=== PATIENT | female | born 1940 | race Caucasian/White ===

== ENCOUNTER 2017-06-23 10:18 | Inpatient (IN) | payer MEDICARE, BC ==
[2017-06-23] MEDS ORDERED: Acetaminophen TAB* 325 MG PO ONE (10:49)
[2017-06-23] MEDS ORDERED: NS 0.9% 1000 ML*IV.FLUID IV ONE (10:49)
[2017-06-23] MEDS ORDERED: Clindamycin 600 MG IVPREMIX(* 600 MG/50 ML SDV IV ONE (10:49)
[2017-06-23] MEDS ORDERED: Ondansetron INJ* 2 MG/ML VIAL IV ONE (10:49)
[2017-06-23] MEDS ORDERED: HYDROmorphone* 1 MG/ML 1 ML SYR IV SLOW PU ONE (10:51)
[2017-06-23 11:16] LABS: Albumin 3.7 g/dL (3.2-5.2); BUN/Creatinine Ratio 18.6 (8-20); C Reactive Protein 76.49 mg/L (< 5.00); Calcium 9.2 mg/dL (8.6-10.3); EGFR African American 82.3 (>60); Globulin 2.7 g/dL (2-4); Potassium 3.8 mmol/L (3.5-5.0); Total Bilirubin 1.8 mg/dL (0.2-1.0); Total Protein 6.4 g/dL (6.4-8.9)
[2017-06-23 11:22] LABS: Troponin I 0.07 ng/mL (<0.04)
[2017-06-23 11:24] LABS: Hematocrit 28 % (35-47); Hemoglobin 9.5 g/dl (12.0-16.0); Mean Corpuscular HGB Conc 34 g/dl (31-36); Mean Corpuscular Hemoglobin 33 pg (27-31); Mean Corpuscular Volume 99 fL (80-97); Mean Platelet Volume 8 um3 (7.4-10.4); Red Blood Count 2.84 10^6/ul (4.0-5.4); Red Cell Distribution Width 16 % (10.5-15); White Blood Count 7.9 10^3/ul (3.5-10.8)
[2017-06-23 11:26] LABS: Comments Flag Yes
[2017-06-23 11:27] LABS: Add Diff/Slide Review? Slide Review Added
--- NOTE | 2017-06-23 11:52 | RAD ---
INDICATION: Soft tissue swelling inferior occipital region and adjacent neck. Evaluate for abscess. COMPARISON: There are no prior studies available for comparison. TECHNIQUE: Multiple real-time images of the occipital region and posterior upper neck were obtained. FINDINGS: There is soft tissue swelling present in the inferior occipital region and adjacent posterior neck. There is a small hypoechoic irregular area although no discrete fluid collection or abscess is seen. IMPRESSION: SOFT TISSUE SWELLING, NO ABSCESS IS SEEN.
[2017-06-23] MEDS ORDERED: Acetaminophen TAB* 325 MG PO PRN (12:02)
[2017-06-23] MEDS ORDERED: Aspirin Low Dose CHEW TAB* 81 MG PO ONE (12:18)
[2017-06-23] MEDS ORDERED: cefTRIAXone(*) 1 GM ADVAN ONE (12:23)
[2017-06-23] MEDS ORDERED: Albuterol 2.5 MG/3 ML NEB.SOL* (0.083%) INH PRN (12:28)
[2017-06-23] MEDS ORDERED: Vancomycin per Pharmacy* NOTE FOLLOW UP PRN (12:29)
[2017-06-23 12:35] LABS: TSH (Thyroid Stimulating Horm) 2.36 mcIU/mL (0.34-5.60)
[2017-06-23] MEDS ORDERED: cefTRIAXone VIAL(*) 1,000 MG in NS 0.9% 50 ML* 50 ML IVPB SCH (13:00)
[2017-06-23] MEDS ORDERED: Vancomycin(*) 1,250 MG in NS 0.9% 250 ML* 250 ML IVPB ONE (13:00)
[2017-06-23 13:11] LABS: Urine Bilirubin Negative (Negative); Urine Glucose Negative (Negative); Urine Nitrite Negative (Negative)
[2017-06-23] MEDS ORDERED: Heparin VIAL(*) 5000 UNITS/ML VIAL (FIVE THOUSAND) SUBCUT SCH (14:00)
[2017-06-23] MEDS: NS 0.9% 1000 ML* 1,000 ML IV SCH (14:00)
[2017-06-23 14:13] LABS: Erythrocyte Sed Rate 35 mm/Hr (0-40)
--- NOTE | 2017-06-23 14:38 | HP ---
CC: Dr. Jesus * HISTORY AND PHYSICAL: DATE OF ADMISSION: 06/23/17 PRIMARY CARE PROVIDER: Dr. Jesus. ATTENDING PHYSICIAN WHILE IN THE HOSPITAL: Dr. Sowmya Caro * (report dictated by Je Frankel NP). CHIEF COMPLAINT: Redness, erythema to the back and neck. HISTORY OF PRESENTING ILLNESS: Ms. King is a 77-year-old female patient who on Sunday this week she felt something on the back of her neck. She was scratching at the back of the neck, it was itching, she dug something out, she did not know what it was, she is unsure if it was a tick or not. She had been outside but just in her garage, she was not in the alvarado or gardening. She states she typically hangs out in her garage with her family at times, and that is what she was doing. She states that throughout the week though, the redness and pain got worse and the back of her neck started feeling hot. She was feeling nauseated and having fevers. She was continuing to have pain in the back of her neck where the erythema and swelling was. She actually went to her primary once and was started on Bactrim , but despite this, she still continued to have fevers after being on the Bactrim for 2 days. She states the erythema had increased. The daughter had been putting triple antibiotic cream on the red swollen area, and despite this, it just was not getting any better, so they decided to come in to the hospital today to be evaluated. She states that she feels nauseated. She denies any abdominal pain. Denies having any chest pain. She states that she has been feeling just weak, tired and having chills. She was evaluated here, it was noted she had elevated troponin. Because of the appearance of the cellulitis, there was concern for possible abscess, and it was felt that she would probably require IV antibiotics, because she failed operation therapy and the hospitalist service was asked to evaluate for admission. PAST MEDICAL HISTORY: Significant for: 1. CML. 2. Hyperlipidemia. 3. Gout. 4. BRANDY. 5. COPD. 6. GERD. 7. Sarcoidosis. 8. Hypertension. 9. Afib. She was cardioverted on 06/05/17. 10. History of spinal stenosis and breast cancer. PAST SURGICAL HISTORY: 1. She has had a mastectomy 2. Cardioversion. 3. Appendectomy. 4. Hysterectomy. 5. ORIF of the right lower extremity. 6. Cataracts. 7. Tracheostomy. HOME MEDICATIONS: According to the list that was obtained from the pharmacy include: 1. Oxycodone 5 mg every 8 hours as needed. 2. Bactrim 1 tablet p.o. b.i.d. 3. Aldactone 25 mg daily. 4. Spironolactone/hydrochlorothiazide half tablet p.o. daily. 5. Ditropan 15 mg p.o. daily. 6. Gleevec 400 mg daily. 7. Celexa 10 mg daily. 8. Eliquis 5 mg p.o. b.i.d. 9. Allopurinol 300 mg daily. ALLERGIES TO MEDICATIONS: Include AMOXICILLIN, CEPHALEXIN, CIPRO, CLARITHROMYCIN, AUGMENTIN, DOXYCYCLINE, LEVAQUIN, PENICILLIN, PREDNISONE, ZOLOFT , IV CONTRAST and CEFPROZIL. FAMILY HISTORY: Mother had a history of breast cancer. Father had a history of CVA. SOCIAL HISTORY: She does not smoke, occasionally drinks alcohol. She is . Surrogate decision maker is her daughter. REVIEW OF SYSTEMS: There is a documented fever, she states she has had a fever as high as 103. She denies having any significant weight change. There was no double vision. There is no ear discharge. She denied having any rhinorrhea. There was no sore throat. No thyroid enlargement. Denies having any chest pain. There was no orthopnea. There was no nocturnal dyspnea. There was no abdominal pain. There was nausea. There was some vomiting. No dysuria, no frequency. There was no seizure. There was no loss of consciousness. No pruritus and no skin ulcerations. Review of 14 systems completed, all others negative. PHYSICAL EXAMINATION GENERAL: At this time, Ms. King is a 77-year-old female patient. She is sitting in the ER stretcher. She does not appear to be in any acute distress. VITAL SIGNS: Blood pressure 110/51, pulse 72, respirations 18,O2 sat 98%, temperature 100.4. HEENT: Head is atraumatic, normocephalic. Eyes: EOM's are intact. Sclerae anicteric, not pale. Throat: Oral mucosa appears to be most. No oropharyngeal erythema. NECK: Supple. LUNGS: Clear to auscultation. No wheezes, rales or rhonchi. HEART: Sounds S1, S2. Regular rate and rhythm. No murmurs, rubs or gallops. ABDOMEN: Soft, flat, nontender. Bowel sounds present. EXTREMITIES: Pulses were 2+ throughout. She is able to move all 4 extremities with 5/5 strength. NEUROLOGIC: The patient is awake. She is alert. She is oriented x3. The tongue is midline. 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 She had no gross focal deficits. SKIN: Intact with the exception she has an occipital area of her head that is swollen, erythematic, tender to palpation, there is induration. It does extend down to the right submandibular area coming from the back. There is some adenopathy on the right side and tenderness as well. LABORATORY DATA/DIAGNOSTIC STUDIES: Labs today reveal WBC 7.9, RBC 2.84, hemoglobin 9.5, hematocrit 28, platelet count 97,000. The INR was 1.74, PTT 34.6, sodium 125, potassium 3.8, chloride 95, bicarb 25, BUN 16, creatinine 0.86 , glucose 108, lactate 1.3, calcium 9.2, total bilirubin 1.8, AST 26, ALT 11, alk phos 55. Troponin was 0.07. Albumin was 3.7. She had a soft tissue ultrasound obtained today which showed soft tissue swelling, no abscesses seen. She did have an EKG obtained today, shows a normal sinus rhythm, rate of 72. No ST elevations or T- wave inversions were noted. It was reviewed with a previous EKG. Previous EKG, she did have a right bundle branch block and that was a prior EKG from 12/29/12, which again appeared to be similar to today's EKG. Old medical records reviewed. ASSESSMENT AND PLAN: Ms. King is a 77-year-old female patient coming into the ER today with complaints of erythema, redness, fevers and swelling on the back of her neck. The hospitalist service was asked to evaluate for admission. She will be admitted under inpatient status for: 1. Cellulitis. At this point, the other concern is that she may have had a tick, this could be Lyme. She does have several allergies, she states KEFLEX and the CEFPROZIL give her nausea, so I am going to go ahead and give her Rocephin. She does have a history of family members with MRSA, so I also felt that it was appropriate to give her vancomycin as she failed Bactrim, as this could be staph. We will send blood cultures. She has been hydrated here in the ED. We will continue with the IV antibiotics. Castillo cultures have been sent, we will wait for sensitivity. We will continue to follow her clinically. 2. Elevated troponin, etiology is unclear, could be demand ischemia from the fever and sepsis. At this point, we will trend these if they do continue to elevate, with cardiology input. I am also ordering an echo, I will place her on telemetry. I am going to give her an aspirin. 3. Chronic myelogenous leukemia. Continue the Gleevec. 4. Hyperlipidemia. Continue with current medical regimen. 5. Gout. Continue medicines as prescribed. 6. Obstructive sleep apnea. I ordered CPAP for her. 7. Chronic obstructive pulmonary disease. We will order p.r.n. albuterol for her. 8. Sarcoidosis. Again, at this point, does not appear to be active. She can follow with her primary for this. 9. History of breast cancer. She is on surveillance. Follow with her primary. 10. Gastroesophageal reflux disease. Continue meds as prescribed. 11. Hypertension. I am going to hold her diuretics in the setting of this infection. 12. Atrial fibrillation. She is in sinus rhythm. Continue Eliquis. 13. Spinal stenosis, p.r.n. pain medicine has been made available. 14. Hyponatremia. It is probably secondary to her spironolactone and hydrochlorothiazide. We have given her fluids. We will repeat the BMP later tonight. We will follow this closely and sent off urine studies and serum osmolality and urine osmolality. 15. DVT prophylaxis. She is on Eliquis. 16. Code Status: She wishes to be a DNR with trial intubation. 17. Fluids, electrolytes, nutrition. She had a clear liquid diet for now and will work to the goal of a regular diet. TIME SPENT: Time spent on the admission was 60 minutes; greater than half the time was spent [id number] with the patient, obtaining my history and physical , the other half time was spent going over the plan of care with the patient and implementing the plan of care. I did discuss the plan of care with my attending, Dr. Caro; she is in agreement. JE FRANKEL NP [id number]/[facility] [place] [id number] [facility] CENTERRaymundo
--- NOTE | 2017-06-23 15:13 | ED ---
Eva Mirza Edward, scribed for Lamine Roque MD on 06/23/17 at 1031 . Complex/Multi-Sys Presentation - HPI Summary HPI Summary: 77 y/o female presents to ED c/o febrile illness (high 103) lasting one week. The fever was alleviated with Tylenol. Pt also c/o red bump on the R side of her neck that has been there for one week. The bump has been getting bigger since it first appeared. Associated sx: constant HENDERSON starting after the bump appeared, rhinorrhea, nonproductive cough, nausea, decreased appetite and chills. PMHx leukemia, AFIB and arrythmia. Pt was at [place] a few days ago and given abx which has not alleviated sx. Pt also fell in her bathroom recently. - History Of Current Complaint Chief Complaint: EDGeneral Time Seen by Provider: 06/23/17 10:29 Hx Obtained From: Patient Onset/Duration: Lasting Weeks - 1, Still Present Timing: Constant Location: Pain At: - HENDERSON Associated Signs And Symptoms: Positive: Headache, Cough - Nonproductive, Nausea , Decreased Oral Intake, Fever - and chills, Other - Red bump on R side of neck , rhinorrhea - Allergies/Home Medications Allergies/Adverse Reactions: Allergies Allergy/AdvReac Type Severity Reaction Status Date / Time Amoxicillin Allergy Unknown Verified 06/23/17 10:36 Reaction Details Cefprozil Allergy Unknown Verified 06/23/17 10:36 Reaction Details Cephalexin Allergy Unknown Verified 06/23/17 10:36 Reaction Details Ciprofloxacin [From Cipro] Allergy Unknown Verified 06/23/17 10:36 Reaction Details Clarithromycin Allergy Unknown Verified 06/23/17 10:36 Reaction Details Clavulanic Acid Allergy Unknown Verified 06/23/17 10:36 Reaction Details Doxycycline Allergy Unknown Verified 06/23/17 10:36 Reaction Details Levofloxacin [From Levaquin] Allergy Unknown Verified 06/23/17 10:36 Reaction Details Penicillins [PCN] Allergy Unknown Verified 06/23/17 10:36 Reaction Details Prednisone Allergy Unknown Verified 06/23/17 10:36 Reaction Details Sertraline [From Zoloft] Allergy Unknown Verified 06/23/17 10:36 Reaction Details IV CONTRAST Allergy Unknown Uncoded 06/23/17 10:36 Reaction Details PMH/Surg Hx/FS Hx/Imm Hx Previously Healthy: No Cardiovascular History: Reports: Hx Atrial Fibrillation, Hx Hypertension, Hx Rheumatic Fever - X2 A CHILD AND TEEN, Other Cardiovascular Problems/ Disorders - Arrythmia Denies: Hx Pacemaker/ICD Respiratory History: Reports: Hx Chronic Obstructive Pulmonary Disease (COPD), Hx Sleep Apnea, Other Respiratory Problems/Disorders - trach, sarcoidosis GI History: Denies: Other GI Disorders History: Reports: Hx Kidney Stones - IN THE PAST, Other Problems/ Disorders - "leaky bladder" Musculoskeletal History: Reports: Hx Arthritis - BACK AND LEGS, Hx Gout Sensory History: Reports: Hx Cataracts - [place], Hx Contacts or Glasses - GLASSES Denies: Hx Hearing Aid Opthamlomology History: Reports: Hx Cataracts - [place], Hx Contacts or Glasses - GLASSES Neurological History: Denies: Other Neuro Impairments/Disorders Psychiatric History: Denies: Hx Panic Disorder - Cancer History Cancer Type, Location and Year: right breast. uterine Hx Chemotherapy: Yes - 2014, [place]EM[place] Hx Radiation Therapy: No - Surgical History Surgery Procedure, Year, and Place: hysterectomy Hx Anesthesia Reactions: No Infectious Disease History: Denies: Traveled Outside the [place] in Last 30 Days - Social History Alcohol Use: None Substance Use Type: Reports: None Smoking Status (MU): Never Smoked Tobacco Have You Smoked in the Last Year: No Review of Systems Positive: Fever, Chills, Other - decreased appetite Eyes: Negative Positive: Nasal Discharge - rhinorrhea Cardiovascular: Negative Positive: Cough - Nonproductive Positive: Nausea Genitourinary: Negative Musculoskeletal: Negative Positive: Rash - Red bump on neck Positive: Headache Psychological: Normal All Other Systems Reviewed And Are Negative: Yes Physical Exam - Summary Physical Exam Summary: The patient is well-nourished in no acute distress and in no acute pain. The patient is obese. The skin is warm and dry and skin color reflects adequate perfusion. HEENT: The head is normocephalic and atraumatic. The pupils are equal and reactive. The conjunctivae are clear and without drainage. Nares are patent and without drainage. Mouth reveals dry mucous membranes and the throat is without erythema and exudate. The external ears are intact. The ear canals are patent and without drainage. The tympanic membranes are intact. Neck is supple with full range of motion and non-tender. There are no carotid bruits. There is no neck vein distension. Respiratory: Chest is non-tender. Lungs are clear to auscultation and breath sounds are symmetrical and equal. Cardiovascular: Hear is regular rate and rhythm. There is no murmur or rub auscultated. There is no peripheral edema and pulses are symmetrical and equal. Abdomen: The abdomen is soft and non-tender. There are normal bowel sounds heard in all four quadrants and there is no organomegaly palpated. Musculoskeletal: There is no back pain noted. Extremities are non-tender with full range of motion. There is good capillary refill. There is no peripheral edema or calf tenderness elicited. Neurological: Patient is alert and oriented to person, place and time. The patient has symmetrical motor strength in all four extremities. Cranial nerves are grossly intact. Deep tendon reflexes are symmetrical and equal in all four extremities. Psychiatric: The patient has an appropriate affect and does not exhibit any anxiety or depression. Skin: There is a 7x4 cm fluctuant area at the R occipital area with extending erythema down into her neck by the R ear. There is decreased skin turgor. Triage Information Reviewed: Yes Vital Signs On Initial Exam: Initial Vitals Temp Pulse Resp BP Pulse Ox 98.4 F 81 20 128/54 99 06/23/17 10:21 06/23/17 10:21 06/23/17 10:21 06/23/17 10:21 06/23/17 10:21 Vital Signs Reviewed: Yes Diagnostics - Vital Signs Vital Signs Temp Pulse Resp BP Pulse Ox 06/23/17 10:21 98.4 F 81 20 128/54 99 - Laboratory Lab Results: Lab Results 06/23/17 06/23/17 06/23/17 Range/Units 10:45 10:45 10:45 WBC 7.9 (3.5-10.8) 10^3/ul RBC 2.84 L (4.0-5.4) 10^6/ul Hgb 9.5 L (12.0-16.0) g/dl Hct 28 L (35-47) % MCV 99 H (80-97) fL MCH 33 H (27-31) pg MCHC 34 (31-36) g/dl RDW 16 H (10.5-15) % Plt Count 97 L (150-450) 10^3/ul MPV 8 (7.4-10.4) um3 Neut % (Auto) 82.8 (38-83) % Lymph % (Auto) 9.7 L (25-47) % [place] % (Auto) 7.0 (1-9) % Eos % (Auto) 0.3 (0-6) % Baso % (Auto) 0.2 (0-2) % Absolute Neuts (auto) 6.6 (1.5-7.7) 10^3/ul Absolute Lymphs (auto) 0.8 L (1.0-4.8) 10^3/ul Absolute Monos (auto) 0.6 (0-0.8) 10^3/ul Absolute Eos (auto) 0 (0-0.6) 10^3/ul Absolute Basos (auto) 0 (0-0.2) 10^3/ul Absolute Nucleated RBC 0 10^3/ul Nucleated RBC % 0 ESR 35 (0-40) mm/Hr INR (Anticoag Therapy) 1.74 H (0.89-1.11) APTT 34.6 (26.0-36.3) seconds Sodium 125 L (133-145) mmol/L Potassium 3.8 (3.5-5.0) mmol/L Chloride 95 L (101-111) mmol/L Carbon Dioxide 25 (22-32) mmol/L Anion Gap 5 (2-11) mmol/L BUN 16 (6-24) mg/dL Creatinine 0.86 (0.51-0.95) mg/dL Est GFR ( Amer) 82.3 (>60) Est GFR (Non-Af Amer) 64.0 (>60) BUN/Creatinine Ratio 18.6 (8-20) Glucose 108 H (70-100) mg/dL Lactic Acid (0.5-2.0) mmol/L Calcium 9.2 (8.6-10.3) mg/dL Total Bilirubin 1.80 H (0.2-1.0) mg/dL AST 26 (13-39) U/L ALT 11 (7-52) U/L Alkaline Phosphatase 55 (34-104) U/L Troponin I 0.07 H* (<0.04) ng/mL C-Reactive Protein 76.49 H (< 5.00) mg/L Total Protein 6.4 (6.4-8.9) g/dL Albumin 3.7 (3.2-5.2) g/dL Globulin 2.7 (2-4) g/dL Albumin/Globulin Ratio 1.4 (1-3) TSH 2.36 (0.34-5.60) mcIU/mL Cortisol 18.96 mcg/dL 06/23/17 Range/Units 10:45 WBC (3.5-10.8) 10^3/ul RBC (4.0-5.4) 10^6/ul Hgb (12.0-16.0) g/dl Hct (35-47) % MCV (80-97) fL MCH (27-31) pg MCHC (31-36) g/dl RDW (10.5-15) % Plt Count (150-450) 10^3/ul MPV (7.4-10.4) um3 Neut % (Auto) (38-83) % Lymph % (Auto) (25-47) % [place] % (Auto) (1-9) % Eos % (Auto) (0-6) % Baso % (Auto) (0-2) % Absolute Neuts (auto) (1.5-7.7) 10^3/ul Absolute Lymphs (auto) (1.0-4.8) 10^3/ul Absolute Monos (auto) (0-0.8) 10^3/ul Absolute Eos (auto) (0-0.6) 10^3/ul Absolute Basos (auto) (0-0.2) 10^3/ul Absolute Nucleated RBC 10^3/ul Nucleated RBC % ESR (0-40) mm/Hr INR (Anticoag Therapy) (0.89-1.11) APTT (26.0-36.3) seconds Sodium (133-145) mmol/L Potassium (3.5-5.0) mmol/L Chloride (101-111) mmol/L Carbon Dioxide (22-32) mmol/L Anion Gap (2-11) mmol/L BUN (6-24) mg/dL Creatinine (0.51-0.95) mg/dL Est GFR ( Amer) (>60) Est GFR (Non-Af Amer) (>60) BUN/Creatinine Ratio (8-20) Glucose (70-100) mg/dL Lactic Acid 1.3 (0.5-2.0) mmol/L Calcium (8.6-10.3) mg/dL Total Bilirubin (0.2-1.0) mg/dL AST (13-39) U/L ALT (7-52) U/L Alkaline Phosphatase (34-104) U/L Troponin I (<0.04) ng/mL C-Reactive Protein (< 5.00) mg/L Total Protein (6.4-8.9) g/dL Albumin (3.2-5.2) g/dL Globulin (2-4) g/dL Albumin/Globulin Ratio (1-3) TSH (0.34-5.60) mcIU/mL Cortisol mcg/dL Result Diagrams: 06/23/17 10:45 06/23/17 10:45 Lab Statement: Any lab studies that have been ordered have been reviewed, and results considered in the medical decision making process. - Ultrasound No standard instances Ultrasound Interpretation: No Acute Changes - SOFT TISSUE SWELLING, NO SWELLING SEEN. ED PHYSICIAN AGREEABLE Ultrasound Interpretation Completed By: Radiologist - EKG 1 ST Segment: Normal - No STEMI EKG Interpretation: EKG 11:09 - Junctional rhythm @ 72. Poor R wave progression. Normal axis Complex Multi-Symp Course/Dx Assessment/Plan: 77 y/o female presents to ED c/o febrile illness (high 103) lasting one week. The fever was alleviated with Tylenol. Pt also c/o red bump on the R side of her neck that has been there for one week. The bump has been getting bigger since it first appeared. Associated sx: constant H[place] starting after the bump appeared, rhinorrhea, nonproductive cough, nausea, decreased appetite and chills. PMHx leukemia, AFIB and arrythmia. Pt was at [place] a few days ago and given abx which has not alleviated sx. Pt also fell in her bathroom recently. Troponin - 0.07. EKG 11:09 - Junctional rhythm @ 72. Poor R wave progression. Normal axis. No STEMI. SOFT TISSUE US SHOWS SOFT TISSUE SWELLING, NO SWELLING SEEN. ED PHYSICIAN AGREEABLE. Pt will be admitted to [facility] by Dr. Piña. - Diagnoses Differential Diagnoses/HQI/PQRI: Metabolic Abnormality, Urinary Tract Infection , Other - abscess, cellulitis Provider Diagnoses: Skin infection at the neck and head, Fever, Sepsis, Elevated troponin - Physician Notifications Discussed Care Of Patient With: Sowmya Piña Time Discussed With Above Provider: 11:25 Instructed by Provider To: Admit As Inpatient - Critical Care Time Critical Care Time: 30-74 min - 30 minutes Discharge - Discharge Plan Condition: Stable Disposition: ADMITTED TO [facility] documentation as recorded by the Eva aguirre Edward accurately reflects the service I personally performed and the decisions made by me, Lamine Roque MD.
[2017-06-23 19:17] LABS: BUN/Creatinine Ratio 17.2 (8-20); Calcium 8.4 mg/dL (8.6-10.3); EGFR African American 81.2 (>60); EGFR Non-African American 63.1 (>60); Potassium 3.4 mmol/L (3.5-5.0)
[2017-06-23 19:19] LABS: Troponin I 0.09 ng/mL (<0.04)
[2017-06-23] MEDS: Apixaban* 5 MG TAB PO SCH (21:01)
[2017-06-23] MEDS: HYDROcodone/ACETAMIN 5-325 MG* 1 TAB PO PRN (22:15)
[2017-06-24] MEDS: Vancomycin(*) 1,000 MG in NS 0.9% 250 ML* 250 ML IVPB SCH ×2 (01:13→14:21)
[2017-06-24] MEDS: NS 0.9% 1000 ML* 1,000 ML IV SCH (03:02)
[2017-06-24] MEDS: Morphine INJ* 2 MG/ML 1 ML SYRINGE IV PRN ×3 (03:48→16:35)
[2017-06-24] MEDS: Apixaban* 5 MG TAB PO SCH ×2 (08:14→21:30)
[2017-06-24] MEDS: HYDROcodone/ACETAMIN 5-325 MG* 1 TAB PO PRN ×3 (08:14→21:37)
[2017-06-24] MEDS: Citalopram TAB* 10 MG PO SCH (08:14)
[2017-06-24] MEDS: Allopurinol TAB* 100 MG PO SCH (08:14)
[2017-06-24] MEDS: Oxybutynin XL TAB* 5 MG PO SCH (08:14)
[2017-06-24] MEDS: IMATINIB 400 MG PO SCH (08:21)
[2017-06-24 08:30] LABS: Hematocrit 25 % (35-47); Hemoglobin 8.6 g/dl (12.0-16.0); Mean Corpuscular HGB Conc 34 g/dl (31-36); Mean Corpuscular Hemoglobin 34 pg (27-31); Mean Corpuscular Volume 100 fL (80-97); Mean Platelet Volume 8 um3 (7.4-10.4); Red Blood Count 2.54 10^6/ul (4.0-5.4); Red Cell Distribution Width 16 % (10.5-15); White Blood Count 6.6 10^3/ul (3.5-10.8)
[2017-06-24 08:31] LABS: Comments Flag Yes
[2017-06-24 08:42] LABS: BUN/Creatinine Ratio 15.9 (8-20); Calcium 8.5 mg/dL (8.6-10.3); EGFR African American 86.9 (>60); EGFR Non-African American 67.6 (>60); Potassium 3.9 mmol/L (3.5-5.0)
--- NOTE | 2017-06-24 12:30 | PN ---
Subjective Date of Service: 06/24/17 Interval History: Afebrile overnight, pain is improved. She slept poorly, but says the morphine relieved her pain. No diaphoresis, chills, nausea, vomiting, diarrhea. No other rashes, no headache. Her daughter is at bedside. Family History: Unchanged from Admission Social History: Unchanged from Admission Past Medical History: Unchanged from Admission Objective Active Medications: Acetaminophen (Tylenol Tab*) 650 mg PO Q4H PRN PRN Reason: FEVER/PAIN Last Admin: 06/23/17 14:25 Dose: 650 mg Hydrocodone Bitart/Acetaminophen ([place] 5-325 Tab*) 1 tab PO Q6H PRN PRN Reason: PAIN Last Admin: 06/24/17 08:14 Dose: 1 tab Albuterol (Ventolin 2.5 Mg/3 Ml Neb.Geno*) 2.5 mg INH Q2H PRN PRN Reason: SOB/WHEEZING Allopurinol (Zyloprim Tab*) 300 mg PO QAM REPLACED BY [facility] Last Admin: 06/24/17 08:14 Dose: 300 mg Apixaban (Eliquis*) 5 mg PO BID REPLACED BY [facility] Last Admin: 06/24/17 08:14 Dose: 5 mg Citalopram Hydrobromide (Celexa Tab*) 10 mg PO DAILY REPLACED BY [facility] Last Admin: 06/24/17 08:14 Dose: 10 mg Sodium Chloride (Ns 0.9% 1000 Ml*) 1,000 mls @ 100 mls/hr IV PER RATE REPLACED BY [facility] Last Admin: 06/24/17 03:02 Dose: 100 mls/hr Ceftriaxone Sodium 1,000 mg/ (Sodium Chloride) 50 mls @ 200 mls/hr IVPB Q24H REPLACED BY [facility] Last Admin: 06/23/17 14:16 Dose: 200 mls/hr Vancomycin HCl 1,000 mg/ (Sodium Chloride) 250 mls @ 166.667 mls/hr IVPB Q12H REPLACED BY [facility] Last Admin: 06/24/17 01:13 Dose: 166.667 mls/hr Imatinib Mesylate (Gleevec (Nf)) 400 mg PO DAILY REPLACED BY [facility] Last Admin: 06/24/17 08:21 Dose: Not Given Morphine Sulfate (Morphine Inj (Syringe)*) 2 mg IV Q2H PRN PRN Reason: PAIN Last Admin: 06/24/17 06:04 Dose: 2 mg Ondansetron HCl (Zofran Inj*) 4 mg IV Q6H PRN PRN Reason: NAUSEA Oxybutynin Chloride (Ditropan Xl Tab*) 15 mg PO DAILY [facility]EN[facility] Last Admin: 06/24/17 08:14 Dose: 15 mg Pharmacy Consult (Vancomycin Per Pharmacy*) 1 note FOLLOW UP . PRN PRN Reason: PER PROTOCOL Pharmacy Profile Note (Vancomycin Trough Check) 1 note FOLLOW UP 1330 ONE Stop: 06/25/17 13:31 Vital Signs 06/23/17 06/23/17 06/23/17 13:05 16:43 20:00 Temperature 98.1 F 98.1 F Pulse Rate 76 70 Respiratory 19 16 22 Rate Blood Pressure 117/49 106/50 (mmHg) O2 Sat by Pulse 96 95 Oximetry 06/23/17 06/23/17 06/23/17 20:51 21:55 22:15 Temperature 98.1 F Pulse Rate 74 Respiratory 16 22 Rate Blood Pressure 107/48 (mmHg) O2 Sat by Pulse 96 97 Oximetry 06/24/17 06/24/17 06/24/17 00:15 00:17 03:25 Temperature 98.7 F 98.2 F Pulse Rate 77 101 Respiratory 20 20 20 Rate Blood Pressure 105/49 108/45 (mmHg) O2 Sat by Pulse 100 98 Oximetry 06/24/17 06/24/17 06/24/17 03:48 04:48 06:04 Temperature Pulse Rate Respiratory 24 22 22 Rate Blood Pressure (mmHg) O2 Sat by Pulse Oximetry 06/24/17 06/24/17 06/24/17 08:00 08:03 08:14 Temperature 98.7 F Pulse Rate 78 Respiratory 20 18 20 Rate Blood Pressure 115/48 (mmHg) O2 Sat by Pulse 94 94 Oximetry 06/24/17 06/24/17 06/24/17 09:06 09:08 10:14 Temperature Pulse Rate 78 Respiratory 19 18 Rate Blood Pressure (mmHg) O2 Sat by Pulse 98 94 Oximetry Oxygen Devices in Use Now: None Appearance: alert, well-appearing, pale Eyes: No Scleral Icterus, PERRLA Ears/Nose/Mouth/Throat: NL Teeth, Lips, Gums, Clear Oropharnyx Neck: - - dark red blanching patch posterior neck at hair line, 4 inches wide by 2 inches tall. 1 inch area of fluctuance on the right edge. no induration. Respiratory: Symmetrical Chest Expansion and Respiratory Effort, Clear to Auscultation Cardiovascular: NL Sounds; No Murmurs; No JVD, RRR Abdominal: NL Sounds; No Tenderness; No Distention, No Hepatosplenomegaly Lymphatic: - - + right post cervical adenopathy Skin: - - cellulitis as described on neck; excoriations on left side of back, large dark ecchymosis on left buttock Neurological: Alert and Oriented x 3 Result Diagrams: 06/24/17 08:15 06/24/17 08:15 Additional Lab and Data: Lab Results 06/23/17 06/23/17 06/23/17 Range/Units 10:45 10:45 10:45 WBC 7.9 (3.5-10.8) 10^3/ul RBC 2.84 L (4.0-5.4) 10^6/ul Hgb 9.5 L (12.0-16.0) g/dl Hct 28 L (35-47) % MCV 99 H (80-97) fL MCH 33 H (27-31) pg MCHC 34 (31-36) g/dl RDW 16 H (10.5-15) % Plt Count 97 L (150-450) 10^3/ul MPV 8 (7.4-10.4) um3 Neut % (Auto) 82.8 (38-83) % Lymph % (Auto) 9.7 L (25-47) % [place] % (Auto) 7.0 (1-9) % Eos % (Auto) 0.3 (0-6) % Baso % (Auto) 0.2 (0-2) % Absolute Neuts (auto) 6.6 (1.5-7.7) 10^3/ul Absolute Lymphs (auto) 0.8 L (1.0-4.8) 10^3/ul Absolute Monos (auto) 0.6 (0-0.8) 10^3/ul Absolute Eos (auto) 0 (0-0.6) 10^3/ul Absolute Basos (auto) 0 (0-0.2) 10^3/ul Absolute Nucleated RBC 0 10^3/ul Nucleated RBC % 0 ESR 35 (0-40) mm/Hr INR (Anticoag Therapy) 1.74 H (0.89-1.11) APTT 34.6 (26.0-36.3) seconds Sodium 125 L (133-145) mmol/L Potassium 3.8 (3.5-5.0) mmol/L Chloride 95 L (101-111) mmol/L Carbon Dioxide 25 (22-32) mmol/L Anion Gap 5 (2-11) mmol/L BUN 16 (6-24) mg/dL Creatinine 0.86 (0.51-0.95) mg/dL Est GFR ( Amer) 82.3 (>60) Est GFR (Non-Af Amer) 64.0 (>60) BUN/Creatinine Ratio 18.6 (8-20) Glucose 108 H (70-100) mg/dL Lactic Acid (0.5-2.0) mmol/L Calcium 9.2 (8.6-10.3) mg/dL Total Bilirubin 1.80 H (0.2-1.0) mg/dL AST 26 (13-39) U/L ALT 11 (7-52) U/L Alkaline Phosphatase 55 (34-104) U/L Troponin I 0.07 H* (<0.04) ng/mL C-Reactive Protein 76.49 H (< 5.00) mg/L Total Protein 6.4 (6.4-8.9) g/dL Albumin 3.7 (3.2-5.2) g/dL Globulin 2.7 (2-4) g/dL Albumin/Globulin Ratio 1.4 (1-3) TSH 2.36 (0.34-5.60) mcIU/mL Cortisol 18.96 mcg/dL 06/23/17 Range/Units 10:45 WBC (3.5-10.8) 10^3/ul RBC (4.0-5.4) 10^6/ul Hgb (12.0-16.0) g/dl Hct (35-47) % MCV (80-97) fL MCH (27-31) pg MCHC (31-36) g/dl RDW (10.5-15) % Plt Count (150-450) 10^3/ul MPV (7.4-10.4) um3 Neut % (Auto) (38-83) % Lymph % (Auto) (25-47) % [place] % (Auto) (1-9) % Eos % (Auto) (0-6) % Baso % (Auto) (0-2) % Absolute Neuts (auto) (1.5-7.7) 10^3/ul Absolute Lymphs (auto) (1.0-4.8) 10^3/ul Absolute Monos (auto) (0-0.8) 10^3/ul Absolute Eos (auto) (0-0.6) 10^3/ul Absolute Basos (auto) (0-0.2) 10^3/ul Absolute Nucleated RBC 10^3/ul Nucleated RBC % ESR (0-40) mm/Hr INR (Anticoag Therapy) (0.89-1.11) APTT (26.0-36.3) seconds Sodium (133-145) mmol/L Potassium (3.5-5.0) mmol/L Chloride (101-111) mmol/L Carbon Dioxide (22-32) mmol/L Anion Gap (2-11) mmol/L BUN (6-24) mg/dL Creatinine (0.51-0.95) mg/dL Est GFR ( Amer) (>60) Est GFR (Non-Af Amer) (>60) BUN/Creatinine Ratio (8-20) Glucose (70-100) mg/dL Lactic Acid 1.3 (0.5-2.0) mmol/L Calcium (8.6-10.3) mg/dL Total Bilirubin (0.2-1.0) mg/dL AST (13-39) U/L ALT (7-52) U/L Alkaline Phosphatase (34-104) U/L Troponin I (<0.04) ng/mL C-Reactive Protein (< 5.00) mg/L Total Protein (6.4-8.9) g/dL Albumin (3.2-5.2) g/dL Globulin (2-4) g/dL Albumin/Globulin Ratio (1-3) TSH (0.34-5.60) mcIU/mL Cortisol mcg/dL Microbiology and Other Data: Microbiology 06/23/17 15:35 Nasal Screen MRSA (PCR)(MIK) - Final Nasal Mrsa Negative Assess/Plan/Problems-Billing Assessment: 1. Cellulitis, failed outpatient therapy. No sepsis; however she may not mount a usual inflammatory response on Gleevac. She does have bandemia on the differential. She should be considered somewhat immunocompromised being on gleevac and having CML, however she is not diabetic. Therefore I have low suspicion for gram negative cellulitis, so I will discontinue ceftriaxone and continue vancomycin only. PO antibiotic selection may be challenging given her drug allergies, but we may be able to use doxycycline. 2. CML/Immunocompromised status. Hgb and platelets are below baseline. This may be related to infection. Will continue to monitor. Continue Gleevac. 3. Elevated troponin. It is unclear to me why this was checked. Ms. King has had no chest pain, shortness of breath, palpitations, or other anginal equivalent in the past week. Her EKG had no ischemic changes. Likely demand in setting of infection. She has a stress test scheduled for 07/19; she should keep this appointment. 4. Afib s/p successful cardioversion 06/05 continue eliquis 5. Hyponatremia. she takes hctz at home, which is most likely the cause of her hyponatremia. She appears mildly hypovolemic on exam; continue NS.
[2017-06-24] MEDS: Ondansetron INJ* 2 MG/ML VIAL IV PRN (14:37)
[2017-06-25] MEDS: Morphine INJ* 2 MG/ML 1 ML SYRINGE IV PRN ×6 (00:12→22:00)
[2017-06-25] MEDS: Vancomycin(*) 1,000 MG in NS 0.9% 250 ML* 250 ML IVPB SCH ×2 (02:25→13:58)
[2017-06-25 04:48] LABS: EGFR African American 82.3 (>60)
[2017-06-25] MEDS: Citalopram TAB* 10 MG PO SCH (08:59)
[2017-06-25] MEDS: IMATINIB 400 MG PO SCH (08:59)
[2017-06-25] MEDS: Oxybutynin XL TAB* 5 MG PO SCH (08:59)
[2017-06-25] MEDS: Allopurinol TAB* 100 MG PO SCH (09:00)
[2017-06-25] MEDS: Apixaban* 5 MG TAB PO SCH ×2 (09:00→21:11)
--- NOTE | 2017-06-25 10:42 | ECHO ---
Patient: MARK FERRARA [facility] Rec#: [id number] : 1940 Date: 06/25/2017 Age: 77y Height: 152.4 cm / 60.0 in Weight: 73.94 kg / 163.0 lbs Sex: F BSA: 1.71 Room#: 431 Admit Date#: 06/23/2017 Type: Inpatient Referring: Je Frankel NP Reading: Constantino Duran MD English Division Chair: Ellyn Tompkins RDCS CC: Tadeo Jesus MD Transthoracic Echocardiogram Indication: HTN, elevated troponins. BP: 108/45 HR: 64 Rhythm: NSR Findings History: HLD, gout, BRANDY, COPD, Sarcoidosis, HTN, A-fib s/p cardioversion 06/05/17. Technical Comments: The study quality is fair. The study is technically limited due to patient body habitus. The study was technically limited due to the patient's inability to lay in the left lateral decubitus position. Patient was in a reclined chair during the study. Completed at 1000. Left Ventricle: The left ventricular chamber size is normal. Mild to moderate concentric left ventricular hypertrophy is observed. Global left ventricular wall motion and contractility are within normal limits. There is normal left ventricular systolic function. The estimated ejection fraction is 55-60%. There is septal flattening of the interventricular septum consistent with right ventricular volume or pressure overload. Abnormal left ventricular diastolic function is observed. Left Atrium: The left atrium is mildly dilated. Right Ventricle: The right ventricle is mild to moderately dilated. The right ventricular global systolic function is low normal. Right Atrium: The right atrium is moderately dilated. Aortic Valve: The aortic valve is trileaflet. Mild aortic leaflet calcification is visualized. Systolic excursion of the aortic valve cusps is reduced. There is moderate aortic regurgitation. There is borderline aortic stenosis present. Mitral Valve: There is mitral annular calcification. The mitral valve leaflets are moderately thickened. There is mild mitral regurgitation. There is no evidence of mitral stenosis. Tricuspid Valve: The tricuspid valve leaflets are normal. There is mild tricuspid regurgitation. The right ventricular systolic pressure is estimated at 36 mmHg. There is evidence of mild pulmonary hypertension. There is no tricuspid stenosis. Pulmonic Valve: The pulmonic valve appears normal. There is mild to moderate pulmonic regurgitation. There is no pulmonic stenosis. Pericardium: There is no significant pericardial effusion. A pericardial fat pad is visualized. Aorta: There is mild dilatation of the ascending aorta.3.7 cm There is no dilatation of the aortic arch. The aortic root is normal in size. Pulmonary Artery: The main pulmonary artery appears normal. Venous: The inferior vena cava is dilated. There is an approximate 50% respiratory change in the inferior vena cava dimension. Conclusions Mild to moderate concentric left ventricular hypertrophy is observed. Global left ventricular wall motion and contractility are within normal limits. The estimated ejection fraction is 55-60%. There is septal flattening of the interventricular septum consistent with right ventricular volume or pressure overload. The right ventricular global systolic function is low normal. There is moderate aortic regurgitation. There is mild mitral regurgitation. There is mild tricuspid regurgitation. The right ventricular systolic pressure is estimated at 36 mmHg. There is no significant pericardial effusion. Compared to study of 03/26/15, the LV function is the same. The aortic regurgitaiton is slightly worse Measurements Name Value Normal Range RVIDd (AP) 2D 4.4 cm (0.9 - 2.6) RVDdMajor (2D) 5.2 cm (2.2 - 4.4) RAd ISD 4CH 6 cm (3.4 - 4.9) RA (A4C)W 4.8 cm (2.9 - 4.6) IVSd (2D) 1.3 cm (0.6 - 1) LVPWd (2D) 1.2 cm (0.6 - 1) LVIDd (2D) 3.9 cm (3.6 - 5.4) LVIDs (2D) 2.3 cm - LV FS (2D) 39 % (25 - 45) Aortic Annulus 2.3 cm (1.4 - 2.6) Ao root diameter (2D) 3.5 cm (2.1 - 3.5) Ascending Ao 3.7 cm (2.1 - 3.4) Aortic arch 2.3 cm (1.8 - 3.4) LA dimension (AP) 2D 3.8 cm (2.3 - 3.8) LAd ISD 4CH 6.6 cm (2.9 - 5.3) LA ISD 4CH W 4.8 cm (2.5 - 4.5) Name Value Normal Range LA ESV SP 4CH (A/L) 82 ml - LA ESV SP 2CH (A/L) 75 ml - LA ESV BP (A/L) 81 ml - LA ESV BP (A/L) index 47.16 ml/m2 - LA ESV SP 4CH (MOD) 78 ml - LA ESV SP 2CH (MOD) 68 ml - Name Value Normal Range MV E-wave Vmax 1.54 m/sec - MV deceleration time 219.9 msec - MV A-wave Vmax 0.67 m/sec - MV E:A ratio 2.32 ratio - LV septal e' Vmax 0.07 m/sec - LV lateral e' Vmax 0.09 m/sec - LV E:e' septal ratio 22 ratio - LV E:e' lateral ratio 17.11 ratio - Name Value Normal Range AV Vmax 2.09 m/sec - AV VTI 35.7 cm - AV peak gradient 17.44 mmHg - AV mean gradient 7.8 mmHg - LVOT diameter 2 cm - LVOT Vmax 1.19 m/sec - LVOT VTI 22.2 cm - LVOT peak gradient 5.74 mmHg - LVOT mean gradient 3.19 mmHg - DOI (VTI) 0.62 ratio - PHILIP (continuity Vmax) 1.8 cm2 - PHILIP (continuity VTI) 1.95 cm2 - AR PHT 447 msec - AR peak gradient 54.37 mmHg - Name Value Normal Range MV Vmax 1.57 m/sec - MV VTI 47.54 cm - MV peak gradient 9.88 mmHg - MV mean gradient 3.2 mmHg - MV PHT 87.76 msec - MVA (PHT) 2.5 cm2 - Name Value Normal Range TR Vmax 2.3 m/sec - TR peak gradient 21 mmHg - RAP 15 mmHg - RVSP 36 mmHg - IVC diameter 2.5 cm - Name Value Normal Range PV Vmax 1.17 m/sec - PV peak gradient 5.51 mmHg - AK end-diastolic Vmax 1.36 m/sec -
[2017-06-25] MEDS: Docusate CAP* 100 MG PO PRN (12:48)
[2017-06-25] MEDS: HYDROcodone/ACETAMIN 5-325 MG* 1 TAB PO PRN (12:49)
--- NOTE | 2017-06-25 13:04 | PN ---
Subjective Date of Service: 06/25/17 Interval History: Ms. King still complains of pain in the neck over the cellulitis. No fevers or chills, no diaphoresis. She has been taking morphine as needed. No drainage from the site, no chest pain, shortness of breath, nausea, headache, blurry vision. Family History: Unchanged from Admission Social History: Unchanged from Admission Past Medical History: Unchanged from Admission Objective Active Medications: Acetaminophen (Tylenol Tab*) 650 mg PO Q4H PRN PRN Reason: FEVER/PAIN Last Admin: 06/23/17 14:25 Dose: 650 mg Hydrocodone Bitart/Acetaminophen ([place] 5-325 Tab*) 1 tab PO Q6H PRN PRN Reason: PAIN Last Admin: 06/25/17 12:49 Dose: 1 tab Albuterol (Ventolin 2.5 Mg/3 Ml Neb.Geno*) 2.5 mg INH Q2H PRN PRN Reason: SOB/WHEEZING Allopurinol (Zyloprim Tab*) 300 mg PO QAM [facility] Last Admin: 06/25/17 09:00 Dose: 300 mg Apixaban (Eliquis*) 5 mg PO BID [facility] Last Admin: 06/25/17 09:00 Dose: 5 mg Citalopram Hydrobromide (Celexa Tab*) 10 mg PO DAILY [facility] Last Admin: 06/25/17 08:59 Dose: 10 mg Docusate Sodium (Colace Cap*) 100 mg PO DAILY PRN PRN Reason: CONSTIPATION Last Admin: 06/25/17 12:48 Dose: 100 mg Sodium Chloride (Ns 0.9% 1000 Ml*) 1,000 mls @ 100 mls/hr IV PER RATE [facility] Last Admin: 06/24/17 03:02 Dose: 100 mls/hr Vancomycin HCl 1,000 mg/ (Sodium Chloride) 250 mls @ 166.667 mls/hr IVPB Q12H [facility] Last Admin: 06/25/17 02:25 Dose: 166.667 mls/hr Imatinib Mesylate (Gleevec (Nf)) 400 mg PO DAILY [facility] Last Admin: 06/25/17 08:59 Dose: 400 mg Morphine Sulfate (Morphine Inj (Syringe)*) 2 mg IV Q2H PRN PRN Reason: PAIN Last Admin: 06/25/17 06:21 Dose: 2 mg Ondansetron HCl (Zofran Inj*) 4 mg IV Q6H PRN PRN Reason: NAUSEA Last Admin: 06/24/17 14:37 Dose: 4 mg Oxybutynin Chloride (Ditropan Xl Tab*) 15 mg PO DAILY BRENDA Last Admin: 06/25/17 08:59 Dose: 15 mg Pharmacy Consult (Vancomycin Per Pharmacy*) 1 note FOLLOW UP . PRN PRN Reason: PER PROTOCOL Pharmacy Profile Note (Vancomycin Trough Check) 1 note FOLLOW UP 1330 ONE Stop: 06/25/17 13:31 Polyethylene Glycol/Electrolytes (Miralax*) 17 gm PO DAILY PRN PRN Reason: CONSTIPATION Vital Signs 06/24/17 06/24/17 06/24/17 14:28 15:17 16:28 Temperature 99.3 F Pulse Rate 80 Respiratory 20 20 20 Rate Blood Pressure 120/48 (mmHg) O2 Sat by Pulse 97 Oximetry 06/24/17 06/24/17 06/24/17 16:35 17:35 19:11 Temperature 99.9 F Pulse Rate 108 Respiratory 20 18 22 Rate Blood Pressure 106/34 (mmHg) O2 Sat by Pulse 92 Oximetry 06/24/17 06/24/17 06/24/17 19:33 19:35 19:37 Temperature Pulse Rate 76 77 92 Respiratory Rate Blood Pressure 106/49 112/45 111/52 (mmHg) O2 Sat by Pulse Oximetry 06/24/17 06/24/17 06/24/17 20:00 21:30 21:37 Temperature 99.1 F Pulse Rate Respiratory 22 22 Rate Blood Pressure (mmHg) O2 Sat by Pulse 92 Oximetry 06/24/17 06/24/17 06/25/17 23:37 23:51 00:12 Temperature 99.0 F Pulse Rate 88 Respiratory 22 16 20 Rate Blood Pressure 106/47 (mmHg) O2 Sat by Pulse 98 Oximetry 06/25/17 06/25/17 06/25/17 00:36 01:12 03:36 Temperature 98.7 F Pulse Rate 75 72 Respiratory 20 22 16 Rate Blood Pressure 122/55 (mmHg) O2 Sat by Pulse 95 99 Oximetry 06/25/17 06/25/17 06/25/17 03:54 04:54 06:21 Temperature Pulse Rate Respiratory 22 20 22 Rate Blood Pressure (mmHg) O2 Sat by Pulse Oximetry 09/02/0506/25/17 06/25/17 07:20 07:21 08:00 Temperature 100.3 F Pulse Rate 61 Respiratory 18 16 18 Rate Blood Pressure 101/45 (mmHg) O2 Sat by Pulse 92 92 Oximetry 06/25/17 12:49 Temperature Pulse Rate Respiratory 16 Rate Blood Pressure (mmHg) O2 Sat by Pulse Oximetry Oxygen Devices in Use Now: None Appearance: alert, sitting up in chair, pale Eyes: No Scleral Icterus, PERRLA Ears/Nose/Mouth/Throat: NL Teeth, Lips, Gums, Clear Oropharnyx Neck: NL Appearance and Movements; NL JVP, Trachea Midline Respiratory: Symmetrical Chest Expansion and Respiratory Effort, Clear to Auscultation Cardiovascular: NL Sounds; No Murmurs; No JVD, RRR Abdominal: NL Sounds; No Tenderness; No Distention, No Hepatosplenomegaly Lymphatic: - - + posterior cervical adenopathy Extremities: No Edema Skin: - - 4 inch wide erythema posterior neck at hairline, indurated, with a 1 inch area of fluctuance on the right side Neurological: Alert and Oriented x 3 Result Diagrams: 06/24/17 08:15 06/25/17 04:25 Additional Lab and Data: Lab Results 06/23/17 06/23/17 06/23/17 Range/Units 10:45 10:45 10:45 WBC 7.9 (3.5-10.8) 10^3/ul RBC 2.84 L (4.0-5.4) 10^6/ul Hgb 9.5 L (12.0-16.0) g/dl Hct 28 L (35-47) % MCV 99 H (80-97) fL MCH 33 H (27-31) pg MCHC 34 (31-36) g/dl RDW 16 H (10.5-15) % Plt Count 97 L (150-450) 10^3/ul MPV 8 (7.4-10.4) um3 Neut % (Auto) 82.8 (38-83) % Lymph % (Auto) 9.7 L (25-47) % [place] % (Auto) 7.0 (1-9) % Eos % (Auto) 0.3 (0-6) % Baso % (Auto) 0.2 (0-2) % Absolute Neuts (auto) 6.6 (1.5-7.7) 10^3/ul Absolute Lymphs (auto) 0.8 L (1.0-4.8) 10^3/ul Absolute Monos (auto) 0.6 (0-0.8) 10^3/ul Absolute Eos (auto) 0 (0-0.6) 10^3/ul Absolute Basos (auto) 0 (0-0.2) 10^3/ul Absolute Nucleated RBC 0 10^3/ul Nucleated RBC % 0 ESR 35 (0-40) mm/Hr INR (Anticoag Therapy) 1.74 H (0.89-1.11) APTT 34.6 (26.0-36.3) seconds Sodium 125 L (133-145) mmol/L Potassium 3.8 (3.5-5.0) mmol/L Chloride 95 L (101-111) mmol/L Carbon Dioxide 25 (22-32) mmol/L Anion Gap 5 (2-11) mmol/L BUN 16 (6-24) mg/dL Creatinine 0.86 (0.51-0.95) mg/dL Est GFR ( Amer) 82.3 (>60) Est GFR (Non-Af Amer) 64.0 (>60) BUN/Creatinine Ratio 18.6 (8-20) Glucose 108 H (70-100) mg/dL Lactic Acid (0.5-2.0) mmol/L Calcium 9.2 (8.6-10.3) mg/dL Total Bilirubin 1.80 H (0.2-1.0) mg/dL AST 26 (13-39) U/L ALT 11 (7-52) U/L Alkaline Phosphatase 55 (34-104) U/L Troponin I 0.07 H* (<0.04) ng/mL C-Reactive Protein 76.49 H (< 5.00) mg/L Total Protein 6.4 (6.4-8.9) g/dL Albumin 3.7 (3.2-5.2) g/dL Globulin 2.7 (2-4) g/dL Albumin/Globulin Ratio 1.4 (1-3) TSH 2.36 (0.34-5.60) mcIU/mL Cortisol 18.96 mcg/dL 06/23/17 Range/Units 10:45 WBC (3.5-10.8) 10^3/ul RBC (4.0-5.4) 10^6/ul Hgb (12.0-16.0) g/dl Hct (35-47) % MCV (80-97) fL MCH (27-31) pg MCHC (31-36) g/dl RDW (10.5-15) % Plt Count (150-450) 10^3/ul MPV (7.4-10.4) um3 Neut % (Auto) (38-83) % Lymph % (Auto) (25-47) % [place] % (Auto) (1-9) % Eos % (Auto) (0-6) % Baso % (Auto) (0-2) % Absolute Neuts (auto) (1.5-7.7) 10^3/ul Absolute Lymphs (auto) (1.0-4.8) 10^3/ul Absolute Monos (auto) (0-0.8) 10^3/ul Absolute Eos (auto) (0-0.6) 10^3/ul Absolute Basos (auto) (0-0.2) 10^3/ul Absolute Nucleated RBC 10^3/ul Nucleated RBC % ESR (0-40) mm/Hr INR (Anticoag Therapy) (0.89-1.11) APTT (26.0-36.3) seconds Sodium (133-145) mmol/L Potassium (3.5-5.0) mmol/L Chloride (101-111) mmol/L Carbon Dioxide (22-32) mmol/L Anion Gap (2-11) mmol/L BUN (6-24) mg/dL Creatinine (0.51-0.95) mg/dL Est GFR ( Amer) (>60) Est GFR (Non-Af Amer) (>60) BUN/Creatinine Ratio (8-20) Glucose (70-100) mg/dL Lactic Acid 1.3 (0.5-2.0) mmol/L Calcium (8.6-10.3) mg/dL Total Bilirubin (0.2-1.0) mg/dL AST (13-39) U/L ALT (7-52) U/L Alkaline Phosphatase (34-104) U/L Troponin I (<0.04) ng/mL C-Reactive Protein (< 5.00) mg/L Total Protein (6.4-8.9) g/dL Albumin (3.2-5.2) g/dL Globulin (2-4) g/dL Albumin/Globulin Ratio (1-3) TSH (0.34-5.60) mcIU/mL Cortisol mcg/dL Microbiology and Other Data: Microbiology 06/23/17 15:35 Nasal Screen MRSA (PCR)(MIK) - Final Nasal Mrsa Negative Assess/Plan/Problems-Billing Assessment: 1. Cellulitis, failed outpatient therapy. No sepsis; however she may not mount a usual inflammatory response on Gleevac. She does have bandemia on the differential. She should be considered somewhat immunocompromised being on gleevac and having CML, however she is not diabetic. Check vanc trough today to ensure we are at therapeutic levels; no improvement thus far. On intiail US there was no abscess to be drained, however there does appear to be a pocket of pus on my exam, so I am repeating an ultrasound to re-evaluate for a drainable collection. PO antibiotic selection may be challenging given her drug allergies, but we may be able to use doxycycline or clindamycin. 2. CML/Immunocompromised status. Hgb and platelets are below baseline. This may be related to infection. Will continue to monitor. Continue Gleevac. 3. Elevated troponin. It is unclear to me why this was checked. Ms. King has had no chest pain, shortness of breath, palpitations, or other anginal equivalent in the past week. Her EKG had no ischemic changes. Likely demand in setting of infection. She has a stress test scheduled for 07/19; she should keep this appointment. 4. Afib s/p successful cardioversion 06/05 continue eliquis 5. Hyponatremia. she takes hctz at home, which is most likely the cause of her hyponatremia. She appears mildly hypovolemic on exam; continue NS.
[2017-06-25] MEDS ORDERED: Vancomycin Trough Check NOTE FOLLOW UP ONE (13:30)
[2017-06-25] MEDS ORDERED: Calcium Carbonate CHEW TAB* 500 MG (TUMS) PO PRN (17:25)
--- NOTE | 2017-06-25 17:48 | RAD ---
Indication: Posterior neck abscess. Comparison: June 23, 2017 Technique: Ultrasound of the posterior neck/base of head. Report: Corresponding with the region of skin contour convexity there is a ill-defined small collection within the subcutaneous tissue plane with thickening of the overlying skin measuring up to 1.2 x 0.9 x 0.9 cm without significant interval change. Surrounding soft tissue edema without significant change. IMPRESSION: No significant change in 1.2 x 0.9 x 0.9 cm superficial soft tissue plane abscess collection.
[2017-06-26] MEDS: Morphine INJ* 2 MG/ML 1 ML SYRINGE IV PRN ×5 (00:06→19:47)
[2017-06-26] MEDS: Vancomycin(*) 1,000 MG in NS 0.9% 250 ML* 250 ML IVPB SCH ×2 (02:12→13:31)
[2017-06-26 06:51] LABS: Hematocrit 24 % (35-47); Mean Corpuscular HGB Conc 34 g/dl (31-36); Mean Corpuscular Hemoglobin 33 pg (27-31); Mean Corpuscular Volume 100 fL (80-97); Mean Platelet Volume 8 um3 (7.4-10.4); Red Blood Count 2.39 10^6/ul (4.0-5.4); Red Cell Distribution Width 16 % (10.5-15)
[2017-06-26 07:10] LABS: EGFR African American 90.8 (>60); EGFR Non-African American 70.6 (>60); Potassium 4.3 mmol/L (3.5-5.0)
[2017-06-26] MEDS: Allopurinol TAB* 100 MG PO SCH (07:55)
[2017-06-26] MEDS: Apixaban* 5 MG TAB PO SCH ×2 (07:55→19:48)
[2017-06-26] MEDS: Citalopram TAB* 10 MG PO SCH (07:55)
[2017-06-26] MEDS: IMATINIB 400 MG PO SCH (07:55)
[2017-06-26] MEDS: Oxybutynin XL TAB* 5 MG PO SCH (07:56)
--- NOTE | 2017-06-26 09:54 | PN ---
Subjective Date of Service: 06/26/17 Interval History: Ms. King noticed this morning that the abscess has begun to drain. She has been afebrile and pain is improving. No chills, diaphoresis, chest pain, or other rashes. Family History: Unchanged from Admission Social History: Unchanged from Admission Past Medical History: Unchanged from Admission Objective Active Medications: Acetaminophen (Tylenol Tab*) 650 mg PO Q4H PRN PRN Reason: FEVER/PAIN Last Admin: 06/23/17 14:25 Dose: 650 mg Hydrocodone Bitart/Acetaminophen ([place] 5-325 Tab*) 1 tab PO Q6H PRN PRN Reason: PAIN Last Admin: 06/25/17 12:49 Dose: 1 tab Albuterol (Ventolin 2.5 Mg/3 Ml Neb.Geno*) 2.5 mg INH Q2H PRN PRN Reason: SOB/WHEEZING Allopurinol (Zyloprim Tab*) 300 mg PO QAM [facility] Last Admin: 06/26/17 07:55 Dose: 300 mg Apixaban (Eliquis*) 5 mg PO BID [facility] Last Admin: 06/26/17 07:55 Dose: 5 mg Calcium Carbonate (Tums*) 500 mg PO Q4H PRN PRN Reason: INDIGESTION Last Admin: 06/25/17 17:33 Dose: 500 mg Citalopram Hydrobromide (Celexa Tab*) 10 mg PO DAILY [facility] Last Admin: 06/26/17 07:55 Dose: 10 mg Docusate Sodium (Colace Cap*) 100 mg PO DAILY PRN PRN Reason: CONSTIPATION Last Admin: 06/25/17 12:48 Dose: 100 mg Sodium Chloride (Ns 0.9% 1000 Ml*) 1,000 mls @ 100 mls/hr IV PER RATE [facility] Last Admin: 06/24/17 03:02 Dose: 100 mls/hr Vancomycin HCl 1,000 mg/ (Sodium Chloride) 250 mls @ 166.667 mls/hr IVPB Q12H [facility] Last Admin: 06/26/17 02:12 Dose: 166.667 mls/hr Imatinib Mesylate (Gleevec (Nf)) 400 mg PO DAILY [facility] Last Admin: 06/26/17 07:55 Dose: 400 mg Morphine Sulfate (Morphine Inj (Syringe)*) 2 mg IV Q2H PRN PRN Reason: PAIN Last Admin: 06/26/17 04:42 Dose: 2 mg Ondansetron HCl (Zofran Inj*) 4 mg IV Q6H PRN PRN Reason: NAUSEA Last Admin: 06/24/17 14:37 Dose: 4 mg Oxybutynin Chloride (Ditropan Xl Tab*) 15 mg PO DAILY [facility] Last Admin: 06/26/17 07:56 Dose: 15 mg Pharmacy Consult (Vancomycin Per Pharmacy*) 1 note FOLLOW UP . PRN PRN Reason: PER PROTOCOL Pharmacy Profile Note (Vancomycin Trough Check) 1 note FOLLOW UP ONCE ONE Stop: 06/27/17 14:01 Polyethylene Glycol/Electrolytes (Miralax*) 17 gm PO DAILY PRN PRN Reason: CONSTIPATION Vital Signs 06/25/17 06/25/17 06/25/17 12:49 14:49 15:20 Temperature 98.1 F Pulse Rate 75 Respiratory 16 16 16 Rate Blood Pressure 112/42 (mmHg) O2 Sat by Pulse 95 Oximetry 06/25/17 06/25/17 06/25/17 17:38 19:15 19:32 Temperature 99.2 F Pulse Rate 87 Respiratory 16 16 22 Rate Blood Pressure 107/48 (mmHg) O2 Sat by Pulse 94 Oximetry 06/25/17 06/25/17 06/25/17 20:00 20:32 22:00 Temperature Pulse Rate Respiratory 20 20 18 Rate Blood Pressure (mmHg) O2 Sat by Pulse 94 Oximetry 06/25/17 06/25/17 06/26/17 22:36 23:00 00:06 Temperature 98.3 F Pulse Rate 64 Respiratory 19 17 21 Rate Blood Pressure 111/40 (mmHg) O2 Sat by Pulse 94 Oximetry 06/26/17 06/26/17 06/26/17 01:06 01:28 02:11 Temperature Pulse Rate 64 Respiratory 19 20 17 Rate Blood Pressure (mmHg) O2 Sat by Pulse 94 Oximetry 06/26/17 06/26/17 06/26/17 03:11 03:50 04:42 Temperature 98.0 F Pulse Rate 80 Respiratory 18 16 17 Rate Blood Pressure 106/42 (mmHg) O2 Sat by Pulse 95 Oximetry 06/26/17 06/26/17 08:08 08:22 Temperature 98.0 F Pulse Rate 63 Respiratory 16 18 Rate Blood Pressure 111/46 (mmHg) O2 Sat by Pulse 99 Oximetry Oxygen Devices in Use Now: None Appearance: pale, tired, no distress Eyes: No Scleral Icterus, PERRLA Ears/Nose/Mouth/Throat: NL Teeth, Lips, Gums, Clear Oropharnyx Neck: NL Appearance and Movements; NL JVP Respiratory: Symmetrical Chest Expansion and Respiratory Effort, Clear to Auscultation Cardiovascular: NL Sounds; No Murmurs; No JVD, RRR Abdominal: NL Sounds; No Tenderness; No Distention, No Hepatosplenomegaly Extremities: No Edema, No Clubbing, Cyanosis Skin: No Rash or Ulcers Neurological: Alert and Oriented x 3, NL Sensation Result Diagrams: 06/26/17 06:22 06/26/17 06:16 Additional Lab and Data: Lab Results 06/23/17 06/23/17 06/23/17 Range/Units 10:45 10:45 10:45 WBC 7.9 (3.5-10.8) 10^3/ul RBC 2.84 L (4.0-5.4) 10^6/ul Hgb 9.5 L (12.0-16.0) g/dl Hct 28 L (35-47) % MCV 99 H (80-97) fL MCH 33 H (27-31) pg MCHC 34 (31-36) g/dl RDW 16 H (10.5-15) % Plt Count 97 L (150-450) 10^3/ul MPV 8 (7.4-10.4) um3 Neut % (Auto) 82.8 (38-83) % Lymph % (Auto) 9.7 L (25-47) % Zavala % (Auto) 7.0 (1-9) % Eos % (Auto) 0.3 (0-6) % Baso % (Auto) 0.2 (0-2) % Absolute Neuts (auto) 6.6 (1.5-7.7) 10^3/ul Absolute Lymphs (auto) 0.8 L (1.0-4.8) 10^3/ul Absolute Monos (auto) 0.6 (0-0.8) 10^3/ul Absolute Eos (auto) 0 (0-0.6) 10^3/ul Absolute Basos (auto) 0 (0-0.2) 10^3/ul Absolute Nucleated RBC 0 10^3/ul Nucleated RBC % 0 ESR 35 (0-40) mm/Hr INR (Anticoag Therapy) 1.74 H (0.89-1.11) APTT 34.6 (26.0-36.3) seconds Sodium 125 L (133-145) mmol/L Potassium 3.8 (3.5-5.0) mmol/L Chloride 95 L (101-111) mmol/L Carbon Dioxide 25 (22-32) mmol/L Anion Gap 5 (2-11) mmol/L BUN 16 (6-24) mg/dL Creatinine 0.86 (0.51-0.95) mg/dL Est GFR ( Amer) 82.3 (>60) Est GFR (Non-Af Amer) 64.0 (>60) BUN/Creatinine Ratio 18.6 (8-20) Glucose 108 H (70-100) mg/dL Lactic Acid (0.5-2.0) mmol/L Calcium 9.2 (8.6-10.3) mg/dL Total Bilirubin 1.80 H (0.2-1.0) mg/dL AST 26 (13-39) U/L ALT 11 (7-52) U/L Alkaline Phosphatase 55 (34-104) U/L Troponin I 0.07 H* (<0.04) ng/mL C-Reactive Protein 76.49 H (< 5.00) mg/L Total Protein 6.4 (6.4-8.9) g/dL Albumin 3.7 (3.2-5.2) g/dL Globulin 2.7 (2-4) g/dL Albumin/Globulin Ratio 1.4 (1-3) TSH 2.36 (0.34-5.60) mcIU/mL Cortisol 18.96 mcg/dL 06/23/17 Range/Units 10:45 WBC (3.5-10.8) 10^3/ul RBC (4.0-5.4) 10^6/ul Hgb (12.0-16.0) g/dl Hct (35-47) % MCV (80-97) fL MCH (27-31) pg MCHC (31-36) g/dl RDW (10.5-15) % Plt Count (150-450) 10^3/ul MPV (7.4-10.4) um3 Neut % (Auto) (38-83) % Lymph % (Auto) (25-47) % Zavala % (Auto) (1-9) % Eos % (Auto) (0-6) % Baso % (Auto) (0-2) % Absolute Neuts (auto) (1.5-7.7) 10^3/ul Absolute Lymphs (auto) (1.0-4.8) 10^3/ul Absolute Monos (auto) (0-0.8) 10^3/ul Absolute Eos (auto) (0-0.6) 10^3/ul Absolute Basos (auto) (0-0.2) 10^3/ul Absolute Nucleated RBC 10^3/ul Nucleated RBC % ESR (0-40) mm/Hr INR (Anticoag Therapy) (0.89-1.11) APTT (26.0-36.3) seconds Sodium (133-145) mmol/L Potassium (3.5-5.0) mmol/L Chloride (101-111) mmol/L Carbon Dioxide (22-32) mmol/L Anion Gap (2-11) mmol/L BUN (6-24) mg/dL Creatinine (0.51-0.95) mg/dL Est GFR ( Amer) (>60) Est GFR (Non-Af Amer) (>60) BUN/Creatinine Ratio (8-20) Glucose (70-100) mg/dL Lactic Acid 1.3 (0.5-2.0) mmol/L Calcium (8.6-10.3) mg/dL Total Bilirubin (0.2-1.0) mg/dL AST (13-39) U/L ALT (7-52) U/L Alkaline Phosphatase (34-104) U/L Troponin I (<0.04) ng/mL C-Reactive Protein (< 5.00) mg/L Total Protein (6.4-8.9) g/dL Albumin (3.2-5.2) g/dL Globulin (2-4) g/dL Albumin/Globulin Ratio (1-3) TSH (0.34-5.60) mcIU/mL Cortisol mcg/dL Microbiology and Other Data: Microbiology 06/23/17 15:35 Nasal Screen MRSA (PCR)(MIK) - Final Nasal Mrsa Negative Assess/Plan/Problems-Billing Assessment: 1. Cellulitis, failed outpatient therapy. No sepsis; however she may not mount a usual inflammatory response on Gleevac. She did have bandemia on the differential. 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 Ultrasound yesterday showed a small complex pocket of fluid. It is now draining, but given the complexity and sensitive location of the abscess, it may need to be further debrided. Discussed case with surgery. PO antibiotic selection may be challenging given her drug allergies, but we may be able to use doxycycline or clindamycin. 2. CML/Immunocompromised status. Hgb and platelets are below baseline. This may be related to infection. Will continue to monitor. Continue Gleevac. 3. Elevated troponin. It is unclear to me why this was checked. Ms. King has had no chest pain, shortness of breath, palpitations, or other anginal equivalent in the past week. Her EKG had no ischemic changes. Likely demand in setting of infection. She has a stress test scheduled for 07/19; she should keep this appointment. 4. Afib s/p successful cardioversion 06/05 She remains in NSR. Continue eliquis 5. Hyponatremia, resolved. Improved with normal saline.
[2017-06-26] MEDS ORDERED: Morphine INJ* 10 MG/ML 1 ML SYRINGE IV ONE (12:19)
--- NOTE | 2017-06-26 13:40 | PN ---
Progress Note - Progress Note Date of Service: 06/26/17 Note: Surgery Progress Brief Note: (full note dictated) After consent, time out, and infiltration of 1% plain lidocaine, I&D of posterior neck abscess was performed w/ add'l return of purulent material which was submitted for C&S. Wound was packed w/ /" iodoform. She tolerated the procedure well.
[2017-06-26] MEDS: Ondansetron INJ* 2 MG/ML VIAL IV PRN (14:59)
--- NOTE | 2017-06-26 15:12 | PRO ---
CC: Dr. Tadeo Jesus * DATE OF PROCEDURE: 06/26/2017. ATTENDING SURGEON: Dr. Barber Walker * (GERHARD Angeles dictating). HISTORY: The patient is a 77-year-old female on Gleevec for CML and Eliquis for chronic atrial fibrillation who is also receiving IV Vancomycin for infection of the posterior neck that began approximately one week ago. Ultrasound was done initially which showed no fluid collection. Repeat ultrasound yesterday did show a 1 cc area of ill defined collection. The wound began to spontaneously drain this morning. On exam, she was afebrile, though with a temperature of 100.3 yesterday morning. She is in mild distress with a complaint of nausea and states that the posterior neck "hurts like hell." The rest of her medical history was reviewed. On exam, there is mild erythema in the posterior neck just to the right of midline with a couple of pustules and a central area that is draining purulent material. It is exquisitely tender to touch with central fluctuance. PROCEDURE: After consent and time-out, the area was infiltrated with 1% plain Lidocaine. Incision and drainage was done in a cruciate manner with return of additional purulent material which was submitted for culture. After checking for loculations, the wound was irrigated with saline and then packed with quarter inch Iodoform gauze. The overall measurements of the surgical wound were approximately 2 x 1 cm with approximately 1.5 cm of depth. The patient tolerated the procedure well. Pressure dressing was placed which the nurses will monitor for oozing as she is on Eliquis. The patient tolerated the procedure well. GERHARD ANGELES [id number]/[facility] #: [id number] [facility] HOSPITALRaymundo
[2017-06-26] MEDS: Polyethylene Glycol 3350* 17 GM PACKET PO PRN (16:02)
[2017-06-26] MEDS: Docusate CAP* 100 MG PO PRN (16:02)
[2017-06-27] MEDS: Vancomycin(*) 1,000 MG in NS 0.9% 250 ML* 250 ML IVPB SCH ×2 (01:30→14:33)
[2017-06-27 06:18] LABS: Hematocrit 24 % (35-47); Hemoglobin 8.1 g/dl (12.0-16.0); Mean Corpuscular HGB Conc 34 g/dl (31-36); Mean Corpuscular Hemoglobin 34 pg (27-31); Mean Corpuscular Volume 100 fL (80-97); Mean Platelet Volume 8 um3 (7.4-10.4); Red Blood Count 2.41 10^6/ul (4.0-5.4); Red Cell Distribution Width 16 % (10.5-15); White Blood Count 3.6 10^3/ul (3.5-10.8)
[2017-06-27 06:36] LABS: BUN/Creatinine Ratio 17.7 (8-20); Calcium 8.8 mg/dL (8.6-10.3); EGFR African American 90.8 (>60); EGFR Non-African American 70.6 (>60); Potassium 4.2 mmol/L (3.5-5.0)
[2017-06-27] MEDS: IMATINIB 400 MG PO SCH (09:47)
[2017-06-27] MEDS: Polyethylene Glycol 3350* 17 GM PACKET PO PRN (09:49)
[2017-06-27] MEDS: Oxybutynin XL TAB* 5 MG PO SCH (09:50)
[2017-06-27] MEDS: Citalopram TAB* 10 MG PO SCH (09:51)
[2017-06-27] MEDS: Docusate CAP* 100 MG PO PRN (09:51)
[2017-06-27] MEDS: Apixaban* 5 MG TAB PO SCH (09:51)
[2017-06-27] MEDS: Allopurinol TAB* 100 MG PO SCH (09:51)
[2017-06-27] MEDS: HYDROcodone/ACETAMIN 5-325 MG* 1 TAB PO PRN (11:47)
[2017-06-27] MEDS ORDERED: Vancomycin Trough Check NOTE FOLLOW UP ONE (14:00)
[2017-06-27 15:56] VITALS: BP 106/42
--- NOTE | 2017-06-27 16:50 | PN ---
Progress Note - Progress Note Date of Service: 06/27/17 Note: Surgery Progress: (late entry; patient seen 06/27/17 ~ 1430) S: still c/o some pain at I&D site; pkg fell out earlier this a.m. O: afeb; VSS posterior neck I&D site: min erythema at rim of wound; small amt serous drainage on dsg; wound probed w/ sterile Q-tip; no add'l drainage; repacked w/ saline-moistened 10/25" plain pkg C&S: + MRSA A/P: s/p I&D posterior neck abscess, improving; slated for d/c today by hospitalist [facility] [place]; instructions reviewed w/ patient and daughter re: wound care; office f/u 06/29
--- NOTE | 2017-06-27 17:41 | DCNOTE ---
Admission Date: 06/23/17 Discharge Date: 06/27/17 Principal Diagnosis: Cellulitis, Abscess (MRSA) Secondary Diagnoses: CML Immunocompromised state BRANDY Afib Discharge Physical Exam: General: Alert, pale, no distress HEENT: Perrl, eomi, erythematous patch at base of occiput at hairline; I&D incision packed with serosanguinous drainage Neck: + right posterior cervical lymphadenopathy Chest: RRR, no murmurs, lungs clear b/l Abd: soft, nontender, nondistended Ext: no edema Skin: 5x5" echymosis on left buttock; healing scratches on back Hospital Course by Problem: 1. Cellulitis, Abscess on Occiput Likely from a scratch/scab/bug bite she picked open. She had failed outpatient TMP/SMX treatment. She was initiated on vancomycin, but the cellulitis involved into an area of fluctuance. An ultrasound showed a complex pocket of fluid. Surgery was consulted, who performed an I&D on 06/26. The culture grew MRSA. Blood cultures remained negative. She is discharged on 7 more days of doxycycline. 2. CML She was continued on gleevac throughout her hospitalization. Hgb and platelets were slightly below baseline without bleeding. She will follow up with Dr. Antoine next week. 3. Afib She was continued on eliquis She takes no rate controlling medications. 4. Disposition. She is discharged to home with her daughter with surgery follow up in 2 days for packing change.
[2017-06-27] MEDS ORDERED: Sulfamethox/Trimethoprim DS 800/160* TAB PO SCH (21:00)
== END 2017-06-27 17:00 | disposition home or self-care (01) | DRG 603 ==
LOC: ED 10:18 → MEDTELE 12:02 → MED 06-25 23:12
PROVIDERS: ADMIT Internal Medicine; ATTEND Internal Medicine
PROC: 0J953ZZ Drainage of Left Neck Subcutaneous Tissue and Fascia, Percutaneous Approach (ICD-10-PCS; principal; 2017-06-26)
DX: L02.11 Cutaneous abscess of neck (principal); C92.10 Chronic myeloid leukemia, BCR/ABL-positive, not having achieved remission; I48.2 Chronic atrial fibrillation; E87.1 Hypo-osmolality and hyponatremia; B95.62 Methicillin resistant Staphylococcus aureus infection as the cause of diseases classified elsewhere; L03.221 Cellulitis of neck; J44.9 Chronic obstructive pulmonary disease, unspecified; I10 Essential (primary) hypertension; D86.0 Sarcoidosis of lung; M10.9 Gout, unspecified; M13.0 Polyarthritis, unspecified; E78.5 Hyperlipidemia, unspecified; R74.8 Abnormal levels of other serum enzymes; G47.33 Obstructive sleep apnea (adult) (pediatric); K21.9 Gastro-esophageal reflux disease without esophagitis; M48.00 Spinal stenosis, site unspecified; Z90.11 Acquired absence of right breast and nipple; Z85.3 Personal history of malignant neoplasm of breast; Z85.42 Personal history of malignant neoplasm of other parts of uterus; Z98.42 Cataract extraction status, left eye; Z87.442 Personal history of urinary calculi; Z91.041 Radiographic dye allergy status; Z88.1 Allergy status to other antibiotic agents; Z88.8 Allergy status to other drugs, medicaments and biological substances; Z88.0 Allergy status to penicillin; Z90.710 Acquired absence of both cervix and uterus; Z98.41 Cataract extraction status, right eye; Z80.3 Family history of malignant neoplasm of breast; Z82.3 Family history of stroke
CPT/HCPCS: 36415; 76536; 80048; 80053; 80202; 81003; 82533; 82565; 83605; 83930; 83935; 84300; 84443; 84484; 84520; 85025; 85610; 85652; 85730; 86140; 86618; 87040; 87070; 87077; 87186; 87205; 87640; 87641; 87999; 93005; 93306; 94660; 94760; A9270-GY; J0696; J1170; J2270; J2405; J3370

== ENCOUNTER 2018-02-19 11:51 | Emergency (ER) | payer MEDICARE, BC ==
--- NOTE | 2018-02-19 12:55 | UC ---
Respiratory Complaint HPI - HPI Summary HPI Summary: 2 DAYS OF FATIGUE AND COUGH PRODUCTIVE OF BLOOD STREAKED SPUTUM. TODAY COUGHED UP A "GLOB" OF DARK RED BLOOD. HAS A H/O CML, BREAST AND UTERINE CANCER. SEES DR. HAIDER. HAS SWEATS AND LOW GRADE TEMP TMAX 100.9 AT NIGHT. - History of Current Complaint Chief Complaint: UCRespiratory Stated Complaint: SPITTING UP BLOOD Time Seen by Provider: 02/19/18 12:35 Hx Obtained From: Patient Onset/Duration: Gradual Onset, Lasting Days, Still Present Pain Intensity: 5 Pain Scale Used: 0-10 Numeric Character: Cough: Productive Aggravating Factors: Deep Breaths Alleviating Factors: Nothing Associated Signs And Symptoms: Positive: Dyspnea, Fever, URI - Allergies/Home Medications Allergies/Adverse Reactions: Allergies Allergy/AdvReac Type Severity Reaction Status Date / Time amoxicillin Allergy Unknown Verified 02/19/18 12:09 Reaction Details cefprozil Allergy Unknown Verified 02/19/18 12:09 Reaction Details cephalexin Allergy Unknown Verified 02/19/18 12:09 Reaction Details ciprofloxacin [From Cipro] Allergy Unknown Verified 02/19/18 12:09 Reaction Details clarithromycin Allergy Unknown Verified 02/19/18 12:09 Reaction Details clavulanic acid Allergy Unknown Verified 02/19/18 12:09 Reaction Details doxycycline Allergy Unknown Verified 02/19/18 12:09 Reaction Details Iodinated Contrast- Oral and Allergy Unknown Verified 02/19/18 12:09 IV Dye Reaction Details levofloxacin [From Levaquin] Allergy Unknown Verified 02/19/18 12:09 Reaction Details Penicillins Allergy Unknown Verified 02/19/18 12:09 Reaction Details prednisone Allergy Unknown Verified 02/19/18 12:09 Reaction Details sertraline [From Zoloft] Allergy Unknown Verified 02/19/18 12:09 Reaction Details IV CONTRAST Allergy Unknown Uncoded 02/19/18 12:09 Reaction Details Home Medications: Home Medications Albuterol 2.5MG/3ML (0.083%)* [Ventolin 2.5 MG/3 ML NEB.JAVIER*] 2.5 mg INH Q4H 11/08 [History Confirmed 02/19/18] PMH/Surg Hx/FS Hx/Imm Hx Cardiovascular History: Hypertension Respiratory History: COPD Cancer History: Breast Cancer Other Cancer History: UTERINE CANCER, LEUKEMIA - Surgical History Surgical History: Yes Surgery Procedure, Year, and Place: hysterectomy - Family History Known Family History: Negative: Hypertension - Social History Alcohol Use: None Substance Use Type: None Smoking Status (MU): Never Smoked Tobacco Have You Smoked in the Last Year: No - Immunization History Most Recent Influenza Vaccination: 2016 Most Recent Pneumonia Vaccination: "few tears ago" per Pt. Review of Systems Constitutional: Fever, Fatigue Respiratory: Shortness Of Breath, Cough, Other - HEMOPTYSIS Cardiovascular: Negative Gastrointestinal: Negative All Other Systems Reviewed And Are Negative: Yes Physical Exam Triage Information Reviewed: Yes Appearance: No Pain Distress, Well-Nourished, Ill-Appearing - MILD Vital Signs: Initial Vital Signs Temp 97.9 F 02/19/18 11:57 Pulse 75 02/19/18 11:57 Resp 18 02/19/18 11:57 BP 116/52 02/19/18 11:57 Pulse Ox 99 02/19/18 11:57 Eyes: Positive: Conjunctiva Clear ENT: Positive: Hearing grossly normal, Pharynx normal, TMs normal Neck: Positive: Supple, Nontender, No Lymphadenopathy Respiratory Exam: Normal Cardiovascular Exam: Normal Abdomen Description: Positive: Soft Musculoskeletal: Positive: No Edema Neurological: Positive: Alert Psychological: Positive: Age Appropriate Behavior Skin: Negative: rashes UC Diagnostic Evaluation - Laboratory O2 Sat by Pulse Oximetry: 99 - Radiology Xray Interpretation: Positive (See Comments) - 1. THERE IS A ROUND NODULAR DENSITY WHICH PROJECTS OVER THE RIGHT UPPER LOBE. COPD. CARDIOMEGALY, STABLE Radiology Interpretation Completed By: Radiologist Respiratory Course/Dx - Course Course Of Treatment: GERHARD WIGGINS AT DR. HAIDER'S OFFICE CAME OVER TO EVALUATE THE PT. GIVEN ABNORMAL CXR WILL COVER WITH ANTIBIOTICS, CHECK CBC, CMP AND FOLLOW-UP TOMORROW FOR CT SCAN WITH CONTRAST AND OFFICE APPT. - Differential Dx/Diagnosis Provider Diagnoses: RIGHT SIDED PNEUMONIA VS. MASS Discharge - Sign-Out/Discharge Documenting (check all that apply): Discharge/Admit/Transfer - Discharge Plan Condition: Stable Disposition: HOME Prescriptions: Doxycycline Monohydrate [Doxycycline Monohydrate] 1 cap PO BID #20 cap Patient Education Materials: Pneumonia (ED) Referrals: Tadeo Jesus MD [Primary Care Provider] - Additional Instructions: CHEST XRAY FINDINGS TODAY: 1. THERE IS A ROUND NODULAR DENSITY WHICH PROJECTS OVER THE RIGHT UPPER LOBE. 2. COPD. 3. MILD CARDIOMEGALY, UNCHANGED. WE WILL COVER YOU FOR PNEUMONIA WITH DOXYCYCLINE TWICE DAILY FOR 10 DAYS. YOU HAD THIS MEDICINE IN 06/2017. YOU NEED A CT CHEST TO FURTHER CHARACTERIZE THE LESION SEEN ON CHEST XRAY. YOU WILL HEAR FROM DR. HAIDER'S OFFICE ABOUT THIS APPT. CBC AND CMP DRAWN TODAY. - Billing Disposition and Condition Condition: STABLE Disposition: HOME
--- NOTE | 2018-02-19 13:39 | RAD ---
INDICATION: Cough and hemoptysis. COMPARISON: Comparison is made with a prior chest x-ray study from April 20, 2013. TECHNIQUE: Dual-energy PA and lateral views of the chest were obtained. FINDINGS: The heart is mildly enlarged and unchanged from the prior exam. There is mild prominence of the interstitial markings which are unchanged. There is a faint roughly round density which projects over the left upper lobe and superior portion of the left hilum measuring approximately 3.5 cm in size. The lungs are otherwise clear and hyperinflated. No pleural effusion is seen. The patient appears to be status post right axillar node dissection. The results of this exam were discussed with the referring clinician. IMPRESSION: 1. THERE IS A ROUND NODULAR DENSITY WHICH PROJECTS OVER THE RIGHT UPPER LOBE. RECOMMEND A CONTRAST-ENHANCED CT OF THE CHEST FOR FURTHER EVALUATION. 2. COPD. 3. MILD CARDIOMEGALY, UNCHANGED.
[2018-02-19 14:16] VITALS: BP 119/64
[2018-02-19 16:17] LABS: ABS Basophils 0 10^3/ul (0-0.2); ABS Eosinophils 0.2 10^3/ul (0-0.6); ABS Monocytes 0.3 10^3/ul (0-0.8); ABS Neutrophils 1.7 10^3/ul (1.5-7.7); ABS Nucleated RBC 0 10^3/ul; Eosinophil % 5.6 % (0-6); Hematocrit 25 % (35-47); Hemoglobin 8.2 g/dl (12.0-16.0); Lymphocyte % 31.5 % (25-47); Mean Corpuscular HGB Conc 33 g/dl (31-36); Mean Corpuscular Hemoglobin 33 pg (27-31); Mean Corpuscular Volume 101 fL (80-97); Mean Platelet Volume 8.5 um3 (7.4-10.4); Nucleated Red Blood Cells % 0.1; Platelet Count 117 10^3/ul (150-450); Red Blood Count 2.49 10^6/ul (4.0-5.4); Red Cell Distribution Width 17 % (10.5-15); White Blood Count 3.2 10^3/ul (3.5-10.8)
[2018-02-19 16:24] LABS: EGFR Non-African American 54.2 (>60)
== END 2018-02-19 14:12 | disposition home or self-care (01) ==
LOC: UCEAST 11:51
DX: R04.2 Hemoptysis (principal); R05 Cough; R53.83 Other fatigue; R06.00 Dyspnea, unspecified; R50.9 Fever, unspecified; R91.1 Solitary pulmonary nodule; I51.7 Cardiomegaly; I10 Essential (primary) hypertension; J44.9 Chronic obstructive pulmonary disease, unspecified; Z85.3 Personal history of malignant neoplasm of breast; Z85.42 Personal history of malignant neoplasm of other parts of uterus; Z85.6 Personal history of leukemia; Z88.0 Allergy status to penicillin; Z88.8 Allergy status to other drugs, medicaments and biological substances; Z88.1 Allergy status to other antibiotic agents; Z91.041 Radiographic dye allergy status
CPT/HCPCS: 36415; 71046; 80053; 85025; 99212; G0463

== ENCOUNTER 2018-03-19 15:33 | Inpatient (IN) | payer MEDICARE, BC ==
[2018-03-19] MEDS ORDERED: NS 0.9% 1000 ML* 1,000 ML IV ONE (16:42)
[2018-03-19] MEDS ORDERED: Pantoprazole IV* 40 MG IV ONE (16:42)
[2018-03-19 17:03] LABS: ABS Basophils 0 10^3/ul (0-0.2); ABS Eosinophils 0.2 10^3/ul (0-0.6); ABS Lymphocytes 1.3 10^3/ul (1.0-4.8); ABS Monocytes 0.4 10^3/ul (0-0.8); ABS Neutrophils 2.3 10^3/ul (1.5-7.7); ABS Nucleated RBC 0 10^3/ul; Eosinophil % 4.1 % (0-6); Hematocrit 25 % (35-47); Hemoglobin 8.1 g/dl (12.0-16.0); Lymphocyte % 30.1 % (25-47); Mean Corpuscular HGB Conc 33 g/dl (31-36); Mean Corpuscular Hemoglobin 33 pg (27-31); Mean Corpuscular Volume 99 fL (80-97); Mean Platelet Volume 7.9 um3 (7.4-10.4); Nucleated Red Blood Cells % 0; Platelet Count 129 10^3/ul (150-450); Red Cell Distribution Width 17 % (10.5-15); White Blood Count 4.2 10^3/ul (3.5-10.8)
[2018-03-19 17:21] LABS: EGFR Non-African American 61.3 (>60)
--- NOTE | 2018-03-19 17:51 | RAD ---
HISTORY: GI bleed COMPARISONS: February 19, 2018 VIEWS: 1: frontal portable view of the chest at 5:35 PM FINDINGS: LINES AND TUBES: None. CARDIOMEDIASTINAL SILHOUETTE: The cardiac silhouette is enlarged. The cardiomediastinal silhouette is otherwise normal for portable technique. PLEURA: The costophrenic angles are sharp. No pleural abnormalities are noted. LUNG PARENCHYMA: There is a mild diffuse reticular pattern with indistinct pulmonary vessels. ABDOMEN: The upper abdomen is clear. There is no subphrenic gas. BONES AND SOFT TISSUES: No bone or soft tissue abnormalities are noted. Surgical clips are noted in the right axilla. IMPRESSION: CARDIOMEGALY WITH MILD PULMONARY INTERSTITIAL EDEMA
[2018-03-19 18:24] LABS: INR 1.63 (0.77-1.02)
[2018-03-19] MEDS: Pantoprazole IV* 80 MG in NS 0.9% 250 ML* 250 ML IVPB SCH (19:06)
[2018-03-19 21:19] LABS: Hematocrit 22 % (35-47); Hemoglobin 7.5 g/dl (12.0-16.0)
[2018-03-19 21:55] LABS: Urine Appearance Clear; Urine Blood Negative (Negative); Urine Color Straw; Urine Ketones Negative (Negative); Urine Protein Negative (Negative); Urine Specific Gravity 1.005 (1.010-1.030); Urine Urobilinogen Negative (Negative)
[2018-03-19] MEDS ORDERED: Acetaminophen TAB* 325 MG PO PRN (22:05)
--- NOTE | 2018-03-20 03:10 | HP ---
CC: Dr. Jesus; Dr. Antoine * HISTORY AND PHYSICAL: DATE OF ADMISSION: 03/19/18 PRIMARY CARE PHYSICIAN: Tadeo Jesus MD PRIMARY ONCOLOGIST: Jose Antoine MD ATTENDING PHYSICIAN: Sara Contreras MD * (DICTATED BY CARLENE MARCIAL NP) CHIEF COMPLAINT: Dark stools, shortness of breath, and weakness. HISTORY OF PRESENT ILLNESS: This is a very pleasant 78-year-old female patient who has a history of CML and has been on chemotherapeutic agents for many years , now. Five years, she has been on Gleevec. Also, has a history of hypertension , gout, hyperlipidemia, obstructive sleep apnea, COPD, GERD, sarcoidosis, and atrial fibrillation. The patient was in her usual state of health and she states for the past 4 days, she began having dark stools and persistent fatigue and malaise. The patient went to her primary care physician today to be evaluated. He sent her to the emergency department for evaluation when they found her hemoglobin was a little lower than normal. Hemoglobin in the emergency department is 8.1. She has positive guaiac for stool. At that point , Dr. Arevalo was consulted from GI for GI bleeding and we were called to admit the patient. PAST MEDICAL HISTORY: As above. PAST SURGICAL HISTORY: Significant for mastectomy, cardioversion, appendectomy , hysterectomy, ORIF of the right lower extremity, cataracts, and tracheostomy at one point. HOME MEDICATIONS: Include: 1. Spironolactone 25 mg daily. 2. Oxybutynin 15 mg daily. 3. Celexa 10 mg daily. 4. Gleevec 400 mg daily. 5. Apixaban 5 mg 2 times a day. 6. Allopurinol 300 mg daily. ALLERGIES: Include allergies to AMOXICILLIN, CEFPROZIL, CEPHALEXIN, CIPROFLOXACIN, CLARITHROMYCIN, CLAVULANIC ACID, DOXYCYCLINE, ORAL and IV IODINE CONTRAST, LEVOFLOXACIN, PENICILLINS, PREDNISONE and SERTRALINE. FAMILY HISTORY: Mother with history of breast cancer. Father with history of CVA. SOCIAL HISTORY: The patient does not smoke. Drinks alcohol rarely. She is . Her surrogate decision maker is her daughter, Cathleen Mark, who is at the bedside. REVIEW OF SYSTEMS: A 10-point review of systems is negative except as noted in HPI. PHYSICAL EXAMINATION GENERAL: The patient is awake and alert, in no acute distress. VITAL SIGNS: Currently, blood pressure 144/59; heart rate 90; respiratory rate 16; oxygen saturation is 99%, temperature 98.0. HEENT: The patient is atraumatic, normocephalic. PERRLA with nonicteric sclerae. Sclerae are pale as is her skin tone. Oral mucosa is moist. NECK: Supple. No JVD noted. No carotid bruit auscultated. LUNGS: Clear bilaterally to auscultation with no wheezing, rhonchi, or rales. CARDIOVASCULAR: S1, S2 are present. Rate and rhythm are regular and she is not in atrial fibrillation. No murmurs, gallops, or rubs noted. ABDOMEN: Soft, diffusely tender primarily in the left upper quadrant. Does not appear to have any suprapubic tenderness. : Deferred. MUSCULOSKELETAL: There is no clubbing, no cyanosis, no edema. She has +2 distal pulses palpable. She has gross motor and sensation intact. SKIN: Intact, warm and dry. She is very pale, however. NEUROLOGIC: She is grossly intact with no focal deficits. PSYCHIATRIC: She is cooperative and appropriate. LABORATORY DATA: WBC is 4.2, RBC is 2.50, hemoglobin 8.1, hematocrit 25, MCV 99, MCH 33, MCHC 33, RDW 17, platelets 129. Sodium 137, potassium 4.3, chloride 105, CO2 26, BUN 12, creatinine 0.89. GFR is 61.3, glucose 95, calcium 8.9. Bilirubin 0.70, AST 20, ALT 13, alk phos 56. Troponins is 0.04, which is again at her baseline. Last 3 troponins throughout 2017 were 0.06, 0.09, and 0.06. Total protein 6.3, albumin 3.7, globulin 2.6, lipase is 22. INR is 1.63. APTT is 33.8. IMAGING: Chest x-ray dated today shows cardiomegaly with mild pulmonary interstitial edema. EKG today shows an accelerated junctional rhythm. No ectopy. No ST segment changes noted. IMPRESSION: This is a 78-year-old female patient with a complex history of cancer most notably being treated for chronic myeloid leukemia for the past 5 years, who presented from her primary care provider's office with a complaint of low hemoglobin. PLAN: The patient has been admitted to medical service. DIAGNOSES: 1. GI bleeding. Dr. Arevalo has already been consulted and will be seeing the patient. I have also reached out to Dr. Antoine being that the patient is on Gleevec, which can cause GI bleeding and perforation, we will hold it for now. As per Dr. Antoine, the patient has tolerated the Gleevec very well over the past 5 years. This may be the result of the Eliquis in combination with the Gleevec. At any case, we will hold the Gleevec and her Eliquis at this time pending further recommendations from GI. The patient has already received Protonix IV and will be started on the drip. She can have clear liquids and normal saline at maintenance. 2. Her elevated troponin, the patient had elevated troponins in the past. This is probably just demand from her bleeding and appears that the patient is not having chest pain or other symptoms. We will trend a second troponin, but again I think this is likely due to demand and not cardiac ischemia. 3. History of CML, holding the Gleevec and we have consulted Dr. Antoine. 4. Gout, continue allopurinol 5. BRANDY, we will put her on hospital CPAP. She does not have hers with her. 6. COPD, she is not in exacerbation. Her respiratory status will be monitored. 7. Sarcoidosis, the patient is not in an active state at this point. This is stable. 6. For her GERD, the patient is getting Protonix IV right now for her GI bleeding. This will continue to be monitored. 7. For hypertension, she is on Aldactone and her blood pressure is stable. This will be continued. 8. History of atrial fibrillation, we are holding the Eliquis secondary to bleeding. She is in junctional rhythm at this point; however, this, I think, should be monitored further and a repeat EKG done in the morning when her GI bleeding is under control. If her troponins continue to trend up and she has continued EKG changes, Cardiology may be an option; however, the patient's cardiac status is stable at this time. For DVT prophylaxis, we will hold the Eliquis and place her on SCDs. Code status, she is a full code in the computer; however, we had the discussion , the patient states that she does want compressions and she does wish to have intubation. However, she did mention that if it was futile that she would want to be extubated. The patient wishes to continue to discuss this with her daughter, the MOLST should be updated thereafter. The rest of the patient's course will be determined by further diagnostics, laboratories and any other input from other providers as warranted during this admission. TIME SPENT: I spent approximately 1 hour on this patient's admission, evaluating the chart, interviewing the patient and her family, and interfacing with the provider involved in her care. CARLENE MARCIAL, EVELYN [id number]/[facility] #: [id number] JENNA
[2018-03-20] MEDS: Pantoprazole IV* 80 MG in NS 0.9% 250 ML* 250 ML IVPB SCH ×2 (03:46→21:42)
--- NOTE | 2018-03-20 05:38 | CONS ---
GASTROENTEROLOGY CONSULTATION: DATE: 03/19/18 - ROOM #411 CONSULTING PHYSICIANS: Siva Van, ; Tadeo Jesus REASON FOR CONSULTATION: Dark stool, 4 days, in a woman on Eliquis for atrial fibrillation. HISTORY OF PRESENT ILLNESS: This 78-year-old woman on Eliquis since mid 2016 suddenly noticed her stools turning dark on 03/15/18. She felt a little weak, but really was not dizzy per se and had no presyncope. She had 3 or 4 slightly looser dark stools 4 days in a row and then finally told a friend who brought her to the emergency room on 03/19/18. In the week preceding the stool darkening, she denies any particular other illness and denies taking iron or Pepto-Bismol. She denies taking Advil or Aleve. Says she was counseled off them several years ago. She has been on Eliquis because of atrial fibrillation diagnosed a year ago. She had upper endoscopy on 01/07/07 at this hospital showing a little bit of prepyloric gastritis with a negative CLOtest. There was no bleeding then and she denies ever having gastrointestinal bleeding. PAST MEDICAL HISTORY: 1. Morbid obesity. 2. Chronic myelogenous leukemia - on Gleevec followed by Dr. Antoine. 3. Atrial fibrillation - onset 2016. 4. History of hip fracture, 2001, . 5. Status post right mastectomy for breast cancer in 1991. 6. Total abdominal hysterectomy, 1999. 7. Appendectomy, 1951. 8. History of tracheostomy for sleep apnea. MEDICATIONS: 1. Gleevec. 2. Eliquis. 3. Spironolactone and hydrochlorothiazide . 4. Allopurinol 100 mg. 5. Oxybutynin. 6. Oxycodone p.r.n. ALLERGIES: At least 8 listed. She feels an overdose of prednisone caused her legs to turn black and she still has pigmentation there. Exact nature of that is not at all clear. 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 Her daughter Cathleen Mark is her proxy. REVIEW OF SYSTEMS: She denies any history of blood clots, seizures, migraines, thyroid disease, hemoptysis, TB, DE, hepatitis, jaundice. She has had colonoscopies at other hospitals with no findings she can recall. PHYSICAL EXAM: She is a morbidly obese woman, slightly pale in no overt distress lying in the gurney. HEENT exam shows no icterus. She has no adenopathy. Her lungs are clear. Heart sounds are somewhat irregular at 90. Breast and pelvic exams are deferred. The abdomen is obese with normal bowel sounds.. Soft and without focal tenderness. Rectal per the emergency room physician was dark maroon. Extremities show no edema. Neurologic: Nonfocal. LABORATORY DATA: Hemoglobin 8.1. IMPRESSION: This 78-year-old woman with chronic myelogenous leukemia, on maintenance Gleevec and with atrial fibrillation, on Eliquis; now showing signs of gastrointestinal bleeding the first time ever. Her history is rather benign as regards to potential GI bleeding conditions. Her BUN is 12, exactly consistent with her prior values which are well documented with a dozen values since December 2016. It thus seems likely that the bleeding is coming from the distal small bowel or right colon. At this time, stopping Eliquis is indicated at least temporarily. Prepping for colonoscopy and colonoscopy is not likely to be accomplished without a fair amount of burden to her and of unclear benefit. Upper endoscopy will have a lower yield but give more reliable results and may be chosen while her course is followed. [id number]/[facility] #: [id number] [facility] CAMPUSRaymundo
[2018-03-20 06:26] LABS: ABS Basophils 0 10^3/ul (0-0.2); ABS Eosinophils 0.1 10^3/ul (0-0.6); ABS Lymphocytes 0.8 10^3/ul (1.0-4.8); ABS Monocytes 0.3 10^3/ul (0-0.8); ABS Neutrophils 1.6 10^3/ul (1.5-7.7); ABS Nucleated RBC 0 10^3/ul; Eosinophil % 4.3 % (0-6); Hematocrit 21 % (35-47); Hemoglobin 7.1 g/dl (12.0-16.0); Mean Corpuscular HGB Conc 34 g/dl (31-36); Mean Corpuscular Hemoglobin 34 pg (27-31); Mean Corpuscular Volume 99 fL (80-97); Mean Platelet Volume 7.9 um3 (7.4-10.4); Nucleated Red Blood Cells % 0; Platelet Count 112 10^3/ul (150-450); Red Blood Count 2.13 10^6/ul (4.0-5.4); Red Cell Distribution Width 16 % (10.5-15); White Blood Count 2.9 10^3/ul (3.5-10.8)
[2018-03-20 06:43] LABS: EGFR Non-African American 63.8 (>60)
[2018-03-20] MEDS: Citalopram TAB* 10 MG PO SCH (08:12)
[2018-03-20] MEDS: Allopurinol TAB* 300 MG PO SCH (08:12)
[2018-03-20] MEDS: Oxybutynin XL TAB* 5 MG PO SCH (08:13)
[2018-03-20] MEDS: Spironolactone TAB* 25 MG PO SCH (08:13)
[2018-03-20] MEDS ORDERED: fentaNYL* 50 MCG/ML 2 ML VIAL (100 MCG VIAL) ONE ×2 (13:49→16:58)
[2018-03-20] MEDS ORDERED: Midazolam* 1 MG/ML 10 ML VIAL (10 MG) ONE ×2 (13:49→16:59)
[2018-03-20] MEDS: NS 0.9% 1000 ML* 1,000 ML IV SCH (14:18)
--- NOTE | 2018-03-20 14:54 | PN ---
Subjective Date of Service: 03/20/18 Interval History: HOSPITALIST PROGRESS NOTE Patient seen and examined at bedside. Care reviewed and d/w Crystal Parada RN. She feels better today, but had another dark bowel movement this AM and became discouraged and concerned. Denies abdominal pain, but states her belly is "rumbling a lot". Family History: Unchanged from Admission Social History: Unchanged from Admission Past Medical History: Unchanged from Admission Objective Active Medications: Acetaminophen (Tylenol Tab*) 650 mg PO Q6H PRN PRN Reason: FEVER/PAIN Allopurinol (Zyloprim Tab*) 300 mg PO DAILY [facility] Last Admin: 03/20/18 08:12 Dose: 300 mg Citalopram Hydrobromide (Celexa Tab*) 10 mg PO DAILY [facility] Last Admin: 03/20/18 08:12 Dose: 10 mg Pantoprazole Sodium 80 mg/ (Sodium Chloride) 250 mls @ 25 mls/hr IVPB Q10H [facility] Last Admin: 03/20/18 03:46 Dose: 25 mls/hr Sodium Chloride (Ns 0.9% 1000 Ml*) 1,000 mls @ 75 mls/hr IV PER RATE [facility] Last Admin: 03/20/18 14:18 Dose: 75 mls/hr Oxybutynin Chloride (Ditropan Xl Tab*) 15 mg PO DAILY [facility] Last Admin: 03/20/18 08:13 Dose: 15 mg Spironolactone (Aldactone Tab*) 25 mg PO DAILY [facility] Last Admin: 03/20/18 08:13 Dose: 25 mg Vital Signs - 8 hr 03/20/18 03/20/18 03/20/18 07:26 08:00 11:26 Temperature 98.8 F 98.8 F Pulse Rate 78 78 Respiratory 16 18 16 Rate Blood Pressure 94/41 116/42 (mmHg) O2 Sat by Pulse 99 98 Oximetry Oxygen Devices in Use Now: None Appearance: Pleasant obese lady lying in bed in NAD. Eyes: No Scleral Icterus Ears/Nose/Mouth/Throat: Mucous Membranes Moist Neck: Trachea Midline Respiratory: Symmetrical Chest Expansion and Respiratory Effort, Clear to Auscultation Cardiovascular: RRR - Normal S1 and S2 Abdominal: - - Obese, soft, NT, ND, BS+ and increased Neurological: Alert and Oriented x 3 Result Diagrams: 03/20/18 05:43 03/20/18 05:43 Assess/Plan/Problems-Billing Assessment: Mrs King is a 78yo F with PMH of CML on Gleevec, HTN, gout, HLD, BRANDY, COPD, GERD, sarcoidosis, Afib on Eliquis, who presented to ED with dark stools and fatigue, found to have GI bleed. - Patient Problems (1) GI bleed Comment: - Gleevec and Eliquis increase her risk of bleeding. - Her dark stool suggests an upper source, but her BUN is normal, so suspect her source is probably in the small bowel. - GI input apreciated - plan for EGD later today. - Continue Protonix drip. (2) Acute blood loss anemia Comment: - Secondary to GI bleed. - Will transfuse 1 PRBC - goal Hb~8. (3) Elevated troponin Comment: - Likely demand in the setting of GI bleed. - Check echocardiogram. (4) Atrial fibrillation Comment: - [id number] is 4 predcting a stroke risk of 4.8%/year. - HAS-BLED score is 2 predicting a risk of 1.88 bleeds per 100 patient-years. - Eliquis on hold in the setting of GI bleed. (5) CML (chronic myeloid leukemia) Comment: - Gleevec on hold in the setting of GI bleed. (6) DVT prophylaxis Comment: - SCDs. (7) Full code status Status and Disposition: Inpatient.
[2018-03-21] MEDS: NS 0.9% 1000 ML* 1,000 ML IV SCH (06:59)
--- NOTE | 2018-03-21 08:11 | RAD ---
Indication: Left foot pain. 2 views of left foot demonstrates degenerative changes of the medial cuneiform first metatarsal joint. There is no fracture noted. No other bone or joint abnormality is noted. IMPRESSION: Degenerative changes of the medial cuneiform first metatarsal joint.
--- NOTE | 2018-03-21 08:13 | RAD ---
INDICATION: Left ankle pain COMPARISON: None TECHNIQUE: AP, lateral, and oblique views were obtained. FINDINGS: There is osteopenia. There is no acute fracture or dislocation. There is mild diffuse soft tissue swelling. There are vascular calcifications. IMPRESSION: NO ACUTE BONY FINDINGS.
[2018-03-21] MEDS: Pantoprazole IV* 80 MG in NS 0.9% 250 ML* 250 ML IVPB SCH ×2 (08:14→09:53)
--- NOTE | 2018-03-21 08:51 | ED ---
Mo Mirza Tiffany, scribed for Siva Van on 03/19/18 at 1643 . GI/ HPI - HPI Summary HPI Summary: 78 y/o F [facility] complains of GI bleed since four days ago. Symptoms aggravated and alleviated by nothing. Reports blood in stools, dark stools. Seen by PMD, who did blood work and hemocult. Hemocult Pos+ and her counts for blood work are low, so pt was referred to ED. - History of Current Complaint Chief Complaint: EDGIBleed Time Seen by Provider: 03/19/18 16:33 Stated Complaint: RECTAL BLEEDING Hx Obtained From: Patient Onset/Duration: Started Days Ago - 4, Still Present Associated Signs and Symptoms: Positive: Blood w/Stool, Other: - Dark stool - Additional Pertinent History Primary Care Physician: [id number] - Allergy/Home Medications Allergies/Adverse Reactions: Allergies Allergy/AdvReac Type Severity Reaction Status Date / Time amoxicillin Allergy Unknown Verified 03/19/18 15:38 Reaction Details cefprozil Allergy Unknown Verified 03/19/18 15:38 Reaction Details cephalexin Allergy Unknown Verified 03/19/18 15:38 Reaction Details ciprofloxacin [From Cipro] Allergy Unknown Verified 03/19/18 15:38 Reaction Details clarithromycin Allergy Unknown Verified 03/19/18 15:38 Reaction Details clavulanic acid Allergy Unknown Verified 03/19/18 15:38 Reaction Details doxycycline Allergy Unknown Verified 03/19/18 15:38 Reaction Details Iodinated Contrast- Oral and Allergy Rash Verified 03/19/18 15:38 IV Dye levofloxacin [From Levaquin] Allergy Unknown Verified 03/19/18 15:38 Reaction Details Penicillins Allergy Unknown Verified 03/19/18 15:38 Reaction Details prednisone Allergy Swelling Verified 03/19/18 15:38 sertraline [From Zoloft] Allergy Unknown Verified 03/19/18 15:38 Reaction Details Home Medications: Home Medications Allopurinol TAB* [Zyloprim 300 MG TAB*] 300 mg PO DAILY 03/19/18 [History Confirmed 03/19/18] Apixaban* [Eliquis*] 5 mg PO BID 03/19/18 [History Confirmed 03/19/18] Citalopram TAB* [CeleXA TAB*] 10 mg PO DAILY 03/19/18 [History Confirmed ] Imatinib (NF) [Gleevec (NF)] 400 mg PO DAILY 03/19/18 [History Confirmed ] Oxybutynin TAB* [Ditropan TAB*] 15 mg PO DAILY 03/19/18 [History Confirmed 03/19] Spironolactone TAB* [Aldactone TAB*] 25 mg PO DAILY 03/19/18 [History Confirmed 03/19/18] PMH/Surg Hx/FS Hx/Imm Hx Previously Healthy: No Endocrine/Hematology History: Denies: Hx Diabetes Cardiovascular History: Reports: Hx Atrial Fibrillation, Hx Hypertension - ON MEDS, Hx Rheumatic Fever - X2 A CHILD AND TEEN, Other Cardiovascular Problems /Disorders - Arrythmia Denies: Hx Pacemaker/ICD Respiratory History: Reports: Hx Chronic Obstructive Pulmonary Disease (COPD), Hx Sleep Apnea, Other Respiratory Problems/Disorders - trach, sarcoidosis GI History: Denies: Other GI Disorders History: Reports: Hx Kidney Stones - IN THE PAST, Other Problems/ Disorders - "leaky bladder" Denies: Hx Renal Disease Musculoskeletal History: Reports: Hx Arthritis - BACK AND LEGS, Hx Gout Sensory History: Reports: Hx Cataracts - [place], Hx Contacts or Glasses - GLASSES Denies: Hx Hearing Aid Opthamlomology History: Reports: Hx Cataracts - [place], Hx Contacts or Glasses - GLASSES Neurological History: Denies: Other Neuro Impairments/Disorders Psychiatric History: Reports: Hx Depression Denies: Hx Panic Disorder - Cancer History Cancer Type, Location and Year: LEUKEMIA, RIGHT MASTECTOMY FOR BREAST CA Hx Chemotherapy: Yes - 2014, [place]EM[place] Hx Radiation Therapy: No - Surgical History Surgery Procedure, Year, and Place: hysterectomy Hx Anesthesia Reactions: No Infectious Disease History: No Infectious Disease History: Denies: Traveled Outside the [place] in Last 30 Days - Family History Known Family History: Negative: Hypertension - Social History Alcohol Use: None Hx Substance Use: No Substance Use Type: Reports: None Hx Tobacco Use: Yes Smoking Status (MU): Former Smoker Have You Smoked in the Last Year: No Review of Systems Negative: Fever Positive: Other - GI bleed, blood in stools, dark stools All Other Systems Reviewed And Are Negative: Yes Physical Exam - Summary Physical Exam Summary: Appearance: Well appearing, no pain distress Skin: warm, dry, reflects adequate perfusion Head/face: normal Eyes: conjunctiva pale ENT: normal Neck: supple, non-tender Respiratory: CTA, breath sounds present Cardiovascular: RRR, pulses symmetrical Abdomen: non-tender, soft Bowel: present Musculoskeletal: normal, strength/ROM intact Neuro: normal, sensory motor intact, A&Ox3 Rectal exam: maroon-colored stool Triage Information Reviewed: Yes Vital Signs On Initial Exam: Initial Vitals Temp Pulse Resp BP Pulse Ox 98 F 90 16 144/59 99 03/19/18 15:35 03/19/18 15:35 03/19/18 15:35 03/19/18 15:35 03/19/18 15:35 Vital Signs Reviewed: Yes Diagnostics - Vital Signs Vital Signs Temp Pulse Resp BP Pulse Ox 03/19/18 15:35 98 F 90 16 144/59 99 - Laboratory Lab Results: Lab Results 03/19/18 03/19/18 03/19/18 Range/Units 16:51 16:51 16:53 WBC 4.2 (3.5-10.8) 10^3/ul RBC 2.50 L (4.0-5.4) 10^6/ul Hgb 8.1 L (12.0-16.0) g/dl Hct 25 L (35-47) % MCV 99 H (80-97) fL MCH 33 H (27-31) pg MCHC 33 (31-36) g/dl RDW 17 H (10.5-15) % Plt Count 129 L (150-450) 10^3/ul MPV 7.9 (7.4-10.4) um3 Neut % (Auto) 56.3 (38-83) % Lymph % (Auto) 30.1 (25-47) % Waller % (Auto) 9.1 H (0-7) % Eos % (Auto) 4.1 (0-6) % Baso % (Auto) 0.4 (0-2) % Absolute Neuts (auto) 2.3 (1.5-7.7) 10^3/ul Absolute Lymphs (auto) 1.3 (1.0-4.8) 10^3/ul Absolute Monos (auto) 0.4 (0-0.8) 10^3/ul Absolute Eos (auto) 0.2 (0-0.6) 10^3/ul Absolute Basos (auto) 0 (0-0.2) 10^3/ul Absolute Nucleated RBC 0 10^3/ul Nucleated RBC % 0 INR (Anticoag Therapy) 1.63 H (0.77-1.02) APTT 33.8 (26.0-36.3) seconds Sodium 137 L (139-145) mmol/L Potassium 4.3 (3.5-5.0) mmol/L Chloride 105 (101-111) mmol/L Carbon Dioxide 26 (22-32) mmol/L Anion Gap 6 (2-11) mmol/L BUN 12 (6-24) mg/dL Creatinine 0.89 (0.51-0.95) mg/dL Est GFR ( Amer) 78.9 (>60) Est GFR (Non-Af Amer) 61.3 (>60) BUN/Creatinine Ratio 13.5 (8-20) Glucose 95 (70-100) mg/dL Calcium 8.9 (8.6-10.3) mg/dL Total Bilirubin 0.70 (0.2-1.0) mg/dL AST 20 (13-39) U/L ALT 13 (7-52) U/L Alkaline Phosphatase 56 (34-104) U/L Troponin I 0.04 H* (<0.04) ng/mL Total Protein 6.3 L (6.4-8.9) g/dL Albumin 3.7 (3.2-5.2) g/dL Globulin 2.6 (2-4) g/dL Albumin/Globulin Ratio 1.4 (1-3) Lipase 22 (11.0-82.0) U/L Result Diagrams: 03/20/18 05:43 03/20/18 05:43 Lab Statement: Any lab studies that have been ordered have been reviewed, and results considered in the medical decision making process. - Radiology CXR Radiology Interpretation Completed By: Radiologist - CARDIOMEGALY WITH MILD PULMONARY INTERSTITIAL EDEMA. ED physician has reviewed this report. - EKG 17:01 Cardiac Rate: NL - 81 BPM EKG Rhythm: Atrial Fibrillation Re-Evaluation - Re-Evaluation First Eval Re-Evaluation Time: 17:20 Change: Unchanged Comment: Discussed admission plan, agreeable. GIGU Course/Dx - Course Course Of Treatment: 78 y/o F presents to [facility] complains of GI bleed since four days ago. Bloodwork and imaging obtained.Dr. Contreras, hospitalist, agrees to admit patient for further evaluation. Dr. Arevalo GI, also agrees to consult on pt care. - Diagnoses Differential Diagnoses - Female: Diverticulitis, Gastritis, Other - gi bleeding Provider Diagnoses: GI bleed, Anemia - Physician Notifications Discussed Care Of Patient With: Sara Contreras Time Discussed With Above Provider: 17:32 Instructed by Provider To: Other - Dr. Contreras, hospitalist, agrees to admit patient for further evaluation. HERMELINDO Daniels, also agrees to consult on pt care. Discharge - Sign-Out/Discharge Documenting (check all that apply): Discharge/Admit/Transfer - Discharge Plan Condition: Fair Disposition: ADMITTED TO [facility] - Billing Disposition and Condition Condition: FAIR Disposition: [facility] [place] The documentation as recorded by the Mo aguirre Tiffany accurately reflects the service I personally performed and the decisions made by , Siva Van.
[2018-03-21] MEDS: Allopurinol TAB* 300 MG PO SCH (09:04)
[2018-03-21] MEDS: Citalopram TAB* 10 MG PO SCH (09:04)
[2018-03-21] MEDS: Spironolactone TAB* 25 MG PO SCH (09:04)
[2018-03-21] MEDS: Oxybutynin XL TAB* 5 MG PO SCH (09:53)
[2018-03-21 10:21] LABS: ABS Basophils 0 10^3/ul (0-0.2); ABS Eosinophils 0.1 10^3/ul (0-0.6); ABS Lymphocytes 0.7 10^3/ul (1.0-4.8); ABS Monocytes 0.3 10^3/ul (0-0.8); ABS Neutrophils 1.9 10^3/ul (1.5-7.7); ABS Nucleated RBC 0 10^3/ul; Eosinophil % 3.3 % (0-6); Hematocrit 25 % (35-47); Hemoglobin 8.2 g/dl (12.0-16.0); Lymphocyte % 23.8 % (25-47); Mean Corpuscular HGB Conc 33 g/dl (31-36); Mean Corpuscular Hemoglobin 33 pg (27-31); Mean Corpuscular Volume 99 fL (80-97); Mean Platelet Volume 7.8 um3 (7.4-10.4); Nucleated Red Blood Cells % 0; Platelet Count 106 10^3/ul (150-450); Red Blood Count 2.52 10^6/ul (4.0-5.4); Red Cell Distribution Width 17 % (10.5-15); White Blood Count 3.1 10^3/ul (3.5-10.8)
[2018-03-21 10:49] LABS: EGFR Non-African American 54.9 (>60)
[2018-03-21] MEDS: IMATINIB 400 MG PO SCH (11:43)
[2018-03-21] MEDS: Omeprazole CAP* 20 MG PO SCH ×2 (11:53→17:21)
--- NOTE | 2018-03-21 13:02 | PRO ---
DATE: 03/20/18 - ROOM #415 REFERRING PHYSICIANS: Tadeo Jesus; Jose Antoine* PROCEDURE: Upper gastrointestinal endoscopy through the distal duodenum. INDICATION: This 78-year-old woman with a history of CML on Gleevec and also a right upper lobe 5-cm mass (on CT scan 1 month ago), came in with maroon stool. Her BUN was normal. She has been on Eliquis for atrial fibrillation. Informed consent was obtained from the patient. She has a history of substantial obesity and sleep apnea with a prior tracheostomy for management of the apnea which the patient discontinued herself. Today, she had one stool in the morning, but none in the last 8 to 9 hours. Her hemoglobin fell to 7.1 and she was transfused 1 unit. She has been on a Protonix drip. ENDOSCOPIST: Dr. Arevalo MEDICATIONS: Midazolam 5, fentanyl 50. FINDINGS: She is a morbidly obese, older woman, in no overt distress. MRSA precautions were followed. Her abdomen is soft and nontender. Rectal showed black stool, was greasy, and grossly positive. ESOPHAGOGASTRODUODENOSCOPY: Larynx - symmetric, limited views obtained. Esophagus - easily entered, and the mucosa is normal in the upper mid and lower esophagus with the question of a slightly dilated vein for about 4 to 5 cm in the distal esophagus. It was just a single structure. Stomach - generally normal mucosa and contours with normal rugal folds. No blood was seen. There was no ulcer. Duodenum - The pylorus was normal and the bulb, distal portion, had somewhat prominent, slightly erythematous folds consistent with Mau's gland effect. No ulcer was seen. Several passes were done. There were no abnormalities in the second, third, or fourth portion of the duodenum. Coming back, there were no additional findings. IMPRESSION: 1. Mau's gland hypertrophy. 2. Otherwise normal EGD. 3. Gastrointestinal bleeding - at this time no clinical signs of ongoing activity and one option is to continue to hold her Eliquis and observe. Restore iron as needed and monitor Hemoccults. Consideration of colonoscopy will be discussed with Dr Antoine who clearly will be planning further workup for her right upper lobe mass. [id number]/[facility] #: [id number] [facility]
--- NOTE | 2018-03-21 13:38 | RAD ---
INDICATION: LEFT lower extremity swelling. COMPARISON: November 20, 2014 RIGHT lower extremity venous ultrasound. TECHNIQUE: Godfrey scale, color Doppler, and spectral analysis of the deep veins of the LEFT lower extremity. Vessel compression, phasicity, and augmentation assessed. REPORT: The LEFT common femoral, great saphenous, profunda femoral, femoral, popliteal, peroneal, and posterior tibial veins are patent. Patency of the RIGHT common femoral vein documented. IMPRESSION: No evidence for LEFT lower extremity deep venous thrombosis.
--- NOTE | 2018-03-21 13:56 | RAD ---
HISTORY: Hemoptysis, previous CT with right upper lobe opacity, history of leukemia and breast cancer COMPARISONS: February 20, 2018 TECHNIQUE: Multiple contiguous axial CT scans of the chest were obtained without intravenous contrast. Coronal and sagittal multiplanar reformations are also submitted for review. FINDINGS: The study is limited by the lack of intravenous contrast. This limits evaluation of the solid organs and vasculature. NECK AND THYROID: The thyroid gland is diffusely heterogeneous and enlarged with extension into the anterior mediastinum. CHEST WALL: There is no lower cervical, axillary, or supraclavicular lymphadenopathy by size criteria. Surgical clips are noted in the right axilla. HEART AND PERICARDIUM: The heart is unremarkable. AORTA AND PULMONARY VASCULATURE: The pulmonary is enlarged compared to the aorta. MEDIASTINUM: There is no mediastinal lymphadenopathy by size criteria. GANESH: Evaluation of the ganesh is limited by the lack of intravenous contrast. There is no obvious hilar lymphadenopathy by size criteria. AIRWAY AND ESOPHAGUS: The airway is unremarkable, without endobronchial filling defect. The esophagus is grossly normal. LUNG PARENCHYMA: Again noted is a geographic area of ground less opacification of the right upper lobe. This has developed from the previous examination, with a more central solid component measuring up to 0.8 cm. This region measures up to 4.4 cm in maximum dimension. PLEURA: There are small bilateral pleural effusions. UPPER ABDOMEN: There is a cirrhotic appearance to the liver. There is a small amount of ascites. BONES AND SOFT TISSUES: There is diffuse osteopenia. Degenerative changes are noted. OTHER: None. IMPRESSION: 1. THERE IS BEEN PROGRESSION OF AN AREA OF GROUNDGLASS OPACIFICATION OF THE RIGHT UPPER LOBE WHICH IS NOW PART SOLID WITH A CENTRAL NODULAR COMPONENT MEASURING UP TO 0.8 CM. RECOMMEND CONSIDERATION OF FURTHER EVALUATION WITH PET/CT, TISSUE SAMPLING, AND/OR CLOSE INTERVAL FOLLOW-UP 2. SMALL BILATERAL PLEURAL EFFUSIONS. 3. CIRRHOTIC LIVER WITH A SMALL AMOUNT OF ASCITES. 4. ENLARGED THYROID. 5. THE PULMONARY ARTERY IS ENLARGED COMPARED TO THE AORTA SUGGESTIVE OF PULMONARY ARTERIAL HYPERTENSION..
--- NOTE | 2018-03-21 15:27 | ECHO ---
Patient: MARK FERRARA [facility] Rec#: [id number] : 1940 Date: 03/21/2018 Age: 78y Height: 152.4 cm / 60.0 in Weight: 77.1 kg / 169.9 lbs Sex: F BSA: 1.7 Room#: [facility] Admit Date#: 03/19/2018 Type: Inpatient Referring: Sowmya Hale MD Reading: Edmund Stanley MD Rectangular Tank Cooper: Richa Norwood RN RDCS CC: Tadeo Jesus MD Transthoracic Echocardiogram Indication: SOB, elevated troponin BP: 108/39 HR: 79 Rhythm: NSR Findings History: HTN, HLD, A. fib, COPD, BRANDY, CLL, chemotherapy, sarcoidosis, mastectomy, gout, GERD, morbid obesity Technical Comments: The study quality is fair. The study is technically limited due to patient body habitus. The study is technically limited due to the patient's history of COPD. Left Ventricle: The left ventricular chamber size is normal. Moderate concentric left ventricular hypertrophy is observed. Global left ventricular wall motion and contractility are within normal limits. There is normal left ventricular systolic function. The estimated ejection fraction is greater than 65%. Abnormal left ventricular diastolic filling is observed, consistent with impaired relaxation. Left Atrium: The left atrium is moderately dilated. Right Ventricle: The right ventricle is mildly dilated. The right ventricular global systolic function is normal. Right Atrium: The right atrium is moderately dilated. Aortic Valve: The aortic valve is trileaflet. The aortic valve leaflets are mildly thickened. Systolic excursion of the aortic valve cusps is reduced. There is aortic annular calcification. There is moderate aortic regurgitation. There is mild aortic stenosis. The mean gradient of the aortic valve is 9 mmHg. The peak instantaneous gradient of the aortic valve is 16 mmHg. The aortic valve area, by peak velocities, is calculated at 1.5 cm2. The aortic valve area, by VTI's, is calculated at 1.5 cm2. Mitral Valve: There is posterior mitral annular calcification. The mitral valve leaflets are mildly thickened. Mitral valve leaflet mobility is mildly restricted.especially posteriorly. Mild subvalvular thickening of the mitral valve is visualized. There is mild to moderate mitral regurgitation. The mitral regurgitant jet is posteriorly directed. The mitral regurgitant jet is laterally directed. There is borderline mitral stenosis. Tricuspid Valve: The tricuspid valve leaflets are normal. There is moderate tricuspid regurgitation. There is evidence of mild pulmonary hypertension. Pulmonic Valve: The pulmonic valve appears normal. There is mild to moderate pulmonic regurgitation. There is no pulmonic stenosis. Pericardium: There is no significant pericardial effusion. A pericardial fat pad is visualized. Aorta: There is no dilatation of the ascending aorta. There is no dilatation of the aortic arch. There is no dilation of the aortic root. Pulmonary Artery: The main pulmonary artery appears normal. Venous: The inferior vena cava appears normal in size. There is a greater than 50% respiratory change in the inferior vena cava dimension. Conclusions Moderate concentric left ventricular hypertrophy is observed. Abnormal left ventricular diastolic filling is observed, consistent with impaired relaxation. The estimated ejection fraction is greater than 65%. The left atrium is moderately dilated. The right ventricle is mildly dilated. The right atrium is moderately dilated. Systolic excursion of the aortic valve cusps is reduced. There is mild aortic stenosis; low gradient aortic stenosis. There is moderate aortic regurgitation. Mitral valve leaflet mobility is mildly restricted.especially posteriorly. There is mild to moderate mitral regurgitation. There is borderline mitral stenosis. There is moderate tricuspid regurgitation. There is mild to moderate pulmonic regurgitation. Similar to 06/2017. Measurements Name Value Normal Range RVDdMajor (2D) 4.3 cm (2.2 - 4.4) RAd ISD 4CH 5.7 cm (3.4 - 4.9) RA (A4C)W 4.5 cm (2.9 - 4.6) IVSd (2D) 1.6 cm (0.6 - 1) LVPWd (2D) 1.6 cm (0.6 - 1) LVIDd (2D) 4.4 cm (3.6 - 5.4) LVIDs (2D) 3 cm - LV FS (2D) 32 % (25 - 45) Aortic Annulus 2.1 cm (1.4 - 2.6) Ao root diameter (2D) 3.2 cm (2.1 - 3.5) Ascending Ao 3.2 cm (2.1 - 3.4) Aortic arch 2.9 cm (1.8 - 3.4) LA dimension (AP) 2D 4.5 cm (2.3 - 3.8) LAd ISD 4CH 5.6 cm (2.9 - 5.3) LA ISD 4CH W 4.4 cm (2.5 - 4.5) Name Value Normal Range LA ESV SP 4CH (A/L) 66 ml - LA ESV SP 2CH (A/L) 78 ml - LA ESV BP (A/L) 73 ml - LA ESV BP (A/L) index 42 ml/m2 - LA ESV SP 4CH (MOD) 63 ml - LA ESV SP 2CH (MOD) 74 ml - Name Value Normal Range MV E-wave Vmax 1.4 m/sec - MV deceleration time 168 msec - MV A-wave Vmax 0.65 m/sec - MV E:A ratio 2.1 ratio - LV septal e' Vmax 0.08 m/sec - LV lateral e' Vmax 0.11 m/sec - LV E:e' septal ratio 17.5 ratio - LV E:e' lateral ratio 12.7 ratio - Name Value Normal Range AV Vmax 2 m/sec - AV VTI 44.9 cm - AV peak gradient 16 mmHg - AV mean gradient 9 mmHg - LVOT diameter 2 cm - LVOT Vmax 0.98 m/sec - LVOT VTI 22.1 cm - LVOT peak gradient 3.8 mmHg - LVOT mean gradient 2 mmHg - DOI (VTI) 0.49 ratio - DOI (Vmax) 0.49 ratio - PHILIP (continuity Vmax) 1.5 cm2 - PHILIP (continuity VTI) 1.5 cm2 - AR PHT 368 msec - LUIS Vmax 0.71 m/sec - Name Value Normal Range MV Vmax 1.6 m/sec - MV VTI 42.5 cm - MV peak gradient 10.6 mmHg - MV mean gradient 3.2 mmHg - MV PHT 96 msec - MVA (PHT) 2.3 cm2 - MVA (continuity VTI) 1.6 cm2 - Name Value Normal Range TR Vmax 3.2 m/sec - TR peak gradient 41 mmHg - RAP 3 mmHg - RVSP 44 mmHg - IVC diameter 2.1 cm - Name Value Normal Range PV Vmax 0.95 m/sec -
--- NOTE | 2018-03-21 15:57 | PN ---
Subjective Date of Service: 03/21/18 Interval History: HOSPITALIST PROGRESS NOTE Patient seen and examined at bedside. Care reviewed and d/w Crystal Parada RN. She feels better today. Denies abdominal pain, N/V. Had a dark BM today, but less "candido". Also c/o cough with hemoptysis. Family History: Unchanged from Admission Social History: Unchanged from Admission Past Medical History: Unchanged from Admission Objective Active Medications: Acetaminophen (Tylenol Tab*) 650 mg PO Q6H PRN PRN Reason: FEVER/PAIN Allopurinol (Zyloprim Tab*) 300 mg PO DAILY [facility] Last Admin: 03/21/18 09:04 Dose: 300 mg Citalopram Hydrobromide (Celexa Tab*) 10 mg PO DAILY [facility] Last Admin: 03/21/18 09:04 Dose: 10 mg Imatinib Mesylate (Gleevec (Nf)) 400 mg PO DAILY [facility] Last Admin: 03/21/18 11:43 Dose: Not Given Omeprazole (Prilosec Cap*) 20 mg PO BID [facility] Last Admin: 03/21/18 11:53 Dose: 20 mg Oxybutynin Chloride (Ditropan Xl Tab*) 15 mg PO DAILY [facility] Last Admin: 03/21/18 09:53 Dose: 15 mg Spironolactone (Aldactone Tab*) 25 mg PO DAILY [facility] Last Admin: 03/21/18 09:04 Dose: 25 mg Vital Signs - 8 hr 03/21/18 03/21/18 08:00 09:02 Temperature 98.9 F Pulse Rate 87 Respiratory 18 16 Rate Blood Pressure 110/35 (mmHg) O2 Sat by Pulse 98 Oximetry Oxygen Devices in Use Now: None Appearance: Pleasant elderly lady lying in bed in NAD. Eyes: No Scleral Icterus Ears/Nose/Mouth/Throat: Mucous Membranes Moist - and pale Neck: Trachea Midline Respiratory: Symmetrical Chest Expansion and Respiratory Effort, Clear to Auscultation Cardiovascular: RRR - Normal S1 and S2 Neurological: Alert and Oriented x 3, NL Muscle Strength and Tone Result Diagrams: 03/21/18 10:05 03/21/18 10:05 Assess/Plan/Problems-Billing Assessment: Mrs King is a 78yo F with PMH of CML on Gleevec, HTN, gout, HLD, BRANDY, COPD, GERD, sarcoidosis, Afib on Eliquis, breast CA, who presented to ED with dark stools and fatigue, found to have GI bleed. - Patient Problems (1) GI bleed Comment: - Gleevec and Eliquis increase her risk of bleeding. - Her dark stool suggests an upper source, but her BUN is normal, so suspect her source is probably in the small bowel. - GI input apreciated - EGD was negative for a source of bleeding. - D/c Protonix drip and start oral PPI. - Heme/Onc consultation appreciated (Handwritten note by Dr. Antoine) - agrees with holding Eliquis, but recommends continuation of Gleevec as long as platelet count remains adequate, so will resume it. (2) Acute blood loss anemia Comment: - Secondary to GI bleed. - Hb 8.2 after 1 PRBC - no signs of active bleeding at this time. (3) Elevated troponin Comment: - Likely demand ischemia in the setting of GI bleed. - Echocardiogram showed EF>65% with no wall motion abnormalities. (4) Hemoptysis Comment: - Patient had cough and hemoptysis [address] chest at that time showed 5cm ground glass appearing mass in RUL - infectious vs malignancy. - Repeat CT shows progression of ground glass opacification now with central nodular component - Pulm consultation requested. - Check CT abd/pelvis for possible mets. (5) Atrial fibrillation Comment: - [id number] is 4 predcting a stroke risk of 4.8%/year. - HAS-BLED score is 2 predicting a risk of 1.88 bleeds per 100 patient-years. - Eliquis on hold in the setting of GI bleed. (6) CML (chronic myeloid leukemia) Comment: - Will resume Gleevec. (7) DVT prophylaxis Comment: - SCDs. (8) Full code status Status and Disposition: Inpatient.
--- NOTE | 2018-03-21 19:51 | RAD ---
CLINICAL HISTORY: Lung mass, GI bleed, rule out tumor COMPARISON: June 28, 2006 TECHNIQUE: Multiple contiguous axial CT scans were obtained of the abdomen and pelvis, without intravenous contrast enhancement. Coronal and sagittal multiplanar reformations are submitted for review. Oral contrast was not administered. FINDINGS: The study is limited by the lack of intravenous contrast. This limits evaluation of the solid organs and vasculature. LUNG BASES: There are small bilateral pleural effusions. There is a small pericardial effusion. LIVER: There is a micronodular contour to the liver. There is perihepatic ascites. BILE DUCTS: There is no intrahepatic or extrahepatic biliary dilatation. GALLBLADDER: Multiple gallstones are noted. There is no pericholecystic inflammatory change. PANCREAS: There is calcification of the pancreatic head. SPLEEN: Normal in size and appearance. UPPER GI TRACT: Evaluation of the gastrointestinal tract is limited by incomplete gastric distention. The upper GI tract is unremarkable. SMALL BOWEL AND MESENTERY: The small bowel is normal in contour, course, and caliber. There is no obstruction or dilatation. COLON: There are multiple diverticula of the sigmoid colon. There is no pericolonic inflammatory change. ADRENALS: Normal bilaterally. KIDNEYS: The kidneys are normal in shape, size, contour, and axis. There is no hydronephrosis or nephrolithiasis. BLADDER: The bladder is incompletely distended but is grossly normal. PELVIC ORGANS: The pelvic organs are not visualized. There is small amount of pelvic ascites. AORTA: There is calcific atherosclerotic disease of the abdominal aorta and its branches, without aneurysmal dilatation IVC: Unremarkable LYMPH NODES: There is no lymphadenopathy by size criteria. ABDOMINAL WALL: There is no evidence for abdominal wall hernia. BONES AND SOFT TISSUES: There is diffuse osteopenia. Degenerative changes are noted of the spine. The patient is status post internal fixation of the right femur. OTHER: As noted above, there is a small amount of ascites. IMPRESSION: 1. MICRONODULAR CONTOUR TO THE LIVER SUGGESTIVE OF CIRRHOSIS. 2. ASCITES. 3. SMALL BILATERAL PLEURAL EFFUSIONS. 4. SMALL PERICARDIAL EFFUSION. 5. CHOLELITHIASIS. 6. ATHEROSCLEROSIS. 7. THERE IS CALCIFICATION OF THE PANCREATIC HEAD SUGGESTIVE OF THE SEQUELA OF CHRONIC PANCREATITIS. 8. DIVERTICULOSIS.
[2018-03-21] MEDS: Nystatin TOP POWDER* 15 GM BTL TOPICAL SCH (20:03)
--- NOTE | 2018-03-22 02:32 | CONS ---
PULMONARY CONSULTATION REPORT: DATE OF CONSULT: 03/21/18 CONSULTATION REQUESTED BY: Sowmya Caro MD REASON FOR CONSULT: Evaluation of abnormal CT chest. HISTORY OF PRESENT ILLNESS: The patient is a pleasant, obese, 78-year-old female with history of CML; breast cancer, status post mastectomy, on chemotherapy for many years, has been on Gleevec for 5 years with improved control of CML. The patient also with history of COPD; GERD; sarcoidosis; atrial fibrillation, on anticoagulation. The patient was treated with antibiotics recently for pneumonia. CT scan of chest at that time showed evidence of patchy airspace opacity in the right upper lobe. The patient presented to the emergency room for evaluation of bleeding per rectum for the past 4 days prior to admission. The patient has been noticing blood in stool and also dark stool. Hemoccult was positive and was sent into emergency room for further evaluation. The patient also noted to have positive troponins, which is likely from the stress related ischemia. Further evaluation included repeat CT scan of the chest. I have personally reviewed CT scan of the chest in comparison with prior CT from 02/20/18. The patient with evidence of airspace opacity in the right upper lobe in subpleural location with ground- glass area and also nodular component. The patient also with evidence of mosaic pattern in the ground-glass area. The patient also with small bilateral effusions. There has been slight interval progression of the opacity. The patient also noted to have cirrhotic liver with small amounts of ascites, enlarged thyroid and evidence of pulmonary hypertension. No significant mediastinal or hilar adenopathy was noted. Lower extremity Dopplers were negative for DVT. The patient was evaluated by GI, underwent upper endoscopy, no active source of bleeding was noted. The patient received 1 unit of PRBC, hemoglobin has been stable. The patient denies any further episodes of hemoptysis or dark stools since yesterday. The patient denies significant cough or sputum production. The patient was diagnosed with CML in 2014 after bone marrow biopsy. She has been on Gleevec with stable cell count. Her white count is currently at 3.1. Her platelet count is low at 106; however, is stable. Pulmonary consultation was requested given CT chest abnormality. PAST MEDICAL HISTORY: 1. CML, on Gleevec. 2. Right-sided breast cancer, status post mastectomy. 3. Hypertension. 4. Gout. 5. Hyperlipidemia. 6. Obstructive sleep apnea. 7. COPD. 8. GERD. 9. Sarcoidosis. 10. Atrial fibrillation, on anticoagulation. PAST SURGICAL HISTORY: Mastectomy, cardioversion, appendectomy, hysterectomy, ORIF, cataract, tracheostomy in the past. MEDICATIONS AT HOME: 1. Spironolactone. 2. Oxybutynin. 3. Celexa. 4. Gleevec. 5. Apixaban. 6. Allopurinol. ALLERGIES: AMOXICILLIN, CEFPROZIL, CEPHALEXIN, CIPROFLOXACIN, CLARITHROMYCIN, CLAVULANIC ACID, DOXYCYCLINE, IV CONTRAST, LEVOFLOXACIN, PENICILLIN, PREDNISONE , and SERTRALINE. FAMILY HISTORY: Mother with breast cancer, father with CVA. SOCIAL HISTORY: The patient does not smoke, drinks alcohol occasionally. Lives at home with daughter. REVIEW OF SYSTEMS: All 14 systems reviewed and as per HPI. PHYSICAL EXAM: The patient in obese, pleasant female, in bed, in no apparent distress. Vital Signs: Temperature 98.3, pulse 74 beats per minute, respiratory rate 22 per minute, O2 sat 97% on 3 L, blood pressure 111/44. HEENT : Pupils equal, reactive to light. Mucous membranes moist. Neck: Supple. No JVD. Lungs: Clear to auscultation bilaterally. Cardiovascular: S1, S2 present. Regular. Abdomen: Obese. Bowel sounds present. Mild tenderness in the left upper quadrant. Musculoskeletal: Normal range of motion. Skin: No rash or bruise. Neurologic: No focal deficits. DIAGNOSTIC STUDIES/LAB DATA: WBC count 3.1, hemoglobin 8.2, hematocrit 25, platelet count 106. INR 1.63. Sodium 138, potassium 4.1, chloride 111, bicarb 23, BUN 15, creatinine 0.98. Troponin is 0.04, has been stable. Total protein slightly decreased at 5.1. CT chest as described above in HPI. IMPRESSION AND RECOMMENDATIONS: 78-year-old female with history of chronic myelogenous leukemia; breast cancer, status post mastectomy, recently being evaluated for -hemoptysis, was found to have right upper lobe ground-glass opacity with central nodular opacification, treated for pneumonia recently, admitted with gastrointestinal bleed, negative upper endoscopy. No further episodes of bleeding. Anticoagulation being held given gastrointestinal bleed. Blood loss anemia secondary to acute gastrointestinal bleed. Etiology of gastrointestinal bleed unclear at this time. -Ground-glass, mosaic pattern and nodular opacity in right upper lobe - differentials include lymphangitic spread, lymphoma involvement, medication side effect secondary to Gleevec, aspiration of blood into the lungs, recurrence of breast cancer/ primary lung adenocarcinoma versus BOOP or BOTTOMING ROOM INSPECTOR. The patient was treated for pneumonia recently with no improvement in symptoms or CT chest findings. Unclear if this is side effect of Gleevec. Given persistence and possible progression of the opacity, she will benefit from CT- guided biopsy. Will discuss with Interventional Radiology tomorrow regarding the biopsy. Might benefit from low dose Lasix given bilateral effusions in the setting of PRBC and IV fluids. CT chest images were personally reviewed and were reviewed in detail with the patient today. Discussed with Dr. Caro. Thank you for allowing me to participate in the care of your patient. [id number]/[facility] #: [id number] JENNA
[2018-03-22] MEDS ORDERED: Furosemide IV* 10 MG/ML 2 ML VIAL (20 MG) IV SLOW PU ONE (07:20)
[2018-03-22] MEDS: Oxybutynin XL TAB* 5 MG PO SCH (08:22)
[2018-03-22] MEDS: Citalopram TAB* 10 MG PO SCH (08:23)
[2018-03-22] MEDS: Omeprazole CAP* 20 MG PO SCH ×2 (08:23→17:38)
[2018-03-22] MEDS: Allopurinol TAB* 300 MG PO SCH (08:23)
[2018-03-22] MEDS: Spironolactone TAB* 25 MG PO SCH (08:23)
[2018-03-22] MEDS: IMATINIB 400 MG PO SCH (08:56)
[2018-03-22] MEDS: Nystatin TOP POWDER* 15 GM BTL TOPICAL SCH ×2 (09:23→22:16)
--- NOTE | 2018-03-22 14:53 | PN ---
Subjective Date of Service: 03/22/18 Interval History: HOSPITALIST PROGRESS NOTE Patient seen and examined at bedside. Care reviewed and d/w Delilah Sexton RN. She feels better today. Tolerating diet, denies abdominal pain. Had a light brown BM today. Still has cough, but no further episodes of hemoptysis. Family History: Unchanged from Admission Social History: Unchanged from Admission Past Medical History: Unchanged from Admission Objective Active Medications: Acetaminophen (Tylenol Tab*) 650 mg PO Q6H PRN PRN Reason: FEVER/PAIN Allopurinol (Zyloprim Tab*) 300 mg PO DAILY [facility] Last Admin: 03/22/18 08:23 Dose: 300 mg Citalopram Hydrobromide (Celexa Tab*) 10 mg PO DAILY [facility] Last Admin: 03/22/18 08:23 Dose: 10 mg Imatinib Mesylate (Gleevec (Nf)) 400 mg PO DAILY [facility] Last Admin: 03/22/18 08:56 Dose: Not Given Nystatin (Nystatin Top Powder*) 1 applic TOPICAL BID [facility] Last Admin: 03/22/18 09:23 Dose: 1 applic Omeprazole (Prilosec Cap*) 20 mg PO BID AC [facility] Last Admin: 03/22/18 08:23 Dose: 20 mg Oxybutynin Chloride (Ditropan Xl Tab*) 15 mg PO DAILY [facility] Last Admin: 03/22/18 08:22 Dose: 15 mg Spironolactone (Aldactone Tab*) 25 mg PO DAILY [facility] Last Admin: 03/22/18 08:23 Dose: 25 mg Vital Signs - 8 hr 03/22/18 03/22/18 08:16 12:05 Temperature 98.8 F 98.7 F Pulse Rate 83 83 Respiratory 17 19 Rate Blood Pressure 95/69 103/24 (mmHg) O2 Sat by Pulse 96 98 Oximetry Oxygen Devices in Use Now: None Appearance: Pleasant elderly lady lying in bed in NAD. Eyes: No Scleral Icterus Ears/Nose/Mouth/Throat: Mucous Membranes Moist Neck: Trachea Midline Respiratory: Symmetrical Chest Expansion and Respiratory Effort, Clear to Auscultation Cardiovascular: RRR - Normal S1 and S2 Abdominal: NL Sounds; No Tenderness; No Distention Neurological: Alert and Oriented x 3, NL Muscle Strength and Tone Result Diagrams: 03/21/18 10:05 03/21/18 10:05 Assess/Plan/Problems-Billing Assessment: Mrs King is a 78yo F with PMH of CML on Gleevec, HTN, gout, HLD, BRANDY, COPD, GERD, sarcoidosis, Afib on Eliquis, breast CA, who presented to ED with dark stools and fatigue, found to have GI bleed. - Patient Problems (1) GI bleed Comment: - Gleevec and Eliquis increase her risk of bleeding. - GI input apreciated - EGD was negative for a source of bleeding. - Continue oral PPI. - Heme/Onc consultation appreciated (Handwritten note by Dr. Antoine) - agrees with holding Eliquis, but recommends continuation of Gleevec as long as platelet count remains adequate, so will resume it. (2) Acute blood loss anemia Comment: - Secondary to GI bleed. - Hb 8.2 after 1 PRBC - no signs of active bleeding at this time. - Monitor H/H. (3) Elevated troponin Comment: - Likely demand ischemia in the setting of GI bleed. - Echocardiogram showed EF>65% with no wall motion abnormalities. (4) Hemoptysis Comment: - Patient had cough and hemoptysis [address] chest at that time showed 5cm ground glass appearing mass in RUL - infectious vs malignancy. - Repeat CT shows progression of ground glass opacification now with central nodular component - Pulm consultation appreciated - recommended CT guided biopsy. (5) Atrial fibrillation Comment: - DPULU2Ctok is 4 predcting a stroke risk of 4.8%/year. - HAS-BLED score is 2 predicting a risk of 1.88 bleeds per 100 patient-years. - Eliquis on hold in the setting of GI bleed. (6) CML (chronic myeloid leukemia) Comment: - Will resume Gleevec. (7) DVT prophylaxis Comment: - SCDs. (8) Full code status Status and Disposition: Inpatient. Anticipate d/c in AM if H/H remains stable.
[2018-03-22 15:54] LABS: ABS Basophils 0 10^3/ul (0-0.2); ABS Eosinophils 0.1 10^3/ul (0-0.6); ABS Lymphocytes 0.9 10^3/ul (1.0-4.8); ABS Monocytes 0.4 10^3/ul (0-0.8); ABS Nucleated RBC 0 10^3/ul; Eosinophil % 3.9 % (0-6); Hematocrit 25 % (35-47); Hemoglobin 8.4 g/dl (12.0-16.0); Lymphocyte % 26.3 % (25-47); Mean Corpuscular HGB Conc 33 g/dl (31-36); Mean Corpuscular Hemoglobin 32 pg (27-31); Mean Corpuscular Volume 98 fL (80-97); Mean Platelet Volume 7.4 um3 (7.4-10.4); Nucleated Red Blood Cells % 0; Platelet Count 109 10^3/ul (150-450); Red Blood Count 2.59 10^6/ul (4.0-5.4); Red Cell Distribution Width 17 % (10.5-15); White Blood Count 3.5 10^3/ul (3.5-10.8)
[2018-03-23] MEDS: Oxybutynin XL TAB* 5 MG PO SCH (07:18)
[2018-03-23] MEDS: Omeprazole CAP* 20 MG PO SCH (07:18)
[2018-03-23] MEDS: IMATINIB 400 MG PO SCH (07:18)
[2018-03-23] MEDS: Citalopram TAB* 10 MG PO SCH (07:18)
[2018-03-23] MEDS: Spironolactone TAB* 25 MG PO SCH (07:18)
[2018-03-23] MEDS: Allopurinol TAB* 300 MG PO SCH (07:18)
[2018-03-23] MEDS: Nystatin TOP POWDER* 15 GM BTL TOPICAL SCH (07:20)
[2018-03-23 08:23] VITALS: BP 115/48
--- NOTE | 2018-03-24 23:19 | DS ---
CC: Dr. Jesus; Dr. Antoine; Dr. Dove DISCHARGE SUMMARY: DATE OF ADMISSION: 03/19/18 DATE OF DISCHARGE: 03/23/18 PRIMARY CARE PROVIDER: Dr. Jesus. ONCOLOGIST: Dr. Antoine. MACHINE OPERATOR FARMWORKER: Dr. Dove. DISCHARGE DIAGNOSES: 1. Upper gastrointestinal bleed of unclear source. 2. Acute blood loss anemia. 3. Elevated troponin, likely secondary to demand ischemia. 4. Right upper lobe tumor with hemoptysis. SECONDARY DIAGNOSES: 1. Chronic myelogenous leukemia, on Gleevec. 2. Hypertension. 3. Gout. 4. Hyperlipidemia. 5. Obstructive sleep apnea. 6. Chronic obstructive pulmonary disease. 7. Gastroesophageal reflux disease. 8. Sarcoidosis. 9. Atrial fibrillation. 10. Breast carcinoma, status post right mastectomy. 11. Liver cirrhosis. MEDICATION LIST: 1. Spironolactone 25 mg p.o. daily. 2. Oxybutynin 15 mg p.o. daily. 3. Citalopram 10 mg p.o. daily. 4. Gleevec 400 mg p.o. daily. 5. Allopurinol 300 mg p.o. daily. New medications: 1. Omeprazole 20 mg p.o. b.i.d. 2. Nystatin powder to rash areas b.i.d. HOSPITAL COURSE: Ms. King is a 78-year-old lady with a past medical history as stated above that presented to the emergency room with complaints of dark stools, shortness of breath, and weakness. T he patient was found to be anemic with a hemoglobin of 7.5. The impression was the patient had an up per GI bleed, but her BUN was normal suggesting the source was not her stomach. The patient was admitted for further evaluation. She was seen in consultation by Gastroenterology (Raymundo Arevalo) and he felt that her bleeding was coming from the distal small bowel or right colon. The recommendation was to stop Eliquis at least temporarily and an upper endoscopy was indicated, but pr epping for a colonoscopy was not likely to be accomplished without a fair amount of burden to her and would be of unclear benefit. The patient received 1 PRBC and her H and H remained stable after that. An upper endoscopy was performed on 03/20/18 and it showed Mau's gland hypertrophy, but otherwise normal EGD. He felt that from a gastrointestinal bleeding point of view, at that time there was no clinical sign of ongoing activity and one option would be to continue to hold her Eliquis and observe . 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 She had no further evidence of a GI bleed. Of note is the fact that the last month the patient developed hemoptysis and had a CT of the chest wi thout contrast done on 02/20/18 that showed a 5-cm ground-glass opacity in the right upper lobe that could be related to infectious etiology, but neoplasia to include bronchioloalveolar carcinoma was in the differential. The patient was treated as outpatient and the plan was to have a followup CAT sca n next week but as the patient had hemoptysis while in the hospital, we repeated the CAT scan now and it showed progression of the area of ground-glass opacification of the right upper lobe, now with a part solid central nodular component measuring 0.8 cm. She was seen in consultation by Pulmonology (Raymundo Dove) and her recommendation was for CT-guided biopsy and this will be arranged as outpatient by Dr. Dove and Dr. Antoine. From a GI bleed point of view, the patient is medically stable for discharge and her Eliquis should b e held at least until her lung biopsy is performed, but if it is resumed, she will need to be monitor ed closely for recurrence of her GI bleed. She is medically stable for discharge today. PHYSICAL EXAMINATION: Vital Signs: Temperature 98.0, heart rate is 76, respiratory rate is 18, oxyg en saturation 97% on room air, blood pressure is 115/48. General: The patient is a pleasant elderly lady, lying in bed, in no acute distress. CVS: Normal S1, S2. Regular rate and rhythm. Chest: B reath sounds present bilaterally with no added sounds. Abdomen: Obese, soft, bowel sounds present. Extremities: There is trace edema to the left lower extremity. Neuro: She is alert and oriented x3 . Able to move all 4 extremities. DIET: Heart healthy diet. ACTIVITIES: As tolerated. DISPOSITION: To home. STATUS WHILE IN THE HOSPITAL: Inpatient. Please keep in mind, this is a summarized version of this patient's hospital stay. If you need more i nformation, please feel free to call me at [phone] or please obtain the full medical records. TIME SPENT: Approximately 45 minutes were spent to complete this discharge. [id number]/CPS #: [id number]
== END 2018-03-23 10:15 | disposition home or self-care (01) | DRG 378 ==
LOC: ED 15:33 → MED 17:52
PROVIDERS: ADMIT Internal Medicine; ATTEND Internal Medicine
PROC: 30233N1 Transfusion of Nonautologous Red Blood Cells into Peripheral Vein, Percutaneous Approach (ICD-10-PCS; principal; 2018-03-20)
PROC: 0DJ08ZZ Inspection of Upper Intestinal Tract, Via Natural or Artificial Opening Endoscopic (ICD-10-PCS; 2018-03-20)
DX: K92.2 Gastrointestinal hemorrhage, unspecified (principal); D62 Acute posthemorrhagic anemia; I24.8 Other forms of acute ischemic heart disease; R04.2 Hemoptysis; C92.10 Chronic myeloid leukemia, BCR/ABL-positive, not having achieved remission; R18.8 Other ascites; R74.8 Abnormal levels of other serum enzymes; D49.1 Neoplasm of unspecified behavior of respiratory system; I10 Essential (primary) hypertension; M10.9 Gout, unspecified; E78.5 Hyperlipidemia, unspecified; G47.33 Obstructive sleep apnea (adult) (pediatric); J44.9 Chronic obstructive pulmonary disease, unspecified; K21.9 Gastro-esophageal reflux disease without esophagitis; E66.01 Morbid (severe) obesity due to excess calories; I27.20 Pulmonary hypertension, unspecified; D86.9 Sarcoidosis, unspecified; I48.91 Unspecified atrial fibrillation; K74.60 Unspecified cirrhosis of liver; R59.9 Enlarged lymph nodes, unspecified; Z85.3 Personal history of malignant neoplasm of breast; Z79.01 Long term (current) use of anticoagulants; Z79.899 Other long term (current) drug therapy; Z88.0 Allergy status to penicillin; Z88.8 Allergy status to other drugs, medicaments and biological substances; Z88.1 Allergy status to other antibiotic agents; Z91.041 Radiographic dye allergy status; Z80.3 Family history of malignant neoplasm of breast; Z82.3 Family history of stroke; Z68.33 Body mass index [BMI] 33.0-33.9, adult
CPT/HCPCS: 36415; 71045; 71250; 74176; 80048; 80053; 81003; 82270; 83690; 84484; 85014; 85018; 85025; 85610; 85730; 86850; 86900; 86901; 86922; 87641; 93005; 93306; 94660; 99156; 99157; 99233; 99283; A9270-GY; J1940; J2250; J3010; P9040

== ENCOUNTER 2018-07-13 10:22 | Inpatient (IN) | payer MEDICARE, BC ==
--- NOTE | 2018-07-13 10:46 | ED ---
HPI Chest Pain - HPI Summary HPI Summary: 78 year old F presenting to [facility] with her sister complains of right-sided chest pain since three days ago, worse since this morning. The patient rates the pain 6/10 in severity. Symptoms aggravated by nothing. Symptoms alleviated by nothing. Patient reports shortness of breath and cough. She additionally reports bilateral lower extremity edema. Patient denies fever and chills. She has hx COPD and gout. Patient is on C-pap. - History of Current Complaint Chief Complaint: EDChestPainROMI Time Seen by Provider: 07/13/18 10:33 Hx Obtained From: Patient Onset/Duration: Started Days Ago - 3, Still Present, Worse Since - this morning Current Severity: Moderate Pain Intensity: 6 Pain Scale Used: 0-10 Numeric Aggravating Factor(s): Nothing Alleviating Factor(s): Nothing Associated Signs and Symptoms: Positive: Negative - fever, chills, Shortness of Breath, Cough, Edema - BLE - Additional Pertinent History Primary Care Physician: LUCY - Allergy/Home Medications Allergies/Adverse Reactions: Allergies Allergy/AdvReac Type Severity Reaction Status Date / Time amoxicillin Allergy Unknown Verified 07/13/18 10:28 Reaction Details cefprozil Allergy Unknown Verified 07/13/18 10:28 Reaction Details cephalexin Allergy Unknown Verified 07/13/18 10:28 Reaction Details ciprofloxacin [From Cipro] Allergy Unknown Verified 07/13/18 10:28 Reaction Details clarithromycin Allergy Unknown Verified 07/13/18 10:28 Reaction Details clavulanic acid Allergy Unknown Verified 07/13/18 10:28 Reaction Details doxycycline Allergy Unknown Verified 07/13/18 10:28 Reaction Details Iodinated Contrast- Oral and Allergy Rash Verified 07/13/18 10:28 IV Dye levofloxacin [From Levaquin] Allergy Unknown Verified 07/13/18 10:28 Reaction Details Penicillins Allergy Unknown Verified 07/13/18 10:28 Reaction Details prednisone Allergy Swelling Verified 07/13/18 10:28 sertraline [From Zoloft] Allergy Unknown Verified 07/13/18 10:28 Reaction Details Home Medications: Home Medications Cyclobenzaprine TAB* [Flexeril 10 MG TAB*] 10 mg PO DAILY PRN 07/13/18 [History Confirmed 07/13/18] oxyCODONE/Acetamin 5/325 MG* 5 mg PO DAILY PRN 07/13/18 [History Confirmed 07/13] PMH/Surg Hx/FS Hx/Imm Hx Previously Healthy: No Endocrine/Hematology History: Denies: Hx Diabetes Cardiovascular History: Reports: Hx Atrial Fibrillation, Hx Hypertension - ON MEDS, Hx Rheumatic Fever - X2 A CHILD AND TEEN, Other Cardiovascular Problems /Disorders - Arrythmia Denies: Hx Pacemaker/ICD Respiratory History: Reports: Hx Chronic Obstructive Pulmonary Disease (COPD), Hx Sleep Apnea, Other Respiratory Problems/Disorders - trach, sarcoidosis GI History: Denies: Other GI Disorders History: Reports: Hx Kidney Stones - IN THE PAST, Other Problems/ Disorders - "leaky bladder" Denies: Hx Renal Disease Musculoskeletal History: Reports: Hx Arthritis - BACK AND LEGS, Hx Gout Sensory History: Reports: Hx Cataracts - [place], Hx Contacts or Glasses - GLASSES Denies: Hx Hearing Aid Opthamlomology History: Reports: Hx Cataracts - [place], Hx Contacts or Glasses - GLASSES Neurological History: Denies: Other Neuro Impairments/Disorders Psychiatric History: Reports: Hx Depression Denies: Hx Panic Disorder - Cancer History Cancer Type, Location and Year: CML,breast cancer right. denies current treatments Hx Chemotherapy: Yes - 2015, [place] Hx Radiation Therapy: No - Surgical History Surgery Procedure, Year, and Place: hysterectomy, right mastectomy Hx Anesthesia Reactions: No Infectious Disease History: No Infectious Disease History: Reports: Hx of Known/Suspected MRSA Denies: Traveled Outside the [place] in Last 30 Days - Family History Known Family History: Negative: Hypertension - Social History Alcohol Use: None Hx Substance Use: No Substance Use Type: Reports: None Hx Tobacco Use: Yes Smoking Status (MU): Former Smoker Have You Smoked in the Last Year: No Review of Systems Negative: Fever, Chills Positive: Chest Pain Positive: Shortness Of Breath, Cough Positive: Edema - BLE All Other Systems Reviewed And Are Negative: Yes Physical Exam - Summary Physical Exam Summary: VITAL SIGNS: Reviewed. GENERAL: Patient is a well-developed and nourished female who is lying comfortable in the stretcher. Patient is not in any acute respiratory distress. HEAD AND FACE: No signs of trauma. No ecchymosis, hematomas or skull depressions. No sinus tenderness. EYES: PERRLA, EOMI x 2, No injected conjunctiva, no nystagmus. EARS: Hearing grossly intact. Ear canals and tympanic membranes are within normal limits. MOUTH: Oropharynx within normal limits. NECK: Supple, trachea is midline, no adenopathy, no JVD, no carotid bruit, no c- spine tenderness, neck with full ROM. CHEST: reproducible chest pain in right side of chest LUNGS: crackles in right lung, decreased breath sounds CVS: Regular rate and rhythm, S1 and S2 present, no murmurs or gallops appreciated. ABDOMEN: Soft, non-tender. No signs of distention. No rebound no guarding, and no masses palpated. Bowel sounds are normal. EXTREMITIES: 2+ BLE edema NEURO: Alert and oriented x 3. No acute neurological deficits. Speech is normal and follows commands. SKIN: Dry and warm Triage Information Reviewed: Yes Vital Signs On Initial Exam: Initial Vitals Temp Pulse Resp BP Pulse Ox 98.1 F 63 16 125/55 97 07/13/18 10:25 07/13/18 10:25 07/13/18 10:25 07/13/18 10:25 07/13/18 10:25 Vital Signs Reviewed: Yes Diagnostics - Vital Signs Vital Signs Temp Pulse Resp BP Pulse Ox 07/13/18 10:25 98.1 F 63 16 125/55 97 - Laboratory Result Diagrams: 07/14/18 05:24 07/14/18 05:24 Lab Statement: Any lab studies that have been ordered have been reviewed, and results considered in the medical decision making process. - Radiology CXR Radiology Interpretation Completed By: Radiologist - 1. Left costophrenic angle blunting could be due to small pleural effusion, new since the previous chest x- ray. 2. Stable chronic findings include a mild degree of cardiomegaly as well as surgical clips overlying the right axilla and superior lateral right hemithorax. ED physician has reviewed this report. - EKG 1106 Cardiac Rate: NL - 68 BPM EKG Rhythm: Sinus Rhythm EKG Interpretation: No ST elevations Chest Pain Course/Dx - Course Assessment/Plan: In the emergency room course the patient was given a DuoNeb, Solu-Medrol for the COPD exacerbation. Patient was given magnesium for the hypomagnesemia. At this point I discussed my physical exam, findings and test results with Dr. Barker from the hospitalist services who accepted the patient for admission. He did not require any antibiotics at this time since he thinks is more COPD exacerbation. However he requested to do a CTA to rule out PE. He accepted the patient admission and he will follow up with a CTA. The patient is hemodynamically stable alert oriented 3. - Diagnoses Provider Diagnoses: COPD (chronic obstructive pulmonary disease), Chest pain, Dyspnea - Provider Notifications Discussed Care Of Patient With: Lebron Timmons Time Discussed With Above Provider: 12:24 Instructed by Provider To: Other - Dr. Timmons, hospitalist, agrees to admit patient. Discharge - Sign-Out/Discharge Documenting (check all that apply): Patient Departure - Admit - Discharge Plan Condition: Fair Disposition: ADMITTED TO [facility] - Billing Disposition and Condition Condition: FAIR Disposition: Admitted to [facility] - Attestation Statements Document Initiated by Ikeibe: Yes Documenting Scribe: Ingris Hassan Provider For Whom Jason is Documenting (Include Credential): Pool Lou MD Scribe Attestation: Ingris Mirza, scribed for Pool Lou MD on 07/14/18 at 1035. Scribe Documentation Reviewed: Yes Provider Attestation: The documentation as recorded by the scribeIngris accurately reflects the service I personally performed and the decisions made by me, Pool Lou MD
[2018-07-13] MEDS ORDERED: Vancomycin(*) 1,000 MG in NS 0.9% 250 ML* 250 ML IVPB ONE (11:13)
[2018-07-13 11:15] LABS: ABS Basophils 0 10^3/ul (0-0.2); ABS Eosinophils 0.2 10^3/ul (0-0.6); ABS Lymphocytes 0.8 10^3/ul (1.0-4.8); ABS Monocytes 0.4 10^3/ul (0-0.8); ABS Neutrophils 2.1 10^3/ul (1.5-7.7); ABS Nucleated RBC 0 10^3/ul; Eosinophil % 5.8 % (0-6); Hematocrit 28 % (35-47); Hemoglobin 9.2 g/dl (12.0-16.0); Lymphocyte % 22.6 % (25-47); Mean Corpuscular HGB Conc 33 g/dl (31-36); Mean Corpuscular Hemoglobin 32 pg (27-31); Mean Corpuscular Volume 97 fL (80-97); Mean Platelet Volume 7.8 um3 (7.4-10.4); Nucleated Red Blood Cells % 0; Platelet Count 115 10^3/ul (150-450); Red Blood Count 2.87 10^6/ul (4.00-5.40); Red Cell Distribution Width 18 % (10.5-15); White Blood Count 3.5 10^3/ul (3.5-10.8)
[2018-07-13] MEDS ORDERED: Albuterol/Ipratropium NEB.SOL* Albuterol 2.5 MG/Ipratropium 0.5 MG 3 ML ONE (11:23)
--- NOTE | 2018-07-13 11:26 | RAD ---
INDICATION: Chest pain and shortness of breath COMPARISON: Chest x-ray dated May 01, 2018 TECHNIQUE: Single AP portable view of the chest was obtained. FINDINGS: Image quality is compromised due to the relative inferiority of a portable chest x-ray. Stable postsurgical changes include surgical clips overlying the right upper lateral chest wall and axilla. There is a mild degree of cardiomegaly unchanged since the prior chest x-ray. The lungs are grossly clear. There is blunting of the left costophrenic angle that was not seen on the previous chest x-ray. Visualized bones are normal for the patient's age. IMPRESSION: 1. Left costophrenic angle blunting could be due to small pleural effusion, new since the previous chest x-ray. 2. Stable chronic findings include a mild degree of cardiomegaly as well as surgical clips overlying the right axilla and superior lateral right hemithorax.
[2018-07-13] MEDS: Albuterol/Ipratropium NEB.SOL* Albuterol 2.5 MG/Ipratropium 0.5 MG 3 ML INH SCH ×10 (11:27→16:31)
[2018-07-13 11:31] LABS: EGFR Non-African American 66.5 (>60)
[2018-07-13] MEDS ORDERED: Magnesium Oxide TAB* 400 MG PO ONE (11:55)
[2018-07-13] MEDS ORDERED: methylPREDNISolone 125 MG* 2 ML VIAL IV ONE (12:25)
[2018-07-13] MEDS ORDERED: Al Hydrox/Mg Hydrox/Simet LIQ* 30 ML UDC PO PRN (13:32)
[2018-07-13] MEDS ORDERED: Ondansetron INJ* 2 MG/ML VIAL IV PRN (13:32)
[2018-07-13] MEDS ORDERED: Albuterol/Ipratropium NEB.SOL* Albuterol 2.5 MG/Ipratropium 0.5 MG 3 ML INH PRN (13:32)
[2018-07-13] MEDS ORDERED: Magnesium Hydroxide LIQ* 30 ML UDC PO PRN (13:32)
[2018-07-13] MEDS ORDERED: Heparin VIAL(*) 5000 UNITS/ML VIAL (FIVE THOUSAND) SUBCUT SCH (14:00)
[2018-07-13] MEDS: Omeprazole CAP* 20 MG PO SCH (15:25)
[2018-07-13] MEDS: Citalopram TAB* 10 MG PO SCH (15:25)
[2018-07-13] MEDS: Allopurinol TAB* 300 MG PO SCH (15:25)
[2018-07-13] MEDS: Spironolactone TAB* 25 MG PO SCH (15:26)
[2018-07-13] MEDS: Cyclobenzaprine TAB* 10 MG PO PRN ×2 (15:26→21:29)
[2018-07-13] MEDS: IMATINIB 400 MG PO SCH (15:45)
[2018-07-13] MEDS: cefTRIAXone(*) 1 GM in NS 0.9% 50 ML* 50 ML IVPB SCH (16:55)
--- NOTE | 2018-07-13 18:04 | RAD ---
INDICATION: Chest pain and shortness of breath. Relevant surgical history includes a right mastectomy. COMPARISON: Similar CT of the chest dated May 01, 2018 TECHNIQUE: Axial source images of the chest were acquired without intravenous contrast from just above the lung apices to the base of the diaphragm. Coronal and sagittal reconstructed images were acquired. FINDINGS: Unless otherwise specified comparisons below reference the May 01, 2018 CT of the chest. There are small bibasilar pleural effusions, slightly larger than the previous CT examination. There are diffuse mild groundglass opacifications. There are pleural-based linear densities at bilateral lung bases as well as compressive atelectasis adjacent to the effusions. The heart is mildly enlarged measuring just more than half the diameter of the thorax. There is coarse calcification at the aortic ring and arch of the aorta. There is no readily apparent mediastinal, hilar, or axillary lymphadenopathy. The thyroid is enlarged and heterogeneous in appearance. In the left lobe there is a 1 cm hypoattenuating focus with a small focus of calcium in the periphery. In the right lobe of the thyroid there is a 1.1 cm hypoattenuating focus also with coarse calcification. There are surgical clips in the right axilla. Degenerative changes of the thoracic spine includes loss of intervertebral disc height and anterior marginal osteophyte formation. The service of the liver is nodular in appearance. There is a small amount of perihepatic and perisplenic fluid. IMPRESSION: 1. CT findings are consistent with cardiogenic pulmonary edema including mild cardiomegaly, small bibasilar pleural effusions and groundglass opacification of the lungs. 2. The thyroid is enlarged and heterogeneous in attenuation with at least 2 1 cm nodules in each lobe. The appearance is similar to the prior CT of the chest. If clinically warranted superior characterization of the thyroid can be made with ultrasound. 3. The nodular surface of the liver is an appearance consistent with cirrhosis.
[2018-07-13 19:36] LABS: Urine Appearance Clear; Urine Blood 1+ (Negative); Urine Color Straw; Urine Ketones Negative (Negative); Urine Protein Negative (Negative); Urine Red Blood Cell Trace(0-2/hpf) (Absent); Urine Specific Gravity 1.002 (1.010-1.030); Urine Urobilinogen Negative (Negative); Urine White Blood Cell Absent (Absent)
[2018-07-13] MEDS: Enoxaparin(*) 100 MG/ML SYR SUBCUT SCH (21:29)
[2018-07-13] MEDS: oxyCODONE/Acetamin 5/325 MG* TAB PO PRN (21:30)
--- NOTE | 2018-07-13 21:56 | HP ---
AMENDED REPORT NOW INCLUDES COSIGNER DESIGNATION - ESIGNED BEFORE ADJUSTMENT ADMISSION HISTORY AND PHYSICAL: DATE OF ADMISSION: 07/13/18 PATIENT OF ADMITTING HOSPITALIST: Lebron Timmons MD * (DICTATED BY GERHARD LEIVA) PRIMARY CARE PHYSICIAN: Tadeo Jesus MD PRIMARY ONCOLOGIST: Dr. Jose Antoine. ATTENDING PHYSICIAN WHILE THE PATIENT IN THE HOSPITAL: Dr. Lebron Timmons. CHIEF COMPLAINT: Shortness of breath and chest pain. HISTORY OF PRESENT ILLNESS: Mrs. King is a 78-year-old female with multiple medical problems including history of CML, which has been in remission, with last chemotherapeutic agents about 6 years ago and has been on Gleevec since then, who also has history of hypertension, hyperlipidemia, obstructive sleep apnea, COPD, GERD and atrial fibrillation, who presented to the emergency room earlier this morning with complaints of 3 to 4 days history of worsening shortness of breath, chest tightness. She notes that her shortness of breath has gotten worse with associated weakness, lack of stamina at home, productive cough with sputum production that appears to be clear in color. She has history of pneumonia that was hospitalized for in the past, but denies any upper respiratory issues or congestion. She has not had her flu shot yet this year. She denies any fever, nausea, vomiting, dizziness, or palpitation. The patient was evaluated in the emergency room and noted to have normal white count on her CBC and her hemoglobin and hematocrit were 9.2 and 28 respectively , which appears to be at her baseline for the past few months. Her chemistry panel showed elevated BNP at 465, which appears to be slightly higher than her last value of 178. Her troponin was noted to be mildly elevated at 0.04, which again appears to be at her baseline since February of this year. She had a chest x- ray that questioned possibility of left lower lobe pneumonia with possible small pleural effusion. She was also scheduled for a V/Q scan to rule out any possibility of PE given her elevated D-dimer for over 1000; however, there was no evidence of any DVT or PE on clinical exam and she appears to have good sats at 96% on room air and she had no tachycardia as well, for which the exam will be postponed until Sunday. The patient reports feeling slightly better after oxygen and nebulizer treatment in the emergency room. She wishes to go home, however given her ongoing symptoms we would like to keep her in the hospital for observation overnight to trend troponin and rule out any possibility of PE. She has history of pneumonia and I suspected this is the reason she is having her shortness of breath, for which she received a dose of antibiotic in the ED today. Given her ongoing symptoms, we were asked to see the patient for further evaluation and admission for possible pneumonia. PAST MEDICAL HISTORY: Significant for: 1. History of CML, for which she was on chemotherapy and now in remission, taking Gleevec on a daily basis. 2. Hypertension. 3. Gout. 4. Hyperlipidemia. 5. Obstructive sleep apnea. She uses CPAP at home. 6. COPD with frequent exacerbation. 7. GERD. 8. Sarcoidosis. 9. Atrial fibrillation. PAST SURGICAL HISTORY: Significant for mastectomy, cardioversion, appendectomy , hysterectomy, ORIF of the right lower extremity, cataract extraction, and tracheostomy at one point. MEDICATIONS: Home medications include: 1. Allopurinol 300 mg p.o. daily. 2. Celexa 10 mg p.o. daily. 3. Flexeril 10 mg p.o. daily. 4. Gleevec 400 mg p.o. daily. 5. Ditropan 15 mg p.o. daily. 6. Percocet 5/325 one tablet q.4 hours as needed for pain. 7. Spironolactone 25 mg p.o. daily. 8. Omeprazole 20 mg p.o. b.i.d. ALLERGIES: Multiple, include AMOXICILLIN, CEPHALEXIN, CIPROFLOXACIN, CLARITHROMYCIN, and CEFPROZIL. Upon questioning the patient about all these allergies, it is listed as side effects including rash and/or diarrhea. FAMILY HISTORY: She has mother with history of breast cancer and her father with history of CVA. SOCIAL HISTORY: The patient is a nonsmoker, who drinks alcohol rarely. She is a . Surrogate decision maker is her daughter, Cathleen, and she wishes to be a full code. REVIEW OF SYSTEMS: See HPI, otherwise 12-point review of systems were examined and they were essentially negative. PHYSICAL EXAMINATION GENERAL: She is a pleasant, obese, older female, in no acute distress or discomfort at the time of admission. VITAL SIGNS: Revealed temperature of 98.3, pulse of 84, respirations of 18 with O2 sat of 96% on room air, and her blood pressure was 134/55. HEENT: Head is normocephalic, atraumatic. Sclerae anicteric. PERRLA. EOMs intact. Oropharynx is pink and moist. NECK: Supple. Trachea midline. No cervical adenopathy or thyromegaly. LUNGS: Clear to auscultation bilaterally. There are minimal rales noted at the left base. HEART: Regular rate and rhythm. Normal S1 and S2 without rubs, murmurs, or gallops. ABDOMEN: Round, soft, nontender, and nondistended. BREASTS: Exam deferred at this time. BACK: With normal curvature and no CVA tenderness. EXTREMITIES: Without cyanosis, clubbing, or edema. NEUROLOGIC: She is awake, alert, and oriented. Handgrip is equal bilaterally and sensation is intact throughout. RECTAL: Exam deferred at this time. LABORATORY WORKUP: CBC with white count of 3500, hemoglobin 9.2, hematocrit 28 , and platelets of 115. Chemistry panel with sodium of 138, potassium 4, chloride 109, CO2 of 24, BUN of 10, and creatinine of 0.8. Glucose is 106. LFTs within normal limits. Lactic acid 1.5. Troponin is 0.04, which has been at baseline since earlier this year. BNP slightly elevated at 465. D-dimer was elevated greater than 1050. ACCESSORY DIAGNOSTIC DATA: Chest x-ray as mentioned above significant for left lower lobe blunting, possible pneumonia versus small pleural effusion. CT scan without contrast for the chest is pending at this time. IMPRESSION: A 78-year-old female with multiple medical problems who presented to the emergency room with 3 to 4 days history of progressive shortness of breath with associated cough, who will be admitted under hospitalist service for the following. ASSESSMENT AND PLAN: 1. Possible pneumonia versus pulmonary embolism and the patient will be admitted to telemetry unit for close observation. I had discussion with my attending, Dr. Timmons, who recommended postponing her V/Q scan until Sunday since Nuclear Medicine will not be available over the weekend, however with her elevated D-dimer we will obtain a CT scan without contrast to the chest, which if proven to be pneumonia, we will resume her antibiotics and await V/Q scan on Sunday, however if there was no evidence of community-acquired pneumonia then the patient will be on heparin drip for presumed pulmonary embolism. Again, she has no tachycardia or tachypnea and she is maintaining good oxygen saturation on room air at this point. I have started her on Rocephin and we will add vancomycin and azithromycin given her history of leukemia and possible immune system compromised. I asked the patient about her true allergies to antibiotics and it appears to be only side effects ranging from rash to diarrhea. There was no history of anaphylactic shocks using any of these above- mentioned antibiotics listed as allergies. 2. Elevated troponin. Appears to be baseline for the patient; however, we will trend it, repeat EKG in the morning, and closely observe her until on telemetry unit. 3. History of GI bleed. At this point, the patient had an upper GI done back in February of this year that showed no evidence of bleeding ulcers. She has chronic anemia, which appears to be hemodynamically stable since earlier this spring. I will hold off again to any plans for heparin drip until we get her chest CT done today. 4. History of chronic myeloid leukemia. She will continue her Gleevec for the time being. 5. Gout. We will continue her allopurinol. 6. Obstructive sleep apnea. The patient will continue her CPAP at night. 7. Chronic obstructive pulmonary disease without exacerbation. We will keep her on all her nebulizers and add DuoNeb as needed for wheezing or shortness of breath. 8. History of sarcoidosis. It is not an active issue at this point. 9. Gastroesophageal reflux disease. We will keep her on PPI coverage. 10. History of atrial fibrillation. The patient was on Eliquis at some point of time until this year. She appears to be rate controlled at this time. 11. DVT prophylaxis. Subcu heparin given her high risk. 12. Code status. She wishes to be a full code. TIME SPENT: Approximately 1 hour spent admitting this patient, for which greater than 50% of the time on taking history and performing physical exam. I went on and discussed the case with my attending and his recommendations were dictated and orders were put in and will follow her up accordingly. GERHARD LEIVA [id number]/[facility] #: [id number] JENNA
[2018-07-14 05:50] LABS: ABS Basophils 0 10^3/ul (0-0.2); ABS Eosinophils 0.2 10^3/ul (0-0.6); ABS Lymphocytes 0.9 10^3/ul (1.0-4.8); ABS Monocytes 0.4 10^3/ul (0-0.8); ABS Neutrophils 1.6 10^3/ul (1.5-7.7); ABS Nucleated RBC 0 10^3/ul; Eosinophil % 5.7 % (0-6); Hematocrit 25 % (35-47); Hemoglobin 8.5 g/dl (12.0-16.0); Lymphocyte % 28.2 % (25-47); Mean Corpuscular HGB Conc 34 g/dl (31-36); Mean Corpuscular Hemoglobin 33 pg (27-31); Mean Corpuscular Volume 98 fL (80-97); Mean Platelet Volume 7.6 um3 (7.4-10.4); Nucleated Red Blood Cells % 0.3; Platelet Count 103 10^3/ul (150-450); Red Blood Count 2.58 10^6/ul (4.00-5.40); Red Cell Distribution Width 18 % (10.5-15)
[2018-07-14 06:13] LABS: EGFR Non-African American 65.6 (>60)
[2018-07-14] MEDS: Acetaminophen TAB* 325 MG PO PRN ×2 (08:40→21:48)
[2018-07-14] MEDS: Omeprazole CAP* 20 MG PO SCH ×2 (08:40→16:17)
[2018-07-14] MEDS: Citalopram TAB* 10 MG PO SCH (08:43)
[2018-07-14] MEDS: Spironolactone TAB* 25 MG PO SCH (08:43)
[2018-07-14] MEDS: Oxybutynin XL TAB* 5 MG PO SCH (08:44)
[2018-07-14] MEDS: Allopurinol TAB* 300 MG PO SCH (08:44)
[2018-07-14] MEDS: IMATINIB 400 MG PO SCH (09:27)
[2018-07-14] MEDS: Enoxaparin(*) 100 MG/ML SYR SUBCUT SCH ×2 (09:40→21:45)
[2018-07-14] MEDS ORDERED: Furosemide IV* 10 MG/ML 2 ML VIAL (20 MG) IV ONE (11:56)
--- NOTE | 2018-07-14 14:33 | PN ---
Subjective Date of Service: 07/14/18 Interval History: Pt gained 15 lbs in 1 week. c/o SOB and coughing up yellow sputum Objective Active Medications: Acetaminophen (Tylenol Tab*) 650 mg PO Q4H PRN PRN Reason: FEVER/PAIN Last Admin: 07/14/18 08:40 Dose: 650 mg Al Hydrox/Mg Hydrox/Simethicone (Maalox Plus*) 30 ml PO Q6H PRN PRN Reason: INDIGESTION Albuterol/Ipratropium (Duoneb (Albuterol 2.5 Mg/Ipratropium 0.5 Mg)) 1 neb INH [id number] AWAKE PRN PRN Reason: sob/wheexing Last Admin: 07/13/18 20:22 Dose: 1 neb Allopurinol (Zyloprim Tab*) 300 mg PO DAILY [facility] Last Admin: 07/14/18 08:44 Dose: 300 mg Citalopram Hydrobromide (Celexa Tab*) 10 mg PO DAILY [facility] Last Admin: 07/14/18 08:43 Dose: 10 mg Cyclobenzaprine HCl (Flexeril Tab*) 10 mg PO DAILY PRN PRN Reason: SPASMS Last Admin: 07/13/18 21:29 Dose: 10 mg Enoxaparin Sodium (Lovenox(*)) 85 mg SUBCUT Q12H [facility] Last Admin: 07/14/18 09:40 Dose: 85 mg Ceftriaxone Sodium 1 gm/ (Sodium Chloride) 50 mls @ 200 mls/hr IVPB Q24H [facility] Last Admin: 07/13/18 16:55 Dose: 200 mls/hr Imatinib Mesylate (Gleevec (Nf)) 400 mg PO DAILY [facility] Last Admin: 07/14/18 09:27 Dose: Not Given Magnesium Hydroxide (Milk Of Magnesia Liq*) 30 ml PO Q4H PRN PRN Reason: CONSTIPATION Omeprazole (Prilosec Cap*) 20 mg PO BID [facility] Last Admin: 07/14/18 08:40 Dose: 20 mg Ondansetron HCl (Zofran Inj*) 4 mg IV Q4H PRN PRN Reason: NAUSEA/VOMITING Oxybutynin Chloride (Ditropan Xl Tab*) 15 mg PO DAILY [facility] Last Admin: 07/14/18 08:44 Dose: 15 mg Oxycodone/Acetaminophen (Percocet 5/325 Tab*) 1 tab PO Q4H PRN PRN Reason: PAIN Last Admin: 07/13/18 21:30 Dose: 1 tab Spironolactone (Aldactone Tab*) 25 mg PO DAILY [facility] Last Admin: 07/14/18 08:43 Dose: 25 mg Vital Signs - 8 hr 07/14/18 07/14/18 07/14/18 07:46 08:00 12:20 Temperature 98.8 F 98.8 F Pulse Rate 85 69 Respiratory 18 18 18 Rate Blood Pressure 106/40 109/38 (mmHg) O2 Sat by Pulse 100 100 Oximetry Oxygen Devices in Use Now: Nasal Cannula Appearance: 78 yo F in nAD, aAOx3 Eyes: No Scleral Icterus, PERRLA Ears/Nose/Mouth/Throat: NL Teeth, Lips, Gums, Mucous Membranes Moist Neck: NL Appearance and Movements; NL JVP, Trachea Midline Respiratory: Symmetrical Chest Expansion and Respiratory Effort, - - wheezes b/ l lower and mid lungs Cardiovascular: RRR, - - 2/6 STELLA Abdominal: NL Sounds; No Tenderness; No Distention, No Hepatosplenomegaly Lymphatic: No Cervical Adenopathy Extremities: No Clubbing, Cyanosis, - - +1 pitting pedal edema Skin: No Nodules or Sclerosis Neurological: Alert and Oriented x 3, NL Muscle Strength and Tone Result Diagrams: 07/14/18 05:24 07/14/18 05:24 Microbiology and Other Data: Microbiology 07/14/18 10:45 Gram Stain - Final Sputum 07/13/18 11:59 Aerobic Blood Culture - Preliminary Blood Venous No Growth Day 1 Anaerobic Blood Culture - Preliminary No Growth Day 1 07/13/18 10:57 Aerobic Blood Culture - Preliminary Blood Venous No Growth Day 1 Anaerobic Blood Culture - Preliminary No Growth Day 1 07/13/18 19:00 Legionella Urinary Antigen - Final Urine Negative Legionella Antigen 07/13/18 19:00 Streptococcus pneumoniae Ag Screen - Final Urine Negative S. pneumo Antigen 07/13/18 17:30 Nasal Screen MRSA (PCR) - Final Nasal Mrsa Detected Assess/Plan/Problems-Billing Assessment: Mrs King is a 78yo F with PMH of CML on Gleevec, HTN, gout, HLD, BRANDY (on CPAP and 02 at night), COPD, GERD, sarcoidosis, Afib (Eliquis stopped in February 2018 due to GI bleed), breast CA, who presented to ED with SOB and 15 lbs wt gain in one week - Patient Problems (1) Acute diastolic CHF (congestive heart failure) Comment: low SBP allows for limited use of diuretic. cont Aldactone. Tx with Lasix IV 20 mg x1 today (2) Atrial fibrillation Comment: - [id number] is 4 predcting a stroke risk of 4.8%/year. - HAS-BLED score is 2 predicting a risk of 1.88 bleeds per 100 patient-years. - Eliquis on hold in the setting of GI bleed in 03/08 (3) CML (chronic myeloid leukemia) Comment: cont Gleevec. Anemai and thrombocytopenia with levels at baseline (4) Bronchospasm Comment: pt is still wheezing, but not a candidate for steroid tx due ro recent GI bleed. will cont duonebs cont Ceftriaxone/Azithro for likley bronchitis. Sputum cx pending (5) Elevated troponin Comment: - Likely demand ischemia in the setting of hypoxemia - Echocardiogram pending (6) Acute respiratory failure with hypoxemia Comment: due to a combination of CHF and bronchospasm, but PE is also possible D dimer>1000 Cont empiric Lovenox anticoagulation. VQ scan in aM (7) DVT prophylaxis Comment: lovenox Status and Disposition: inpatient
[2018-07-14] MEDS: cefTRIAXone(*) 1 GM in NS 0.9% 50 ML* 50 ML IVPB SCH (16:18)
[2018-07-15] MEDS: Acetaminophen TAB* 325 MG PO PRN (06:12)
[2018-07-15 06:54] LABS: Hematocrit 26 % (35-47); Hemoglobin 8.8 g/dl (12.0-16.0); Mean Corpuscular HGB Conc 34 g/dl (31-36); Mean Corpuscular Hemoglobin 33 pg (27-31); Mean Corpuscular Volume 98 fL (80-97); Mean Platelet Volume 7.4 um3 (7.4-10.4); Platelet Count 95 10^3/ul (150-450); Red Blood Count 2.65 10^6/ul (4.00-5.40); Red Cell Distribution Width 18 % (10.5-15)
[2018-07-15 07:07] LABS: EGFR Non-African American 61.3 (>60)
[2018-07-15] MEDS ORDERED: Perflutren Lipid Microsphere* 3 ML VIAL ONE (08:40)
[2018-07-15] MEDS ORDERED: Furosemide IV* 10 MG/ML 2 ML VIAL (20 MG) IV ONE ×2 (09:00→17:00)
[2018-07-15] MEDS ORDERED: Furosemide IV* 10 MG/ML VIAL (40 MG) IV ONE (09:00)
[2018-07-15] MEDS: oxyCODONE/Acetamin 5/325 MG* TAB PO PRN (09:08)
[2018-07-15] MEDS: Oxybutynin XL TAB* 5 MG PO SCH (09:12)
[2018-07-15] MEDS: Citalopram TAB* 10 MG PO SCH (09:13)
[2018-07-15] MEDS: Omeprazole CAP* 20 MG PO SCH ×2 (09:13→16:30)
[2018-07-15] MEDS: Allopurinol TAB* 300 MG PO SCH (09:13)
[2018-07-15] MEDS: Enoxaparin(*) 100 MG/ML SYR SUBCUT SCH (09:15)
[2018-07-15] MEDS: IMATINIB 400 MG PO SCH (09:57)
--- NOTE | 2018-07-15 10:44 | ECHO ---
Patient: MARK FERRARA [facility] Rec#: [id number] : 1940 Date: 07/15/2018 Age: 78y Height: 154.9 cm / 61.0 in Weight: 84.4 kg / 186.0 lbs Sex: F BSA: 1.83 Room#: 439 Admit Date#: 07/14/2018 Type: Inpatient Referring: Sara Contreras MD Reading: Constantino Duran MD Accounts Clerk: Richa Norwood RN RDCS CC: Tadeo Jesus MD Transthoracic Echocardiogram Indication: CHF BP: 114/47 HR: 72 Rhythm: NSR Findings History: HTN, HLD, A. fib, COPD, BRANDY, chronic leukemia, chemotherapy, sarcoidosis, mastectomy, gout, GERD, morbid obesity. Technical Comments: The study is technically limited due to patient body habitus. The study is technically limited due to the patient's history of COPD. Left Ventricle: The left ventricular chamber size is normal. Moderate concentric left ventricular hypertrophy is observed. Global left ventricular wall motion and contractility are within normal limits. There is normal left ventricular systolic function. The estimated ejection fraction is 60-65%. Abnormal left ventricular diastolic filling is observed, consistent with impaired relaxation. Left Atrium: The left atrium is moderately dilated. Right Ventricle: The right ventricular cavity size is normal. The right ventricular global systolic function is normal. Right Atrium: The right atrium is moderately dilated. Aortic Valve: The aortic valve is trileaflet. The aortic valve leaflets are mildly thickened. Systolic excursion of the aortic valve cusps is reduced. There is aortic annular calcification. There is moderate aortic regurgitation. There is mild aortic stenosis. The mean gradient of the aortic valve is 12.5 mmHg. The peak instantaneous gradient of the aortic valve is 24 mmHg. The aortic valve area, by peak velocities, is calculated at 1.5 cm2. The aortic valve area, by VTI's, is calculated at 1.7 cm2. Mitral Valve: There is mitral annular calcification. The mitral valve leaflets are mildly thickened. Mitral valve leaflet mobility is mildly restricted. There is moderate mitral regurgitation. Tricuspid Valve: The tricuspid valve leaflets are normal. There is moderate tricuspid regurgitation. There is evidence of moderate pulmonary hypertension. There is no tricuspid stenosis. Pulmonic Valve: The pulmonic valve appears normal. There is moderate pulmonic regurgitation. There is no pulmonic stenosis. Pericardium: There is no significant pericardial effusion. A pericardial fat pad is visualized. Aorta: There is no dilatation of the ascending aorta. There is no dilatation of the aortic arch. There is no dilation of the aortic root. Pulmonary Artery: The main pulmonary artery is not well visualized. Venous: The inferior vena cava is dilated. There is an approximate 50% respiratory change in the inferior vena cava dimension. Contrast: Definity was used to optimize study. A total of 2 ml of diluted Definity was given IV. Summary: There are no significant changes when compared to the previous study done on 03/21/18 Conclusions Moderate concentric left ventricular hypertrophy is observed. Global left ventricular wall motion and contractility are within normal limits. The estimated ejection fraction is 60-65%. Systolic excursion of the aortic valve cusps is reduced. There is moderate aortic regurgitation. There is mild aortic stenosis. The mean gradient of the aortic valve is 12.5 mmHg. There is moderate mitral regurgitation. There is moderate tricuspid regurgitation. There is evidence of moderate pulmonary hypertension. There is no significant pericardial effusion. Measurements Name Value Normal Range RVDdMajor (2D) 3.7 cm (2.2 - 4.4) RAd ISD 4CH 5.7 cm (3.4 - 4.9) RA (A4C)W 3.7 cm (2.9 - 4.6) IVSd (2D) 1.6 cm (0.6 - 1) LVPWd (2D) 1.6 cm (0.6 - 1) LVIDd (2D) 5 cm (3.6 - 5.4) LVIDs (2D) 3.4 cm - LV FS (2D) 31 % (25 - 45) Aortic Annulus 2.1 cm (1.4 - 2.6) Ao root diameter (2D) 3.3 cm (2.1 - 3.5) Ascending Ao 3.2 cm (2.1 - 3.4) Aortic arch 3.1 cm (1.8 - 3.4) LA dimension (AP) 2D 3.9 cm (2.3 - 3.8) LAd ISD 4CH 5.8 cm (2.9 - 5.3) LA ISD 4CH W 4.3 cm (2.5 - 4.5) Name Value Normal Range LA ESV SP 4CH (A/L) 92 ml - LA ESV SP 2CH (A/L) 82 ml - LA ESV BP (A/L) 88 ml - LA ESV BP (A/L) index 48 ml/m2 - LA ESV SP 4CH (MOD) 89 ml - LA ESV SP 2CH (MOD) 78 ml - Name Value Normal Range MV E-wave Vmax 1.7 m/sec - MV deceleration time 137.5 msec - MV A-wave Vmax 0.67 m/sec - MV E:A ratio 2.5 ratio - LV septal e' Vmax 0.08 m/sec - LV lateral e' Vmax 0.14 m/sec - LV E:e' septal ratio 21.3 ratio - LV E:e' lateral ratio 12.1 ratio - Name Value Normal Range AV Vmax 2.5 m/sec - AV VTI 52.1 cm - AV peak gradient 24 mmHg - AV mean gradient 12.5 mmHg - LVOT diameter 2 cm - LVOT Vmax 1.2 m/sec - LVOT VTI 28.6 cm - LVOT peak gradient 6 mmHg - LVOT mean gradient 3.5 mmHg - DOI (VTI) 0.55 ratio - DOI (Vmax) 0.48 ratio - PHILIP (continuity Vmax) 1.5 cm2 - PHILIP (continuity VTI) 1.7 cm2 - AR PHT 461 msec - LUIS Vmax 0.97 m/sec - Name Value Normal Range MV Vmax 1.9 m/sec - MV VTI 41.7 cm - MV peak gradient 14.4 mmHg - MV mean gradient 4.6 mmHg - MV PHT 76 msec - MR Vmax 4.5 m/sec - MR VTI 147.3 cm - MR volume (PISA) 46 ml - MR flow (PISA) 140.7 ml/sec - MR ERO 0.31 cm2 - MR PISA radius 0.8 cm - MR alias Vmax 35 cm/sec - MVA (PHT) 2.9 cm2 - MVA (continuity VTI) 2.2 cm2 - Name Value Normal Range TR Vmax 2.8 m/sec - TR peak gradient 31 mmHg - RAP 15 mmHg - RVSP 46 mmHg - IVC diameter 2.6 cm - Name Value Normal Range PV Vmax 1.1 m/sec -
--- NOTE | 2018-07-15 10:58 | RAD ---
Indication: Shortness of breath and chest pain. Evidence for cardiogenic pulmonary edema on July 13, 2018 CT. Comparison: July 13, 2018 CT. Technique: Following administration of 10.780 mCi xenon-133 by inhalation anterior and posterior ventilation images were obtained. Following the administration of 6.100 mCi of Tc-99m macroaggregated albumin, perfusion images were obtained in multiple projections. Report: The ventilation pattern is uniform with no evidence of air trapping. Negative for segmental or subsegmental perfusion defects. IMPRESSION: #. No scintigraphic evidence for pulmonary embolism.
--- NOTE | 2018-07-15 13:05 | RAD ---
INDICATION: Shortness of breath. COMPARISON: Comparison is made with a prior study from July 13, 2018. TECHNIQUE: AP and lateral views of the chest were obtained. FINDINGS: The heart appears mildly enlarged and unchanged. The lungs are hyperinflated. There is mild prominence of the interstitial markings. There are small bilateral pleural effusions. Multiple surgical clips are noted in the right axillary region. IMPRESSION: FINDINGS SUGGESTIVE OF MILD CONGESTIVE HEART FAILURE.
--- NOTE | 2018-07-15 14:26 | PN ---
Subjective Date of Service: 07/15/18 Interval History: Pt still feels SOB. Legs less swollen Objective Active Medications: Acetaminophen (Tylenol Tab*) 650 mg PO Q4H PRN PRN Reason: FEVER/PAIN Last Admin: 07/15/18 06:12 Dose: 650 mg Al Hydrox/Mg Hydrox/Simethicone (Maalox Plus*) 30 ml PO Q6H PRN PRN Reason: INDIGESTION Albuterol/Ipratropium (Duoneb (Albuterol 2.5 Mg/Ipratropium 0.5 Mg)) 1 neb INH [id number] AWAKE PRN PRN Reason: sob/wheexing Last Admin: 07/13/18 20:22 Dose: 1 neb Allopurinol (Zyloprim Tab*) 300 mg PO DAILY [facility] Last Admin: 07/15/18 09:13 Dose: 300 mg Citalopram Hydrobromide (Celexa Tab*) 10 mg PO DAILY [facility] Last Admin: 07/15/18 09:13 Dose: 10 mg Cyclobenzaprine HCl (Flexeril Tab*) 10 mg PO DAILY PRN PRN Reason: SPASMS Last Admin: 07/13/18 21:29 Dose: 10 mg Enoxaparin Sodium (Lovenox(*)) 85 mg SUBCUT Q12H [facility] Last Admin: 07/15/18 09:15 Dose: 85 mg Ceftriaxone Sodium 1 gm/ (Sodium Chloride) 50 mls @ 200 mls/hr IVPB Q24H [facility] Last Admin: 07/14/18 16:18 Dose: 200 mls/hr Imatinib Mesylate (Gleevec (Nf)) 400 mg PO DAILY [facility] Last Admin: 07/15/18 09:57 Dose: 400 mg Magnesium Hydroxide (Milk Of Magnesia Liq*) 30 ml PO Q4H PRN PRN Reason: CONSTIPATION Omeprazole (Prilosec Cap*) 20 mg PO BID AC [facility] Last Admin: 07/15/18 09:13 Dose: 20 mg Ondansetron HCl (Zofran Inj*) 4 mg IV Q4H PRN PRN Reason: NAUSEA/VOMITING Oxybutynin Chloride (Ditropan Xl Tab*) 15 mg PO DAILY [facility] Last Admin: 07/15/18 09:12 Dose: 15 mg Oxycodone/Acetaminophen (Percocet 5/325 Tab*) 1 tab PO Q4H PRN PRN Reason: PAIN Last Admin: 07/15/18 09:08 Dose: 1 tab Vital Signs - 8 hr 07/15/18 07/15/18 07/15/18 08:00 08:37 09:08 Temperature 98.4 F Pulse Rate 80 Respiratory 18 18 20 Rate Blood Pressure 128/50 (mmHg) O2 Sat by Pulse 100 Oximetry 07/15/18 07/15/18 11:42 12:10 Temperature Pulse Rate 58 Respiratory 16 18 Rate Blood Pressure 101/34 (mmHg) O2 Sat by Pulse 100 Oximetry Oxygen Devices in Use Now: None Appearance: 78 yo F in nAD, aAOx3 Eyes: No Scleral Icterus, PERRLA Ears/Nose/Mouth/Throat: NL Teeth, Lips, Gums, Mucous Membranes Moist Neck: NL Appearance and Movements; NL JVP, Trachea Midline Respiratory: Symmetrical Chest Expansion and Respiratory Effort, - - crackles at b/l bases, wheezes b/l mid lungs Cardiovascular: RRR, - - 2/6 STELLA Abdominal: NL Sounds; No Tenderness; No Distention, No Hepatosplenomegaly Lymphatic: No Cervical Adenopathy Extremities: No Clubbing, Cyanosis, - - +1 pitting pedal edema b/l Skin: No Rash or Ulcers, No Nodules or Sclerosis Neurological: Alert and Oriented x 3, NL Muscle Strength and Tone Result Diagrams: 07/15/18 06:45 07/15/18 06:45 Microbiology and Other Data: Microbiology 07/14/18 10:45 Gram Stain - Final Sputum 07/13/18 11:59 Aerobic Blood Culture - Preliminary Blood Venous No Growth Day 1 Anaerobic Blood Culture - Preliminary No Growth Day 1 07/13/18 10:57 Aerobic Blood Culture - Preliminary Blood Venous No Growth Day 1 Anaerobic Blood Culture - Preliminary No Growth Day 1 07/13/18 19:00 Legionella Urinary Antigen - Final Urine Negative Legionella Antigen 07/13/18 19:00 Streptococcus pneumoniae Ag Screen - Final Urine Negative S. pneumo Antigen 07/13/18 17:30 Nasal Screen MRSA (PCR) - Final Nasal Mrsa Detected Assess/Plan/Problems-Billing Assessment: Mrs King is a 78yo F with PMH of CML on Gleevec, HTN, gout, HLD, BRANDY (on CPAP and 02 at night), COPD, GERD, sarcoidosis, Afib (Eliquis stopped in February 2018 due to GI bleed), breast CA, who presented to ED with SOB and 15 lbs wt gain in one week - Patient Problems (1) Acute diastolic CHF (congestive heart failure) Comment: low SBP allows for limited use of diuretic. cont Aldactone. Tx with Lasix IV 20 mg x1 today in PM in addition to 40 mg this aM if BP allows Echo shows EF 65%, mod. AR, MR TR, mod pulm HTN (2) Atrial fibrillation Comment: - [id number] is 4 predcting a stroke risk of 4.8%/year. - HAS-BLED score is 2 predicting a risk of 1.88 bleeds per 100 patient-years. - Eliquis had been on hold in the setting of GI bleed since 03/08 (3) CML (chronic myeloid leukemia) Comment: cont Gleevec. Anemia and thrombocytopenia with levels at baseline (4) Bronchospasm Comment: pt is still wheezing, but not a candidate for steroid tx due ro recent GI bleed. will cont duonebs cont Ceftriaxone/Azithro for likley bronchitis. Sputum cx pending (5) Elevated troponin Comment: - Likely demand ischemia in the setting of hypoxemia Echo shows no significant change since 03/08 (6) Acute respiratory failure with hypoxemia Comment: due to a combination of CHF and bronchospasm PE r/o with neg V/Q on 07/15/18 (7) DVT prophylaxis Comment: lovenox Status and Disposition: inpatient
[2018-07-15] MEDS: cefTRIAXone(*) 1 GM in NS 0.9% 50 ML* 50 ML IVPB SCH (15:17)
[2018-07-16 06:14] LABS: EGFR Non-African American 56.9 (>60)
--- NOTE | 2018-07-16 06:43 | PN ---
Progress Note - Progress Note Date of Service: 07/16/18 Note: Nursing review of telemetry concerning for brief episodes of 3rd degree HB. Strips reviewed and I concur, appears to develop brief 3rd degree HB w/ junctional escapes. Will transfer to ICU, place pacer pads w/ Zoll at the ready. Will need cardiology consult this AM.
[2018-07-16] MEDS: Oxybutynin XL TAB* 5 MG PO SCH (10:03)
[2018-07-16] MEDS: Omeprazole CAP* 20 MG PO SCH ×2 (10:03→16:57)
[2018-07-16] MEDS: Citalopram TAB* 10 MG PO SCH (10:04)
[2018-07-16] MEDS: IMATINIB 400 MG PO SCH (10:04)
[2018-07-16] MEDS: Allopurinol TAB* 300 MG PO SCH (11:21)
--- NOTE | 2018-07-16 13:50 | PN ---
Subjective Date of Service: 07/16/18 Interval History: HOSPITALIST PROGRESS NOTE Patient seen and examined at bedside. Care reviewed and d/w Joan Jones RN. She offers no new complaints today. Transferred to ICU due to possible 3rd degree HB; she was c/o dizziness even before that. No chest pain or palpitations. Family History: Unchanged from Admission Social History: Unchanged from Admission Past Medical History: Unchanged from Admission Objective Active Medications: Acetaminophen (Tylenol Tab*) 650 mg PO Q4H PRN PRN Reason: FEVER/PAIN Last Admin: 07/15/18 06:12 Dose: 650 mg Al Hydrox/Mg Hydrox/Simethicone (Maalox Plus*) 30 ml PO Q6H PRN PRN Reason: INDIGESTION Albuterol/Ipratropium (Duoneb (Albuterol 2.5 Mg/Ipratropium 0.5 Mg)) 1 neb INH [id number] AWAKE PRN PRN Reason: sob/wheexing Last Admin: 07/13/18 20:22 Dose: 1 neb Allopurinol (Zyloprim Tab*) 300 mg PO DAILY [facility] Last Admin: 07/16/18 11:21 Dose: 300 mg Citalopram Hydrobromide (Celexa Tab*) 10 mg PO DAILY [facility] Last Admin: 07/16/18 10:04 Dose: 10 mg Cyclobenzaprine HCl (Flexeril Tab*) 10 mg PO DAILY PRN PRN Reason: SPASMS Last Admin: 07/13/18 21:29 Dose: 10 mg Enoxaparin Sodium (Lovenox(*)) 40 mg SUBCUT Q24H [facility] Ceftriaxone Sodium 1 gm/ (Sodium Chloride) 50 mls @ 200 mls/hr IVPB Q24H [facility] Last Admin: 07/15/18 15:17 Dose: 200 mls/hr Imatinib Mesylate (Gleevec (Nf)) 400 mg PO DAILY [facility] Last Admin: 07/16/18 10:04 Dose: 400 mg Magnesium Hydroxide (Milk Of Magnesia Liq*) 30 ml PO Q4H PRN PRN Reason: CONSTIPATION Omeprazole (Prilosec Cap*) 20 mg PO BID [facility] Last Admin: 07/16/18 10:03 Dose: 20 mg Ondansetron HCl (Zofran Inj*) 4 mg IV Q4H PRN PRN Reason: NAUSEA/VOMITING Oxybutynin Chloride (Ditropan Xl Tab*) 15 mg PO DAILY [facility] Last Admin: 07/16/18 10:03 Dose: 15 mg Oxycodone/Acetaminophen (Percocet 5/325 Tab*) 1 tab PO Q4H PRN PRN Reason: PAIN Last Admin: 07/15/18 09:08 Dose: 1 tab Vital Signs - 8 hr 07/16/18 07/16/18 07/16/18 07:20 07:34 08:00 Temperature 99.4 F Pulse Rate 83 87 74 Respiratory 19 14 16 Rate Blood Pressure 123/56 123/56 119/57 (mmHg) O2 Sat by Pulse 97 98 99 Oximetry 07/16/18 07/16/18 07/16/18 08:30 09:00 10:00 Temperature Pulse Rate 75 70 86 Respiratory 19 13 17 Rate Blood Pressure 108/46 119/50 (mmHg) O2 Sat by Pulse 99 98 99 Oximetry 07/16/18 07/16/18 07/16/18 10:01 10:30 11:00 Temperature Pulse Rate 86 69 71 Respiratory 18 22 25 Rate Blood Pressure 111/59 109/53 119/47 (mmHg) O2 Sat by Pulse 99 98 97 Oximetry 07/16/18 07/16/18 07/16/18 12:00 12:15 12:56 Temperature 98.1 F Pulse Rate 72 70 Respiratory 19 22 20 Rate Blood Pressure 113/49 117/47 (mmHg) O2 Sat by Pulse 92 94 Oximetry Oxygen Devices in Use Now: None Appearance: Pleasant elderly lady sitting up in bed in [facility]. Eyes: No Scleral Icterus Ears/Nose/Mouth/Throat: Mucous Membranes Moist Neck: Trachea Midline Respiratory: Symmetrical Chest Expansion and Respiratory Effort, - - BS+ bilaterally with bibasilar crackles Cardiovascular: RRR - Normal S1 and S2, +SM Abdominal: NL Sounds; No Tenderness; No Distention Extremities: - - Bilateral LE edema Neurological: Alert and Oriented x 3, NL Muscle Strength and Tone Result Diagrams: 07/15/18 06:45 07/16/18 05:34 Assess/Plan/Problems-Billing Assessment: Mrs King is a 78yo F with PMH of CML on Gleevec, HTN, gout, HLD, BRANDY (on CPAP and O2 at night), COPD, GERD, sarcoidosis, Afib (Eliquis stopped in February 2018 due to GI bleed), breast CA, who presented to ED with SOB and 15 lbs weight gain. - Patient Problems (1) Third degree AV block Comment: - Unclear to me if her rhythm was trully 3rd degree HB - will await Cardiology evaluation. (2) Acute diastolic CHF (congestive heart failure) Comment: - Low SBP limits diuretic use. - Furosemide 20mg IV x 1 and monitor. - Continue Aldactone. - Echo shows EF 65%, moderate AR, MR TR, moderate pulm HTN. (3) Atrial fibrillation Comment: - In junctional rhythm now. - [id number] is 4 predicting a stroke risk of 4.8%/year. - HAS-BLED score is 2 predicting a risk of 1.88 bleeds per 100 patient-years. - Eliquis had been on hold since 03/08 in the setting of GI bleed. (4) Thyroid nodule Comment: - TSH 2.2. - Will need thyroid US as outpatient. (5) CML (chronic myeloid leukemia) Comment: - Continue Gleevec. - Three lines with levels at baseline. (6) Bronchospasm Comment: - Wheezing has improved - continue Duonebs, Ceftriaxone for likley bronchitis. (7) Elevated troponin Comment: - Likely demand ischemia in the setting of hypoxemia. - Echo shows no significant change since 03/08. (8) DVT prophylaxis Comment: - Lovenox. (9) Full code status Status and Disposition: inpatient
[2018-07-16] MEDS ORDERED: Furosemide IV* 10 MG/ML 2 ML VIAL (20 MG) IV SLOW PU ONE (14:03)
[2018-07-16] MEDS: Enoxaparin(*) 40 MG/0.4 ML SYR SUBCUT SCH (14:56)
[2018-07-16] MEDS: cefTRIAXone(*) 1 GM in NS 0.9% 50 ML* 50 ML IVPB SCH (15:06)
[2018-07-16] MEDS: oxyCODONE/Acetamin 5/325 MG* TAB PO PRN (19:12)
--- NOTE | 2018-07-16 21:11 | CONS ---
CC: Dr. Jesus; Dr. Jag Naidu, Cardiology, [facility] * CARDIOLOGY CONSULTATION: DATE OF CONSULT: 07/16/18 INDICATION FOR CONSULT: Bradycardia. HISTORY OF PRESENT ILLNESS: The patient is a 78-year-old female with a history of COPD, gastroesophageal reflux disease, paroxysmal atrial fibrillation, who came to the emergency room because of shortness of breath and coughing. She also had some mild chest tightness. On evaluation in the emergency room, it was found that she likely had left lower lobe pneumonia. A CTA of the chest was negative for DVT or PE. The patient was admitted to the hospital for treatment of her pneumonia. Overnight, the patient had bradycardia down to 30 beats per minute. At one point, the nurse labeled it as third-degree heart block. The patient was transferred to the intensive care unit for evaluation. In speaking with the patient, I cannot elicit any specific cardiac symptoms. She denies any episodes of lightheadedness, dizziness, or syncope. She denies any palpitations. The patient does have some degree of shortness of breath and orthopnea associated with her COPD and pneumonia. PAST MEDICAL HISTORY: Significant for CML that is currently in remission and she is taking Gleevec on a daily basis, hypertension, gout, hyperlipidemia, sleep apnea, gastroesophageal reflux disease, paroxysmal atrial fibrillation. The patient has had a cardioversion in the past. PAST SURGICAL HISTORY: Mastectomy, appendectomy, hysterectomy, ORIF of the right lower extremity. OUTPATIENT MEDICATIONS: 1. Allopurinol 300 mg a day. 2. Celexa mg a day. 3. Flexeril 10 mg a day. 4. Gleevec 400 mg a day. 5. Ditropan 15 mg a day. 6. Spironolactone 25 mg a day. 7. Omeprazole 20 mg a day. ALLERGIES: She is intolerant of amoxicillin, cephalexin, clarithromycin. FAMILY HISTORY: Not obtained. SOCIAL HISTORY: The patient lives alone. Her daughters are involved in her care. She denies any tobacco or alcohol use. She does not get any regular exercise. REVIEW OF SYSTEMS: Positive for cough. Positive for fevers. Negative for palpitations. Negative for lightheadedness or dizziness. Negative for changes in bowel or bladder habit. Other 12-point review is unremarkable. PHYSICAL EXAM: Height is 5 feet 1 inch, weight is 183 pounds, heart rate is 66 , blood pressure 109/53, respiratory rate is 17, oxygen saturation 99% on 2 L, temperature 99.4. Sclerae anicteric. Oropharynx is pink without erythema. Carotids are 2+ without bruits. JVD is normal. Thyroid is normal. Cardiac Exam: S1, S2 with a 1/6 systolic ejection murmur. No diastolic murmur. PMI is normal. Lungs are clear to auscultation. There is no dullness to percussion. There are some mild rhonchi. Abdomen is soft, nontender, nondistended with normoactive bowel sounds. Extremities show minimal edema. She has 2+ pulses throughout. The patient is awake, alert, and oriented. She moves all 4 extremities equally. DIAGNOSTIC STUDIES/LAB DATA: An echocardiogram yesterday demonstrated normal LV size and systolic function, mild aortic stenosis, moderate mitral regurgitation and moderate tricuspid regurgitation. White count 3.0, hemoglobin 8.8, hematocrit 26, platelet count 95. Chemistries within normal limits. BUN 16, creatinine 0.95. Troponins are minimally elevated at 0.05. C-reactive protein is negative at 3. IMPRESSION AND PLAN: The patient is a 78-year-old female, who was admitted to the hospital with pneumonia. She ruled out for pulmonary embolism. She is on appropriate medications. The patient was transferred to the intensive care unit because of irregular rhythm thought secondary to third-degree heart block. In reviewing the rhythm strips, there was evidence of wandering atrial pacemaker with variable AV conduction. I see no evidence of third-degree heart block. In speaking with the patient, I cannot elicit any symptoms associated with any bradycardia. For now, my recommendation is to stay on her current medications, continue her treatment for pneumonia. The patient will follow up with Dr. Naidu. In regards to her atrial fibrillation, at this point, I do not think any additional cardiac medications are necessary. [id number]/[facility] #: [id number] [facility]
[2018-07-17 06:37] LABS: EGFR Non-African American 56.9 (>60)
[2018-07-17] MEDS: Omeprazole CAP* 20 MG PO SCH ×2 (07:17→16:26)
[2018-07-17] MEDS: Allopurinol TAB* 300 MG PO SCH (08:05)
[2018-07-17] MEDS: oxyCODONE/Acetamin 5/325 MG* TAB PO PRN (08:05)
[2018-07-17] MEDS: Citalopram TAB* 10 MG PO SCH (08:05)
[2018-07-17] MEDS: IMATINIB 400 MG PO SCH (08:07)
[2018-07-17] MEDS: Oxybutynin XL TAB* 5 MG PO SCH (09:36)
[2018-07-17] MEDS ORDERED: Magnesium Sulfate IV* 3 GM in NS 0.9% 100 ML* 100 ML IVPB ONE (11:26)
[2018-07-17] MEDS ORDERED: Furosemide IV* 10 MG/ML 2 ML VIAL (20 MG) IV SLOW PU ONE (11:27)
--- NOTE | 2018-07-17 14:46 | PN ---
Subjective Date of Service: 07/17/18 Interval History: HOSPITALIST PROGRESS NOTE Patient seen and examined at bedside. Care reviewed and d/w Faraz Rizzo RN. She feels a little better today. Wants to go home to be with her dog. Still a little short of breath, but improved. Family History: Unchanged from Admission Social History: Unchanged from Admission Past Medical History: Unchanged from Admission Objective Active Medications: Acetaminophen (Tylenol Tab*) 650 mg PO Q4H PRN PRN Reason: FEVER/PAIN Last Admin: 07/15/18 06:12 Dose: 650 mg Al Hydrox/Mg Hydrox/Simethicone (Maalox Plus*) 30 ml PO Q6H PRN PRN Reason: INDIGESTION Albuterol/Ipratropium (Duoneb (Albuterol 2.5 Mg/Ipratropium 0.5 Mg)) 1 neb INH [id number] AWAKE PRN PRN Reason: sob/wheexing Last Admin: 07/13/18 20:22 Dose: 1 neb Allopurinol (Zyloprim Tab*) 300 mg PO DAILY [facility] Last Admin: 07/17/18 08:05 Dose: 300 mg Citalopram Hydrobromide (Celexa Tab*) 10 mg PO DAILY [facility] Last Admin: 07/17/18 08:05 Dose: 10 mg Cyclobenzaprine HCl (Flexeril Tab*) 10 mg PO DAILY PRN PRN Reason: SPASMS Last Admin: 07/13/18 21:29 Dose: 10 mg Enoxaparin Sodium (Lovenox(*)) 40 mg SUBCUT Q24H [facility] Last Admin: 07/16/18 14:56 Dose: 40 mg Ceftriaxone Sodium 1 gm/ (Sodium Chloride) 50 mls @ 200 mls/hr IVPB Q24H [facility] Last Admin: 07/16/18 15:06 Dose: 200 mls/hr Imatinib Mesylate (Gleevec (Nf)) 400 mg PO DAILY [facility] Last Admin: 07/17/18 08:07 Dose: 400 mg Magnesium Hydroxide (Milk Of Magnesia Liq*) 30 ml PO Q4H PRN PRN Reason: CONSTIPATION Omeprazole (Prilosec Cap*) 20 mg PO BID [facility] Last Admin: 07/17/18 07:17 Dose: 20 mg Ondansetron HCl (Zofran Inj*) 4 mg IV Q4H PRN PRN Reason: NAUSEA/VOMITING Oxybutynin Chloride (Ditropan Xl Tab*) 15 mg PO DAILY [facility] Last Admin: 07/17/18 09:36 Dose: 15 mg Oxycodone/Acetaminophen (Percocet 5/325 Tab*) 1 tab PO Q4H PRN PRN Reason: PAIN Last Admin: 07/17/18 08:05 Dose: 1 tab Vital Signs - 8 hr 07/17/18 07/17/18 07/17/18 07:51 08:00 08:05 Temperature 98.7 F Pulse Rate 74 Respiratory 20 18 16 Rate Blood Pressure 102/41 (mmHg) O2 Sat by Pulse 96 Oximetry 07/17/18 07/17/18 09:41 11:54 Temperature 98.9 F Pulse Rate 71 Respiratory 16 18 Rate Blood Pressure 126/46 (mmHg) O2 Sat by Pulse 100 Oximetry Oxygen Devices in Use Now: Nasal Cannula Appearance: Elderly lady lying in bed in NAD Eyes: No Scleral Icterus Ears/Nose/Mouth/Throat: Mucous Membranes Moist Neck: Trachea Midline Respiratory: Symmetrical Chest Expansion and Respiratory Effort, - - BS+ bilaterally with bibasilar crackles Cardiovascular: RRR - Normal S1 and S2 Extremities: - - Bilateral LE pitting edema Neurological: Alert and Oriented x 3, NL Muscle Strength and Tone Result Diagrams: 07/15/18 06:45 07/17/18 05:52 Assess/Plan/Problems-Billing Assessment: Mrs King is a 78yo F with PMH of CML on Gleevec, HTN, gout, HLD, BRANDY (on CPAP and O2 at night), COPD, GERD, sarcoidosis, Afib (Eliquis stopped in February 2018 due to GI bleed), breast CA, who presented to ED with SOB and 15 lbs weight gain. - Patient Problems (1) Acute respiratory failure with hypoxemia Comment: - due to a combination of CHF and bronchitis - PE r/o with neg V/Q on 07/15/18 - Check O2 needs. (2) Acute diastolic CHF (congestive heart failure) Comment: - Low SBP limits diuretic use. - Furosemide 20mg IV again today - weight down to 182lbs. - Continue Aldactone. - Echo shows EF 65%, moderate AR, MR TR, moderate pulm HTN. - Cardiology input appreciated - rhythm was NOT 3rd degree AVB. (3) Atrial fibrillation Comment: - Rate is controlled. - [id number] is 4 predicting a stroke risk of 4.8%/year. - HAS-BLED score is 2 predicting a risk of 1.88 bleeds per 100 patient-years. - Eliquis had been on hold since 03/08 in the setting of GI bleed. (4) Thyroid nodule Comment: - TSH 2.2. - Will need thyroid US as outpatient. (5) CML (chronic myeloid leukemia) Comment: - Continue Gleevec. - Three lines with levels at baseline. (6) Bronchospasm Comment: - Wheezing has improved - continue Duonebs, Ceftriaxone for likely bronchitis. (7) Elevated troponin Comment: - Likely demand ischemia in the setting of hypoxemia. - Echo shows no significant change since 03/08. (8) DVT prophylaxis Comment: - Lovenox. (9) Full code status Status and Disposition: inpatient
[2018-07-17] MEDS: cefTRIAXone(*) 1 GM in NS 0.9% 50 ML* 50 ML IVPB SCH (15:11)
[2018-07-17] MEDS: Enoxaparin(*) 40 MG/0.4 ML SYR SUBCUT SCH (15:11)
[2018-07-18 06:40] LABS: EGFR Non-African American 56.2 (>60)
[2018-07-18] MEDS: Allopurinol TAB* 300 MG PO SCH (08:19)
[2018-07-18] MEDS: IMATINIB 400 MG PO SCH (08:19)
[2018-07-18] MEDS: Omeprazole CAP* 20 MG PO SCH ×2 (08:19→16:57)
[2018-07-18] MEDS: Citalopram TAB* 10 MG PO SCH (08:19)
[2018-07-18] MEDS: Oxybutynin XL TAB* 5 MG PO SCH (08:19)
[2018-07-18] MEDS: oxyCODONE/Acetamin 5/325 MG* TAB PO PRN (15:00)
[2018-07-18] MEDS: Enoxaparin(*) 40 MG/0.4 ML SYR SUBCUT SCH (15:00)
[2018-07-18] MEDS: cefTRIAXone(*) 1 GM in NS 0.9% 50 ML* 50 ML IVPB SCH (15:31)
--- NOTE | 2018-07-18 16:23 | PN ---
Subjective Date of Service: 07/18/18 Interval History: HOSPITALIST PROGRESS NOTE Patient seen and examined at bedside. She feels a little better today. Had dyspnea with ambulation, but recovered quickly and does not require supplemental O2. Family History: Unchanged from Admission Social History: Unchanged from Admission Past Medical History: Unchanged from Admission Objective Active Medications: Acetaminophen (Tylenol Tab*) 650 mg PO Q4H PRN PRN Reason: FEVER/PAIN Last Admin: 07/15/18 06:12 Dose: 650 mg Al Hydrox/Mg Hydrox/Simethicone (Maalox Plus*) 30 ml PO Q6H PRN PRN Reason: INDIGESTION Albuterol/Ipratropium (Duoneb (Albuterol 2.5 Mg/Ipratropium 0.5 Mg)) 1 neb INH [id number] AWAKE PRN PRN Reason: sob/wheexing Last Admin: 07/13/18 20:22 Dose: 1 neb Allopurinol (Zyloprim Tab*) 300 mg PO DAILY [facility] Last Admin: 07/18/18 08:19 Dose: 300 mg Citalopram Hydrobromide (Celexa Tab*) 10 mg PO DAILY [facility] Last Admin: 07/18/18 08:19 Dose: 10 mg Cyclobenzaprine HCl (Flexeril Tab*) 10 mg PO DAILY PRN PRN Reason: SPASMS Last Admin: 07/13/18 21:29 Dose: 10 mg Enoxaparin Sodium (Lovenox(*)) 40 mg SUBCUT Q24H [facility] Last Admin: 07/18/18 15:00 Dose: 40 mg Ceftriaxone Sodium 1 gm/ (Sodium Chloride) 50 mls @ 200 mls/hr IVPB Q24H [facility] Last Admin: 07/18/18 15:31 Dose: 200 mls/hr Imatinib Mesylate (Gleevec (Nf)) 400 mg PO DAILY [facility] Last Admin: 07/18/18 08:19 Dose: 400 mg Magnesium Hydroxide (Milk Of Magnesia Liq*) 30 ml PO Q4H PRN PRN Reason: CONSTIPATION Omeprazole (Prilosec Cap*) 20 mg PO BID AC [facility] Last Admin: 07/18/18 08:19 Dose: 20 mg Ondansetron HCl (Zofran Inj*) 4 mg IV Q4H PRN PRN Reason: NAUSEA/VOMITING Oxybutynin Chloride (Ditropan Xl Tab*) 15 mg PO DAILY [facility] Last Admin: 07/18/18 08:19 Dose: 15 mg Oxycodone/Acetaminophen (Percocet 5/325 Tab*) 1 tab PO Q4H PRN PRN Reason: PAIN Last Admin: 07/18/18 15:00 Dose: 1 tab Vital Signs - 8 hr 07/18/18 07/18/18 07/18/18 08:28 11:45 15:00 Temperature 98.3 F 98.3 F Pulse Rate 61 68 Respiratory 16 18 16 Rate Blood Pressure 134/42 111/43 (mmHg) O2 Sat by Pulse 99 95 Oximetry 07/18/18 15:45 Temperature 98.6 F Pulse Rate 80 Respiratory 18 Rate Blood Pressure 118/38 (mmHg) O2 Sat by Pulse 96 Oximetry Oxygen Devices in Use Now: None Appearance: Pleasant elderly lady lying in bed in NAD. Eyes: No Scleral Icterus Ears/Nose/Mouth/Throat: Mucous Membranes Moist Neck: Trachea Midline Respiratory: Symmetrical Chest Expansion and Respiratory Effort, - - BS+ bilaterally with bibasilar crackles Cardiovascular: RRR - Normal S1 and S2 Abdominal: NL Sounds; No Tenderness; No Distention Neurological: Alert and Oriented x 3, NL Muscle Strength and Tone Result Diagrams: 07/15/18 06:45 07/18/18 05:50 Assess/Plan/Problems-Billing Assessment: Mrs King is a 78yo F with PMH of CML on Gleevec, HTN, gout, HLD, BRANDY (on CPAP and O2 at night), COPD, GERD, sarcoidosis, Afib (Eliquis stopped in February 2018 due to GI bleed), breast CA, who presented to ED with SOB and 15 lbs weight gain. - Patient Problems (1) Acute respiratory failure with hypoxemia Comment: - due to a combination of CHF and bronchitis - PE r/o with neg V/Q on 07/15/18 - Does not require supplemental O2 anymore. (2) Acute diastolic CHF (congestive heart failure) Comment: - Low SBP limits diuretic use but responding well to Furosemide 20mg - weight down to 178lbs. - Continue Aldactone. - Echo shows EF 65%, moderate AR, MR TR, moderate pulm HTN. - Cardiology input appreciated - rhythm was NOT 3rd degree AVB. (3) Atrial fibrillation Comment: - Rate is controlled. - [id number] is 4 predicting a stroke risk of 4.8%/year. - HAS-BLED score is 2 predicting a risk of 1.88 bleeds per 100 patient-years. - Eliquis had been on hold since 03/08 in the setting of GI bleed. (4) Thyroid nodule Comment: - TSH 2.2. - Will need thyroid US as outpatient. (5) CML (chronic myeloid leukemia) Comment: - Continue Gleevec. - Three lines with levels at baseline. (6) Bronchospasm Comment: - Wheezing has improved - continue Duonebs, Ceftriaxone for likely bronchitis. (7) Elevated troponin Comment: - Likely demand ischemia in the setting of hypoxemia. - Echo shows no significant change since 03/08. (8) DVT prophylaxis Comment: - Lovenox. (9) Full code status Status and Disposition: inpatient. Anticipate d/c in AM.
[2018-07-18] MEDS ORDERED: Furosemide IV* 10 MG/ML 2 ML VIAL (20 MG) IV ONE (16:26)
[2018-07-19 07:58] VITALS: BP 108/43
[2018-07-19] MEDS: Omeprazole CAP* 20 MG PO SCH (08:27)
[2018-07-19] MEDS: Oxybutynin XL TAB* 5 MG PO SCH (08:27)
[2018-07-19] MEDS: oxyCODONE/Acetamin 5/325 MG* TAB PO PRN (08:27)
[2018-07-19] MEDS: Allopurinol TAB* 300 MG PO SCH (08:27)
[2018-07-19] MEDS: Citalopram TAB* 10 MG PO SCH (08:27)
[2018-07-19] MEDS: IMATINIB 400 MG PO SCH (08:28)
--- NOTE | 2018-07-20 04:27 | DS ---
CC: Dr. Jesus; Dr. Naidu. DISCHARGE SUMMARY: DATE OF ADMISSION: 07/13/18 DATE OF DISCHARGE: 07/19/18 PRIMARY CARE PROVIDER: Dr. Jesus. CASH APPLICATION CLERK: Dr. Naidu. DISCHARGE DIAGNOSES: 1. Acute hypoxemic respiratory failure. 2. Acute diastolic congestive heart failure exacerbation. 3. Bronchitis. 4. Atrial fibrillation. 5. Incidental finding of a thyroid nodule. 6. Mild troponin elevation, likely secondary to demand ischemia. SECONDARY DIAGNOSES: 1. Chronic myeloid leukemia, on Gleevec. 2. Hypertension. 3. Gout. 4. Hyperlipidemia. 5. Obstructive sleep apnea, not compliant with CPAP. 6. Chronic obstructive pulmonary disease. 7. Gastroesophageal reflux disease. 8. Sarcoidosis. MEDICATIONS: 1. Cyclobenzaprine 10 mg p.o. daily p.r.n. for muscle spasm. 2. Oxycodone/acetaminophen 5/325 mg 1 tablet p.o. daily p.r.n. pain. 3. Spironolactone 25 mg p.o. daily. 4. Oxybutynin 15 mg p.o. daily. 5. Gleevec 400 mg p.o. daily. 6. Citalopram 10 mg p.o. daily. 7. Allopurinol 300 mg p.o. daily. 8. Omeprazole 20 mg p.o. b.i.d. 9. Tylenol 650 mg p.o. q. 4 hours p.r.n. pain or fever. New medications: Furosemide 10 mg p.o. daily p.r.n. for weight gain greater than 2 pounds. HOSPITAL COURSE: Mrs. King is a 78-year-old lady with a past medical history as stated above that presents to the emergency room with complaints of chest tightness and shortness of breath. Of note is the fact the patient is not compliant with a low salt diet. The patient's daughter states that hilaria e adds salt to her food and eats a lot of canned foods. For more details about her presentation, I r efer you to her history and physical. In the emergency room, she had a chest x-ray that showed left costophrenic angle blunting due to smal l pleural effusion. CT of the chest showed pulmonary edema with small bibasilar pleural effusions an d ground glass opacification. There was incidental finding of thyroid enlargement, heterogenous with at least two 1 cm nodules in each lobe. Superior characterization could be made with ultrasound as outpatient. The surface of the liver is nodular suggestive of cirrhosis. V/Q scan showed no evidence for coronary embolism. The patient was admitted to telemetry floor and she responded well to diuresis. Her weight on admissi on was 186 and on discharge 178 pounds with improvement of her oxygen saturation and she no longer re quires supplemental oxygen. Of note is the fact that the patient had 1 episode of change in telemetry that was concerning for a t hird degree heart block. She was transferred to the intensive care unit and seen in consultation by Cardiology (Dr. Duran). He revealed the rhythm strips on EKG and he saw evidence of wandering atrial pacemaker with variable AV conduction and no evidence of third degree heart block. His recommendati on was for outpatient followup with Dr. Naidu. On 07/19/18, the patient was feeling well, anxiou s for discharge. Did not require supplemental oxygen and she was felt to be stable for discharge. S he received extensive education about CHF and heart healthy diet. She was referred to visiting nurse services to help her with the telemonitoring program. While in the hospital, the patient remained in rate control atrial fibrillation and of note, she is o ff anticoagulation since her episode of GI bleed in February this year. PHYSICAL EXAMINATION: Vital Signs: Temperature 98.7, heart rate 76, respiratory rate 16, oxygen sat uration 100% on room air, blood pressure is 108/43. General: The patient is a pleasant elderly lady, sitting up in bed, in no acute distress. CVS: Normal S1, S2. Regular rate and rhythm. Chest: Farideh ath sound bilaterally, decreased in bases, but no added sounds. Abdomen is soft, obese. Extremities : There is trace to mild bilateral lower extremity edema. Neuro: She is alert, oriented x3. She is able to move all 4 extremities. DIET: Heart healthy diet. ACTIVITY: As tolerated. DISPOSITION: To home. STATUS WHILE IN THE HOSPITAL: Inpatient. Please keep in mind this is a summarized version of this patient's hospital stay. If you need more in formation, please feel free to call me at [phone] or please obtain full medical records. TIME SPENT: Approximately 45 minutes were spent to complete this discharge. [id number]/CPS #: [id number]
== END 2018-07-19 10:55 | disposition home health service (06) | DRG 291 ==
LOC: ED 10:22 → MEDTELE 14:26 → OBSVTOIN 07-14 10:45 → ICU 07-16 07:38 → MEDTELE 07-16 14:23
PROVIDERS: ADMIT Student in an Organized Health Care Education/Training Program; ATTEND Internal Medicine
DX: I11.0 Hypertensive heart disease with heart failure (principal); J96.21 Acute and chronic respiratory failure with hypoxia; I24.8 Other forms of acute ischemic heart disease; C92.10 Chronic myeloid leukemia, BCR/ABL-positive, not having achieved remission; I44.2 Atrioventricular block, complete; J40 Bronchitis, not specified as acute or chronic; E04.1 Nontoxic single thyroid nodule; M10.9 Gout, unspecified; E78.5 Hyperlipidemia, unspecified; G47.33 Obstructive sleep apnea (adult) (pediatric); J44.9 Chronic obstructive pulmonary disease, unspecified; K21.9 Gastro-esophageal reflux disease without esophagitis; D86.9 Sarcoidosis, unspecified; I50.33 Acute on chronic diastolic (congestive) heart failure; F41.9 Anxiety disorder, unspecified; M47.9 Spondylosis, unspecified; F32.9 Major depressive disorder, single episode, unspecified; I08.3 Combined rheumatic disorders of mitral, aortic and tricuspid valves; J98.01 Acute bronchospasm; E83.42 Hypomagnesemia; I27.20 Pulmonary hypertension, unspecified; I48.0 Paroxysmal atrial fibrillation; Z91.19 Patient's noncompliance with other medical treatment and regimen; Z91.11 Patient's noncompliance with dietary regimen; Z90.710 Acquired absence of both cervix and uterus; Z98.49 Cataract extraction status, unspecified eye; Z88.1 Allergy status to other antibiotic agents; Z88.0 Allergy status to penicillin; Z80.3 Family history of malignant neoplasm of breast; Z82.3 Family history of stroke; Z87.442 Personal history of urinary calculi; Z85.3 Personal history of malignant neoplasm of breast; Z90.11 Acquired absence of right breast and nipple; Z87.891 Personal history of nicotine dependence; Z23 Encounter for immunization; Z86.14 Personal history of Methicillin resistant Staphylococcus aureus infection
CPT/HCPCS: 36415; 71045; 71046; 71250; 78582; 80048; 80053; 81003; 81015; 82550; 82553; 83605; 83735; 83880; 84145; 84443; 84484; 85025; 85027; 85379; 85730; 86140; 87040; 87070; 87077; 87086; 87184; 87186; 87205; 87641; 87899; 90686; 93005; 93306; 94640; 94660; 99283; A9270-GY; A9540; A9558; C8929; G0378; G8978-GP-CI; G8979-GP-CI; G8980-GP-CI; J0696; J1644; J1650; J1940; J3475

== ENCOUNTER 2019-01-22 12:35 | Emergency (ER) | payer MEDICARE, BC ==
[2019-01-22] MEDS ORDERED: Morphine 4 MG/ML VIAL (1 ml) 4 MG/ML VIAL IV ONE (14:20)
[2019-01-22 14:32] LABS: INR 4.91 (0.77-1.02)
[2019-01-22 14:39] LABS: Albumin 3.5 g/dL (3.2-5.2); Albumin/Globulin Ratio 1.2 (1-3); BUN/Creatinine Ratio 11.8 (8-20); C Reactive Protein 7.97 mg/L (<8.01); Calcium 9.1 mg/dL (8.6-10.3); EGFR African American 70.4 (>60); EGFR Non-African American 58.2 (>60); Globulin 2.9 g/dL (2-4); Potassium 2.9 mmol/L (3.5-5.0); Total Bilirubin 0.8 mg/dL (0.2-1.0); Total Protein 6.4 g/dL (6.4-8.9)
[2019-01-22] MEDS ORDERED: Ondansetron INJ* 2 MG/ML VIAL IV ONE (14:41)
[2019-01-22] MEDS ORDERED: Ondansetron INJ* 2 MG/ML VIAL ONE (14:41)
[2019-01-22 16:07] LABS: ABS Basophils 0 10^3/ul (0-0.2); ABS Eosinophils 0.1 10^3/ul (0-0.6); ABS Lymphocytes 1.3 10^3/ul (1.0-4.8); ABS Monocytes 0.4 10^3/ul (0-0.8); ABS Neutrophils 3.1 10^3/ul (1.5-7.7); ABS Nucleated RBC 0 10^3/ul; Eosinophil % 1.7 %; Hematocrit 28 % (33-41); Hemoglobin 9.4 g/dL (12.0-16.0); Lymphocyte % 26.4 %; Mean Corpuscular HGB Conc 34 g/dL (31-36); Mean Corpuscular Hemoglobin 32 pg (27-31); Mean Corpuscular Volume 94 fL (80-97); Mean Platelet Volume 8.1 fL (7.4-10.4); Nucleated Red Blood Cells % 0; Platelet Count 180 10^3/uL (150-450); Red Blood Count 2.94 10^6 /uL (3.70-4.87); Red Cell Distribution Width 16 % (10.5-15); White Blood Count 4.8 10^3/uL (3.5-10.8)
[2019-01-22 16:08] VITALS: BP 126/48
--- NOTE | 2019-01-23 06:48 | ED ---
Adult Trauma - HPI Summary HPI Summary: Patient is a 79-year-old female presenting to the ED after a fall. She states she was going into a store when she tripped onto the carpet, falling onto her left side. She is unsure if she hit her head. Denies any LOC. She denies any pain to her head or neck at this time. Denies any back pain. She does have bilateral hip pain, worse to the right side. She is also endorsing pain to the left forearm. She is status post hip replacement to the right side. She is also being treated by Dr. Antoine for CML. She denies any recent illness or weakness. She ambulates well with a walker and lives with her son at home. Denies any CP, SOB, abdominal pain, headache. Denies any numbness or tingling. Patient is on anticoagulants. - History of Current Complaint Chief Complaint: EDFall Stated Complaint: FALL , HAND AND KNEE AND BACK PAIN Time Seen by Provider: 01/22/19 13:24 Hx Obtained From: Patient, Family/Elder Counselor ?: No Mechanism of Injury: Blunt Trauma Loss of Consciousness: no loss of consciousness Force: Medium Restraints: None Onset/Duration: Started Minutes Ago Onset of Pain: Minutes Onset Severity: Mild Current Severity: Mild Pain Intensity: 5 Pain Scale Used: 0-10 Numeric Location: Back, Abdomen/Pelvis Character: Aching Alleviating Factor(s): Nothing Associated Signs & Symptoms: Positive: Negative Related History: Anticoagulants - Additional Pertinent History Primary Care Physician: [id number] - Allergy/Home Medications Allergies/Adverse Reactions: Allergies Allergy/AdvReac Type Severity Reaction Status Date / Time amoxicillin Allergy Unknown Verified 07/13/18 10:28 Reaction Details cefprozil Allergy Unknown Verified 07/13/18 10:28 Reaction Details cephalexin Allergy Unknown Verified 07/13/18 10:28 Reaction Details ciprofloxacin [From Cipro] Allergy Unknown Verified 07/13/18 10:28 Reaction Details clarithromycin Allergy Unknown Verified 07/13/18 10:28 Reaction Details clavulanic acid Allergy Unknown Verified 07/13/18 10:28 Reaction Details doxycycline Allergy Unknown Verified 07/13/18 10:28 Reaction Details Iodinated Contrast- Oral and Allergy Rash Verified 07/13/18 10:28 IV Dye levofloxacin [From Levaquin] Allergy Unknown Verified 07/13/18 10:28 Reaction Details Penicillins Allergy Unknown Verified 07/13/18 10:28 Reaction Details prednisone Allergy Swelling Verified 07/13/18 10:28 sertraline [From Zoloft] Allergy Unknown Verified 07/13/18 10:28 Reaction Details PMH/Surg Hx/FS Hx/Imm Hx Previously Healthy: Yes Endocrine/Hematology History: Denies: Hx Diabetes Cardiovascular History: Reports: Hx Atrial Fibrillation, Hx Hypertension, Hx Rheumatic Fever - X2 A CHILD AND TEEN, Other Cardiovascular Problems/ Disorders - Arrythmia Denies: Hx Congestive Heart Failure, Hx Pacemaker/ICD Respiratory History: Reports: Hx Chronic Obstructive Pulmonary Disease (COPD), Hx Sleep Apnea, Other Respiratory Problems/Disorders - trach, sarcoidosis GI History: Denies: Other GI Disorders History: Reports: Hx Kidney Stones - IN THE PAST, Other Problems/ Disorders - "leaky bladder" Denies: Hx Renal Disease Musculoskeletal History: Reports: Hx Arthritis - BACK AND LEGS, Hx Gout Sensory History: Reports: Hx Cataracts - [place], Hx Contacts or Glasses - GLASSES Denies: Hx Hearing Aid Opthamlomology History: Reports: Hx Cataracts - [place], Hx Contacts or Glasses - GLASSES Neurological History: Denies: Other Neuro Impairments/Disorders Psychiatric History: Reports: Hx Depression Denies: Hx Panic Disorder - Cancer History Cancer Type, Location and Year: CML,breast cancer right. Hx Chemotherapy: Yes - 2014, [place] Hx Radiation Therapy: No - Surgical History Surgery Procedure, Year, and Place: hysterectomy, right mastectomy Hx Anesthesia Reactions: No - Immunization History Hx Pertussis Vaccination: No Immunizations Up to Date: Yes Infectious Disease History: No Infectious Disease History: Reports: Hx of Known/Suspected MRSA Denies: Traveled Outside the [place] in Last 30 Days - Family History Known Family History: Negative: Hypertension - Social History Occupation: Unemployed Lives: With Family Alcohol Use: None Hx Substance Use: No Substance Use Type: Reports: None Hx Tobacco Use: Yes Smoking Status (MU): Former Smoker Have You Smoked in the Last Year: No Review of Systems Negative: Fever, Chills, Fatigue, Skin Diaphoresis Negative: Epistaxis, Dental Pain Negative: Palpitations, Chest Pain Genitourinary: Negative Positive: no symptoms reported, see HPI Positive: Arthralgia - right hip Skin: Negative Positive: Other - abrasions to the L hand and L knee Negative: Headache, Weakness, Paresthesia, Numbness All Other Systems Reviewed And Are Negative: Yes Physical Exam Triage Information Reviewed: Yes Vital Signs On Initial Exam: Initial Vitals Temp Pulse Resp BP Pulse Ox 98.7 F 78 20 108/49 98 01/22/19 12:54 01/22/19 12:54 01/22/19 12:54 01/22/19 12:54 01/22/19 12:54 Vital Signs Reviewed: Yes Appearance: Positive: Well-Appearing Skin: Positive: Skin Color Reflects Adequate Perfusion, Other - 2 abrasions - 1 to the L knee and to the L hand Head/Face: Positive: Normal Head/Face Inspection Eyes: Positive: EOMI, Other: - right conjunctival hemorrhage - patient states this was prior to fall Neck: Positive: Supple, No Lymphadenopathy Respiratory/Lung Sounds: Positive: Clear to Auscultation, Breath Sounds Present Cardiovascular: Positive: RRR, Pulses are Symmetrical in both Upper and Lower Extremities Abdomen Description: Positive: Soft Bowel Sounds: Positive: Present Musculoskeletal: Positive: Strength/ROM Intact - right hip Neurological: Positive: Alert, Oriented to Person Place, Time, Speech Normal Psychiatric: Positive: Normal, Affect/Mood Appropriate Diagnostics - Vital Signs Vital Signs Temp Pulse Resp BP Pulse Ox 01/22/19 16:07 98.8 F 72 22 126/48 100 01/22/19 15:34 75 126/48 100 01/22/19 15:25 72 114/49 100 01/22/19 15:00 70 100 01/22/19 14:35 73 20 127/57 98 01/22/19 13:55 75 123/61 100 01/22/19 12:54 98.7 F 78 20 108/49 98 - Laboratory Lab Results: Lab Results 01/22/19 01/22/19 01/22/19 Range/Units 13:53 14:00 14:00 WBC 4.8 (3.5-10.8) 10^3/uL RBC 2.94 L (3.70-4.87) 10^6 /uL Hgb 9.4 L (12.0-16.0) g/dL Hct 28 L (33-41) % MCV 94 (80-97) fL MCH 32 H (27-31) pg MCHC 34 (31-36) g/dL RDW 16 H (10.5-15) % Plt Count 180 (150-450) 10^3/uL MPV 8.1 (7.4-10.4) fL Neut % (Auto) 63.8 % Lymph % (Auto) 26.4 % [place] % (Auto) 7.7 % Eos % (Auto) 1.7 % Baso % (Auto) 0.4 % Absolute Neuts (auto) 3.1 (1.5-7.7) 10^3/ul Absolute Lymphs (auto) 1.3 (1.0-4.8) 10^3/ul Absolute Monos (auto) 0.4 (0-0.8) 10^3/ul Absolute Eos (auto) 0.1 (0-0.6) 10^3/ul Absolute Basos (auto) 0 (0-0.2) 10^3/ul Absolute Nucleated RBC 0 10^3/ul Nucleated RBC % 0 INR (Anticoag Therapy) 4.91 H (0.77-1.02) Sodium 133 L (135-145) mmol/L Potassium 2.9 L (3.5-5.0) mmol/L Chloride 97 L (101-111) mmol/L Carbon Dioxide 27 (22-32) mmol/L Anion Gap 9 (2-11) mmol/L BUN 11 (6-24) mg/dL Creatinine 0.93 (0.51-0.95) mg/dL Est GFR ( Amer) 70.4 (>60) Est GFR (Non-Af Amer) 58.2 (>60) BUN/Creatinine Ratio 11.8 (8-20) Glucose 115 H (70-100) mg/dL Calcium 9.1 (8.6-10.3) mg/dL Total Bilirubin 0.80 (0.2-1.0) mg/dL AST 20 (13-39) U/L ALT 11 (7-52) U/L Alkaline Phosphatase 83 (34-104) U/L C-Reactive Protein 7.97 (<8.01) mg/L Total Protein 6.4 (6.4-8.9) g/dL Albumin 3.5 (3.2-5.2) g/dL Globulin 2.9 (2-4) g/dL Albumin/Globulin Ratio 1.2 (1-3) Result Diagrams: 01/22/19 13:53 01/22/19 14:00 Lab Statement: Any lab studies that have been ordered have been reviewed, and results considered in the medical decision making process. - Radiology Forearm Radiology Interpretation Completed By: Radiologist - IMPRESSION: NO EVIDENCE FOR FRACTURE. IF THE PATIENT'S SYMPTOMS PERSIST RECOMMEND FOLLOW-UP IMAGING. - CT CT brain CT Interpretation Completed By: Radiologist - IMPRESSION: There appears to be chronic left-sided subdural hematoma noted. No midline shift is noted. Findings discussed with Dr. Penn at approximately [address] Interpretation Completed By: Radiologist - IMPRESSION: Degenerative disc disease at C5-C6 and C6-C7 without fracture. Ct Lumbar CT Interpretation Completed By: Radiologist - IMPRESSION: Degenerative disc disease at C5-C6 and C6-C7 without fracture. CT lumbar CT Interpretation Completed By: Radiologist - IMPRESSION: #. Mild osteoporotic compression fracture at the superior endplate of L5 involving the anterior and middle column with trabecular impaction is new compared with the March 21, 2018 exam and may be acute. Negative for significant retropulsion of the middle column. Adult Trauma Course/Dx - Course Course Of Treatment: During the course of treatment, the patient's evaluated for fall. She is endorsing pain to the left forearm and right hip. Denies any pain to the legs otherwise. Denies any pain to the back or neck. Denies any headache. On physical examination, there is a small skin tear to the left knee and left wrist.. Physical examination with flexion and extension of all extremities reveal a right hip discomfort upon flexion. Is no internal or external rotation of the leg noted. No shortening of the leg noted. She is status post right arthroplasty of the hip. Also endorsing pain over the left wrist with flexion and extension, however this is mild. She denies any other discomfort. Labs obtained which show hypokalemia, this is new from her last visit. CT brain, cervical, thoracic, lumbar and pelvis is obtained. Acute compression fracture at L5 endplate. Also chronic subdural hematoma noted and called in by radiology. Discussed all findings with the patient and offered admission. To this, she declines. I believe she will be safe at home as she has her son to assist. Discussed all findings with patient and she voices understanding. She will f/u with PCP in 2-3 days regarding her compression fx, subdural hematoma and to reassess for her hypokalemia. Patient is able to ambulate with assistance. Walker at home. - Diagnoses Differential Diagnosis/HQI/PQRI: Positive: Contusion(s), Sprain, Strain Provider Diagnoses: Fall Discharge - Sign-Out/Discharge Documenting (check all that apply): Patient Departure Patient Received Moderate/Deep Sedation with Procedure: No - Discharge Plan Condition: Stable Disposition: HOME Prescriptions: oxyCODONE TAB* [Roxycodone TAB 5 mg*] 5 mg PO Q4H PRN #24 tab MDD 6 PRN Reason: Pain Potassium Chlor TAB* [Klor Con ER TAB*] 20 meq PO BID #10 tab.er Patient Education Materials: Vertebral Compression Fracture (ED) Referrals: Aditya Ochoa MD [Medical Doctor] - Tadeo Jesus MD [Primary Care Provider] - Additional Instructions: Oxycodone up to every 4 hours as needed for pain control As discussed, walk very slowly and use her walker at all times Please have extra help in the home right now as you'll be sore for a while Please follow-up with your PCP in 3-5 days for a recheck If you develop any worsening symptoms, return to the ED Please follow up with neurology anything - Billing Disposition and Condition Condition: STABLE Disposition: Home
== END 2019-01-22 16:07 | disposition home or self-care (01) ==
LOC: ED 12:35
DX: M25.552 Pain in left hip (principal); M25.551 Pain in right hip; S32.050A Wedge compression fracture of fifth lumbar vertebra, initial encounter for closed fracture; M50.322 Other cervical disc degeneration at C5-C6 level; M81.0 Age-related osteoporosis without current pathological fracture; M48.56XA Collapsed vertebra, not elsewhere classified, lumbar region, initial encounter for fracture; M48.36 Traumatic spondylopathy, lumbar region; M48.061 Spinal stenosis, lumbar region without neurogenic claudication; I62.03 Nontraumatic chronic subdural hemorrhage; W01.0XXA Fall on same level from slipping, tripping and stumbling without subsequent striking against object, initial encounter; Y93.01 Activity, walking, marching and hiking; Y92.89 Other specified places as the place of occurrence of the external cause; I10 Essential (primary) hypertension; I48.91 Unspecified atrial fibrillation; J44.9 Chronic obstructive pulmonary disease, unspecified; D86.9 Sarcoidosis, unspecified; M10.9 Gout, unspecified; M46.90 Unspecified inflammatory spondylopathy, site unspecified; M13.88 Other specified arthritis, other site; Z88.3 Allergy status to other anti-infective agents; Z91.041 Radiographic dye allergy status; Z88.0 Allergy status to penicillin; Z88.8 Allergy status to other drugs, medicaments and biological substances; Z85.3 Personal history of malignant neoplasm of breast; Z85.6 Personal history of leukemia; Z87.891 Personal history of nicotine dependence
CPT/HCPCS: 36415; 70450; 72125; 72131; 72192; 80053; 85025; 85610; 86140; 96374; 96375; 99283; J2270; J2405

== ENCOUNTER 2019-05-08 09:08 | Inpatient (IN) | payer MEDICARE, BC ==
[2019-05-08] MEDS ORDERED: NS 0.9% 1000 ML** 1,000 ML IV ONE (09:15)
--- NOTE | 2019-05-08 09:29 | ED ---
GI/ HPI - HPI Summary HPI Summary: This pt is a 79 y/o female presenting to [facility] referred by Dr. Jesus c/o bloody stools since 4-5 days ago. Pt reports she saw Dr. Jesus 2 days ago on for blood in her stools where she had blood work and gave a stool sample. She notes today Dr. Jesus called her to come to the ED after receiving blood work results. Pt describes blood in her stools as black. Associated symptoms of lower abd pain which she describes as sharp and lightheadedness noting her "balance is off." Denies nausea or vomiting. Pt has hx of COPD but states she has been feeling more SOB than normal recently. She also reports right sided chest pain. Pt states she is still having bloody stools. Pt was in the ED for the same complaint about 1 year ago. PMHx includes COPD, sleep apnea, afib, breast CA, CML. Pt sees Dr. Antoine, oncologist, and takes Gleevec [address] Jesus discontinued her Warfarin (which she takes for afib) 2 days ago. - History of Current Complaint Chief Complaint: EDGIBleed Stated Complaint: SENT BY DR JESUS/ BLOODY STOOLS PER PT Hx Obtained From: Patient Onset/Duration: Started Days Ago, Still Present Timing: Lasting Days Severity: Moderate Pain Intensity: 0 Location of Pain: Other - lower Pain Characteristics: Sharp Associated Signs and Symptoms: Positive: Blood w/Stool, Lightheadedness, Abdominal Pain, Chest Pain, Other: - POSITIVE: SOB. Negative: Nausea, Vomiting , Fever, Chills Aggravating Factor(s): Nothing Alleviating Factor(s): Nothing - Additional Pertinent History Primary Care Physician: [id number] - Allergy/Home Medications Allergies/Adverse Reactions: Allergies Allergy/AdvReac Type Severity Reaction Status Date / Time amoxicillin Allergy Unknown Verified 07/13/18 10:28 Reaction Details cefprozil Allergy Unknown Verified 07/13/18 10:28 Reaction Details cephalexin Allergy Unknown Verified 07/13/18 10:28 Reaction Details ciprofloxacin [From Cipro] Allergy Unknown Verified 07/13/18 10:28 Reaction Details clarithromycin Allergy Unknown Verified 07/13/18 10:28 Reaction Details clavulanic acid Allergy Unknown Verified 07/13/18 10:28 Reaction Details doxycycline Allergy Unknown Verified 07/13/18 10:28 Reaction Details Iodinated Contrast- Oral and Allergy Rash Verified 07/13/18 10:28 IV Dye levofloxacin [From Levaquin] Allergy Unknown Verified 07/13/18 10:28 Reaction Details Penicillins Allergy Unknown Verified 07/13/18 10:28 Reaction Details prednisone Allergy Swelling Verified 07/13/18 10:28 sertraline [From Zoloft] Allergy Unknown Verified 07/13/18 10:28 Reaction Details PMH/Surg Hx/FS Hx/Imm Hx Endocrine/Hematology History: Denies: Hx Diabetes Cardiovascular History: Reports: Hx Atrial Fibrillation, Hx Hypertension, Hx Rheumatic Fever - X2 A CHILD AND TEEN, Other Cardiovascular Problems/ Disorders - Arrythmia Denies: Hx Congestive Heart Failure, Hx Pacemaker/ICD Respiratory History: Reports: Hx Chronic Obstructive Pulmonary Disease (COPD), Hx Sleep Apnea, Other Respiratory Problems/Disorders - trach, sarcoidosis GI History: Denies: Other GI Disorders History: Reports: Hx Kidney Stones - IN THE PAST, Other Problems/ Disorders - "leaky bladder" Denies: Hx Renal Disease Musculoskeletal History: Reports: Hx Arthritis - BACK AND LEGS, Hx Gout Sensory History: Reports: Hx Cataracts - [place], Hx Contacts or Glasses - GLASSES Denies: Hx Hearing Aid Opthamlomology History: Reports: Hx Cataracts - [place], Hx Contacts or Glasses - GLASSES Neurological History: Denies: Other Neuro Impairments/Disorders Psychiatric History: Reports: Hx Depression Denies: Hx Panic Disorder - Cancer History Cancer Type, 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 Hx Chemotherapy: Yes - 2015, [place] Hx Radiation Therapy: No - Surgical History Surgery Procedure, Year, and Place: hysterectomy, right mastectomy Hx Anesthesia Reactions: No Infectious Disease History: No Infectious Disease History: Reports: Hx of Known/Suspected MRSA Denies: Traveled Outside the [place] in Last 30 Days - Family History Known Family History: Negative: Hypertension - Social History Alcohol Use: None Hx Substance Use: No Substance Use Type: Reports: None Hx Tobacco Use: Yes Smoking Status (MU): Former Smoker Have You Smoked in the Last Year: No Review of Systems Negative: Fever, Chills Positive: Chest Pain Positive: Shortness Of Breath Gastrointestinal: Other - POSITIVE: bloody stools Positive: Abdominal Pain. Negative: Vomiting, Nausea Neurological: Other - POSITIVE: lightheadedness All Other Systems Reviewed And Are Negative: Yes Physical Exam - Summary Physical Exam Summary: Appearance: Pale elderly woman lying in the stretcher in no acute distress, Well -nourished Skin: Warm, dry, no obvious rash, pale Eyes: sclera anicteric, conjunctiva a little pale ENT: mucous membranes moist, pharynx appears normal Neck: Supple, nontender Respiratory: Clear to auscultation, no signs of respiratory distress Cardiovascular: Normal S1, S2. No murmurs. Normal distal pulses in tibial and radial bilaterally. Abdomen: Soft, upper abdominal tenderness without peritoneal signs, normal active bowel sounds present Musculoskeletal: Normal, Strength/ROM Intact Neurological: A&Ox3, awake and alert, mentation is normal, speech is fluent and appropriate Psychiatric: affect is normal, does not appear anxious or depressed Triage Information Reviewed: Yes Vital Signs On Initial Exam: Initial Vitals Temp Pulse Resp BP Pulse Ox 97.9 F 73 16 117/43 98 05/08/19 09:17 05/08/19 09:17 05/08/19 09:17 05/08/19 09:17 05/08/19 09:17 Vital Signs Reviewed: Yes Diagnostics - Vital Signs Vital Signs Temp Pulse Resp BP Pulse Ox 05/08/19 09:17 97.9 F 73 16 117/43 98 - Laboratory Result Diagrams: 05/08/19 09:28 05/08/19 09:28 Lab Statement: Any lab studies that have been ordered have been reviewed, and results considered in the medical decision making process. Re-Evaluation - Re-Evaluation First Eval Re-Evaluation Time: 11:12 Comment: Reviewed results and Dr. Jesus's recommendations with pt and daughter. Plan is for admission. GIGU Course/Dx - Course Assessment/Plan: Pt is a 79 y/o female presenting to [facility] referred by Dr. Jesus c/o bloody stools since 4-5 days ago. Pt had blood work and gave a stool sample 2 days ago and was called today for abnormal results. Pt describes blood in her stools as black. Associated symptoms of lower abd pain which she describes as sharp and lightheadedness noting her "balance is off.". Lab results remarkable for WBC of 2.8, hemoglobin of 8.2, hematocrit of 25, platelet count of 133, INR is 157. Discussed the case with pt's PCP, Dr. Jesus. I discussed pt care with Dr. Contreras, hospitalist, who accepted the pt for admission. - Diagnoses Provider Diagnoses: Upper GI bleeding - Physician Notifications Discussed Care Of Patient With: Tadeo Jesus Time Discussed With Above Provider: 11:09 Instructed by Provider To: Other - Discussed with Dr. Jesus, pt's PCP. [11:14] Discussed pt care with Dr. Contreras, hospitalist, who accepted pt for admission. Discharge - Sign-Out/Discharge Documenting (check all that apply): Patient Departure - Admit to [facility] Patient Received Moderate/Deep Sedation with Procedure: No - Discharge Plan Condition: Stable Disposition: ADMITTED TO [facility] Referrals: Tadeo Jesus MD [Primary Care Provider] - - Attestation Statements Document Initiated by Scribe: Yes Documenting Scribe: Nydia Giraldo Provider For Whom Scribe is Documenting (Include Credential): Oscar Ramos MD Scribe Attestation: Nydia Mirza, scribed for Oscar Ramos MD on 05/08/19 at 1125. Status of Scribe Document: Ready
[2019-05-08 09:35] LABS: ABS Eosinophils 0.2 10^3/ul (0-0.6); ABS Lymphocytes 0.8 10^3/ul (1.0-4.8); ABS Monocytes 0.3 10^3/ul (0-0.8); ABS Neutrophils 1.5 10^3/ul (1.5-7.7); Eosinophil % 6.9 %; Hematocrit 25 % (35-47); Hemoglobin 8.2 g/dL (12.0-16.0); Lymphocyte % 27.1 %; Mean Corpuscular HGB Conc 33 g/dL (31-36); Mean Corpuscular Hemoglobin 32 pg (27-31); Mean Corpuscular Volume 98 fL (80-97); Mean Platelet Volume 7.5 fL (7.4-10.4); Nucleated Red Blood Cells % 0.1; Platelet Count 133 10^3/uL (150-450); Red Blood Count 2.53 10^6 /uL (3.70-4.87); Red Cell Distribution Width 18 % (10-15); White Blood Count 2.8 10^3/uL (3.5-10.8)
[2019-05-08 09:54] LABS: Albumin 3.5 g/dL (3.2-5.2); Albumin/Globulin Ratio 1.5 (1-3); BUN/Creatinine Ratio 12.8 (8-20); Calcium 8.7 mg/dL (8.6-10.3); EGFR Non-African American 63.7 (>60); Globulin 2.4 g/dL (2-4); Potassium 3.8 mmol/L (3.5-5.0); Total Bilirubin 0.8 mg/dL (0.2-1.0); Total Protein 5.9 g/dL (6.4-8.9)
[2019-05-08 10:07] LABS: Activated Partial Thrombo Time 34.9 seconds (26.0-38.0); INR 1.57 (0.82-1.09)
[2019-05-08] MEDS ORDERED: Acetaminophen TAB* 325 MG PO PRN (11:26)
[2019-05-08] MEDS ORDERED: Pantoprazole IV* 40 MG IV ONE (11:28)
[2019-05-08] MEDS ORDERED: NS 0.9% 1000 ML** 1,000 ML IV SCH (11:30)
[2019-05-08] MEDS ORDERED: Pantoprazole* 80 mg IN NS 80 MG/250 ML BAG IV ONE (12:00)
[2019-05-08] MEDS ORDERED: Nystatin CREAM* 15 GM TUBE TOPICAL PRN (12:01)
--- NOTE | 2019-05-08 15:44 | HP ---
CC: Dr. Jesus; Dr. Naidu; Dr. Arevalo; Dr. Victoria; Dr. Antoine * HISTORY AND PHYSICAL: DATE OF ADMISSION: 05/08/19 PRIMARY CARE PROVIDER: Dr. Jesus. CHIEF COMPLAINT: Melena. HISTORY OF PRESENT ILLNESS: Charlene King is a 79-year-old female with a history of chronic atrial fibrillation, for which she is on Coumadin, had an episode of GI bleed in the mid of 2018 when she was on Eliquis, as well as CLL with chronic anemia and thrombocytopenia under the care of Dr. Antoine, who stated that she had developed melanotic stools approximately 4 days ago. She went to see her primary care provider yesterday who stopped her Coumadin. Her blood work today showed hemoglobin of 8.2 and the patient's basic hemoglobin is in the low 9 range. The patient presented to the ED after her primary care provider recommended for evaluation. She has had episodes of dizziness when changing position. She is going to be placed on overnight observation with a diagnosis of melena. PAST MEDICAL HISTORY: 1. History of CML, status post chemotherapy, now taking Gleevec. 2. History of hypertension. 3. Gout. 4. Hyperlipidemia. 5. Obstructive sleep apnea, on CPAP. 6. COPD, not on oxygen. 7. Gastroesophageal reflux disease. 8. Sarcoidosis. 9. History of chronic atrial fibrillation, on Coumadin, stopped yesterday 05/07. 10. History of mastectomy. 11. Appendectomy. 12. History of hysterectomy. 13. History of ORIF of the right lower extremity. 14. Cataract surgery bilaterally. 15. History of tracheostomy in the past. MEDICATIONS AT HOME: Include: 1. Coumadin, last dose was 05/07/19. 2. Percocet 5/325 mg 1 tablet at bedtime p.r.n. 3. Aldactone 25 mg daily. 4. Oxybutynin 15 mg daily. 5. Zofran on a p.r.n. basis. 6. Omeprazole 20 mg b.i.d. 7. Nystatin cream topically 3 times a day p.r.n. 8. Gleevec 400 mg daily. 9. Lasix 60 mg daily. The patient was instructed to take 40 mg daily and an additional half tablet to a total of 60 mg daily for weight above 150 pounds. She stated that she had been over 150 pounds in the past month that she has been on 60 mg daily. 10. Prozac 40 mg daily. 11. Flexeril 10 mg b.i.d. p.r.n. 12. Allopurinol 300 mg daily. ALLERGIES: Multiple and include AMOXICILLIN, CEFPROZIL, CEPHALEXIN, CIPROFLOXACIN, CLARITHROMYCIN, AUGMENTIN, DOXYCYCLINE, IODINATED CONTRAST, LEVAQUIN, PREDNISONE, ZOLOFT. FAMILY HISTORY: Mother with a history of breast cancer. Father with a history of CVA. SOCIAL HISTORY: The patient lives with her daughter Cathleen who is her surrogate. She wishes to be a full code. She denies any tobacco, alcohol, or drug use. She is a . REVIEW OF SYSTEMS: Please see history of present illness. In addition to the above mentioned, the patient stated that she has been having leg edema for the past month and a half. She had been taking increased dose of Lasix at 60 mg daily for the past month. Her daughter stated that the patient has problems with compliance with low-salt diet. The patient has dyspnea on exertion at baseline, which is chronic. Denies any chest pain. She admits to a bout of lower quadrant abdominal pain. She has had no bowel movements today, but for the past 3 days it was black and slightly loose on a daily basis up to 05/07/19, which was the last bowel movement she had. She has had no problems with appetite. Her weight has been increasing, but she believes this is due to fluid weight. Other remaining 12 systems were reviewed with the patient and were otherwise negative. PHYSICAL EXAMINATION GENERAL: The patient is a pleasant 79-year-old female who is not in acute distress. Alert, awake, oriented x3. VITAL SIGNS: Blood pressure of 138/47, heart rate of 72 and regular, respiratory rate 14, oxygen saturation 93% on room air, temperature of 97.9. HEENT: Head atraumatic, normocephalic. Eyes: Pupils equal and reactive to light and accommodation. Oropharynx is clear. Mucosa moist. NECK: Supple. No JVD. No bruit bilaterally. RESPIRATORY: Clear to auscultation bilaterally. CARDIOVASCULAR: Irregularly irregular rhythm with diastolic murmur on auscultation of the right upper sternal border. ABDOMEN: Soft, tender minimally at bilateral lower quadrants with no rebound, no guarding. Bowel sounds are present in all 4 quadrants. EXTREMITIES: There is trace bilateral pedal edema, +2 bilaterally. There is no clubbing or cyanosis. NEUROLOGIC: On neuro evaluation, speech is clear. Cranial nerves II through XII grossly intact. Motor strength is 5/5 bilaterally. DIAGNOSTIC STUDIES/LAB DATA: White blood cell count 2.8, hemoglobin of 8.2, hematocrit of 35, MCV of 98, and platelets of 133. Sodium 134, potassium 3.8, chloride 104, carbon dioxide 25, BUN 8, creatinine 0.86. Liver function tests were unremarkable, mild elevation of alkaline phosphatase of 116. The patient's EKG showed rate controlled atrial fibrillation with a heart rate of 71 beats per minute, right bundle-branch block present. ASSESSMENT AND PLAN: 1. In regards to the patient's gastrointestinal bleed, the patient's melena could be due to upper gastrointestinal bleed. The patient is going to be placed on Protonix drip. Her Coumadin was already stopped yesterday and her INR today is 1.58. At this point, I do not believe that reversing further is necessary. The patient does not appear to have an acute ongoing bleed at this point and last bowel movement was yesterday. I will continue checking the patient's H and H today and later on tomorrow morning once. I will ask Dr. Victoria to see the patient for gastroenterology evaluation. Of note, the patient's last EGD was performed by Dr. Arevalo on 03/20/18 when the patient had a gastrointestinal bleed on Eliquis and did not show any source of bleeding. The patient has not had a colonoscopy yet to follow up on that. The patient is going to be placed on clear liquid diet at this point. The patient' s baseline hemoglobin prior to the onset of this bleed was 9.3. 2. The patient has a history of chronic obstructive pulmonary disease and not on oxygen, recurring dyspnea on exertion, not an exacerbation at this point. 3. The patient has a history of chronic diastolic congestive heart failure with ejection fraction noted to be 60% to 65% in June of 2018. At that point, her echo also showed moderate aortic regurgitation, moderate mitral regurgitation and mild aortic stenosis. The patient also had moderate pulmonary hypertension at that point. Due to being on very limited diet, the patient's Aldactone is going to be held. I will continue the patient's p.o. Lasix at 40 mg daily. Daily weights are going to be continued as well as intake and output summaries. 4. Obstructive sleep apnea. The patient is going to be continued on CPAP during the hospital stay. 5. For DVT prophylaxis, the patient is going to be placed on sequential compression devices and anticoagulation was contraindicated due to the gastrointestinal bleed. 6. The patient's atrial fibrillation is rate controlled. Her Coumadin is going to be held as an outpatient. 7. The patient's code status is full. Her surrogate decision maker is her daughter. TIME SPENT: Approximately 65 minutes was spent on the admission of this patient. More than half the time was spent [id number] with the patient during the interview and physical exam. Please also note that I will get a CT of the abdomen and pelvis without contrast to evaluate the patient's abdominal tenderness. [id number]/[facility] #: [id number] MTDD
[2019-05-08] MEDS ORDERED: Midazolam* 1 MG/ML 10 ML VIAL (10 MG) ONE ×2 (15:45→15:53)
[2019-05-08] MEDS ORDERED: fentaNYL* 50 MCG/ML 2 ML VIAL (100 MCG VIAL) ONE ×2 (15:45→15:53)
[2019-05-08 16:20] LABS: Hematocrit 24 % (35-47); Hemoglobin 8.1 g/dL (12.0-16.0)
[2019-05-08] MEDS ORDERED: PEG 3000 GI LAVAGE* 1 GALLON PO ONE (17:42)
--- NOTE | 2019-05-08 18:06 | CONS ---
CONSULTATION REPORT: DATE OF CONSULT: 05/08/19 REQUESTING PHYSICIAN: Dr. Sara Contreras. REASON FOR CONSULT: Melena. HISTORY OF PRESENT ILLNESS: This is a 79-year-old female with a history of chronic AF, on Coumadin; CML, on Gleevec therapy; chronic pancytopenia, who states that she started to notice some blood in her stool about 4 days ago that was black and tarry in color. She admits to some diffuse abdominal pain, aching in nature, 4/10, nothing seems to make it better or worse. She discussed with her primary care physician as an outpatient and they stopped her Coumadin 2 days ago. She has continued to have black stool. She denies any lightheadedness or dizziness except when going from a seated to a standing position, she does feel slightly lightheaded. No dysphagia or odynophagia. No nausea or emesis. No hematemesis. She admits to a subjective weight loss of about 15 to 20 pounds over the last 6 months. Denies any diarrhea. Admits to some chronic constipation when she is on opioids for which she takes a stool softener. The remainder of the 14-point review of systems is grossly negative. She had an endoscopy with Dr. Aleksandar Arevalo in February of 2018 without etiology of chronic anemia. PAST MEDICAL HISTORY: CML, on Gleevec therapy; hypertension; gout; hyperlipidemia; obstructive sleep apnea; COPD; GERD; sarcoidosis; history of chronic AF. PAST SURGICAL HISTORY: History of mastectomy, appendectomy, hysterectomy, history of cataract surgery, and history of tracheostomy in the past. HOME MEDICATIONS: Include: 1. Percocet. 2. Aldactone. 3. Oxybutynin. 4. Zofran. 5. Omeprazole. 6. Nystatin. 7. Gleevec. 8. Lasix. 9. Prozac. 10. Flexeril. 11. Allopurinol. ALLERGIES: Include AMOXICILLIN, CEFPROZIL, CEPHALEXIN, CIPROFLOXACIN, CLARITHROMYCIN, AUGMENTIN, DOXYCYCLINE, IODINE CONTRAST, LEVAQUIN, PREDNISONE, and ZOLOFT. FAMILY HISTORY: Denies any family history of GI cancer or IBD. SOCIAL HISTORY: Lives with daughterCathleen. Denies any tobacco, alcohol use. REVIEW OF SYSTEMS: Remainder of the 14-point review of systems is grossly negative except for as described in the HPI. PHYSICAL EXAM: Vital Signs: Blood pressure 133/53, pulse is 76, respiratory rate 16, T-max 97.9, 97% on room air. In general, alert and oriented x3, in no acute distress. HEENT: Atraumatic, normocephalic. Pupils equal, round, reactive to light. Extraocular movements are intact. Conjunctivae are slightly pale. Sclerae are anicteric. Cardiovascular: Irregular rate and rhythm. S1, S2. Respiratory: Slight trace rales bilateral bases, fair effort. Abdomen: Obese, soft, nontender, nondistended. Bowel sounds positive. Extremities: A few scattered ecchymoses. Psych: Appropriate mood and affect. DIAGNOSTIC STUDIES/LAB DATA: Hemoglobin 8.2, WBC count 2.8, platelet count is 133. INR 1.57. Sodium 134. Total bilirubin 0.8, AST 21, ALT 11, alkaline phosphatase 116. Albumin 3.5. She had a CT of the abdomen and pelvis on 05/08/19. This revealed a nodular liver surface contour, but no focal lesions. Splenomegaly, scant ascites, cholelithiasis, and diverticulosis. ASSESSMENT AND PLAN: This is a 79-year-old female with history of chronic myeloid leukemia, on Gleevec therapy, who presented with 4 days of melena. 1. Acute blood loss anemia, melena. Recommend monitoring H and H every 6 hours. Keep 2 units of PRBCs on hold at all times. Agree with IV PPI drip. We will plan for upper endoscopy today to evaluate for potential upper gastrointestinal source. If no source identified, we will consider prepping for colonoscopy on 05/09/19. Last dose of warfarin was 2 days ago. If ongoing evidence of blood loss, consider FFP for INR reversal. 2. Possible cirrhosis. Needs outpatient evaluation. 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 We will evaluate for varices today. 3. Chronic atrial fibrillation. Recent anticoagulation, per primary team. 4. History of chronic myeloid leukemia, on Gleevec therapy. Per primary team. [id number]/[facility] #: [id number] [facility]
--- NOTE | 2019-05-08 20:46 | PRO ---
CC: Dr. Tadeo Jesus * EGD REPORT: DATE OF PROCEDURE: 05/08/19 - ROOM #406 PRIMARY CARE PHYSICIAN: Dr. Tadeo Jesus. INDICATION FOR PROCEDURE: Melena, acute blood loss anemia, cirrhosis. PROCEDURE PERFORMED: Complete esophagogastroduodenoscopy. MEDICATIONS GIVEN: Include 7 mg IV midazolam, 25 mcg IV fentanyl. DESCRIPTION OF PROCEDURE: After the EGD procedure including the risks, benefits , and alternatives with the risks not limited to perforation, surgery, missed lesions and/or were explained to the patient, written informed consent was obtained, IV medication was given and a bite block was placed between the teeth. The adult Olympus gastroscope was then inserted into the patient's oropharynx into the tubular esophagus. In the tubular esophagus, there were grade 1 esophageal varices that flatten with insufflation. No high risk stigmata were visualized. The scope was advanced through the lower esophageal sphincter into the stomach. Stomach was atrophic in appearance. On retroflexion, no gastric varices were seen. There was no fresh or old blood throughout the entire stomach. The scope was then advanced through a widely patent pylorus into the duodenal bulb, C loop, distal duodenum. These were normal in appearance. There was no evidence of fresh or old blood. The scope was then removed from the patient. She tolerated the procedure well. She was returned to the recovery room in stable condition. IMPRESSION: 1. Complete esophagogastroduodenoscopy. 2. Grade 1 esophageal varices, nonbleeding, no high risk stigmata. 3. No source of blood loss identified. 4. Atrophic gastritis. RECOMMENDATIONS: Colonoscopy on 05/09/19. [id number]/[facility] #: [id number] [facility]ENTERRaymundo
[2019-05-08] MEDS: Pantoprazole* 80 mg IN NS 80 MG/250 ML BAG IV SCH (23:13)
[2019-05-09] MEDS ORDERED: PEG 3000 GI LAVAGE* 1 GALLON PO ONE (06:00)
[2019-05-09 06:27] LABS: ABS Eosinophils 0.1 10^3/ul (0-0.6); ABS Lymphocytes 0.7 10^3/ul (1.0-4.8); ABS Monocytes 0.3 10^3/ul (0-0.8); ABS Neutrophils 2.4 10^3/ul (1.5-7.7); Eosinophil % 4.1 %; Hematocrit 22 % (35-47); Hemoglobin 7.5 g/dL (12.0-16.0); Lymphocyte % 19.5 %; Mean Corpuscular HGB Conc 33 g/dL (31-36); Mean Corpuscular Hemoglobin 33 pg (27-31); Mean Corpuscular Volume 98 fL (80-97); Mean Platelet Volume 7.8 fL (7.4-10.4); Platelet Count 122 10^3/uL (150-450); Red Blood Count 2.29 10^6 /uL (3.70-4.87); Red Cell Distribution Width 18 % (10-15); White Blood Count 3.5 10^3/uL (3.5-10.8)
[2019-05-09 06:29] LABS: INR 1.51 (0.82-1.09)
[2019-05-09 06:42] LABS: BUN/Creatinine Ratio 12.3 (8-20); Calcium 8.2 mg/dL (8.6-10.3); EGFR African American 93.1 (>60); EGFR Non-African American 76.9 (>60); Potassium 3.3 mmol/L (3.5-5.0)
[2019-05-09] MEDS ORDERED: Phytonadione IV (Adult)* 10 MG/ML 1 ML AMP IV ONE (07:36)
[2019-05-09] MEDS ORDERED: Phytonadione IV (Adult)* 2.5 MG in NS 0.9% 50 ML* 50 ML IV ONE (08:00)
[2019-05-09] MEDS: FLUoxetine CAP* 20 MG PO SCH (08:43)
[2019-05-09] MEDS: Oxybutynin TAB* 5 MG PO SCH (08:43)
[2019-05-09] MEDS: Furosemide TAB* 20 MG PO SCH (08:43)
[2019-05-09] MEDS: KCL 20 MEQ/100 ML IVPREMIX* 20 MEQ/100 ML BAG IV SCH ×2 (09:32→11:53)
[2019-05-09 12:27] LABS: Hematocrit 23 % (35-47); Hemoglobin 7.8 g/dL (12.0-16.0)
--- NOTE | 2019-05-09 13:45 | PN ---
Subjective Date of Service: 05/09/19 Interval History: Pt c/o lower abd cramping. Had drunk approx 80% of a gallon of GoLytely and her BM is now liquid and clear. Denies BRBPR Objective Active Medications: Acetaminophen (Tylenol Tab*) 650 mg PO Q4H PRN PRN Reason: FEVER/PAIN Last Admin: 05/09/19 11:57 Dose: 650 mg Cyclobenzaprine HCl (Flexeril Tab*) 10 mg PO BID PRN PRN Reason: PAIN Fluoxetine HCl (Prozac Cap*) 40 mg PO DAILY [facility] Last Admin: 05/09/19 08:43 Dose: 40 mg Furosemide (Lasix Tab*) 40 mg PO DAILY [facility] Last Admin: 05/09/19 08:43 Dose: 40 mg Pantoprazole Sodium (Protonix Iv Bag*) 80 mg in 250 mls @ 25 mls/hr IV Q10H [facility] Last Admin: 05/08/19 23:13 Dose: 25 mls/hr Imatinib Mesylate (Gleevec (Nf)) 400 mg PO DAILY [facility] Nystatin (Nystatin Cream*) 1 applic TOPICAL TID PRN PRN Reason: RASH Oxybutynin Chloride (Ditropan Tab*) 15 mg PO DAILY [facility] Last Admin: 05/09/19 08:43 Dose: 15 mg Oxycodone/Acetaminophen (Percocet 5/325 Tab*) 1 tab PO BEDTIME PRN PRN Reason: PAIN Vital Signs - 8 hr 05/09/19 05/09/19 07:15 08:00 Temperature 98.0 F Pulse Rate 72 Respiratory 18 18 Rate Blood Pressure 117/47 (mmHg) O2 Sat by Pulse 98 Oximetry Oxygen Devices in Use Now: Nasal Cannula Appearance: 79 yo F in nD, aAOx3 Eyes: No Scleral Icterus, PERRLA Ears/Nose/Mouth/Throat: NL Teeth, Lips, Gums Neck: NL Appearance and Movements; NL JVP, Trachea Midline Respiratory: Symmetrical Chest Expansion and Respiratory Effort, Clear to Auscultation Cardiovascular: - - irregular Abdominal: NL Sounds; No Tenderness; No Distention, No Hepatosplenomegaly Lymphatic: No Cervical Adenopathy Extremities: - - trace pedal edema b/l Skin: No Nodules or Sclerosis, - - small open bisters x2 on upper abdomen-? trauma related due to tape or EKG leads Neurological: Alert and Oriented x 3, NL Muscle Strength and Tone Result Diagrams: 05/09/19 12:19 05/09/19 05:44 Microbiology and Other Data: Microbiology 05/08/19 17:40 Nasal Screen MRSA (PCR) - Final Nasal Mrsa Detected Assess/Plan/Problems-Billing Assessment: 79 yo F with PMH of CML on Gleevec, HTN, gout, HLD, BRANDY (on CPAP and O2 at night), COPD, GERD, sarcoidosis, Afib (Eliquis stopped in February 2018 due to GI bleed, then started on Cpumadin), breast CA, who presented to ED with melena - Patient Problems (1) GI bleed Comment: - GI input apreciated - EGD was negative for a source of bleeding. - Continue PPI gtt. - c-scope today -bleeding appears to have stopped (2) Acute blood loss anemia Comment: - Secondary to GI bleed. - Hb 7.8 today - Monitor H/H. (3) Atrial fibrillation Comment: - Rate is controlled. -Coumadin on hold due to GI bleed (4) CML (chronic myeloid leukemia) Comment: - Gleevec held when NPO for procedures, pt has h/o chronic anemia with Hb 9 at baseline. (5) Chronic diastolic (congestive) heart failure Comment: at home on Lasix 60 mg and Aldactone 25 Goal wt 150 lbs cont Lasix PO when able to take PO , holding Aldactone, cont daily weights. with Protonix gtt pt receives 50 ml/hr volume. will hold off further IVF due to CHF hx (6) DVT prophylaxis Comment: anticoagulation is contraindicated due to GI bleed SCD's.
[2019-05-09] MEDS ORDERED: Midazolam* 1 MG/ML 10 ML VIAL (10 MG) ONE (15:14)
[2019-05-09] MEDS ORDERED: fentaNYL* 50 MCG/ML 2 ML VIAL (100 MCG VIAL) ONE ×2 (15:14→15:15)
[2019-05-09] MEDS: oxyCODONE/Acetamin 5/325 MG* TAB PO PRN (18:15)
[2019-05-09] MEDS: IMATINIB 400 MG PO SCH (18:15)
[2019-05-09] MEDS: Pantoprazole* 80 mg IN NS 80 MG/250 ML BAG IV SCH (19:26)
[2019-05-09 20:59] LABS: Hematocrit 21 % (35-47); Hemoglobin 7.1 g/dL (12.0-16.0)
--- NOTE | 2019-05-09 22:21 | PRO ---
DATE OF PROCEDURE: 05/09/19 - ROOM #406 PROCEDURE: Left flex-sig. PRIMARY INPATIENT PROVIDER: Sara Contreras M.D. INDICATION: The patient was admitted with melena and anemia. On Coumadin for atrial fibrillation. EGD was negative for source of bleeding. Colonoscopy scheduled. The patient has had clear stools with the laxative. No ongoing melena. Blood counts are stable. 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 MEDICATIONS GIVEN: Midazolam 6 mg IV, Fentanyl 75 mcg IV. DESCRIPTION OF PROCEDURE: Full disclosure of risks was reviewed with the patient as detailed on the consent form. The patient was placed in the left lateral decubitus position and monitored with continuous pulse oximetry, capnography, interval blood pressure monitoring, and direct observation. After anorectal examination was performed, the adult colonoscope was inserted into the rectum and advanced slowly to the level of the sigmoid. Unfortunately, the patient had significant diverticular disease as well as possible pelvic adhesions. It was very difficult to advance the scope forward through the sigmoid colon. The adult colonoscope was withdrawn and the pediatric colonoscope was inserted. The scope was only able to reach the mid sigmoid colon. Careful inspection was made as the colonoscope was withdrawn. Retroflexion was performed in the rectum. Findings and interventions are described below. Quality of the prep in the visualized area of the colon was good. FINDINGS: Anorectal exam was notable for small external hemorrhoids and anal skin tags. The scope was inserted into the rectum and slowly advanced forward. The procedure was difficult as above necessitating change from adult to pediatric colonoscope. Even with the pediatric colonoscope and abdominal pressure, the colonoscope was only able to advance to the mid sigmoid. There was significant diverticulosis with the stiffness to the colon. Possible pelvic adhesions from a history of hysterectomy also contributed to difficulty. Decision was made not to attempt to advance the scope further due to significant resistance. Scope was attempted to advance forward. There was significant diverticulosis in the sigmoid as previously mentioned. There were internal hemorrhoids. The scope was withdrawn from the patient. The patient tolerated the procedure well, and was recovered in the GI recovery area. IMPRESSION: 1. Flexible sigmoidoscopy to mid sigmoid. Colonoscope unable to advance further due to anatomically challenging colon. 2. Anuvaenp-[id number] sigmoid diverticulosis. 3. Internal hemorrhoids. FOLLOWUP: 1. Continue to monitor CBC. 2. Can advance diet, as bleeding appears to have resolved. 3. Would likely plan for outpatient capsule endoscopy in the next 1 to 2 weeks. 4. Given the absence of bleeding source, it is difficult to determine the patient's likelihood of re-bleeding with anticoagulation. If it is felt to be reasonable from a cardiac standpoint, then anticoagulation could be held while capsule study is pursued to evaluate for source of bleeding. Thank you very much for this referral. [id number]/[facility] #: [id number] JENNA
[2019-05-09] MEDS: Pantoprazole TAB * 40 MG TAB PO SCH (23:01)
[2019-05-10 04:00] LABS: ABS Eosinophils 0.2 10^3/ul (0-0.6); ABS Lymphocytes 0.8 10^3/ul (1.0-4.8); ABS Monocytes 0.4 10^3/ul (0-0.8); ABS Neutrophils 1.8 10^3/ul (1.5-7.7); Eosinophil % 5.1 %; Hematocrit 22 % (35-47); Hemoglobin 7.4 g/dL (12.0-16.0); Mean Corpuscular HGB Conc 33 g/dL (31-36); Mean Corpuscular Hemoglobin 33 pg (27-31); Mean Corpuscular Volume 98 fL (80-97); Mean Platelet Volume 7.6 fL (7.4-10.4); Platelet Count 116 10^3/uL (150-450); Red Blood Count 2.28 10^6 /uL (3.70-4.87); Red Cell Distribution Width 18 % (10-15); White Blood Count 3.2 10^3/uL (3.5-10.8)
[2019-05-10 04:24] LABS: BUN/Creatinine Ratio 11.1 (8-20); Calcium 8.9 mg/dL (8.6-10.3); EGFR African American 73.1 (>60); EGFR Non-African American 60.4 (>60); Potassium 3.5 mmol/L (3.5-5.0)
[2019-05-10] MEDS: Cyclobenzaprine TAB* 10 MG PO PRN ×2 (05:49→20:25)
[2019-05-10] MEDS: IMATINIB 400 MG PO SCH (08:50)
[2019-05-10] MEDS: Furosemide TAB* 20 MG PO SCH (08:51)
[2019-05-10] MEDS: Oxybutynin TAB* 5 MG PO SCH (08:51)
[2019-05-10] MEDS: FLUoxetine CAP* 20 MG PO SCH (08:51)
[2019-05-10] MEDS: Pantoprazole TAB * 40 MG TAB PO SCH ×2 (08:52→19:57)
[2019-05-10 13:17] LABS: Hematocrit 24 % (35-47); Hemoglobin 7.9 g/dL (12.0-16.0)
--- NOTE | 2019-05-10 16:56 | PN ---
Subjective Date of Service: 05/10/19 Interval History: Denies any complaints Objective Active Medications: Acetaminophen (Tylenol Tab*) 650 mg PO Q4H PRN PRN Reason: FEVER/PAIN Last Admin: 05/09/19 11:57 Dose: 650 mg Cyclobenzaprine HCl (Flexeril Tab*) 10 mg PO BID PRN PRN Reason: PAIN Last Admin: 05/10/19 05:49 Dose: 10 mg Fluoxetine HCl (Prozac Cap*) 40 mg PO DAILY [facility] Last Admin: 05/10/19 08:51 Dose: 40 mg Furosemide (Lasix Tab*) 40 mg PO DAILY [facility] Last Admin: 05/10/19 08:51 Dose: 40 mg Imatinib Mesylate (Gleevec (Nf)) 400 mg PO DAILY [facility] Last Admin: 05/10/19 08:50 Dose: 400 mg Nystatin (Nystatin Cream*) 1 applic TOPICAL TID PRN PRN Reason: RASH Oxybutynin Chloride (Ditropan Tab*) 15 mg PO DAILY [facility] Last Admin: 05/10/19 08:51 Dose: 15 mg Oxycodone/Acetaminophen (Percocet 5/325 Tab*) 1 tab PO BEDTIME PRN PRN Reason: PAIN Last Admin: 05/09/19 18:15 Dose: 1 tab Pantoprazole Sodium (Protonix Tab*) 40 mg PO BID [facility] Last Admin: 05/10/19 08:52 Dose: 40 mg Vital Signs - 8 hr 05/10/19 05/10/19 09:35 11:15 Temperature 98.7 F Pulse Rate 68 Respiratory 18 18 Rate Blood Pressure 116/43 (mmHg) O2 Sat by Pulse 100 Oximetry Oxygen Devices in Use Now: Nasal Cannula Eyes: No Scleral Icterus Ears/Nose/Mouth/Throat: NL Teeth, Lips, Gums Neck: NL Appearance and Movements; NL JVP Respiratory: Symmetrical Chest Expansion and Respiratory Effort Cardiovascular: NL Sounds; No Murmurs; No JVD, RRR Abdominal: - - Distended,no rebound no guarding Extremities: No Edema Result Diagrams: 05/10/19 12:48 05/10/19 03:34 Microbiology and Other Data: Microbiology 05/08/19 17:40 Nasal Screen MRSA (PCR) - Final Nasal Mrsa Detected Assess/Plan/Problems-Billing Assessment: 79 yo F with PMH of CML on Gleevec, HTN, gout, HLD, BRANDY (on CPAP and O2 at night), COPD, GERD, sarcoidosis, Afib (Eliquis stopped in February 2018 due to GI bleed, then started on Cpumadin), breast CA, who presented to ED with melena - Patient Problems (1) Acute blood loss anemia Current Visit: No Status: Acute Code(s): D62 - ACUTE POSTHEMORRHAGIC ANEMIA SNOMED Code(s): 565126403 Comment: - Secondary to GI bleed. - Hb stable - Monitor H/H. (2) Atrial fibrillation Current Visit: No Status: Acute Code(s): I48.91 - UNSPECIFIED ATRIAL FIBRILLATION SNOMED Code(s): 28800430 Comment: - Rate is controlled. -Coumadin on hold due to GI bleed (3) CML (chronic myeloid leukemia) Current Visit: No Status: Acute Code(s): C92.10 - CHRONIC MYELOID LEUK, BCR/ ABL-POSITIVE, NOT ACHIEVE REMIS SNOMED Code(s): 76303948 Comment: - Gleevec held when NPO for procedures, pt has h/o chronic anemia with Hb 9 at baseline. (4) GI bleed Current Visit: No Status: Acute Code(s): K92.2 - GASTROINTESTINAL HEMORRHAGE , UNSPECIFIED SNOMED Code(s): 00230893 Comment: - GI input apreciated - EGD was negative for a source of bleeding. - Will switch to ppi bid - c-scope technically challenging -bleeding appears to have stopped - may need capsule endoscopy in 1-2 weeks after discharge -anticoagulation on hold
[2019-05-10] MEDS: oxyCODONE/Acetamin 5/325 MG* TAB PO PRN (20:25)
[2019-05-11 06:49] LABS: ABS Eosinophils 0.2 10^3/ul (0-0.6); ABS Lymphocytes 0.9 10^3/ul (1.0-4.8); ABS Monocytes 0.3 10^3/ul (0-0.8); ABS Neutrophils 1.4 10^3/ul (1.5-7.7); Eosinophil % 6.9 %; Hematocrit 24 % (35-47); Hemoglobin 8.1 g/dL (12.0-16.0); Lymphocyte % 31.7 %; Mean Corpuscular HGB Conc 34 g/dL (31-36); Mean Corpuscular Hemoglobin 33 pg (27-31); Mean Corpuscular Volume 98 fL (80-97); Mean Platelet Volume 7.3 fL (7.4-10.4); Nucleated Red Blood Cells % 0.1; Platelet Count 112 10^3/uL (150-450); Red Blood Count 2.45 10^6 /uL (3.70-4.87); Red Cell Distribution Width 17 % (10-15); White Blood Count 2.7 10^3/uL (3.5-10.8)
[2019-05-11 06:50] LABS: INR 1.21 (0.82-1.09)
[2019-05-11 06:57] LABS: BUN/Creatinine Ratio 13.8 (8-20); Calcium 8.5 mg/dL (8.6-10.3); EGFR African American 83.7 (>60); EGFR Non-African American 69.2 (>60); Potassium 3.4 mmol/L (3.5-5.0)
[2019-05-11] MEDS: Furosemide TAB* 20 MG PO SCH (09:40)
[2019-05-11] MEDS: FLUoxetine CAP* 20 MG PO SCH (09:41)
[2019-05-11] MEDS: Pantoprazole TAB * 40 MG TAB PO SCH ×2 (09:42→20:12)
[2019-05-11] MEDS: Oxybutynin TAB* 5 MG PO SCH (09:42)
[2019-05-11] MEDS: IMATINIB 400 MG PO SCH (09:42)
[2019-05-11] MEDS ORDERED: Potassium Chlor TAB* 20 MEQ TAB.ER PO ONE (15:55)
--- NOTE | 2019-05-11 16:01 | PN ---
Subjective Date of Service: 05/11/19 Interval History: Denies any complaints.Reports feeling well Objective Active Medications: Acetaminophen (Tylenol Tab*) 650 mg PO Q4H PRN PRN Reason: FEVER/PAIN Last Admin: 05/09/19 11:57 Dose: 650 mg Cyclobenzaprine HCl (Flexeril Tab*) 10 mg PO BID PRN PRN Reason: PAIN Last Admin: 05/10/19 20:25 Dose: 10 mg Fluoxetine HCl (Prozac Cap*) 40 mg PO DAILY [facility] Last Admin: 05/11/19 09:41 Dose: 40 mg Furosemide (Lasix Tab*) 40 mg PO DAILY [facility] Last Admin: 05/11/19 09:40 Dose: 40 mg Imatinib Mesylate (Gleevec (Nf)) 400 mg PO DAILY [facility] Last Admin: 05/11/19 09:42 Dose: 400 mg Nystatin (Nystatin Cream*) 1 applic TOPICAL TID PRN PRN Reason: RASH Oxybutynin Chloride (Ditropan Tab*) 15 mg PO DAILY [facility] Last Admin: 05/11/19 09:42 Dose: 15 mg Oxycodone/Acetaminophen (Percocet 5/325 Tab*) 1 tab PO BEDTIME PRN PRN Reason: PAIN Last Admin: 05/10/19 20:25 Dose: 1 tab Pantoprazole Sodium (Protonix Tab*) 40 mg PO BID [facility] Last Admin: 05/11/19 09:42 Dose: 40 mg Potassium Chloride (Klor Con Er Tab*) 20 meq PO ONCE ONE Stop: 05/11/19 15:56 Vital Signs - 8 hr 05/11/19 05/11/19 08:00 11:22 Temperature 98.0 F Pulse Rate 74 Respiratory 18 20 Rate Blood Pressure 109/30 (mmHg) O2 Sat by Pulse 94 Oximetry Oxygen Devices in Use Now: None Eyes: No Scleral Icterus Ears/Nose/Mouth/Throat: NL Teeth, Lips, Gums, Clear Oropharnyx Neck: NL Appearance and Movements; NL JVP Respiratory: Symmetrical Chest Expansion and Respiratory Effort Cardiovascular: NL Sounds; No Murmurs; No JVD Abdominal: NL Sounds; No Tenderness; No Distention Extremities: No Edema Skin: No Rash or Ulcers Neurological: Alert and Oriented x 3 Result Diagrams: 05/11/19 06:29 05/11/19 06:29 Microbiology and Other Data: Microbiology 05/08/19 17:40 Nasal Screen MRSA (PCR) - Final Nasal Mrsa Detected Assess/Plan/Problems-Billing Assessment: 79 yo F with PMH of CML on Gleevec, HTN, gout, HLD, BRANDY (on CPAP and O2 at night), COPD, GERD, sarcoidosis, Afib (Eliquis stopped in February 2018 due to GI bleed, then started on Cpumadin), breast CA, who presented to ED with melena - Patient Problems (1) GI bleed Current Visit: No Status: Acute Code(s): K92.2 - GASTROINTESTINAL HEMORRHAGE , UNSPECIFIED SNOMED Code(s): 31164128 Comment: - GI input apreciated - EGD was negative for a source of bleeding. - On ppi bid - c-scope technically challenging -bleeding appears to have stopped - may need capsule endoscopy in 1-2 weeks after discharge -anticoagulation on hold (2) Acute blood loss anemia Current Visit: No Status: Acute Code(s): D62 - ACUTE POSTHEMORRHAGIC ANEMIA SNOMED Code(s): 741408193 Comment: - Secondary to GI bleed. - Hb stable - Monitor H/H. (3) Atrial fibrillation Current Visit: No Status: Acute Code(s): I48.91 - UNSPECIFIED ATRIAL FIBRILLATION SNOMED Code(s): 02064184 Comment: - Rate is controlled. -Coumadin on hold due to GI bleed -Her forest engineer is in [place]. Will need to tb to ensure they are ok holding coumadin for 1-2 weeks in the setting of GI bleed if GI still wants a capsule study.Pl see Dr Montiel's note (4) CML (chronic myeloid leukemia) Current Visit: No Status: Acute Code(s): C92.10 - CHRONIC MYELOID LEUK, BCR/ ABL-POSITIVE, NOT ACHIEVE REMIS SNOMED Code(s): 19583950 Comment: -On Gleevac Status and Disposition: PT/Ot Discharge planning Anticipated d/c in 1-2 days based on pt eval
[2019-05-11] MEDS: Cyclobenzaprine TAB* 10 MG PO PRN (20:12)
[2019-05-11] MEDS: oxyCODONE/Acetamin 5/325 MG* TAB PO PRN (20:13)
[2019-05-12] MEDS: Furosemide TAB* 20 MG PO SCH (08:43)
[2019-05-12] MEDS: Pantoprazole TAB * 40 MG TAB PO SCH (08:43)
[2019-05-12] MEDS: FLUoxetine CAP* 20 MG PO SCH (08:44)
[2019-05-12] MEDS: Oxybutynin TAB* 5 MG PO SCH (08:44)
[2019-05-12] MEDS: IMATINIB 400 MG PO SCH (08:44)
[2019-05-12 09:11] LABS: ABS Eosinophils 0.2 10^3/ul (0-0.6); ABS Lymphocytes 0.9 10^3/ul (1.0-4.8); ABS Monocytes 0.4 10^3/ul (0-0.8); Eosinophil % 6.5 %; Hematocrit 25 % (35-47); Hemoglobin 8.2 g/dL (12.0-16.0); Lymphocyte % 24.7 %; Mean Corpuscular HGB Conc 33 g/dL (31-36); Mean Corpuscular Hemoglobin 33 pg (27-31); Mean Corpuscular Volume 99 fL (80-97); Mean Platelet Volume 8.1 fL (7.4-10.4); Platelet Count 116 10^3/uL (150-450); Red Blood Count 2.52 10^6 /uL (3.70-4.87); Red Cell Distribution Width 18 % (10-15); White Blood Count 3.5 10^3/uL (3.5-10.8)
[2019-05-12 09:26] LABS: BUN/Creatinine Ratio 16.3 (8-20); Calcium 8.7 mg/dL (8.6-10.3); EGFR Non-African American 63.7 (>60); Potassium 4.2 mmol/L (3.5-5.0)
[2019-05-12 11:32] VITALS: BP 100/35
--- NOTE | 2019-05-13 12:01 | DS ---
CC: Dr. Tadeo Jesus; Dr. Naidu; Dr. Victoria. DISCHARGE SUMMARY: DATE OF ADMISSION: 05/08/19 DATE OF DISCHARGE: 05/12/19 PRIMARY DIAGNOSIS: Gastrointestinal bleeding, suspect small-bowel source. SECONDARY DIAGNOSES: 1. 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 2. Hypertension. 3. Gout. 4. Hyperlipidemia. 5. Sleep apnea on CPAP. 6. Chronic obstructive pulmonary disease. 7. Gastroesophageal reflux disease. 8. Sarcoidosis. 9. Chronic atrial fibrillation. 10. Hepatic steatosis probable nonalcoholic steatohepatitis. 11. Cholelithiasis. MEDICATIONS ON DISCHARGE: 1. Allopurinol 300 mg p.o. daily. 2. Cyclobenzaprine 10 mg p.o. b.i.d. p.r.n. 3. Fluoxetine 40 mg p.o. daily. 4. Furosemide 40 mg p.o. q.a.m. 5. Gleevec 400 mg p.o. daily. 6. Nystatin cream topically as needed. 7. Omeprazole 20 mg p.o. b.i.d. 8. Ondansetron 4 mg p.o. q.4 hours p.r.n. nausea. 9. Oxybutynin 15 mg p.o. daily. 10. Oxycodone/acetaminophen 5/325 mg 1 tablet p.o. q.h.s. moderate to severe pain. 11. Spironolactone 12.5 mg p.o. q.a.m. 12. Acetaminophen 650 mg p.o. q.4 hours p.r.n. for mild pain. HOSPITAL COURSE: This is a 79-year-old woman on warfarin for chronic atrial fibrillation presented t o the emergency department with 4 days of melanotic stools. This had been noticed at her primary care office and she had stopped her Coumadin one day prior to admission. 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 Her hemoglobin fell to 7.1 on the day after admission. She did not require any blood transf usions and her discharge hemoglobin was 8.2. The patient had a gastroenterology consult with Dr. Soren mendoza on 05/08/19. At that point, she was on intravenous Protonix drip. The patient had an endoscopy on 05/08/19 which showed grade 1 esophageal varices and atrophic gastritis. The patient had an atte mpted colonoscopy on 05/09/19 which ended up only being a sigmoidoscopy due to difficult anatomy. No findings to explain her GI bleeding. During the hospital course, the patient had a CAT scan on 04/21 06/09 which showed cirrhosis and gallstones. The patient's melena clinically ceased and her hemoglobin level had improved. Given her age and comor bidities, it was decided that she is stable for discharge and she could follow up with Gastroenterolo gy for capsule endoscopy if necessary, if the bleeding continued. At this time, we are recommending to stay off warfarin for at least 2 weeks and may be indefinitely depending on findings with gastroen terology. She may have an AVM in her small bowel that bleeds excessively with warfarin. DISPOSITION: To home. CONDITION: Stable. DIET: Low salt. ACTIVITY: As tolerated. STATUS: Inpatient. FOLLOWUP: With Dr. Jesus, primary care, within one week, Dr. Cervantes, gastroenterology office, in 2 weeks. Thank you very much. I spent greater than 35 minutes in discharge of the patient, seeing and examini ng the patient as well as completing necessary discharge paperwork. [id number]/[facility] #: [id number]
== END 2019-05-12 14:50 | disposition home or self-care (01) | DRG 378 ==
LOC: ED 09:08 → MED 11:26 → OBSVTOIN 05-09 07:36
PROVIDERS: ADMIT Internal Medicine; ATTEND Internal Medicine
PROC: 0DJ08ZZ Inspection of Upper Intestinal Tract, Via Natural or Artificial Opening Endoscopic (ICD-10-PCS; 2019-05-08)
PROC: 0DJD8ZZ Inspection of Lower Intestinal Tract, Via Natural or Artificial Opening Endoscopic (ICD-10-PCS; principal; 2019-05-09)
DX: K92.1 Melena (principal); C92.10 Chronic myeloid leukemia, BCR/ABL-positive, not having achieved remission; I50.32 Chronic diastolic (congestive) heart failure; D62 Acute posthemorrhagic anemia; D61.818 Other pancytopenia; I11.0 Hypertensive heart disease with heart failure; I48.2 Chronic atrial fibrillation; J44.9 Chronic obstructive pulmonary disease, unspecified; I27.20 Pulmonary hypertension, unspecified; K76.0 Fatty (change of) liver, not elsewhere classified; D63.0 Anemia in neoplastic disease; I45.10 Unspecified right bundle-branch block; M10.9 Gout, unspecified; E78.5 Hyperlipidemia, unspecified; K21.9 Gastro-esophageal reflux disease without esophagitis; G47.33 Obstructive sleep apnea (adult) (pediatric); D86.9 Sarcoidosis, unspecified; K57.30 Diverticulosis of large intestine without perforation or abscess without bleeding; K64.8 Other hemorrhoids; K66.0 Peritoneal adhesions (postprocedural) (postinfection); I08.0 Rheumatic disorders of both mitral and aortic valves; I85.00 Esophageal varices without bleeding; K29.40 Chronic atrophic gastritis without bleeding; Z79.01 Long term (current) use of anticoagulants; Z79.899 Other long term (current) drug therapy; Z88.8 Allergy status to other drugs, medicaments and biological substances; Z88.1 Allergy status to other antibiotic agents; Z91.041 Radiographic dye allergy status; Z82.3 Family history of stroke; Z80.3 Family history of malignant neoplasm of breast
CPT/HCPCS: 31629; 36415; 74176; 80048; 80053; 82272; 85014; 85018; 85025; 85610; 85730; 86850; 86900; 86901; 87641; 93005; 94660; 99156; 99157; 99284; A9270-GY; G0378; G8978-GP-CI; G8979-GP-CI; G8980-GP-CI; J2250; J3010; J3430; J3480

== ENCOUNTER 2019-07-02 18:59 | Inpatient (IN) | payer MEDICARE, BC ==
--- OUTSIDE RECORDS SUMMARY | 2019-07-02 19:05 | XMS REPORT | Summary of Care ---
:1940 Author Organization [facility] Address [address] [facility] [place] [address] Care Team Providers Name Role Phone Tadeo Jesus MD Primary Care Provider Ellie Dove MD Unavailable Breana Brandt RN Unavailable Reason for Referral Refer to Department Only (Routine) Status Reason Specialty Diagnoses / Referred By Referred To Procedures Contact Contact Pending Review OPHTHALMOLOGY Diagnoses Blurred vision, bilateral Tadeo Jesus MD [facility] [place] [address] Scheduling Instructions Diabetes mellitus eye exam Reason for Visit Reason Comments Transitional Care Management Patient was discharged from [facility] on 06/12/2019 for fall and fractured ribs. 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 Imatinib Mesylate Take 1 Tab 30 Tab 5 09/06/2016 Active (GLEEVEC) 400 MG by mouth Oral Tab DAILY. nystatin Under 90 g 1 07/26/2018 Active (MYCOSTATIN) 724709 breasts UNIT/GM Apply three times externally daily for CreamIndications: seven days. Intertrigo Incontinence Supply 1 Each by 180 Each 3 12/06/2018 Active Disposable (PROCARE Does not ADULT BRIEFS LARGE) apply route Does not apply Misc SIX TIMES DAILY. Oxybutynin Chloride TAKE ONE 90 Tab 5 02/03/2019 Active 15 MG Oral TABLET SR TABLET BY 24 HR MOUTH EVERY DAY nystatin APPLY UNDER 30 g 1 02/14/2019 Active (MYCOSTATIN) 196364 BREASTS UNIT/GM Apply THREE TIMES externally Cream A DAY FOR 7 DAYS OXYcodone-acetaminop Take 1 Tab 30 Tab 0 02/21/2019 Active hen by mouth (OXYCODONE-ACETAMINO EVERY PHEN DISCHARGE) BEDTIME 5-325 MG Oral Tab NEEDED (pain). Max Daily Amount: 1 Tab. allopurinol Take 1 Tab 30 Tab 6 06/02/2019 Active (ZYLOPRIM) 300 MG by mouth Oral Tab DAILY. spironolactone Take 0.5 45 Tab 3 06/02/2019 Active (ALDACTONE) 25 MG Tabs by Oral TabIndications: mouth DAILY. Essential hypertension Fluoxetine HCl 40 MG Take 1 Cap 30 Cap 5 06/20/2019 Active Oral Cap by mouth DAILY. Omeprazole delayed Take 20 mg 60 Cap 4 06/20/2019 Active rel cap 20 MG Oral by mouth CAPSULE DELAYED TWICE DAILY. RELEASE furosemide (LASIX) Take 1 Tab 30 Tab 1 06/20/2019 Active 20 MG Oral Tab by mouth 0 DAILY. cyclobenzaprine Take 1 Tab 60 Tab 3 01/02/2019 Discontinued (FLEXERIL) 10 MG by mouth TWO 9 (Provider Oral TabIndications: TIMES DAILY Discontinued) Strain of neck NEEDED muscle, initial (neck muscle encounter pain). Fluoxetine HCl 40 MG Take 1 Cap 30 Cap 5 06/02/2019 Discontinued Oral Cap by mouth 9 (Error) DAILY. Omeprazole delayed Take 20 mg 60 Cap 4 06/02/2019 Discontinued rel cap 20 MG Oral by mouth 9 (Dose CAPSULE DELAYED DAILY. Adjustment) RELEASE furosemide (LASIX) Take 1 Tab 90 Tab 3 06/02/2019 Discontinued 40 MG Oral by mouth 9 (Dose TabIndications: DAILY. Adjustment) Acute diastolic heart failure (HCC) furosemide (LASIX) Take 0.5 90 Tab 3 06/20/2019 Discontinued 40 MG Oral Tab Tabs by 9 (Provider mouth DAILY. Discontinued) documented as of this encounter (statuses as of 06/20/2019) Active Problems Problem Noted Date History of GI bleed 05/06/2019 Overview: [facility] admission esophago-gastroduodenoscopy and colonoscopy negative 2017 Subdural hematoma, chronic 02/12/2019 Compression fracture of L5 lumbar vertebra, closed, initial encounter 2018 Chronic diastolic heart failure 12/06/2018 Severe episode of recurrent major depressive disorder, without psychotic 08/21 features Immunosuppressed status 04/08/2018 Atrial fibrillation, persistent 12/25/2016 CML (chronic myelocytic leukemia) 07/30/2015 Overview: Diagnosis Nov 2014 Dr nAtoine [place] [facility] Sarcoidosis of lung 07/30/2015 Overview: Prednisone prescription in the past Dr Clements pulmonary [facility] [place], operated by [facility] Malignant neoplasm of right female breast 07/30/2015 Overview: Stage II 2004 S/p right [facility] Chronic idiopathic gout of foot 07/30/2015 Urge urinary incontinence 07/30/2015 Chronic pain syndrome 07/30/2015 Essential hypertension 07/30/2015 Neuropathy due to chemotherapeutic drug 07/30/2015 Obstructive sleep apnea 09/13/2010 Overview: Continuous positive airway pressure H/O: hysterectomy 09/13/2010 Femur fracture, right 09/13/2010 Overview: S/p ORIF Dr Mariscal [facility] 2002 documented as of this encounter (statuses as of 06/20/2019) Resolved Problems Problem Noted Date Resolved Date Hip pain, acute, right 03/12/2019 05/23/2019 Acute hypoxemic respiratory failure 12/25/2018 05/23/2019 Major depressive disorder, recurrent episode, moderate 04/08/2018 08/21/2018 Nasal polyposis 07/30/2015 05/06/2019 Overview: S/p sinus surgery Neuropathy 07/30/2015 07/30/2015 Murmur 09/13/2010 10/07/2015 documented as of this encounter (statuses as of 06/20/2019) Immunizations Name Administration Dates Next Due Influenza (IM) Preservative Free 07/02/2017 Influenza Vaccine High Dose 06/22/2018, 07/31/2016, 07/30/2015 PNEUMOCOCCAL POLYSACCHARIDE VACCINE 08/17/2005 Pneumococcal Conjugate(13 Valent) 05/16/2017 TD Vaccine 08/13/2006 ZOSTER (ZOSTAVAX) VACCINE 12/07/2008 documented as of this encounter Social History Tobacco Use Types Packs/Day Years Used Date Former Smoker Smokeless Tobacco: Never Used Alcohol Use Drinks/Week oz/Week Comments No 0 Standard drinks or equivalent 0.0 Sex Assigned at Date Recorded Not on file Job Start Date Occupation Industry Not on file Not on file Not on file Travel History Travel Start Travel End No recent travel history available. documented as of this encounter Last Filed Vital Signs Vital Sign Reading Time Taken Comments Blood Pressure 110/60 06/20/2019 2:07 PM EDT Pulse 82 06/20/2019 2:07 PM EDT Temperature - - Respiratory Rate - - Oxygen Saturation 99% 06/20/2019 2:07 PM EDT Inhaled Oxygen Concentration - - Weight 73 kg (161 lb) 06/20/2019 2:07 PM EDT Height - - Body Mass Index 30.42 05/23/2019 10:59 AM EDT documented in this encounter Patient Instructions Patient InstructionsTadeo Jesus MD - 06/20/2019 2:00 PM EDTStop cyclobenzaprine Use fluoxitene 40 mg once daily Wean off oxycodone 5 mg immediate release Pain medication Wean off oxycodone SR long acting pain medication over next few weeks lidoderm once daily Physical therapy for leg strength Eye MD referral for blurred vision Nausea medication zofran as needed documented in this encounter Progress Notes Tadeo Jesus MD - 06/20/2019 2:00 PM EDT TCM Statement. Review of the hospitalization: I am seeing for transition of care following hospitalization. The date of discharge was: 06/12/19 The discharge diagnosis was S/p fall with multiple rib fracture chronic gastro- intestinal bleed anemia cml . She continues to have right sided rib and chest pain She is weaning off oxycodone immediate release And sr pills with use of tylenol as needed during the day and lidoderm patch Her daughter asks about other medications and can some of her pills be reduced She was sent home on higher dose fluoxitene 60 mg She still uses cyclobenzaprine at bedtime She has bilateral Blurred vision and that caused the fall at night in her house She has not seen eye MD recently I reviewed the discharge summary, discharge instructions, and pertinent additional documentation obtained during hospitalization. I reconciled the medications. I also reviewed the Transition of Care documentation done by staff. Patient Active Problem List Diagnosis Obstructive sleep apnea H/O: hysterectomy Femur fracture, right (HCC) CML (chronic myelocytic leukemia) (HCC) Sarcoidosis of lung (HCC) Malignant neoplasm of right female breast (HCC) Chronic idiopathic gout of foot Urge urinary incontinence Chronic pain syndrome Essential hypertension Neuropathy due to chemotherapeutic drug (HCC) Atrial fibrillation, persistent (HCC) Immunosuppressed status (HCC) Severe episode of recurrent major depressive disorder, without psychotic features (HCC) Chronic diastolic heart failure (HCC) Subdural hematoma, chronic (HCC) Compression fracture of L5 lumbar vertebra, closed, initial encounter ( HCC) History of GI bleed Outpatient Medications Marked as Taking for the 06/20/19 encounter (Office Visit ) with Tadeo Jesus MD Medication Sig Dispense Refill Fluoxetine HCl 40 MG Oral Cap Take 1 Cap by mouth DAILY. 30 Cap 5 furosemide (LASIX) 20 MG Oral Tab Take 1 Tab by mouth DAILY. 30 Tab 1 Omeprazole delayed rel cap 20 MG Oral CAPSULE DELAYED RELEASE Take 20 mg by mouth TWICE DAILY. 60 Cap 4 ROS no focal neuro symptoms no cardiovascular symptoms Exam BP 110/60 Pulse 82 Wt 161 lb (73 kg) SpO2 99% BMI 30.42 kg/m2 Patient is alert and oriented times three. Wheelchair bound ICD-9-CM ICD-10-CM 1. History of fall within past 90 days V15.88 Z91.81 2. Closed fracture of multiple ribs of right side with routine healing, subsequent encounter wean off oxycodones use lidoderm patch and tylenol as needed V54.19 S22.41XD 3. History of GI bleed gastro-intestinal work up pending with ana enteroscopy [facility] pending V12.79 Z87.19 4. Essential hypertension 401.9 I10 5. Anemia due to blood loss, chronic 280.0 D50.0 6. CML (chronic myelocytic leukemia) ([facility]) follow up Dr Antoine 205.10 C92.10 7. 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 Blurred vision, bilateral eye MD referral 368.8 H53.8 REFER TO OPHTHALMOLOGY The tests that were not available at the time of discharge were reviewed. Additional tests which are not yet available include: None Coordination of care. - Additional testing related to hospitilization was requested today: yes See orders. I confirmed the patient's understanding of the diagnosis and plan of care. Specific education that was provided today: Patient Instructions Stop cyclobenzaprine Use fluoxitene 40 mg once daily Wean off oxycodone 5 mg immediate release Pain medication Wean off oxycodone SR long acting pain medication over next few weeks lidoderm once daily Physical therapy for leg strength Eye MD referral for blurred vision Nausea medication zofran as needed The current and discharge medications were reconciled by me, today The source document was hospital discharge summary documented in this encounter Plan of Treatment Date Type Specialty Care Team Description 10/29/2019 Orders Only Cardiology 11/03/2019 Office Visit Cardiology Jag Naidu MD [address] [place] [address] [phone] Name Type Priority Associated Diagnoses Order Schedule REFER TO OPHTHALMOLOGY Referral Routine Blurred vision, Ordered: 06/20/2019 bilateral Health Maintenance Due Date Last Done Comments OSTEOPOROSIS SCREENING 01/09/2005 ZOSTER IMMUNIZATION SERIES 02/01/2009 12/07/2008 (2 of 3) MEDICARE ANNUAL WELLNESS 05/16/2018 05/16/2017, 10/07/2015, VISIT 10/07/2015 INFLUENZA VACCINE (#1) 2019 06/22/2018, 07/02/2017, 07/31/2016, Additional history exists DEPRESSION SCREENING 08/21/2019 08/21/2018, 08/21/2018 FALL RISK ASSESSMENT 08/21/2019 08/21/2018, 08/21/2018 PNEUMOCOCCAL 65+YRS Completed 05/16/2017, 08/17/2005 HPV IMMUNIZATION SERIES Aged Out No longer eligible based on patient's age to complete this topic MENINGOCOCCAL VACCINE IMM Aged Out No longer eligible based on patient's age to complete this topic documented as of this encounter Goals Goal Patient Goal Associated Recent Patient-Stated? Author Type Problems Progress Blood Pressure Blood Pressure 110/60 No Kerry, < 150/90 (06/20/2019 MD Gage 2:07 PM EDT) Note: This is an individualized treatment (blood pressure) goal for Charlene Crawley Fernando: Displayed above (on the left) is your goal for blood pressure control. Your most recent blood pressure is also shown above, on the right. You should try to achieve blood pressures that are lower than your goal listed above (on the left). Weight increase vs. 18 mo CHF 8 (06/20/2019 2:07 PM EDT) Tadeo Maldonado MD min (lbs) < 5 Note: This is an individualized treatment (congestive heart failure, CHF) goal for Charlene A Fernando: Displayed above (on the right) is how many pounds you are in excess of your lowest weight over the past 18 months. Note that lower numbers are better. Excessive weight gain often indicates fluid reten tion and worsening heart failure. You should contact your doctor immediately if the above number is too high (above your goal, the number on the left). Depression screen (PHQ-9) Depression 19 (08/21/2018 8:49 AM No Gage Payne MD total score < 5 EDT) Note: This is an individualized treatment (depression) goal for Charlene Crawley Fernando: Displayed above is your goal for a depression screening (PHQ-9) score that would indicate good control of your depression. Weight loss vs. 18 mo Lifestyle 18 (06/20/2019 2:07 PM EDT) Gage Staley MD max (lbs) >= 10 Note: This is an individualized lifestyle goal for Charlene Denisa Fernando: Your body mass index (BMI) is more than 30. You should lose weight. A reasonable starting goal is to lose 10 pounds. Displayed above is how many pounds you have lost thus far towards your 10 pound weight loss goal. Keep a regular sleep schedule Lifestyle Gage Staley MD Note: This is an individualized lifestyle goal for Charlene King: Please maintain a regular sleep schedule. This may help with some symptoms of depression. Consume a go-fcmgj-xrha diet Lifestyle Tadeo Maldonado MD Note: This is an individualized lifestyle goal for Charlene Crawley Fernando: Please do not add additional salt to your food. Additional salt may lead to fluid retention and worsen your congestive heart failure. Take all prescribed medications as directed Self-management Gage Staley MD Note: This is an individualized self-management goal for Charlene Crawley Fernando: Please take all prescribed medications as directed. 1. Do not skip doses. If you cannot afford your medications, talk with your doctor. 2. Use a pill reminder system such as a pill box if needed. Your pharmacist can help you with this. 3. Contact your Pharmacy 5 days before your medication runs out. If you cannot take your medications for any reasons, talk with your doctor. 4. Please bring all of your medication bottles and inhalers (or a list of all your medications/inhalers) with you to every visit. Potential barriers to meeting all of your care plan goals will continue to be addressed on an ongoing basis. Check your weight daily Self-management Tadeo Maldonado MD Note: This is an individualized self-management goal for Charlene Crawley Fernando: Please check your weight daily. Refer to the accompanying CHF treatment goal and call your doctor immediately for further instructions on how to respond to unexpected weight gain. 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
[2019-07-02] MEDS ORDERED: Morphine 4 MG/ML VIAL (1 ml) 4 MG/ML VIAL IV ONE ×2 (19:27→21:55)
--- NOTE | 2019-07-02 19:30 | ED ---
Complex/Multi-Sys Presentation - HPI Summary HPI Summary: This patient is a 79 year old F presenting to [facility] accompanied by her daughter with a chief complaint of flank and back pain since earlier today. She was discharged from [facility] recently. Pt states she felt sick this morning. She complains of dry heave coughing and says she almost vomited. Pt says she felt something snap while she was coughing. Pt has leukemia. The patient rates the pain 10/10 in severity. Symptoms aggravated by palpation. Symptoms alleviated by nothing. Patient reports swollen right arm. Medications reviewed. Allergies noted. - History Of Current Complaint Chief Complaint: EDChestWallPain Time Seen by Provider: 07/02/19 19:19 Hx Obtained From: Patient, Family/Day Spa Manager - daughter Onset/Duration: Sudden Onset, Lasting Hours - since earlier today, Still Present Timing: Constant, Hours - since earlier today Severity Currently: Severe Aggravating Factor(s): palpation Alleviating Factor(s): nothing Associated Signs And Symptoms: Positive: Cough, Back Pain, Other - positive - flank pain, swollen right arm - Allergies/Home Medications Allergies/Adverse Reactions: Allergies Allergy/AdvReac Type Severity Reaction Status Date / Time amoxicillin Allergy Unknown Verified 07/02/19 19:03 Reaction Details cefprozil Allergy Unknown Verified 07/02/19 19:03 Reaction Details cephalexin Allergy Unknown Verified 07/02/19 19:03 Reaction Details ciprofloxacin [From Cipro] Allergy Unknown Verified 07/02/19 19:03 Reaction Details clarithromycin Allergy Unknown Verified 07/02/19 19:03 Reaction Details clavulanic acid Allergy Unknown Verified 07/02/19 19:03 Reaction Details doxycycline Allergy Unknown Verified 07/02/19 19:03 Reaction Details Iodinated Contrast Media Allergy Rash Verified 07/02/19 19:03 [Iodinated Contrast- Oral and IV Dye] levofloxacin [From Levaquin] Allergy Unknown Verified 07/02/19 19:03 Reaction Details Penicillins Allergy Unknown Verified 07/02/19 19:03 Reaction Details prednisone Allergy Swelling Verified 07/02/19 19:03 sertraline [From Zoloft] Allergy Unknown Verified 07/02/19 19:03 Reaction Details Home Medications: Home Medications Acetaminophen TAB* [Tylenol TAB*] 975 mg PO TID PRN 07/02/19 [History Confirmed 07/02/19] Docusate CAP* [Colace Cap*] 100 mg PO BID PRN 07/02/19 [History Confirmed ] PMH/Surg Hx/FS Hx/Imm Hx Previously Healthy: No Endocrine/Hematology History: Denies: Hx Diabetes Cardiovascular History: Reports: Hx Atrial Fibrillation, Hx Hypertension, Hx Rheumatic Fever - X2 A CHILD AND TEEN, Other Cardiovascular Problems/ Disorders - Arrythmia Denies: Hx Congestive Heart Failure, Hx Pacemaker/ICD Respiratory History: Reports: Hx Chronic Obstructive Pulmonary Disease (COPD), Hx Sleep Apnea, Other Respiratory Problems/Disorders - trach, sarcoidosis GI History: Denies: Other GI Disorders History: Reports: Hx Kidney Stones - IN THE PAST, Other Problems/ Disorders - "leaky bladder" Denies: Hx Renal Disease Musculoskeletal History: Reports: Hx Arthritis - BACK AND LEGS, Hx Gout Sensory History: Reports: Hx Cataracts - [place], Hx Contacts or Glasses - GLASSES Denies: Hx Hearing Aid Opthamlomology History: Reports: Hx Cataracts - [place], Hx Contacts or Glasses - GLASSES Neurological History: Denies: Other Neuro Impairments/Disorders Psychiatric History: Reports: Hx Depression Denies: Hx Panic Disorder - Cancer History Cancer Type, 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 MRSA Denies: Traveled Outside the [place] in Last 30 Days - Family History Known Family History: Negative: Hypertension - Social History Alcohol Use: None Hx Substance Use: No Substance Use Type: Reports: None Hx Tobacco Use: Yes Smoking Status (MU): Former Smoker Have You Smoked in the Last Year: No Review of Systems Positive: Cough Gastrointestinal: Other - positive - flank pain Musculoskeletal: Other - positive - back pain Positive: Edema - swollen right arm All Other Systems Reviewed And Are Negative: Yes Physical Exam - Summary Physical Exam Summary: Constitutional: Well-developed, Well-nourished, Alert. Mild distress. Skin: Warm, Dry. Yellowing of face. HENT: Normocephalic; Atraumatic Eyes: Conjunctiva normal Neck: Musculoskeletal ROM normal neck. (-) JVD, (-) Stridor, (-) Tracheal deviation Cardio: Rhythm regular, rate normal, Heart sounds normal; Intact distal pulses; The pedal pulses are 2+ and symmetric. Radial pulses are 2+ and symmetric. (-) Murmur Pulmonary/Chest wall: Bilateral breath sounds. Right chest wall tenderness. Effort normal. (-) Respiratory distress, (-) Wheezes, (-) Rales Abd: Soft, (-) tenderness, (-) Distension, (-) Guarding, (-) Rebound Musculoskeletal: (-) Edema. Ecchymosis on her back to her right shoulder and right chest wall Lymph: (-) Cervical adenopathy Neuro: Alert, Oriented x3 Psych: Mood and affect Normal Triage Information Reviewed: Yes Vital Signs On Initial Exam: Initial Vitals Temp Pulse Resp BP Pulse Ox 98.3 F 87 16 121/57 97 07/02/19 19:00 07/02/19 19:00 07/02/19 19:00 07/02/19 19:00 07/02/19 19:00 Vital Signs Reviewed: Yes Procedures - Ultrasound US IV Ultrasound: normal - 2 attempts on the left arm. Blood was sent from one of them but the line blew US Ultrasound: normal - 18 gauge in left EJ vein Diagnostics - Vital Signs Vital Signs Temp Pulse Resp BP Pulse Ox 07/02/19 19:00 98.3 F 87 16 121/57 97 - Laboratory Result Diagrams: 07/03/19 03:40 07/03/19 03:40 Lab Statement: Any lab studies that have been ordered have been reviewed, and results considered in the medical decision making process. - Radiology CXR Radiology Interpretation Completed By: ED Physician Summary of Radiographic Findings: Impression: multiple rib fractures with pulmonary edema. unsure if changed from x-ray in May - EKG 1950 Cardiac Rate: NL - 87 BPM EKG Rhythm: Atrial Fibrillation Summary of EKG Findings: 87 BPM, a-fib, no STEMI Complex Multi-Symp Course/Dx Course Of Treatment: Patient is here with right-sided chest pain after coughing. Patient felt a pop in her chest wall was concerned about injury to her knee fractured ribs. Patient does have right-sided chest wall tenderness with ecchymosis around her back that appear to be old in nature. Patient had a chest x-ray performed which showed no pneumothorax. Patient had blood performed showed hemoglobin of 4.5. Patient was given 2 units of blood after IV access was obtained in her left EJ. Patient was hypokalemic as well and was given IV potassium. Patient had a CT scan which showed no acute injury or change in her pleural effusion. Was admitted to medicine for further workup and management. Patient is likely suffering a GI bleed as she is being worked up further as an outpatient. - Diagnoses Provider Diagnoses: Chest pain, Anemia, Leukemia - Critical Care Time Critical Care Time: 30-74 min Discharge ED - Sign-Out/Discharge Documenting (check all that apply): Sign-Out Patient Signing out patient TO: Tiffanie Vizcarra - This pt will be signed out from Dr. Villarreal to Dr. Vizcarra at 2200 shift change. Patient Received Moderate/Deep Sedation with Procedure: No - Discharge Plan - Attestation Statements Document Initiated by Jason: Yes Documenting Scribe: Santino Howell Provider For Whom Jason is Documenting (Include Credential): Dr. Philip Villarreal MD Scribe Attestation: Santino Mirza scribed for Dr. Philip Villarreal MD on 07/03/19 at 1024. Scribe Documentation Reviewed: Yes Provider Attestation: The documentation as recorded by the Santino aguirre accurately reflects the service I personally performed and the decisions made by me, Dr. Philip Villarreal MD Status of Scribe Document: Viewed
[2019-07-02] MEDS ORDERED: Morphine 4 MG/ML VIAL (1 ml) 4 MG/ML VIAL IM ONE ×2 (20:15→21:56)
[2019-07-02 20:32] LABS: Hematocrit 14 % (35-47); Hemoglobin 4.9 g/dL (12.0-16.0); Mean Corpuscular HGB Conc 34 g/dL (31-36); Mean Corpuscular Hemoglobin 33 pg (27-31); Mean Corpuscular Volume 96 fL (80-97); Mean Platelet Volume 9.6 fL (7.4-10.4); Platelet Count 193 10^3/uL (150-450); Red Blood Count 1.49 10^6 /uL (3.70-4.87); Red Cell Distribution Width 19 % (10-15); White Blood Count 5.4 10^3/uL (3.5-10.8)
[2019-07-02 20:33] LABS: ABS Monocytes 0.6 10^3/ul (0-0.8); ABS Neutrophils 3.7 10^3/ul (1.5-7.7); ABS Nucleated RBC 0.2 10^3/ul; Eosinophil % 0.1 %; Lymphocyte % 18.9 %; Nucleated Red Blood Cells % 3.2
[2019-07-02 20:38] LABS: INR 1.14 (0.82-1.09)
[2019-07-02 20:40] LABS: ALT 11 U/L (7-52); Albumin 3.1 g/dL (3.2-5.2); Albumin/Globulin Ratio 1.6 (1-3); Alkaline Phosphatase 95 U/L (34-104); Blood Urea Nitrogen 15 mg/dL (6-24); CO2 Carbon Dioxide 18 mmol/L (22-32); Calcium 8.2 mg/dL (8.6-10.3); Chloride 96 mmol/L (101-111); EGFR African American 59.9 (>60); EGFR Non-African American 49.5 (>60); Glucose 129 mg/dL (70-100); Sodium 129 mmol/L (135-145); Total Protein 5.1 g/dL (6.4-8.9)
[2019-07-02 20:44] LABS: Anion Gap 15 mmol/L (2-11); Troponin I 0.07 ng/mL (<0.04)
[2019-07-02 21:27] LABS: Potassium Redraw 2.9 mmol/L (3.5-5.0)
[2019-07-02] MEDS ORDERED: KCL 20 MEQ/100 ML IVPREMIX* 20 MEQ/100 ML BAG IV ONE (21:37)
[2019-07-02] MEDS ORDERED: Magnesium Hydroxide LIQ* 30 ML UDC PO PRN (23:08)
[2019-07-02] MEDS ORDERED: Potassium Chlor TAB* 20 MEQ TAB.ER PO ONE (23:08)
[2019-07-02] MEDS ORDERED: Senna TAB 8.6 mg* TAB PO PRN (23:15)
[2019-07-02] MEDS: Ondansetron TAB* 4 MG PO PRN (23:23)
[2019-07-02 23:37] LABS: Magnesium 1.4 mg/dL (1.9-2.7)
[2019-07-03] MEDS ORDERED: Magnesium Sulfate 2 GM IV* 2 GM/50 ML BAG IVPB ONE (01:02)
[2019-07-03] MEDS: Morphine 10 MG/ML VIAL (1 ml) IV PRN ×5 (01:41→17:25)
--- NOTE | 2019-07-03 02:03 | ED ---
Progress - Progress Note Progress Note: Patient is a sign out upon shift change at 0700 on 07/02/[address]arreal to Dr. Viczarra pending CT scan. CT scan reveals, per radiologist, IMPRESSION: 1. Right lateral posterior chest wall contusion and hematomas likely posttraumatic. No associated acute rib fractures. 2. Increasing right and stable left pleural effusions and associated lung volume loss. 3. Bilateral thyroid lobe nodules. Followup with thyroid ultrasound recommended per ACR guidelines. 4. Findings which in the proper clinical setting can be seen in pulmonary hypertension. ED Physician has reviewed this report. Course/Dx - Provider Notifications Discussed Care Of Patient With: Nydia Mejia - Hospitalist - Attestation Statements Document Initiated by Jason: Yes
[2019-07-03] MEDS: Acetaminophen TAB* 325 MG PO PRN (03:52)
[2019-07-03 04:05] LABS: Hematocrit 18 % (35-47); Hemoglobin 6.4 g/dL (12.0-16.0); Mean Corpuscular HGB Conc 35 g/dL (31-36); Mean Corpuscular Hemoglobin 32 pg (27-31); Mean Corpuscular Volume 90 fL (80-97); Mean Platelet Volume 8.2 fL (7.4-10.4); Platelet Count 121 10^3/uL (150-450); Red Blood Count 2.02 10^6 /uL (3.70-4.87); Red Cell Distribution Width 17 % (10-15); White Blood Count 6.2 10^3/uL (3.5-10.8)
--- NOTE | 2019-07-03 04:07 | HP ---
HISTORY AND PHYSICAL: DATE OF ADMISSION: 07/02/19 PRIMARY CARE PHYSICIAN: Dr. Jesus. ONCOLOGIST: Dr. Antoine. HEALTHCARE PROXY: Cathleen, her daughter. CODE STATUS: Full code, although the patient states she may become a DNR again and prefers to continue to think about this. CHIEF COMPLAINT: Progressive right-sided rib pain. HISTORY OF PRESENT ILLNESS: Ms. King is a 79-year-old woman with CML, GI bleed of unknown etiology; hypertension; gout; NAFLD; AFib, not on anticoagulation; BRANDY; COPD and GERD who is presenting with severe rib pain over the last 3 to 4 days. The patient was recently admitted from 06/03/19 to after a fall with multiple rib fractures on the right side, notably ribs #5, 7, and 8 and possibly the 9th. During that admission, she experienced problems with pain control and constipation as well as an elevated troponin. Her hemoglobin at that time was stable, although she did have 1 episode of possible coffee-ground emesis and she is pending an outpatient capsule endoscopy. As the patient was not having hemoglobin decrease during the hospitalization, the plan was to continue PPI and plan an outpatient capsule. Near day of discharge , the patient's hemoglobin was 8.3. In the previous 23 days since the patient has been home, she reports her pain was becoming progressively better controlled and eventually she no longer experienced rib pain; however, she reports frequent episodes of dry heaving a few days ago without associated vomiting. After 1 particular dry heaving episode, the patient felt a crack over her right rib and that is when her pain recurred and was rated as severe. She has not subsequently been in respiratory distress, although she does report baseline shortness of breath associated with her anemia. She denies currently feeling nauseated or vomiting. She denies abdominal pain or constipation. She reports her stools are usually semiformed and brown and have not changed color recently. She denies fever. She reports frequently feeling cold, but denies palpitations or chest pain. She denies recent lightheadedness or head strike or hemoptysis. In the emergency room, given recent rib fractures and anemia, the patient was ordered for a chest CT, which was not concerning for a hemothorax. Hematoma and healing fractures were noted on the posterior right 4th through 8th ribs without acute fractures. The patient has increasing right and stable left pleural effusions. The patient was in significant amount of pain and was given a total of 8 mg of IV morphine. Given her severe anemia, she was ordered for 2 units of packed red blood cells and has to be admitted to the hospital for anemia requiring transfusion and pain requiring IV pain medications. PAST MEDICAL HISTORY: 1. CML, on Gleevec, followed by Dr. Antoine. 2. Chronic GI bleed of unknown etiology. Endoscopy 2 months ago demonstrated very small varices only, unable to find colonoscopy report, but per daughter, scope could not be advanced throughout entire colon given the patient's anatomy possibly from history of abdominal surgeries. The patient has pending outpatient capsule endoscopy. 3. Hypertension. 4. Gout. 5. NAFLD. 6. AFib, no longer on anticoagulation given GI bleeding. 7. GERD. 8. Obstructive sleep apnea. HOME MEDICATIONS: 1. Imatinib/Gleevec 400 mg daily. 2. Furosemide 40 mg daily. 3. Spironolactone 12.5 mg daily. 4. Fluoxetine 60 mg daily. 5. Omeprazole 20 mg twice a day. 6. Ondansetron 4 mg every 4 hours as needed for nausea. 7. Allopurinol 300 mg daily. 8. Oxybutynin 15 mg daily. 9. Nystatin cream 1 application topically 3 times a day as needed. 10. Senna p.r.n. constipation. 11. MiraLAX p.r.n. constipation. 12. Lidocaine patch 5% transdermally daily. 13. Tylenol 975 up to 3 times a day as needed for pain. ALLERGIES: Extensive allergy list noted in the chart. SOCIAL HISTORY: The patient lives at home with her children, Cathleen and Hitesh. Cathleen is her healthcare proxy. 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 She is a lifelong nonsmoker and nondrinker and never used recreational drugs. FAMILY HISTORY: The patient's father passed from stroke. Mother had breast cancer. REVIEW OF SYSTEMS: Complete 10-point review of systems was performed and pertinent positives and negatives are listed in this HPI. PHYSICAL EXAMINATION GENERAL: In general, she is an anxious appearing woman, but nontoxic, alert and interactive, answers questions appropriately. VITAL SIGNS: Afebrile, heart rate 80s, blood pressure 148/49, respiratory rate 18, oxygen saturation 100% on 2 L. HEENT: Conjunctivae pale. OP clear. Moist mucous membranes. NECK: No JVD. LUNGS: Clear anteriorly. Chest wall with diffuse right-sided ecchymosis and slight induration, tender to touch over right lateral chest wall. Bilateral chest expansion symmetric. HEART: Regular rate and rhythm. No murmurs, gallops, or rubs. ABDOMEN: Soft, nontender, nondistended. EXTREMITIES: Warm and well perfused with 1+ edema half way up shins. NEURO: A and O x3. No focal neuro deficits. SKIN: Notable for significant pallor. DIAGNOSTIC STUDIES/LAB DATA: Hemoglobin 4.9 decreased from 8.3 at the end of May with MCV 96. INR 1.4. Sodium low, which is near the patient's baseline with potassium 2.9, chloride 96, carbon dioxide 18. Creatinine 1.07, slightly increased from baseline. LFTs unremarkable. Troponin elevated to 0.07, which is consistent with the patient's troponins last admission. CT scan with right lateral posterior chest wall contusion and hematoma is likely posttraumatic, no associated acute rib fractures, increasing right and stable left pleural effusions and associated lung volume loss, bilateral thyroid lobe nodules, followup with thyroid ultrasound recommended per ACR guidelines. ASSESSMENT AND PLAN: Ms. King is a 79-year-old woman with CML, on Gleevec; chronic gastrointestinal bleed of unknown etiology pending capsule; AFib, not anticoagulation; hypertension and obstructive sleep apnea who is presenting after recent hospitalization for rib fracture with retractable pain for recurrence of rib pain after hearing a loud crack during an episode of dry heaving a few days ago. She was found with severe anemia requiring blood transfusion without overt signs of internal or external bleeding. 1. Severe anemia. Possible bleeding source is from rib an into subcutaneous space, given new and significant ecchymosis noted over significant portion of patient's torso. No clear GIB symptoms at this time. No evidence for hemolysis. Could be side effect of Gleevec, but unlikely given how long patient has been on this medication. Continue to monitor hemoglobins every 6 hours and transfusion until she is above 7. 2. Rib pain. During last admission, the patient required significant attention to her pain control and Dr. Aburto had been consulted. She is currently reporting good response to morphine IV given in the emergency room. We will continue the patient on Tylenol for mild pain and morphine 6 mg IV every 4 hours as needed for moderate to severe. We will initiate the patient on bowel regimen while on opioids. Continue the patient's home lidocaine patch. 3. Gastrointestinal bleeding. The patient is not reporting coffee-ground emesis or bloody or black and tarry stools. During last admission, GI was consulted and recommended to follow up outpatient if no active signs of bleed in hospitalization. If the patient is still without signs of active bleed, we will not consult overnight; however, given her requirement for blood transfusion , we will plan to consult GI in the morning. Continue home PPI. 4. Troponin elevation. This is likely in the setting of demand given severe pain with tachycardia and severely low hemoglobin. She is denying chest pain and her EKG is not concerning for ischemic changes. She does seem to have a troponin typically in this range. We will trend until it decreases and continue to monitor for pain; stat EKG if chest pain occurs. 5. Chronic myelogenous leukemia. Continue home Gleevec. Consider Oncology consult in the morning. 6. Hypertension. Given the patient's significant blood loss, we will hold home furosemide and spironolactone. She also had low magnesium and severely low potassium on presentation, so we will replete the electrolytes and monitor BMP. The patient does also appear to have significant edema. This was possible that these medications were not just for hypertension. An echo last year showed EF of 60% to 65%, but likely impaired diastolic filling. We will continue to monitor BP and initiate antihypertensives as able. 7. Gout. Continue allopurinol 300 mg daily. 8. Atrial fibrillation. The patient is not on anticoagulation in the setting of GI bleed. She was not previously on rate control agents and she is noted to be in normal sinus rhythm. 9. Depression. Continue fluoxetine 60 mg daily. 10. Overactive bladder. Continue home oxybutynin 15 mg daily. 11. DVT prophylaxis: The patient is high risk, but we will only use SCDs in the setting of known bleed. 12. Code status: The patient is currently full code, but she wants to reconsider this as she has been DNR/DNI in the past, which is shown in the [facility] from a few years ago. We should continue to readdress this throughout admission. TIME SPENT: Approximately 60 minutes was spent on admission of this patient, more than half of which was spent at bedside for interview and exam. [id number]/CPS #: [id number] JENNA
[2019-07-03 04:17] LABS: Anion Gap 6 mmol/L (2-11); BUN/Creatinine Ratio 15.7 (8-20); Blood Urea Nitrogen 16 mg/dL (6-24); CO2 Carbon Dioxide 24 mmol/L (22-32); Calcium 7.5 mg/dL (8.6-10.3); Chloride 99 mmol/L (101-111); EGFR African American 63.3 (>60); EGFR Non-African American 52.3 (>60); Glucose 123 mg/dL (70-100); Potassium 3.5 mmol/L (3.5-5.0); Sodium 129 mmol/L (135-145)
[2019-07-03] MEDS ORDERED: Potassium Chlor TAB* 20 MEQ TAB.ER PO ONE (04:28)
[2019-07-03 05:00] LABS: Magnesium 1.9 mg/dL (1.9-2.7)
[2019-07-03] MEDS: FLUoxetine CAP* 20 MG PO SCH (08:11)
[2019-07-03] MEDS: Pantoprazole TAB * 40 MG TAB PO SCH ×2 (08:11→22:58)
[2019-07-03] MEDS: Lidocaine PATCH 5%* 1 PATCH TRANSDERM SCH (08:11)
[2019-07-03] MEDS: Oxybutynin XL TAB* 5 MG PO SCH (08:12)
[2019-07-03] MEDS: Allopurinol TAB* 300 MG PO SCH (08:12)
[2019-07-03 08:20] LABS: % Iron Saturation 44 % (15-55); Iron 110 ug/dL (50-212); Total Iron Binding Capacity 251 mcg/dL (250-450); Transferrin 179 mg/dL (203-362)
[2019-07-03] MEDS ORDERED: IMATINIB 400 MG PO SCH (08:30)
--- NOTE | 2019-07-03 10:06 | PN ---
Subjective Date of Service: 07/03/19 Interval History: patient seen, awake, alert. complaining of pain, right side. ecchymosis. tolerated 2 units of pRBC's. Hct up to 18 from 14. no fever. saturations 98% on room air. no active bleed. Past Medical History: Unchanged from Admission Objective Active Medications: Acetaminophen (Tylenol Tab*) 975 mg PO Q8H PRN PRN Reason: PAIN - MILD Last Admin: 07/03/19 03:52 Dose: 975 mg Allopurinol (Zyloprim Tab*) 300 mg PO DAILY [facility] Last Admin: 07/03/19 08:12 Dose: 300 mg Fluoxetine HCl (Prozac Cap*) 60 mg PO DAILY [facility] Last Admin: 07/03/19 08:11 Dose: 60 mg Lidocaine (Lidoderm 5% Patch*) 1 patch TRANSDERM DAILY [facility] Last Admin: 07/03/19 08:11 Dose: 1 patch Magnesium Hydroxide (Milk Of Magnesia Liq*) 30 ml PO Q4H PRN PRN Reason: CONSTIPATION Morphine Sulfate (Morphine 10 Mg/Ml Vial (1 Ml)) 6 mg IV Q4H PRN PRN Reason: Pain - Moderate to Severe Last Admin: 07/03/19 06:20 Dose: 6 mg Ondansetron HCl (Zofran Tab*) 4 mg PO Q4HR PRN PRN Reason: NAUSEA Last Admin: 07/02/19 23:23 Dose: 4 mg Oxybutynin Chloride (Ditropan Xl Tab*) 15 mg PO DAILY [facility] Last Admin: 07/03/19 08:12 Dose: 15 mg Pantoprazole Sodium (Protonix Tab*) 40 mg PO BID [facility] Last Admin: 07/03/19 08:11 Dose: 40 mg Pharmacy Profile Note (Lidocaine Patch Remove*) 1 note PATCH OFF 2100 [facility] Senna (Senokot 8.6 Mg Tab*) 1 tab PO BEDTIME PRN PRN Reason: CONSTIPATION Vital Signs - 8 hr 07/03/19 07/03/19 07/03/19 02:15 02:30 02:41 Temperature Pulse Rate 86 81 84 Respiratory 19 16 18 Rate Blood Pressure 137/43 131/46 129/33 (mmHg) O2 Sat by Pulse 100 99 98 Oximetry 07/03/19 07/03/19 07/03/19 02:45 03:00 03:01 Temperature Pulse Rate 78 79 90 Respiratory 13 23 10 Rate Blood Pressure 127/42 122/35 (mmHg) O2 Sat by Pulse 99 99 99 Oximetry 07/03/19 07/03/19 07/03/19 03:48 04:00 04:01 Temperature 99.3 F Pulse Rate 82 78 Respiratory 17 20 Rate Blood Pressure 139/35 (mmHg) O2 Sat by Pulse 100 100 Oximetry 07/03/19 07/03/19 07/03/19 05:00 06:00 06:20 Temperature Pulse Rate 83 84 Respiratory 20 23 18 Rate Blood Pressure 133/54 133/61 (mmHg) O2 Sat by Pulse 99 99 Oximetry 07/03/19 07/03/19 07/03/19 06:23 06:25 07:00 Temperature Pulse Rate 81 83 81 Respiratory 22 25 19 Rate Blood Pressure 105/45 102/42 124/46 (mmHg) O2 Sat by Pulse 100 100 99 Oximetry 07/03/19 07/03/19 07/03/19 07:59 08:00 09:00 Temperature 98.7 F Pulse Rate 88 90 Respiratory 23 16 Rate Blood Pressure 118/35 94/45 (mmHg) O2 Sat by Pulse 98 98 Oximetry Oxygen Devices in Use Now: None, Nasal Cannula Appearance: awake, alert no distress, pales. anicteric sclrea Eyes: No Scleral Icterus Ears/Nose/Mouth/Throat: Clear Oropharnyx, Mucous Membranes Moist Neck: NL Appearance and Movements; NL JVP, Trachea Midline Respiratory: - - diminished breath sound at bases worse on the right side Cardiovascular: NL Sounds; No Murmurs; No JVD, - - + 1 edema Abdominal: NL Sounds; No Tenderness; No Distention, - - no abdominal tenderness. no abdominal stigmata of rectus sheet hematoma Extremities: - - + 1 edmea Skin: - - large right upper, mid hematoma extend to right low back just below her CVA angle. firm, tender and ecchymotic Neurological: Alert and Oriented x 3 Result Diagrams: 07/03/19 03:40 07/03/19 03:40 Assess/Plan/Problems-Billing Assessment: 79 y/o female admitted for right side rib, upper and mid back pain associated with bruising with history of traumatic fall ~ 3 weeks ago found to have profound anemia with Hgb of 4.9 and Hct of 14 and upper and mid back hematoma, - Patient Problems (1) Acute blood loss anemia Current Visit: No Status: Acute Code(s): D62 - ACUTE POSTHEMORRHAGIC ANEMIA SNOMED Code(s): 325296971 Comment: - Secondary to hematoma bleed. no active or sign of GI bleed. - Monitor H/H. s/p 2 units pRBC and to get her 3 units today - Keep her GI prophylactic (2) Hematoma of muscle Current Visit: Yes Status: Acute Code(s): T14.8XXA - OTHER INJURY OF UNSPECIFIED BODY REGION, INITIAL ENCOUNTER SNOMED Code(s): 591074772 Comment: - She does have significant hematoma in her trapezius and latissimus dorsi clinically and on CT but done without contrast. - I agree with supportive treatment with transfusion. - Repeat CBC post transfusion (she is to get 3 units today) recheck CBC and rest of her labs at 2 pm - No sign of skin necrosis. No need for surgical interventions at this time. - Apply Icepack as tolerate to her hemtoma area - Pain control with morphine for moderate to severe pain (3) CML (chronic myeloid leukemia) Current Visit: No Status: Acute Code(s): C92.10 - CHRONIC MYELOID LEUK, BCR/ ABL-POSITIVE, NOT ACHIEVE REMIS SNOMED Code(s): 50926983 Comment: - On Gleevec follow with hem/onc - WBC and Plt normal value. Will d/c Gleevec now with the acute setting - She did have drop in her platelet but I PRESUME it is due to consumption given her bleed - Monitor closely. No anticoagulatioin of course in this acute setting of bleed and hematoma (4) Elevated troponin Current Visit: No Status: Acute Code(s): R74.8 - ABNORMAL LEVELS OF OTHER SERUM ENZYMES SNOMED Code(s): 467633060 Comment: - Chronically elevated at baseline but today it has reached the highest at 0.10 - It can be due to demand mediated given her anemia - Will continue with transfusion and follow up troponin until it peaks - She denies any active chest pain, and her EKG on admission Afib rate controlled with RBBB no changes when compared to 06/03/2019 (5) Hypertension Current Visit: Yes Status: Acute Code(s): I10 - ESSENTIAL (PRIMARY) HYPERTENSION SNOMED Code(s): 74704941 Comment: - BP soft now due to anemia - Will keep aldactone on hold but will resume lasix due to her transfusion and pleural effusion (6) Atrial fibrillation Current Visit: No Status: Acute Code(s): I48.91 - UNSPECIFIED ATRIAL FIBRILLATION SNOMED Code(s): 61934733 Comment: - Rate is controlled. - Anticoagulation on hold due history of RADHA bleed in the past and now of course due to her acute hematoma bleed (7) Chronic diastolic (congestive) heart failure Current Visit: No Status: Acute Code(s): I50.32 - CHRONIC DIASTOLIC ( CONGESTIVE) HEART FAILURE SNOMED Code(s): 025093063 Comment: - Stable. However, she is at risk of develloping acute exacerbations in the setting of trauma, transfusion and pleural effusion - I will resuem Furosemide 20 mg IV now and resume po in am. (8) Depression Current Visit: No Status: Acute Code(s): F32.9 - MAJOR DEPRESSIVE DISORDER, SINGLE EPISODE, UNSPECIFIED SNOMED Code(s): 58546885 Comment: - Contiue her Prozac 60 mg (9) Ribs, multiple fractures Current Visit: No Status: Acute Code(s): S22.49XA - MULTIPLE FRACTURES OF RIBS, UNSP SIDE, INIT FOR CLOS FX SNOMED Code(s): 7411852 Comment: - hx of Fractured 5th, 7th, 8th, and 9th right ribs. - Incentive spirometry and PT as tolerated. (10) Pleural effusion Current Visit: Yes Status: Acute Code(s): J90 - PLEURAL EFFUSION, NOT ELSEWHERE CLASSIFIED SNOMED Code(s): 44596719 Comment: - moderate on the right side - Will resume lasix, incentive spirometer - will reassess if patient will benefit from thoracocentesis, not at this time sat 98% on room air - will monitor for fever and pneumoanie stigamta (11) DVT prophylaxis Current Visit: No Status: Acute Code(s): TAO3334 - SNOMED Code(s): 690581649 Comment: - Anticoagulation is contraindicated due to hx of GI bleed and her acute anemia - SCDs.
[2019-07-03] MEDS ORDERED: Furosemide IV* 10 MG/ML 2 ML VIAL (20 MG) IV ONE (11:00)
[2019-07-03 15:21] LABS: Hematocrit 18 % (35-47); Hemoglobin 6.4 g/dL (12.0-16.0); Mean Corpuscular HGB Conc 36 g/dL (31-36); Mean Corpuscular Hemoglobin 32 pg (27-31); Mean Corpuscular Volume 89 fL (80-97); Mean Platelet Volume 8.6 fL (7.4-10.4); Platelet Count 112 10^3/uL (150-450); Red Blood Count 2.02 10^6 /uL (3.70-4.87); Red Cell Distribution Width 17 % (10-15); White Blood Count 6.6 10^3/uL (3.5-10.8)
[2019-07-03 15:29] LABS: Anion Gap 4 mmol/L (2-11); BUN/Creatinine Ratio 17.1 (8-20); Blood Urea Nitrogen 18 mg/dL (6-24); CO2 Carbon Dioxide 25 mmol/L (22-32); Calcium 7.9 mg/dL (8.6-10.3); Chloride 99 mmol/L (101-111); EGFR African American 61.2 (>60); EGFR Non-African American 50.6 (>60); Glucose 125 mg/dL (70-100); Magnesium 1.8 mg/dL (1.9-2.7); Phosphorus 3.3 mg/dL (2.5-5.0); Potassium 4.2 mmol/L (3.5-5.0); Sodium 128 mmol/L (135-145)
[2019-07-03 15:36] LABS: Troponin I 0.07 ng/mL (<0.04)
--- NOTE | 2019-07-03 18:15 | PN ---
Hospitalist Progress Note Date of Service: 07/03/19 I was called to assess patient for increase pain of her right chest, back and neck. minimal relief with the morphine. labs reviewed her Hgb dropped despite 3 units pRBC's transfusion. Patient was assessed at bedside in the presence of her daughter who is the HCP, charge nurse and bedside nurse. She is in moderate distress from pain, her hematoma appears to be expanding now extending down to her gluteus major and extended anteriorly to her anterior chest wall involving her pectoral muscle. Given her expansion of her hematoma and persistent decrease of her Hgb despite her transfusion, I did discuss with the patient the option of being transferred to a trauma center for possible surgical evacuations risk and benefit, after prolong discussion she elected to decline transfer and opt for DNR/DNI. Following my discussion with the patient, I did called our surgeon instruction dean Dr. Hidalgo and I discussed the case. She recommended to try interventional radiologist and see if they can embolize the source of the bleed. I called our radiologist department and our interventional radiologist is not available at this time. Therefore; I called [facility] and spoke to Dr. Mccann surgeon instruction dean and I discussed the case with him. He kindly accepted the patient to his service and in turn he will consult IR. I came back and presented that option to the patient (transfer for IR and not surgical exploration and evacuations), she expressed her wishes to remain at our facility and does not want to be transferred. She understood that it will be interventional but nonetheless she chose against transfer and wishes to remain and continue our conservative treatment. Therefore, I did order one more unit (4th unit) and will order CT Abdomen/Pelvis, Chest with contrast to assess her hematoma. She could not have them done now as she needs to be treated for her allergy first. The 13 hrs prednisone treatment protocol was ordered. Case signed out to the revenue officer on for this evening.
[2019-07-03 18:45] LABS: Hematocrit 18 % (35-47); Hemoglobin 6.2 g/dL (12.0-16.0); Mean Corpuscular HGB Conc 35 g/dL (31-36); Mean Corpuscular Hemoglobin 31 pg (27-31); Mean Corpuscular Volume 90 fL (80-97); Mean Platelet Volume 8.2 fL (7.4-10.4); Platelet Count 124 10^3/uL (150-450); Red Blood Count 1.97 10^6 /uL (3.70-4.87); Red Cell Distribution Width 17 % (10-15); White Blood Count 6.7 10^3/uL (3.5-10.8)
[2019-07-03 19:03] LABS: ABS Monocytes 0.9 10^3/ul (0-0.8); ABS Neutrophils 4.7 10^3/ul (1.5-7.7); Lymphocyte % 15.3 %; Nucleated Red Blood Cells % 0.1
[2019-07-03] MEDS ORDERED: predniSONE TAB* 50 MG PO ONE (20:00)
[2019-07-04] MEDS: Lidocaine Patch REMOVE* 1 NOTE MISC PATCH OFF SCH ×2 (00:03→21:45)
[2019-07-04] MEDS ORDERED: predniSONE TAB* 50 MG PO ONE ×2 (01:00→08:00)
[2019-07-04 03:21] LABS: ABS Lymphocytes 1.4 10^3/ul (1.0-4.8); ABS Neutrophils 3.9 10^3/ul (1.5-7.7); Eosinophil % 0.1 %; Hematocrit 19 % (35-47); Hemoglobin 6.9 g/dL (12.0-16.0); Lymphocyte % 21.8 %; Mean Corpuscular HGB Conc 36 g/dL (31-36); Mean Corpuscular Hemoglobin 33 pg (27-31); Mean Corpuscular Volume 92 fL (80-97); Mean Platelet Volume 8.1 fL (7.4-10.4); Nucleated Red Blood Cells % 0.2; Platelet Count 92 10^3/uL (150-450); Red Blood Count 2.09 10^6 /uL (3.70-4.87); Red Cell Distribution Width 17 % (10-15); White Blood Count 6.3 10^3/uL (3.5-10.8)
[2019-07-04 06:51] LABS: CO2 Carbon Dioxide 18 mmol/L (22-32); Calcium 7.8 mg/dL (8.6-10.3); Chloride 100 mmol/L (101-111); Sodium 126 mmol/L (135-145)
[2019-07-04 06:54] LABS: Anion Gap 8 mmol/L (2-11)
[2019-07-04 06:55] LABS: BUN/Creatinine Ratio 18.3 (8-20); Blood Urea Nitrogen 19 mg/dL (6-24); EGFR African American 61.9 (>60); EGFR Non-African American 51.1 (>60); Glucose 98 mg/dL (70-100); Phosphorus 3.1 mg/dL (2.5-5.0)
[2019-07-04] MEDS: Morphine 10 MG/ML VIAL (1 ml) IV PRN ×3 (07:09→21:59)
[2019-07-04] MEDS ORDERED: diPHENhydraMINE PO* 50 MG PO ONE (08:00)
[2019-07-04] MEDS: FLUoxetine CAP* 20 MG PO SCH (08:21)
[2019-07-04] MEDS: Pantoprazole TAB * 40 MG TAB PO SCH ×2 (08:21→21:45)
[2019-07-04] MEDS: Allopurinol TAB* 300 MG PO SCH (08:21)
[2019-07-04] MEDS: Oxybutynin XL TAB* 5 MG PO SCH (08:21)
[2019-07-04] MEDS: Lidocaine PATCH 5%* 1 PATCH TRANSDERM SCH (08:21)
[2019-07-04 09:56] LABS: Magnesium 1.8 mg/dL (1.9-2.7); Potassium Redraw 4.1 mmol/L (3.5-5.0)
[2019-07-04 09:58] LABS: Hematocrit 18 % (35-47); Hemoglobin 6.3 g/dL (12.0-16.0)
[2019-07-04] MEDS ORDERED: Furosemide IV* 10 MG/ML 2 ML VIAL (20 MG) IV ONE ×2 (10:14→21:00)
--- NOTE | 2019-07-04 11:48 | PN ---
Subjective Date of Service: 07/04/19 Interval History: patient seen today, she appears in good spirit. She reports improvement in her pain and discomfort. The morphine is helping. Her granddaughter in the room with her. The labs from this morning, her Hgb down to 6.3. Her hematoma re- examined and when compared to yesterday, the hematoma did extend slightly but it did slows in progression when compared to yesterday. No nausea or vomit and her pain is down to 6-7/10 down from 10/10 yesterday Past Medical History: Unchanged from Admission Objective Active Medications: Acetaminophen (Tylenol Tab*) 975 mg PO Q8H PRN PRN Reason: PAIN - MILD Last Admin: 07/03/19 03:52 Dose: 975 mg Allopurinol (Zyloprim Tab*) 300 mg PO DAILY [facility] Last Admin: 07/04/19 08:21 Dose: 300 mg Fluoxetine HCl (Prozac Cap*) 60 mg PO DAILY [facility] Last Admin: 07/04/19 08:21 Dose: 60 mg Lidocaine (Lidoderm 5% Patch*) 1 patch TRANSDERM DAILY [facility] Last Admin: 07/04/19 08:21 Dose: 1 patch Magnesium Hydroxide (Milk Of Magnesia Liq*) 30 ml PO Q4H PRN PRN Reason: CONSTIPATION Morphine Sulfate (Morphine 10 Mg/Ml Vial (1 Ml)) 6 mg IV Q3H PRN PRN Reason: .PAIN - MODERATE TO SEVERE Last Admin: 07/04/19 07:09 Dose: 6 mg Ondansetron HCl (Zofran Tab*) 4 mg PO Q4HR PRN PRN Reason: NAUSEA Last Admin: 07/02/19 23:23 Dose: 4 mg Oxybutynin Chloride (Ditropan Xl Tab*) 15 mg PO DAILY [facility] Last Admin: 07/04/19 08:21 Dose: 15 mg Oxycodone HCl (Roxycodone Tab*) 10 mg PO Q4H PRN PRN Reason: PAIN - SEVERE Pantoprazole Sodium (Protonix Tab*) 40 mg PO BID [facility] Last Admin: 07/04/19 08:21 Dose: 40 mg Pharmacy Profile Note (Lidocaine Patch Remove*) 1 note PATCH OFF 2100 [facility] Last Admin: 07/04/19 00:03 Dose: 1 note Senna (Senokot 8.6 Mg Tab*) 1 tab PO BEDTIME PRN PRN Reason: CONSTIPATION Vital Signs - 8 hr 07/04/19 07/04/19 07/04/19 07:09 07:32 08:00 Temperature 97.7 F Pulse Rate 78 Respiratory 20 20 20 Rate Blood Pressure 116/33 (mmHg) O2 Sat by Pulse 100 Oximetry Oxygen Devices in Use Now: Nasal Cannula Appearance: awake, alert, no acute distress Eyes: - - pale sclera, sclera edema Ears/Nose/Mouth/Throat: Mucous Membranes Moist Neck: Trachea Midline Respiratory: - - diminished breath sound bibasilar, no wheezing Cardiovascular: NL Sounds; No Murmurs; No JVD, - - +2 edema, left, +3 edema right. Abdominal: NL Sounds; No Tenderness; No Distention Extremities: - - +2 edema left, + 3 edema right Skin: No Rash or Ulcers Neurological: Alert and Oriented x 3 Result Diagrams: 07/04/19 09:25 07/04/19 09:25 Assess/Plan/Problems-Billing Assessment: 79 y/o female admitted for right side rib, upper and mid back pain associated with bruising with history of traumatic fall ~ 3 weeks ago found to have profound anemia with Hgb of 4.9 and Hct of 14 and upper and mid back hematoma, - Patient Problems (1) Acute blood loss anemia Current Visit: No Status: Acute Code(s): D62 - ACUTE POSTHEMORRHAGIC ANEMIA SNOMED Code(s): 252209304 Comment: - Secondary to hematoma bleed. no active or sign of GI bleed. - Monitor H/H. s/p 4 units pRBC and to get her 5 units today - Keep her GI prophylactic - Will give 2 units FFP - Discussed with [facility] and recommended to continue to keep Gleevec on hold (2) Hematoma of muscle Current Visit: Yes Status: Acute Code(s): T14.8XXA - OTHER INJURY OF UNSPECIFIED BODY REGION, INITIAL ENCOUNTER SNOMED Code(s): 182101475 Comment: - She does have significant hematoma in her trapezius and latissimus dorsi clinically and on CT but done without contrast. - On 07/03/19 evening her Hematoma did expand in comparison to 07/02/19 associated with pain and anemia. I discussed with surgery and recommend IR to embolize the vessel. Dr. Sousa was not available and he is out of town [facility] sunday07/08/19. I spoke to [facility] in [facility] and spoke to Dr. Mccann (trauma surgeon) and he kindly accepted the patient, however ; the patient declined transfer. She signed DNR/DNI and accepted supportive care only at this time and did not want intervention and or surgery. - I will continue with supportive treatment with transfusion, s/p 4 units will given 5th this morning and 2 units of FFP. Morphine prn for pain (3) CML (chronic myeloid leukemia) Current Visit: No Status: Acute Code(s): C92.10 - CHRONIC MYELOID LEUK, BCR/ ABL-POSITIVE, NOT ACHIEVE REMIS SNOMED Code(s): 58057271 Comment: - On Gleevec (held for now) and follow with hem/onc as outpatient - WBC and Plt normal value. Will d/c Gleevec now with the acute setting - She did have drop in her platelet but I PRESUME it is due to consumption given her bleed - Monitor closely. No anticoagulatioin of course in this acute setting of bleed and hematoma - I spoke to Janusz and she did review her chart and her CBC's and at this time no need to resume Gleevec as her CML been under good control. (4) Elevated troponin Current Visit: No Status: Acute Code(s): R74.8 - ABNORMAL LEVELS OF OTHER SERUM ENZYMES SNOMED Code(s): 920686862 Comment: - Chronically elevated at baseline but today it has reached the highest at 0.10 - It can be due to demand mediated given her anemia - Will continue with transfusion and follow up troponin until it peaks (peaked at 0.10) - She denies any active chest pain, and her EKG on admission Afib rate controlled with RBBB no changes when compared to 06/03/2019 (5) Hypertension Current Visit: Yes Status: Acute Code(s): I10 - ESSENTIAL (PRIMARY) HYPERTENSION SNOMED Code(s): 35865170 Comment: - BP soft now due to anemia - Will keep aldactone on hold but will resume lasix due to her transfusion and pleural effusion (6) Atrial fibrillation Current Visit: No Status: Acute Code(s): I48.91 - UNSPECIFIED ATRIAL FIBRILLATION SNOMED Code(s): 49210634 Comment: - Rate is controlled. - Anticoagulation on hold due history of RADHA bleed in the past and now of course due to her acute hematoma bleed (7) Chronic diastolic (congestive) heart failure Current Visit: No Status: Acute Code(s): I50.32 - CHRONIC DIASTOLIC ( CONGESTIVE) HEART FAILURE SNOMED Code(s): 273051688 Comment: - Stable. However, she is at risk of develloping acute exacerbations in the setting of trauma, transfusion and pleural effusion - I will resume Furosemide 20 mg IV now and resume po in am. (8) Depression Current Visit: No Status: Acute Code(s): F32.9 - MAJOR DEPRESSIVE DISORDER, SINGLE EPISODE, UNSPECIFIED SNOMED Code(s): 81498128 Comment: - Contiue her Prozac 60 mg (9) Ribs, multiple fractures Current Visit: No Status: Acute Code(s): S22.49XA - MULTIPLE FRACTURES OF RIBS, UNSP SIDE, INIT FOR CLOS FX SNOMED Code(s): 3422750 Comment: - hx of Fractured 5th, 7th, 8th, and 9th right ribs. - Incentive spirometry and PT as tolerated. (10) Pleural effusion Current Visit: Yes Status: Acute Code(s): J90 - PLEURAL EFFUSION, NOT ELSEWHERE CLASSIFIED SNOMED Code(s): 69432410 Comment: - moderate on the right side - Will resume lasix, incentive spirometer - will reassess daily if patient will benefit from thoracocentesis, not at this time sat 98% on room air - will monitor for fever and pneumoanie stigamta (11) DVT prophylaxis Current Visit: No Status: Acute Code(s): QRG6929 - SNOMED Code(s): 326489803 Comment: - Anticoagulation is contraindicated due to hx of GI bleed and her acute anemia - SCDs.
[2019-07-04] MEDS: Ondansetron TAB* 4 MG PO PRN (12:52)
[2019-07-04] MEDS: Al Hydrox/Mg Hydrox/Simet LIQ* 30 ML UDC PO PRN (18:05)
[2019-07-05] MEDS ORDERED: Furosemide IV* 10 MG/ML 2 ML VIAL (20 MG) IV ONE ×2 (00:45→09:46)
[2019-07-05] MEDS: Morphine 10 MG/ML VIAL (1 ml) IV PRN (01:04)
[2019-07-05 04:49] LABS: Urine Appearance Cloudy; Urine Bacteria Absent (Absent); Urine Bilirubin Negative (Negative); Urine Blood 1+ (Negative); Urine Color Yellow; Urine Glucose Negative (Negative); Urine Ketones Negative (Negative); Urine Nitrite Negative (Negative); Urine Protein Negative (Negative); Urine Red Blood Cell 1+(3-5/hpf) (Absent); Urine Specific Gravity 1.005 (1.010-1.030); Urine Urobilinogen Negative (Negative); Urine White Blood Cell Absent (Absent)
[2019-07-05] MEDS: Al Hydrox/Mg Hydrox/Simet LIQ* 30 ML UDC PO PRN (06:57)
[2019-07-05 08:17] LABS: ABS Lymphocytes 0.6 10^3/ul (1.0-4.8); ABS Monocytes 0.6 10^3/ul (0-0.8); ABS Neutrophils 3.3 10^3/ul (1.5-7.7); Activated Partial Thrombo Time 28.5 seconds (26.0-38.0); Eosinophil % 0.7 %; Hematocrit 19 % (35-47); Hemoglobin 6.8 g/dL (12.0-16.0); INR 1.06 (0.82-1.09); Lymphocyte % 12.7 %; Mean Corpuscular HGB Conc 36 g/dL (31-36); Mean Corpuscular Hemoglobin 32 pg (27-31); Mean Corpuscular Volume 91 fL (80-97); Mean Platelet Volume 7.5 fL (7.4-10.4); Nucleated Red Blood Cells % 0.1; Platelet Count 99 10^3/uL (150-450); Red Blood Count 2.12 10^6 /uL (3.70-4.87); Red Cell Distribution Width 18 % (10-15); White Blood Count 4.5 10^3/uL (3.5-10.8)
[2019-07-05 08:31] LABS: Calcium 8.3 mg/dL (8.6-10.3); Magnesium 1.7 mg/dL (1.9-2.7); Potassium 4.1 mmol/L (3.5-5.0)
[2019-07-05 08:37] LABS: BUN/Creatinine Ratio 18.7 (8-20); EGFR African American 72.2 (>60); EGFR Non-African American 59.6 (>60); Phosphorus 2.2 mg/dL (2.5-5.0)
[2019-07-05] MEDS ORDERED: Magnesium Sulfate 2 GM IV* 2 GM/50 ML BAG IVPB ONE (09:43)
[2019-07-05] MEDS: Oxybutynin XL TAB* 5 MG PO SCH (09:54)
--- NOTE | 2019-07-05 09:54 | PN ---
Subjective Date of Service: 07/05/19 Interval History: Patient seen today, doing well no fever or chills. She feels same as yesterday not any worse and not any better. her breathing is the same. She is out of bed to commode. Her skin exam reveals stable hematoma but slight migration of the ecchymosis outside the line. I believe it is ecchymosis but the hematoma stable. Past Medical History: Unchanged from Admission Objective Active Medications: Acetaminophen (Tylenol Tab*) 975 mg PO Q8H PRN PRN Reason: PAIN - MILD Last Admin: 07/03/19 03:52 Dose: 975 mg Al Hydrox/Mg Hydrox/Simethicone (Maalox Plus*) 30 ml PO Q6H PRN PRN Reason: INDIGESTION Last Admin: 07/05/19 06:57 Dose: 30 ml Allopurinol (Zyloprim Tab*) 300 mg PO DAILY [facility] Last Admin: 07/04/19 08:21 Dose: 300 mg Ferrous Sulfate (Feosol Liq*) 300 mg PO DAILY [facility] Fluoxetine HCl (Prozac Cap*) 60 mg PO DAILY [facility] Last Admin: 07/04/19 08:21 Dose: 60 mg Furosemide (Lasix Iv*) 20 mg IV ONCE ONE Stop: 07/05/19 09:47 Potassium Phosphate 15 mmole/ (Sodium Chloride) 255 mls @ 42 mls/hr IVPB ONCE ONE Stop: 07/05/19 15:47 Magnesium Sulfate (Magnesium Sulfate 2 Gm Iv*) 2 gm in 50 mls @ 50 mls/hr IVPB ONCE ONE Stop: 07/05/19 10:42 Lidocaine (Lidoderm 5% Patch*) 1 patch TRANSDERM DAILY [facility] Last Admin: 07/04/19 08:21 Dose: 1 patch Magnesium Hydroxide (Milk Of Magnesia Liq*) 30 ml PO Q4H PRN PRN Reason: CONSTIPATION Morphine Sulfate (Morphine 10 Mg/Ml Vial (1 Ml)) 6 mg IV Q3H PRN PRN Reason: .PAIN - MODERATE TO SEVERE Last Admin: 07/05/19 01:04 Dose: 6 mg Ondansetron HCl (Zofran Tab*) 4 mg PO Q4HR PRN PRN Reason: NAUSEA Last Admin: 07/04/19 12:52 Dose: 4 mg Oxybutynin Chloride (Ditropan Xl Tab*) 15 mg PO DAILY [facility] Last Admin: 07/04/19 08:21 Dose: 15 mg Oxycodone HCl (Roxycodone Tab*) 10 mg PO Q4H PRN PRN Reason: PAIN - SEVERE Pantoprazole Sodium (Protonix Tab*) 40 mg PO BID [facility] Last Admin: 07/04/19 21:45 Dose: 40 mg Pharmacy Profile Note (Lidocaine Patch Remove*) 1 note PATCH OFF 2100 [facility] Last Admin: 07/04/19 21:45 Dose: 1 note Senna (Senokot 8.6 Mg Tab*) 1 tab PO BEDTIME PRN PRN Reason: CONSTIPATION Last Admin: 07/04/19 21:45 Dose: 1 tab Vital Signs - 8 hr 07/05/19 07/05/19 02:04 04:00 Temperature 98.2 F Pulse Rate 79 Respiratory 20 24 Rate Blood Pressure 109/22 (mmHg) O2 Sat by Pulse 100 Oximetry Oxygen Devices in Use Now: Nasal Cannula Appearance: awake, alert. laying in bed, discourage and emotionally upset. very cooporative and pleasant Eyes: - - pale sclera. sclera edema Ears/Nose/Mouth/Throat: Mucous Membranes Moist Neck: NL Appearance and Movements; NL JVP, Trachea Midline Respiratory: - - awake, alert. no distress. Diminished BS and bilateral crackles Abdominal: NL Sounds; No Tenderness; No Distention Extremities: - - + Edema Neurological: Alert and Oriented x 3 Result Diagrams: 07/05/19 07:50 07/05/19 07:50 Assess/Plan/Problems-Billing Assessment: 79 y/o female admitted for right side rib, upper and mid back pain associated with bruising with history of traumatic fall ~ 3 weeks ago found to have profound anemia with Hgb of 4.9 and Hct of 14 and upper and mid back hematoma, - Patient Problems (1) Acute blood loss anemia Current Visit: No Status: Acute Code(s): D62 - ACUTE POSTHEMORRHAGIC ANEMIA SNOMED Code(s): 493088457 Comment: - Secondary to massive subcutaneous hematoma bleed. no active or sign of GI bleed. - Monitor H/H. s/p 5 units pRBC and two FFP - Keep her GI prophylactic - I Discussed with Janusz Hematology and recommended to continue to keep Gleevec on hold (2) Hematoma of muscle Current Visit: Yes Status: Acute Code(s): T14.8XXA - OTHER INJURY OF UNSPECIFIED BODY REGION, INITIAL ENCOUNTER SNOMED Code(s): 059261276 Comment: - She does have a massive subcutanous hematoma extending from her trapezius down to her latissimus dorsi, was stable and rebled 07/03 down into her gluteus muscle and wrapped anteriorly toward her pectoral muscle. - So far she has required 5 units RBCS adn 2 units FFP. . - On 07/03 I discussed with surgery (Dr. Hidalgo) and she recommend IR to embolize the vessel. Dr. Sousa was not available and as he is out of town until sunday07/08/19. I spoke to [facility] in [facility] and spoke to Dr. Mccann (trauma surgeon) and he kindly accepted the patient, however ; the patient declined transfer. She signed DNR/DNI and accepted supportive care only at this time and did not want intervention and or surgery,Her Daughter (HCP) was present during that discussion and supported her mother decision - I will continue with supportive treatment. Morphine prn for pain - Today 07/05/19 her hematoma seems to be stable on exam, but she is at high risk of rebleeding. Will continue to monitor CBC daily. Will hold on transfusion today (3) CML (chronic myeloid leukemia) Current Visit: No Status: Acute Code(s): C92.10 - CHRONIC MYELOID LEUK, BCR/ ABL-POSITIVE, NOT ACHIEVE REMIS SNOMED Code(s): 21852333 Comment: - On Gleevec (held for now) and follow with hem/onc as outpatient - WBC and Plt normal value. Will d/c Gleevec now with the acute setting - She did have drop in her platelet but I PRESUME it is due to consumption given her bleed - Monitor closely. No anticoagulatioin of course in this acute setting of bleed and hematoma - I spoke to Janusz and she did review her chart and her CBC's and at this time no need to resume Gleevec as her CML been under good control. (4) Elevated troponin Current Visit: No Status: Acute Code(s): R74.8 - ABNORMAL LEVELS OF OTHER SERUM ENZYMES SNOMED Code(s): 623903760 Comment: - Chronically elevated at baseline but today it has reached the highest at 0.10 - It can be due to demand mediated given her anemia - Will continue with transfusion and follow up troponin until it peaks (peaked at 0.10) - She denies any active chest pain, and her EKG on admission Afib rate controlled with RBBB no changes when compared to 06/03/2019 (5) Hypertension Current Visit: Yes Status: Acute Code(s): I10 - ESSENTIAL (PRIMARY) HYPERTENSION SNOMED Code(s): 02079888 Comment: - BP soft now due to anemia - Will keep aldactone on hold but will resume lasix due to her transfusion and pleural effusion (6) Atrial fibrillation Current Visit: No Status: Acute Code(s): I48.91 - UNSPECIFIED ATRIAL FIBRILLATION SNOMED Code(s): 33734890 Comment: - Rate is controlled. - Anticoagulation on hold due history of RADHA bleed in the past and now of course due to her acute hematoma bleed (7) Chronic diastolic (congestive) heart failure Current Visit: No Status: Acute Code(s): I50.32 - CHRONIC DIASTOLIC ( CONGESTIVE) HEART FAILURE SNOMED Code(s): 632233196 Comment: - Stable. However, she is at risk of develloping acute exacerbations in the setting of trauma, transfusion and pleural effusion - I will continue with Furosemide 20 mg IV daily prn while transfusion (8) Depression Current Visit: No Status: Acute Code(s): F32.9 - MAJOR DEPRESSIVE DISORDER, SINGLE EPISODE, UNSPECIFIED SNOMED Code(s): 80532844 Comment: - Contiue her Prozac 60 mg (9) Ribs, multiple fractures Current Visit: No Status: Acute Code(s): S22.49XA - MULTIPLE FRACTURES OF RIBS, UNSP SIDE, INIT FOR CLOS FX SNOMED Code(s): 3600684 Comment: - hx of Fractured 5th, 7th, 8th, and 9th right ribs. - Incentive spirometry and PT as tolerated. (10) Pleural effusion Current Visit: Yes Status: Acute Code(s): J90 - PLEURAL EFFUSION, NOT ELSEWHERE CLASSIFIED SNOMED Code(s): 35571620 Comment: - moderate on the right side - Will resume lasix, incentive spirometer - will reassess daily if patient will benefit from thoracocentesis, not at this time sat 98% on room air - will monitor for fever and pneumoanie stigamta (11) DVT prophylaxis Current Visit: No Status: Acute Code(s): YTQ1607 - SNOMED Code(s): 544136806 Comment: - Anticoagulation is contraindicated due to hx of GI bleed and her acute anemia - SCDs.
[2019-07-05] MEDS: Pantoprazole TAB * 40 MG TAB PO SCH ×2 (09:57→21:35)
[2019-07-05] MEDS: Allopurinol TAB* 300 MG PO SCH (09:57)
[2019-07-05] MEDS: FLUoxetine CAP* 20 MG PO SCH (09:57)
[2019-07-05] MEDS: Lidocaine PATCH 5%* 1 PATCH TRANSDERM SCH (10:32)
[2019-07-05] MEDS: Ferrous Sulfate LIQ* 300 MG/5 ML UDC PO SCH (10:37)
[2019-07-05] MEDS ORDERED: NS 0.9% 250 ML* 250 ML ONE (10:37)
[2019-07-05] MEDS ORDERED: Potassium Phosphate IV* 15 MMOLE in NS 0.9% 250 ML* 250 ML IVPB ONE (11:00)
[2019-07-05] MEDS: oxyCODONE TAB* 5 MG TAB PO PRN ×2 (12:35→21:36)
[2019-07-05] MEDS: Lidocaine Patch REMOVE* 1 NOTE MISC PATCH OFF SCH (21:38)
[2019-07-06 06:09] LABS: ABS Eosinophils 0.1 10^3/ul (0-0.6); ABS Lymphocytes 0.7 10^3/ul (1.0-4.8); ABS Monocytes 0.5 10^3/ul (0-0.8); Eosinophil % 1.8 %; Hematocrit 20 % (35-47); Hemoglobin 7.1 g/dL (12.0-16.0); Lymphocyte % 16.7 %; Mean Corpuscular HGB Conc 35 g/dL (31-36); Mean Corpuscular Hemoglobin 32 pg (27-31); Mean Corpuscular Volume 92 fL (80-97); Mean Platelet Volume 7.3 fL (7.4-10.4); Nucleated Red Blood Cells % 0.1; Platelet Count 116 10^3/uL (150-450); Red Blood Count 2.21 10^6 /uL (3.70-4.87); Red Cell Distribution Width 18 % (10-15); White Blood Count 4.3 10^3/uL (3.5-10.8)
[2019-07-06 06:23] LABS: BUN/Creatinine Ratio 19.2 (8-20); Calcium 8.2 mg/dL (8.6-10.3); EGFR African American 93.1 (>60); EGFR Non-African American 76.9 (>60); Magnesium 1.9 mg/dL (1.9-2.7); Phosphorus 2.3 mg/dL (2.5-5.0); Potassium 4.1 mmol/L (3.5-5.0)
[2019-07-06] MEDS: Oxybutynin XL TAB* 5 MG PO SCH (08:17)
[2019-07-06] MEDS: FLUoxetine CAP* 20 MG PO SCH (08:19)
[2019-07-06] MEDS: Pantoprazole TAB * 40 MG TAB PO SCH ×2 (08:20→20:25)
[2019-07-06] MEDS: Allopurinol TAB* 300 MG PO SCH (08:20)
[2019-07-06] MEDS: Lidocaine PATCH 5%* 1 PATCH TRANSDERM SCH (08:21)
[2019-07-06] MEDS: Ferrous Sulfate LIQ* 300 MG/5 ML UDC PO SCH ×2 (08:31→20:25)
--- NOTE | 2019-07-06 11:56 | PN ---
Subjective Date of Service: 07/06/19 Interval History: Patient seen today, denies any acute pain, appetite is better. NO active bleed. Past Medical History: Unchanged from Admission Objective Active Medications: Acetaminophen (Tylenol Tab*) 975 mg PO Q8H PRN PRN Reason: PAIN - MILD Last Admin: 07/03/19 03:52 Dose: 975 mg Al Hydrox/Mg Hydrox/Simethicone (Maalox Plus*) 30 ml PO Q6H PRN PRN Reason: INDIGESTION Last Admin: 07/05/19 06:57 Dose: 30 ml Allopurinol (Zyloprim Tab*) 300 mg PO DAILY [facility] Last Admin: 07/06/19 08:20 Dose: 300 mg Ferrous Sulfate (Feosol Liq*) 300 mg PO BID [facility] Fluoxetine HCl (Prozac Cap*) 60 mg PO DAILY [facility] Last Admin: 07/06/19 08:19 Dose: 60 mg Lidocaine (Lidoderm 5% Patch*) 1 patch TRANSDERM DAILY [facility] Last Admin: 07/06/19 08:21 Dose: 1 patch Magnesium Hydroxide (Milk Of Magnesia Liq*) 30 ml PO Q4H PRN PRN Reason: CONSTIPATION Morphine Sulfate (Morphine 10 Mg/Ml Vial (1 Ml)) 6 mg IV Q3H PRN PRN Reason: .PAIN - MODERATE TO SEVERE Last Admin: 07/05/19 01:04 Dose: 6 mg Ondansetron HCl (Zofran Tab*) 4 mg PO Q4HR PRN PRN Reason: NAUSEA Last Admin: 07/04/19 12:52 Dose: 4 mg Oxybutynin Chloride (Ditropan Xl Tab*) 15 mg PO DAILY [facility] Last Admin: 07/06/19 08:17 Dose: 15 mg Oxycodone HCl (Roxycodone Tab*) 10 mg PO Q4H PRN PRN Reason: PAIN - SEVERE Last Admin: 07/05/19 21:36 Dose: 10 mg Pantoprazole Sodium (Protonix Tab*) 40 mg PO BID [facility] Last Admin: 07/06/19 08:20 Dose: 40 mg Pharmacy Profile Note (Lidocaine Patch Remove*) 1 note PATCH OFF 2100 [facility] Last Admin: 07/05/19 21:38 Dose: 1 note Senna (Senokot 8.6 Mg Tab*) 1 tab PO BEDTIME PRN PRN Reason: CONSTIPATION Last Admin: 07/04/19 21:45 Dose: 1 tab Vital Signs - 8 hr 07/06/19 07/06/19 08:00 08:27 Temperature 98.9 F Pulse Rate 69 Respiratory 18 18 Rate Blood Pressure 123/35 (mmHg) O2 Sat by Pulse 99 Oximetry Oxygen Devices in Use Now: Nasal Cannula Appearance: awake, alert no distress. pale Eyes: No Scleral Icterus Ears/Nose/Mouth/Throat: Mucous Membranes Moist Neck: NL Appearance and Movements; NL JVP Respiratory: - - diminished BS at base Cardiovascular: RRR, - - + 2 edema Abdominal: NL Sounds; No Tenderness; No Distention Skin: - - hematoma extending down to her gluteus major and extended anteriorly to her anterior chest wall involving her pectoral muscle. Result Diagrams: 07/06/19 05:58 07/06/19 05:58 Assess/Plan/Problems-Billing Assessment: 79 y/o female admitted for right side rib, upper and mid back pain associated with bruising with history of traumatic fall ~ 3 weeks ago found to have profound anemia with Hgb of 4.9 and Hct of 14 and upper and mid back hematoma, - Patient Problems (1) Acute blood loss anemia Current Visit: No Status: Acute Code(s): D62 - ACUTE POSTHEMORRHAGIC ANEMIA SNOMED Code(s): 556983706 Comment: - Secondary to massive subcutaneous hematoma bleed. no active or sign of GI bleed. - Monitor H/H. s/p 5 units pRBC and two FFP - Keep her GI prophylactic - I Discussed with Janusz Hematology and recommended to continue to keep Gleevec on hold - Stable today. (2) Hematoma of muscle Current Visit: Yes Status: Acute Code(s): T14.8XXA - OTHER INJURY OF UNSPECIFIED BODY REGION, INITIAL ENCOUNTER SNOMED Code(s): 275017882 Comment: - She does have a massive subcutanous hematoma extending from her trapezius down to her latissimus dorsi, was stable and rebled 07/03 down into her gluteus muscle and wrapped anteriorly toward her pectoral muscle. - So far she has required 5 units RBCS adn 2 units FFP. . - On 07/03 I discussed with surgery (Dr. Hidalgo) and she recommend IR to embolize the vessel. Dr. Sousa was not available and as he is out of town until sunday07/08/19. I spoke to [facility] in [facility] and spoke to Dr. Mccann (trauma surgeon) and he kindly accepted the patient, however ; the patient declined transfer. She signed DNR/DNI and accepted supportive care only at this time and did not want intervention and or surgery,Her Daughter (HCP) was present during that discussion and supported her mother decision - I will continue with supportive treatment. Morphine prn for pain - her hematoma seems to be stable on exam, but she is at high risk of rebleeding. Will continue to monitor CBC daily. Will hold on transfusion today (3) CML (chronic myeloid leukemia) Current Visit: No Status: Acute Code(s): C92.10 - CHRONIC MYELOID LEUK, BCR/ ABL-POSITIVE, NOT ACHIEVE REMIS SNOMED Code(s): 10019903 Comment: - On Gleevec (held for now) and follow with hem/onc as outpatient - WBC and Plt normal value. Will d/c Gleevec now with the acute setting - She did have drop in her platelet but I PRESUME it is due to consumption given her bleed - Monitor closely. No anticoagulatioin of course in this acute setting of bleed and hematoma - I spoke to Janusz and she did review her chart and her CBC's and at this time no need to resume Gleevec as her CML been under good control. (4) Elevated troponin Current Visit: No Status: Acute Code(s): R74.8 - ABNORMAL LEVELS OF OTHER SERUM ENZYMES SNOMED Code(s): 924166089 Comment: - Chronically elevated at baseline but today it has reached the highest at 0.10 - It can be due to demand mediated given her anemia - Will continue with transfusion and follow up troponin until it peaks (peaked at 0.10) - She denies any active chest pain, and her EKG on admission Afib rate controlled with RBBB no changes when compared to 06/03/2019 (5) Hypertension Current Visit: Yes Status: Acute Code(s): I10 - ESSENTIAL (PRIMARY) HYPERTENSION SNOMED Code(s): 02268709 Comment: - BP soft now due to anemia - Will keep aldactone on hold but will resume lasix due to her transfusion and pleural effusion (6) Atrial fibrillation Current Visit: No Status: Acute Code(s): I48.91 - UNSPECIFIED ATRIAL FIBRILLATION SNOMED Code(s): 99466292 Comment: - Rate is controlled. - Anticoagulation on hold due history of UGI bleed in the past and now of course due to her acute hematoma bleed (7) Chronic diastolic (congestive) heart failure Current Visit: No Status: Acute Code(s): I50.32 - CHRONIC DIASTOLIC ( CONGESTIVE) HEART FAILURE SNOMED Code(s): 115680056 Comment: - Stable. However, she is at risk of develloping acute exacerbations in the setting of trauma, transfusion and pleural effusion - I will continue with Furosemide 20 mg IV daily prn while transfusion - Will place her on lasix 20 mg PO daily starting today (8) Depression Current Visit: No Status: Acute Code(s): F32.9 - MAJOR DEPRESSIVE DISORDER, SINGLE EPISODE, UNSPECIFIED SNOMED Code(s): 34366046 Comment: - Contiue her Prozac 60 mg (9) Ribs, multiple fractures Current Visit: No Status: Acute Code(s): S22.49XA - MULTIPLE FRACTURES OF RIBS, UNSP SIDE, INIT FOR CLOS FX SNOMED Code(s): 4654853 Comment: - hx of Fractured 5th, 7th, 8th, and 9th right ribs. - Incentive spirometry and PT as tolerated. (10) Pleural effusion Current Visit: Yes Status: Acute Code(s): J90 - PLEURAL EFFUSION, NOT ELSEWHERE CLASSIFIED SNOMED Code(s): 77561272 Comment: - moderate on the right side - Will resume lasix, incentive spirometer - will reassess daily if patient will benefit from thoracocentesis, not at this time sat 98% on room air - will monitor for fever and pneumoanie stigamta (11) DVT prophylaxis Current Visit: No Status: Acute Code(s): TVB4875 - SNOMED Code(s): 179230293 Comment: - Anticoagulation is contraindicated due to hx of GI bleed and her acute anemia - SCDs.
[2019-07-06] MEDS: Furosemide TAB* 20 MG PO SCH (13:20)
[2019-07-06] MEDS: Ondansetron TAB* 4 MG PO PRN (14:28)
[2019-07-06] MEDS: Morphine 10 MG/ML VIAL (1 ml) IV PRN (17:13)
[2019-07-06] MEDS: Al Hydrox/Mg Hydrox/Simet LIQ* 30 ML UDC PO PRN (17:14)
[2019-07-06] MEDS: Lidocaine Patch REMOVE* 1 NOTE MISC PATCH OFF SCH (20:46)
[2019-07-07] MEDS: Morphine 10 MG/ML VIAL (1 ml) IV PRN ×2 (03:18→08:32)
[2019-07-07] MEDS: Ferrous Sulfate LIQ* 300 MG/5 ML UDC PO SCH ×2 (08:35→22:57)
[2019-07-07] MEDS: Furosemide TAB* 20 MG PO SCH (08:36)
[2019-07-07] MEDS: Allopurinol TAB* 300 MG PO SCH (08:36)
[2019-07-07] MEDS: FLUoxetine CAP* 20 MG PO SCH (08:36)
[2019-07-07] MEDS: Oxybutynin XL TAB* 5 MG PO SCH (08:36)
[2019-07-07] MEDS: Pantoprazole TAB * 40 MG TAB PO SCH ×2 (08:36→22:57)
[2019-07-07] MEDS: Lidocaine PATCH 5%* 1 PATCH TRANSDERM SCH (08:36)
[2019-07-07] MEDS ORDERED: Furosemide IV* 10 MG/ML VIAL (40 MG) IV ONE (09:02)
[2019-07-07 12:11] LABS: ABS Eosinophils 0.1 10^3/ul (0-0.6); ABS Lymphocytes 0.6 10^3/ul (1.0-4.8); ABS Monocytes 0.6 10^3/ul (0-0.8); ABS Neutrophils 3.4 10^3/ul (1.5-7.7); Eosinophil % 1.4 %; Hematocrit 20 % (35-47); Lymphocyte % 13.7 %; Mean Corpuscular HGB Conc 34 g/dL (31-36); Mean Corpuscular Hemoglobin 33 pg (27-31); Mean Corpuscular Volume 95 fL (80-97); Mean Platelet Volume 7.6 fL (7.4-10.4); Nucleated Red Blood Cells % 0.1; Platelet Count 129 10^3/uL (150-450); Red Blood Count 2.14 10^6 /uL (3.70-4.87); Red Cell Distribution Width 18 % (10-15); White Blood Count 4.7 10^3/uL (3.5-10.8)
[2019-07-07 12:19] LABS: Calcium 8.2 mg/dL (8.6-10.3); Magnesium 1.7 mg/dL (1.9-2.7); Potassium 4.2 mmol/L (3.5-5.0)
[2019-07-07 12:25] LABS: BUN/Creatinine Ratio 16.2 (8-20); EGFR Non-African American 83.5 (>60)
[2019-07-07] MEDS: Al Hydrox/Mg Hydrox/Simet LIQ* 30 ML UDC PO PRN (12:26)
--- NOTE | 2019-07-07 12:27 | PN ---
Subjective Date of Service: 07/07/19 Interval History: Patient seen today complaining of shortness of breath, required oxygen. Improved with morphine for her pain and exam suggestive of fluid congestions. Lasix 40 mg IV one given. Past Medical History: Unchanged from Admission Objective Active Medications: Acetaminophen (Tylenol Tab*) 975 mg PO Q8H PRN PRN Reason: PAIN - MILD Last Admin: 07/03/19 03:52 Dose: 975 mg Al Hydrox/Mg Hydrox/Simethicone (Maalox Plus*) 30 ml PO Q6H PRN PRN Reason: INDIGESTION Last Admin: 07/06/19 17:14 Dose: 30 ml Allopurinol (Zyloprim Tab*) 300 mg PO DAILY [facility] Last Admin: 07/07/19 08:36 Dose: 300 mg Ferrous Sulfate (Feosol Liq*) 300 mg PO BID [facility] Last Admin: 07/07/19 08:35 Dose: 300 mg Fluoxetine HCl (Prozac Cap*) 60 mg PO DAILY [facility] Last Admin: 07/07/19 08:36 Dose: 60 mg Furosemide (Lasix Iv*) 40 mg IV DAILY [facility] Lidocaine (Lidoderm 5% Patch*) 1 patch TRANSDERM DAILY [facility] Last Admin: 07/07/19 08:36 Dose: 1 patch Magnesium Hydroxide (Milk Of Magnesia Liq*) 30 ml PO Q4H PRN PRN Reason: CONSTIPATION Morphine Sulfate (Morphine 10 Mg/Ml Vial (1 Ml)) 6 mg IV Q3H PRN PRN Reason: .PAIN - MODERATE TO SEVERE Last Admin: 07/07/19 08:32 Dose: 6 mg Ondansetron HCl (Zofran Inj*) 4 mg IV Q6H PRN PRN Reason: NAUSEA Oxybutynin Chloride (Ditropan Xl Tab*) 15 mg PO DAILY [facility] Last Admin: 07/07/19 08:36 Dose: 15 mg Oxycodone HCl (Roxycodone Tab*) 10 mg PO Q4H PRN PRN Reason: PAIN - SEVERE Last Admin: 07/05/19 21:36 Dose: 10 mg Pantoprazole Sodium (Protonix Tab*) 40 mg PO BID [facility] Last Admin: 07/07/19 08:36 Dose: 40 mg Pharmacy Profile Note (Lidocaine Patch Remove*) 1 note PATCH OFF 2100 [facility] Last Admin: 07/06/19 20:46 Dose: 1 note Senna (Senokot 8.6 Mg Tab*) 1 tab PO BEDTIME PRN PRN Reason: CONSTIPATION Last Admin: 07/04/19 21:45 Dose: 1 tab Vital Signs - 8 hr 07/07/19 07/07/19 07/07/19 08:00 08:32 09:47 Temperature 99.1 F Pulse Rate 78 Respiratory 26 20 18 Rate Blood Pressure 122/47 (mmHg) O2 Sat by Pulse 96 Oximetry 07/07/19 11:36 Temperature 98.2 F Pulse Rate 74 Respiratory 16 Rate Blood Pressure 122/34 (mmHg) O2 Sat by Pulse 100 Oximetry Oxygen Devices in Use Now: Nasal Cannula Appearance: awake, alert no fever. mild dyspneic Eyes: - - Pale, EOMI Ears/Nose/Mouth/Throat: Mucous Membranes Moist Neck: Trachea Midline - ecchymosis around right upper chest and neck with subcutaneous hematoma Cardiovascular: - - +2 edema Abdominal: NL Sounds; No Tenderness; No Distention, - - obese Extremities: - - + 2 edema Skin: - - hematoma extending down to her gluteus major and extended anteriorly to her anterior chest wall involving her pectoral muscle. Neurological: Alert and Oriented x 3 Result Diagrams: 07/07/19 11:52 07/07/19 11:52 Assess/Plan/Problems-Billing Assessment: 79 y/o female admitted for right side rib, upper and mid back pain associated with bruising with history of traumatic fall ~ 3 weeks ago found to have profound anemia with Hgb of 4.9 and Hct of 14 and upper and mid back hematoma, - Patient Problems (1) Chronic diastolic (congestive) heart failure Current Visit: No Status: Acute Code(s): I50.32 - CHRONIC DIASTOLIC ( CONGESTIVE) HEART FAILURE SNOMED Code(s): 105614603 Comment: - Stable. However, she is at risk of develloping acute exacerbations in the setting of trauma, transfusion and pleural effusion - I will continue with Furosemide 40 mg IV daily readdress daily as needed. Given one today 07/07/19 (2) Acute blood loss anemia Current Visit: No Status: Acute Code(s): D62 - ACUTE POSTHEMORRHAGIC ANEMIA SNOMED Code(s): 813520152 Comment: - Secondary to massive subcutaneous hematoma bleed. no active or sign of GI bleed. - Monitor H/H stable at 7/20. s/p 5 units pRBC and two FFP - Keep her GI prophylactic - I Discussed with Janusz Hematology and recommended to keep Gleevec on hold (3) Hematoma of muscle Current Visit: Yes Status: Acute Code(s): T14.8XXA - OTHER INJURY OF UNSPECIFIED BODY REGION, INITIAL ENCOUNTER SNOMED Code(s): 440050598 Comment: - She does have a massive subcutanous hematoma extending from her trapezius down to her latissimus dorsi, was stable and rebled 07/03 down into her gluteus muscle and wrapped anteriorly toward her pectoral muscle. - So far she has required 5 units RBCS adn 2 units FFP. . - On 07/03 I discussed with surgery (Dr. Hidalgo) and she recommend IR to embolize the vessel. Dr. Sousa was not available and as he is out of town until sunday07/08/19. I spoke to [facility] in [facility] and spoke to Dr. Mccann (trauma surgeon) and he kindly accepted the patient, however ; the patient declined transfer. She signed DNR/DNI and accepted supportive care only at this time and did not want intervention and or surgery,Her Daughter (HCP) was present during that discussion and supported her mother decision - I will continue with supportive treatment. Morphine prn for pain - her hematoma seems to be stable on exam, but she is at high risk of rebleeding. Will continue to monitor CBC daily. (4) CML (chronic myeloid leukemia) Current Visit: No Status: Acute Code(s): C92.10 - CHRONIC MYELOID LEUK, BCR/ ABL-POSITIVE, NOT ACHIEVE REMIS SNOMED Code(s): 05190242 Comment: - On Gleevec (held for now) and follow with hem/onc as outpatient - WBC and Plt normal value. Will d/c Gleevec now with the acute setting - She did have drop in her platelet but I PRESUME it is due to consumption given her bleed - Monitor closely. No anticoagulation of course in this acute setting of bleed and hematoma - I spoke to Janusz and she did review her chart and her CBC's and at this time no need to resume Gleevec as her CML been under good control. (5) Elevated troponin Current Visit: No Status: Acute Code(s): R74.8 - ABNORMAL LEVELS OF OTHER SERUM ENZYMES SNOMED Code(s): 699417239 Comment: - Chronically elevated at baseline but today it has reached the highest at 0.10 - It can be due to demand mediated given her anemia - Will continue with transfusion and follow up troponin until it peaks (peaked at 0.10) - She denies any active chest pain, and her EKG on admission Afib rate controlled with RBBB no changes when compared to 06/03/2019 (6) Hypertension Current Visit: Yes Status: Acute Code(s): I10 - ESSENTIAL (PRIMARY) HYPERTENSION SNOMED Code(s): 20573078 Comment: - BP soft now due to anemia - Will keep aldactone on hold but will resume lasix due to her transfusion and pleural effusion (7) Atrial fibrillation Current Visit: No Status: Acute Code(s): I48.91 - UNSPECIFIED ATRIAL FIBRILLATION SNOMED Code(s): 03283069 Comment: - Rate is controlled. - Anticoagulation on hold due history of UGI bleed in the past and now of course due to her acute hematoma bleed (8) Depression Current Visit: No Status: Acute Code(s): F32.9 - MAJOR DEPRESSIVE DISORDER, SINGLE EPISODE, UNSPECIFIED SNOMED Code(s): 60134866 Comment: - Contiue her Prozac 60 mg (9) Ribs, multiple fractures Current Visit: No Status: Acute Code(s): S22.49XA - MULTIPLE FRACTURES OF RIBS, UNSP SIDE, INIT FOR CLOS FX SNOMED Code(s): 6701539 Comment: - hx of Fractured 5th, 7th, 8th, and 9th right ribs. - Incentive spirometry and PT as tolerated. (10) Pleural effusion Current Visit: Yes Status: Acute Code(s): J90 - PLEURAL EFFUSION, NOT ELSEWHERE CLASSIFIED SNOMED Code(s): 99438745 Comment: - moderate on the right side - Will resume lasix, incentive spirometer - will reassess daily if patient will benefit from thoracocentesis, not at this time sat 98% on room air - will monitor for fever and pneumoanie stigamta (11) DVT prophylaxis Current Visit: No Status: Acute Code(s): QCC7573 - SNOMED Code(s): 701202572 Comment: - Anticoagulation is contraindicated due to hx of GI bleed and her acute anemia - SCDs. - Given her Edema, US leg negative for DVT
[2019-07-07] MEDS: Magnesium Oxide TAB* 400 MG PO SCH ×2 (14:02→22:56)
[2019-07-07] MEDS: Potassium & Sodium Phos 250MG* = 1 PACKET PO SCH ×2 (14:02→22:57)
[2019-07-07] MEDS: Ondansetron INJ* 2 MG/ML VIAL IV PRN ×2 (17:22→23:08)
[2019-07-07] MEDS: Lidocaine Patch REMOVE* 1 NOTE MISC PATCH OFF SCH (22:57)
[2019-07-07] MEDS: oxyCODONE TAB* 5 MG TAB PO PRN (23:08)
--- NOTE | 2019-07-08 08:42 | PN ---
Subjective Date of Service: 07/08/19 Interval History: HOSPITALIST PROGRESS NOTE Patient seen and examined at bedside. Care reviewed and d/w Johanna Ramirez RN. She offers no new complaints today. Pain is controlled, denies dyspnea, able to sleep last night. She was surprised when I mentioned the conversation about transfer to [facility] yesterday. She doesn't think she understood what was being offered. I reassured her she doesn't need to be transferred at this point, as her H/H is stable. Family History: Unchanged from Admission Social History: Unchanged from Admission Past Medical History: Unchanged from Admission Objective Active Medications: Acetaminophen (Tylenol Tab*) 975 mg PO Q8H PRN PRN Reason: PAIN - MILD Last Admin: 07/03/19 03:52 Dose: 975 mg Al Hydrox/Mg Hydrox/Simethicone (Maalox Plus*) 30 ml PO Q6H PRN PRN Reason: INDIGESTION Last Admin: 07/07/19 12:26 Dose: 30 ml Allopurinol (Zyloprim Tab*) 300 mg PO DAILY [facility] Last Admin: 07/07/19 08:36 Dose: 300 mg Ferrous Sulfate (Feosol Liq*) 300 mg PO BID [facility] Last Admin: 07/07/19 22:57 Dose: 300 mg Fluoxetine HCl (Prozac Cap*) 60 mg PO DAILY [facility] Last Admin: 07/07/19 08:36 Dose: 60 mg Furosemide (Lasix Iv*) 40 mg IV DAILY [facility] Lidocaine (Lidoderm 5% Patch*) 1 patch TRANSDERM DAILY [facility] Last Admin: 07/07/19 08:36 Dose: 1 patch Magnesium Hydroxide (Milk Of Magnesia Liq*) 30 ml PO Q4H PRN PRN Reason: CONSTIPATION Magnesium Oxide (Magox 400 Tab*) 800 mg PO BID [facility] Last Admin: 07/07/19 22:56 Dose: 800 mg Morphine Sulfate (Morphine 10 Mg/Ml Vial (1 Ml)) 6 mg IV Q3H PRN PRN Reason: .PAIN - MODERATE TO SEVERE Last Admin: 07/07/19 08:32 Dose: 6 mg Ondansetron HCl (Zofran Inj*) 4 mg IV Q6H PRN PRN Reason: NAUSEA Last Admin: 07/07/19 23:08 Dose: 4 mg Oxybutynin Chloride (Ditropan Xl Tab*) 15 mg PO DAILY [facility] Last Admin: 07/07/19 08:36 Dose: 15 mg Oxycodone HCl (Roxycodone Tab*) 10 mg PO Q4H PRN PRN Reason: PAIN - SEVERE Last Admin: 07/07/19 23:08 Dose: 10 mg Pantoprazole Sodium (Protonix Tab*) 40 mg PO BID [facility] Last Admin: 07/07/19 22:57 Dose: 40 mg Pharmacy Profile Note (Lidocaine Patch Remove*) 1 note PATCH OFF 2100 [facility] Last Admin: 07/07/19 22:57 Dose: 1 note Potassium Phos/Sodium Phos (Neutra Phos 250 Mg Librado*) 250 mg PO TID [facility] Last Admin: 07/07/19 22:57 Dose: 250 mg Senna (Senokot 8.6 Mg Tab*) 1 tab PO BEDTIME PRN PRN Reason: CONSTIPATION Last Admin: 07/04/19 21:45 Dose: 1 tab Vital Signs - 8 hr 07/08/19 07/08/19 01:10 04:00 Temperature 98.0 F Pulse Rate 72 Respiratory 20 18 Rate Blood Pressure 125/43 (mmHg) O2 Sat by Pulse 98 Oximetry Oxygen Devices in Use Now: Nasal Cannula Appearance: Pale, elderly obese lady lying in bed in [facility]. Eyes: No Scleral Icterus Ears/Nose/Mouth/Throat: Mucous Membranes Moist - and pale Neck: Trachea Midline Respiratory: Symmetrical Chest Expansion and Respiratory Effort, - - BS+ bilaterally, diminished in bases Cardiovascular: - - Normal S1 and S2, irregular Abdominal: NL Sounds; No Tenderness; No Distention Skin: - - Hematoma from right chest wall down to gluteal area Neurological: Alert and Oriented x 3, NL Muscle Strength and Tone Result Diagrams: 07/08/19 09:35 07/08/19 09:34 Assess/Plan/Problems-Billing Assessment: Mrs King is a 79 yo F with PMH of CML on Gleevec, HTN, gout, HLD, BRANDY (on CPAP and O2 at night), COPD (on 5L O2 at home), GERD, sarcoidosis, Afib ( Eliquis stopped in February 2018 due to GI bleed), breast CA, who was admitted in May 2019 after a mechanical fall with multiple rib fractures. Returned to ED with c/o right side rib, upper and mid back pain associated with bruising, found to have profound anemia with Hgb of 4.9 and Hct of 14 and upper and mid back hematoma. - Patient Problems (1) Hematoma of muscle Comment: - Suspect secondary to Gleevec - on hold. - Has hematoma extending from her trapezius down to her latissimus dorsi that was stable and rebled 07/03 down into her gluteus muscle and wrapped anteriorly toward her pectoral muscle. - Received 5 units PRBCs and 2 units FFP so far this admission and her H/H has been stable over the past 24h. - As per Dr Lutz, plan was to transfer patient to [facility], but patient declined transfer. She signed DNR/DNI and accepted supportive care only at this time and did not want intervention and or surgery,Her Daughter (HCP) was present during that discussion and supported her mother decision. - At this point, we have Interventional Radiology available and her H/H is stable, so transfer is no longer necessary. - Continue with supportive treatment and pain management. (2) Acute blood loss anemia Comment: - Secondary to significant hematoma, no active signs of GI bleed. - S/p 5 units PRBC and 2 FFP. (3) Chronic diastolic (congestive) heart failure Comment: - Stable. However, she is at risk of develloping acute exacerbations in the setting of trauma, transfusion and pleural effusion. - Continue Furosemide 40 mg IV daily readdress daily as needed. (4) CML (chronic myeloid leukemia) Comment: - Gleevec on hold. - Continue to monitor counts. (5) Elevated troponin Comment: - Likely demand ischemia in the setting of severe anemia. (6) Atrial fibrillation Comment: - Rate is controlled. - Anticoagulation on hold due history of UGI bleed and now hematoma. (7) Depression Comment: - Contiue Fluoxetine. (8) Ribs, multiple fractures Comment: - hx of Fractured 5th, 7th, 8th, and 9th right ribs. - Incentive spirometry and PT as tolerated. (9) DVT prophylaxis Comment: - Anticoagulation is contraindicated due to hx of GI bleed and her acute anemia - SCDs.
[2019-07-08] MEDS: Pantoprazole TAB * 40 MG TAB PO SCH ×2 (08:54→20:39)
[2019-07-08] MEDS: Allopurinol TAB* 300 MG PO SCH (08:54)
[2019-07-08] MEDS: Magnesium Oxide TAB* 400 MG PO SCH ×2 (08:54→20:39)
[2019-07-08] MEDS: FLUoxetine CAP* 20 MG PO SCH (08:54)
[2019-07-08] MEDS: Oxybutynin XL TAB* 5 MG PO SCH (08:55)
[2019-07-08] MEDS: Lidocaine PATCH 5%* 1 PATCH TRANSDERM SCH (08:55)
[2019-07-08] MEDS: Ferrous Sulfate LIQ* 300 MG/5 ML UDC PO SCH ×2 (08:55→20:39)
[2019-07-08] MEDS: Potassium & Sodium Phos 250MG* = 1 PACKET PO SCH ×3 (08:55→20:39)
[2019-07-08] MEDS: Furosemide IV* 10 MG/ML VIAL (40 MG) IV SCH (08:55)
[2019-07-08 09:45] LABS: ABS Eosinophils 0.1 10^3/ul (0-0.6); ABS Lymphocytes 0.7 10^3/ul (1.0-4.8); ABS Monocytes 0.5 10^3/ul (0-0.8); ABS Neutrophils 4.6 10^3/ul (1.5-7.7); Eosinophil % 1.7 %; Hematocrit 24 % (35-47); Lymphocyte % 11.5 %; Mean Corpuscular HGB Conc 34 g/dL (31-36); Mean Corpuscular Hemoglobin 32 pg (27-31); Mean Corpuscular Volume 96 fL (80-97); Mean Platelet Volume 7.4 fL (7.4-10.4); Nucleated Red Blood Cells % 0.1; Platelet Count 154 10^3/uL (150-450); Red Blood Count 2.48 10^6 /uL (3.70-4.87); Red Cell Distribution Width 19 % (10-15); White Blood Count 5.9 10^3/uL (3.5-10.8)
[2019-07-08] MEDS: Morphine 10 MG/ML VIAL (1 ml) IV PRN (09:55)
[2019-07-08 10:06] LABS: BUN/Creatinine Ratio 13.8 (8-20); Calcium 8.7 mg/dL (8.6-10.3); EGFR African American 106.4 (>60); EGFR Non-African American 87.9 (>60); Magnesium 1.7 mg/dL (1.9-2.7); Phosphorus 2.1 mg/dL (2.5-5.0); Potassium 4.1 mmol/L (3.5-5.0)
[2019-07-08] MEDS ORDERED: Magnesium Sulfate 2 GM IV* 2 GM/50 ML BAG IVPB ONE (13:06)
--- NOTE | 2019-07-08 15:38 | CONSULT ---
Subjective Date of Service: 07/08/19 Interval History: Ms. King is a 79 yo female with PMH significant for CML, chronic GI bleed, HTN, GOUT, A fib, GERD, and BRANDY; who presented to the hospital with complains of right sided rib pain. She was admitted for elevated troponin, GI bleed, and right rib pain. She presented to the hospital with multiple areas of ecchymosis and a wound to the right leg. Patient seen and examined at bedside. Family History: Unchanged from Admission Social History: Unchanged from Admission Past Medical History: Unchanged from Admission Review of Systems - Measurements Intake and Output: Intake and Output Last 24 Hours 07/06/19 07/07/19 07/08/19 07/09/19 06:59 06:59 06:59 06:59 Intake Total 200 360 350 600 Output Total 580 621 8437 1350 Balance -350 -290 -725 -750 Weight 169 lb 11.2 oz Intake: Oral 200 360 350 600 Output: [place] 116 264 4830 1350 Other: # Bowel Movements 1 1 1 Estimated Stool Amount Small Small Medium Medium - Review of Systems Constitutional Symptoms: Negative: Fever, Other - Chills Dermatology: Positive: Other - Open area to buttocks and right leg Objective Active Medications: Acetaminophen (Tylenol Tab*) 975 mg PO Q8H PRN Reason: PAIN - MILD Al Hydrox/Mg Hydrox/Simethicone (Maalox Plus*) 30 ml PO Q6H PRN Reason: INDIGESTION Allopurinol (Zyloprim Tab*) 300 mg PO DAILY [facility] Ferrous Sulfate (Feosol Liq*) 300 mg PO BID [facility] Fluoxetine HCl (Prozac Cap*) 60 mg PO DAILY [facility] Furosemide (Lasix Iv*) 40 mg IV DAILY [facility] Lidocaine (Lidoderm 5% Patch*) 1 patch TRANSDERM DAILY [facility] Magnesium Hydroxide (Milk Of Magnesia Liq*) 30 ml PO Q4H PRN Reason: CONSTIPATION Magnesium Oxide (Magox 400 Tab*) 800 mg PO BID [facility] Morphine Sulfate (Morphine 10 Mg/Ml Vial (1 Ml)) 6 mg IV Q3H PRN Reason: .PAIN - MODERATE TO SEVERE Ondansetron HCl (Zofran Inj*) 4 mg IV Q6H PRN Reason: NAUSEA Oxybutynin Chloride (Ditropan Xl Tab*) 15 mg PO DAILY [facility] Oxycodone HCl (Roxycodone Tab*) 10 mg PO Q4H PRN Reason: PAIN - SEVERE Pantoprazole Sodium (Protonix Tab*) 40 mg PO BID [facility] Pharmacy Profile Note (Lidocaine Patch Remove*) 1 note PATCH OFF 2100 [facility] Potassium Phos/Sodium Phos (Neutra Phos 250 Mg Librado*) 250 mg PO TID [facility] Senna (Senokot 8.6 Mg Tab*) 1 tab PO BEDTIME PRN Reason: CONSTIPATION Vital Signs - 8 hr 07/08/19 07/08/19 07/08/19 08:00 09:55 13:10 Respiratory Rate Oxygen Devices in Use Now: Nasal Cannula Appearance: NAD, sitting up in a chair Ears/Nose/Mouth/Throat: Mucous Membranes Moist Respiratory: Symmetrical Chest Expansion and Respiratory Effort Skin: - - See skin note below. Multiple areas of ecchymosis, including right flank and upper back Neurological: Alert and Oriented x 3 Nutrition: Taking PO's Result Diagrams: 07/15/19 14:10 07/15/19 14:10 Additional Lab and Data: Above labs were pulled into the note when edited prior to signing the note, please see below for labs from the day of consultation. Laboratory Tests 07/02/19 07/08/19 07/08/19 20:11 09:34 09:35 WBC 5.9 Hgb 8.0 L Hct 24 L Plt Count 154 Sodium 127 L Potassium 4.1 Chloride 95 L Carbon Dioxide 29 BUN 9 Creatinine 0.65 Glucose 130 H Total Protein 5.1 L Albumin 3.1 L Skin Deviation Note - Skin Deviation Findings Right lower leg - Superficial open area, measures 1 cm x 0.8 cm x 0.1 cm. The wound base is pink granulation tissue, with a small area of yellow slough. The surrounding skin is intact. There is no drainage. Left buttock - There is a wound, measures 1 cm x 1.5 cm x 0.1 cm . The wound base is yellow slough. The surrounding skin is dark erythema, slightly blanchable. The area of dark erythema measures 6 cm x 5 cm. The remainder of the area is intact. Wound Problem/Plan Assessment: Ms. King is a 79 yo female with PMH significant for CML, chronic GI bleed, HTN, GOUT, A fib, GERD, and BRANDY; who presented to the hospital with complains of right sided rib pain. She was admitted for elevated troponin, GI bleed, and right rib pain. She presented to the hospital with an open area to the right lower leg. 1. Unstageable pressure injury to left buttock. Recommend applying barrier cream to the area as needed. Consider using a small amount of Santyl on the area of eschar if this doesn't resolve in a few days. Frequent turning and repositioning. Consider checking a prealbumin level to assess nutritional status. She can be referred to the wound clinic at discharge for continued wound care. 2. Abrasion to the right lateral LE. Recommend applying a small amount of ABX ointment and bandaid, change daily. 3. Diet. Regular diet 4. Code Status. DNR. 5. Disposition. Inpatient, disposition per primary medicine team. Is Patient a Wound Clinic Patient: No Counseling and/or Coordination of Care Minutes: 35 Points of Discussion: TIME SPENT: Time for this wound consultation was 35 minutes and 25 minutes was spent with the patient discussing past medical history; removing old dressing; assessing, measuring, and photographing the wounds; reapplying dressings. Attending: Julieta Gold
[2019-07-08] MEDS: oxyCODONE TAB* 5 MG TAB PO PRN (18:44)
--- NOTE | 2019-07-08 19:35 | PN ---
Hospitalist Progress Note Date of Service: 07/08/19 While I was covering ER admissions today, I was paged by nursing staff to attend to patient and daughter in the room as they were getting upset regarding "the transfer not happening today"! and wanting an explanation. I was little confused on what has happened to cause the confusion. After ensuring the patient has been stable in the ER, I excused myself and attended to the patient on [address] room 438. I was able to connect to the daughter Cathleen on the phone. I explained to them that there was no transfer planned for today or yesterday, and I am not sure why they were expecting to be transferred. I explained again that on 07/03/19 it was urgent for the patient to be transferred as I was not sure if the bleed will stop. Due to the fact we did not have IR that day, I arranged for the transfer, and accepting physician. However; the patient has declined the transfer and asked me to treat her pain and supportive care. Cathleen, the daughter did confirm that again today over the phone. Also please refer to nursing note from 07/03/19 documented by Jaime. I reassured the patient and family again today, that her hematoma seems to have stabilized and does she not require transfer. Also, we do have IR as of today in the event she does require intervention. But at this time she does not require transfer nor interventions. After discussing with the nurse, it was brought to my attention that there was miscommunication between nurses which may have led to this confusion. I did address the confusion with patient, family and nurse staff. Also, before leaving the room the patient was asked again if we were to face the same situations again (hematoma/rebleed and if we were not to have IR in our facility) what would you want us to do, her answer was "I don't want to ..." She would like to be transferred. At this time, the patient H/H stable on its own, no sign of bleed and there is no bleed neither intervention nor transfer. Please refer to Dr Piña's note from earlier today
[2019-07-08] MEDS: Lidocaine Patch REMOVE* 1 NOTE MISC PATCH OFF SCH (20:39)
[2019-07-09] MEDS: oxyCODONE TAB* 5 MG TAB PO PRN ×4 (00:33→22:32)
[2019-07-09 05:26] LABS: ABS Eosinophils 0.1 10^3/ul (0-0.6); ABS Lymphocytes 0.7 10^3/ul (1.0-4.8); ABS Monocytes 0.7 10^3/ul (0-0.8); ABS Neutrophils 3.6 10^3/ul (1.5-7.7); Eosinophil % 2.4 %; Hematocrit 21 % (35-47); Lymphocyte % 14.5 %; Mean Corpuscular HGB Conc 33 g/dL (31-36); Mean Corpuscular Hemoglobin 32 pg (27-31); Mean Corpuscular Volume 96 fL (80-97); Mean Platelet Volume 7.8 fL (7.4-10.4); Nucleated Red Blood Cells % 0.1; Platelet Count 140 10^3/uL (150-450); Red Blood Count 2.21 10^6 /uL (3.70-4.87); Red Cell Distribution Width 19 % (10-15); White Blood Count 5.1 10^3/uL (3.5-10.8)
[2019-07-09 05:42] LABS: BUN/Creatinine Ratio 15.3 (8-20); Calcium 8.2 mg/dL (8.6-10.3); EGFR Non-African American 98.3 (>60); Potassium 4.1 mmol/L (3.5-5.0)
[2019-07-09] MEDS: Ondansetron INJ* 2 MG/ML VIAL IV PRN ×2 (09:06→22:30)
[2019-07-09] MEDS: Furosemide IV* 10 MG/ML VIAL (40 MG) IV SCH (09:09)
[2019-07-09] MEDS: Oxybutynin XL TAB* 5 MG PO SCH (09:14)
[2019-07-09] MEDS: FLUoxetine CAP* 20 MG PO SCH (09:14)
[2019-07-09] MEDS: Pantoprazole TAB * 40 MG TAB PO SCH ×2 (09:16→22:33)
[2019-07-09] MEDS: Potassium & Sodium Phos 250MG* = 1 PACKET PO SCH ×3 (09:16→22:31)
[2019-07-09] MEDS: Ferrous Sulfate LIQ* 300 MG/5 ML UDC PO SCH ×2 (09:16→22:33)
[2019-07-09] MEDS: Magnesium Oxide TAB* 400 MG PO SCH ×2 (09:17→22:33)
[2019-07-09] MEDS: Allopurinol TAB* 300 MG PO SCH (09:17)
[2019-07-09] MEDS: Al Hydrox/Mg Hydrox/Simet LIQ* 30 ML UDC PO PRN (09:48)
[2019-07-09] MEDS: Lidocaine PATCH 5%* 1 PATCH TRANSDERM SCH (09:49)
--- NOTE | 2019-07-09 16:33 | PN ---
Subjective Date of Service: 07/09/19 Interval History: C/o thigh pain R but able to bear weight.Otherwise no complaints Family History: Unchanged from Admission Social History: Unchanged from Admission Past Medical History: Unchanged from Admission Objective Active Medications: Acetaminophen (Tylenol Tab*) 975 mg PO Q8H PRN PRN Reason: PAIN - MILD Last Admin: 07/03/19 03:52 Dose: 975 mg Al Hydrox/Mg Hydrox/Simethicone (Maalox Plus*) 30 ml PO Q6H PRN PRN Reason: INDIGESTION Last Admin: 07/09/19 09:48 Dose: 30 ml Allopurinol (Zyloprim Tab*) 300 mg PO DAILY [facility] Last Admin: 07/09/19 09:17 Dose: 300 mg Ferrous Sulfate (Feosol Liq*) 300 mg PO BID [facility] Last Admin: 07/09/19 09:16 Dose: 300 mg Fluoxetine HCl (Prozac Cap*) 60 mg PO DAILY [facility] Last Admin: 07/09/19 09:14 Dose: 60 mg Furosemide (Lasix Iv*) 40 mg IV DAILY [facility] Last Admin: 07/09/19 09:09 Dose: 40 mg Lidocaine (Lidoderm 5% Patch*) 1 patch TRANSDERM DAILY [facility] Last Admin: 07/09/19 09:49 Dose: 1 patch Magnesium Hydroxide (Milk Of Magnesia Liq*) 30 ml PO Q4H PRN PRN Reason: CONSTIPATION Magnesium Oxide (Magox 400 Tab*) 800 mg PO BID [facility] Last Admin: 07/09/19 09:17 Dose: 800 mg Morphine Sulfate (Morphine 10 Mg/Ml Vial (1 Ml)) 6 mg IV Q3H PRN PRN Reason: .PAIN - MODERATE TO SEVERE Last Admin: 07/08/19 09:55 Dose: 6 mg Ondansetron HCl (Zofran Inj*) 4 mg IV Q6H PRN PRN Reason: NAUSEA Last Admin: 07/09/19 09:06 Dose: 4 mg Oxybutynin Chloride (Ditropan Xl Tab*) 15 mg PO DAILY [facility] Last Admin: 07/09/19 09:14 Dose: 15 mg Oxycodone HCl (Roxycodone Tab*) 10 mg PO Q4H PRN PRN Reason: PAIN - SEVERE Last Admin: 07/09/19 09:48 Dose: 10 mg Pantoprazole Sodium (Protonix Tab*) 40 mg PO BID [facility] Last Admin: 07/09/19 09:16 Dose: 40 mg Pharmacy Profile Note (Lidocaine Patch Remove*) 1 note PATCH OFF 2100 [facility] Last Admin: 07/08/19 20:39 Dose: 1 note Potassium Phos/Sodium Phos (Neutra Phos 250 Mg Librado*) 250 mg PO TID [facility] Last Admin: 07/09/19 14:30 Dose: 250 mg Senna (Senokot 8.6 Mg Tab*) 1 tab PO BEDTIME PRN PRN Reason: CONSTIPATION Last Admin: 07/04/19 21:45 Dose: 1 tab Vital Signs - 8 hr 07/09/19 07/09/19 09:48 11:43 Temperature 98.9 F Pulse Rate 65 Respiratory 18 14 Rate Blood Pressure 117/38 (mmHg) O2 Sat by Pulse 98 Oximetry Oxygen Devices in Use Now: Nasal Cannula Eyes: No Scleral Icterus Ears/Nose/Mouth/Throat: NL Teeth, Lips, Gums Neck: NL Appearance and Movements; NL JVP Respiratory: Symmetrical Chest Expansion and Respiratory Effort Cardiovascular: NL Sounds; No Murmurs; No JVD Neurological: Alert and Oriented x 3 Result Diagrams: 07/09/19 04:45 07/09/19 04:45 Assess/Plan/Problems-Billing Assessment: Mrs King is a 79 yo F with PMH of CML on Gleevec, HTN, gout, HLD, BRANDY (on CPAP and O2 at night), COPD (on 5L O2 at home), GERD, sarcoidosis, Afib ( Eliquis stopped in February 2018 due to GI bleed), breast CA, who was admitted in May 2019 after a mechanical fall with multiple rib fractures. Returned to ED with c/o right side rib, upper and mid back pain associated with bruising, found to have profound anemia with Hgb of 4.9 and Hct of 14 and upper and mid back hematoma. - Patient Problems (1) Hematoma of muscle Current Visit: Yes Status: Acute Code(s): T14.8XXA - OTHER INJURY OF UNSPECIFIED BODY REGION, INITIAL ENCOUNTER SNOMED Code(s): 348050922 Comment: Gleevec - on hold. - Has hematoma extending from her trapezius down to her latissimus dorsi that was stable and rebled 07/03 down into her gluteus muscle and wrapped anteriorly toward her pectoral muscle. - Received 5 units PRBCs and 2 units FFP so far this admission and her H/H has been stable over the past 24h. - As per Dr Lutz, plan was to transfer patient to [facility], but patient declined transfer. She signed DNR/DNI and accepted supportive care only at this time and did not want intervention and or surgery,Her Daughter (HCP) was present during that discussion and supported her mother decision. - At this point, we have Interventional Radiology available and her H/H is stable, so transfer is no longer necessary. - Continue with supportive treatment and pain management. (2) Acute blood loss anemia Current Visit: Yes Status: Acute Code(s): D62 - ACUTE POSTHEMORRHAGIC ANEMIA SNOMED Code(s): 528520390 Comment: - Secondary to significant hematoma, no active signs of GI bleed. - S/p 5 units PRBC and 2 FFP. -Will also check iron studies, b12 today (3) Atrial fibrillation Current Visit: Yes Status: Acute Code(s): I48.91 - UNSPECIFIED ATRIAL FIBRILLATION SNOMED Code(s): 71557313 Comment: - Rate is controlled. - Anticoagulation on hold due history of UGI bleed and now hematoma. (4) CML (chronic myeloid leukemia) Current Visit: Yes Status: Acute Code(s): C92.10 - CHRONIC MYELOID LEUK, BCR /ABL-POSITIVE, NOT ACHIEVE REMIS SNOMED Code(s): 05323989 Comment: - Gleevec on hold. - Continue to monitor counts. -Will discuss with oncology (5) Chronic diastolic (congestive) heart failure Current Visit: Yes Status: Acute Code(s): I50.32 - CHRONIC DIASTOLIC ( CONGESTIVE) HEART FAILURE SNOMED Code(s): 386967381 Comment: - Stable. However, she is at risk of develloping acute exacerbations in the setting of trauma, transfusion and pleural effusion. - Continue Furosemide 40 mg IV daily readdress daily as needed. (6) Elevated troponin Current Visit: Yes Status: Acute Code(s): R74.8 - ABNORMAL LEVELS OF OTHER SERUM ENZYMES SNOMED Code(s): 229978675 Comment: - Likely demand ischemia in the setting of severe anemia. (7) Hypertension Current Visit: Yes Status: Acute Code(s): I10 - ESSENTIAL (PRIMARY) HYPERTENSION SNOMED Code(s): 07572186 Comment: - BP soft now due to anemia - Will keep aldactone on hold but will resume lasix due to her transfusion and pleural effusion (8) Ribs, multiple fractures Current Visit: Yes Status: Acute Code(s): S22.49XA - MULTIPLE FRACTURES OF RIBS, UNSP SIDE, INIT FOR CLOS FX SNOMED Code(s): 2501756 Comment: - hx of Fractured 5th, 7th, 8th, and 9th right ribs. - Incentive spirometry and PT as tolerated. (9) DVT prophylaxis Current Visit: Yes Status: Acute Code(s): GAL8988 - SNOMED Code(s): 108509535 Comment: - Anticoagulation is contraindicated due to hx of GI bleed and her acute anemia - SCDs.
[2019-07-09 16:48] LABS: % Iron Saturation 11 % (15-55); Iron 28 ug/dL (50-212); Total Iron Binding Capacity 256 mcg/dL (250-450); Transferrin 183 mg/dL (203-362)
[2019-07-09 17:10] LABS: Ferritin 153.8 ng/mL (11-307)
[2019-07-09 17:13] LABS: Folate 6.25 ng/mL (>3.99)
[2019-07-09] MEDS: Lidocaine Patch REMOVE* 1 NOTE MISC PATCH OFF SCH (22:33)
[2019-07-10 05:58] LABS: ABS Eosinophils 0.1 10^3/ul (0-0.6); ABS Lymphocytes 0.6 10^3/ul (1.0-4.8); ABS Monocytes 0.6 10^3/ul (0-0.8); ABS Neutrophils 3.3 10^3/ul (1.5-7.7); Eosinophil % 2.1 %; Hematocrit 21 % (35-47); Lymphocyte % 13.2 %; Mean Corpuscular HGB Conc 33 g/dL (31-36); Mean Corpuscular Hemoglobin 32 pg (27-31); Mean Corpuscular Volume 96 fL (80-97); Mean Platelet Volume 7.6 fL (7.4-10.4); Nucleated Red Blood Cells % 0.1; Platelet Count 140 10^3/uL (150-450); Red Blood Count 2.18 10^6 /uL (3.70-4.87); Red Cell Distribution Width 19 % (10-15); White Blood Count 4.7 10^3/uL (3.5-10.8)
[2019-07-10 06:18] LABS: BUN/Creatinine Ratio 13.3 (8-20); Calcium 8.5 mg/dL (8.6-10.3); EGFR African American 116.7 (>60); EGFR Non-African American 96.4 (>60); Magnesium 1.9 mg/dL (1.9-2.7); Potassium 4.4 mmol/L (3.5-5.0)
[2019-07-10] MEDS: FLUoxetine CAP* 20 MG PO SCH (08:41)
[2019-07-10] MEDS: oxyCODONE TAB* 5 MG TAB PO PRN ×2 (08:42→19:49)
[2019-07-10] MEDS: Oxybutynin XL TAB* 5 MG PO SCH (08:43)
[2019-07-10] MEDS: Allopurinol TAB* 300 MG PO SCH (08:44)
[2019-07-10] MEDS: Magnesium Oxide TAB* 400 MG PO SCH ×2 (08:44→19:51)
[2019-07-10] MEDS: Pantoprazole TAB * 40 MG TAB PO SCH ×2 (08:44→19:52)
[2019-07-10] MEDS: Ferrous Sulfate LIQ* 300 MG/5 ML UDC PO SCH ×2 (08:53→19:50)
[2019-07-10] MEDS: Lidocaine PATCH 5%* 1 PATCH TRANSDERM SCH (08:54)
[2019-07-10] MEDS: Furosemide IV* 10 MG/ML VIAL (40 MG) IV SCH (08:55)
[2019-07-10] MEDS: Potassium & Sodium Phos 250MG* = 1 PACKET PO SCH ×3 (08:59→19:51)
[2019-07-10] MEDS ORDERED: IMATINIB 400 MG PO SCH (12:00)
--- NOTE | 2019-07-10 16:39 | PN ---
Subjective Date of Service: 07/10/19 Interval History: Denies any complaints today.Hb stable at 7 Family History: Unchanged from Admission Social History: Unchanged from Admission Past Medical History: Unchanged from Admission Objective Active Medications: Acetaminophen (Tylenol Tab*) 975 mg PO Q8H PRN PRN Reason: PAIN - MILD Last Admin: 07/03/19 03:52 Dose: 975 mg Al Hydrox/Mg Hydrox/Simethicone (Maalox Plus*) 30 ml PO Q6H PRN PRN Reason: INDIGESTION Last Admin: 07/09/19 09:48 Dose: 30 ml Allopurinol (Zyloprim Tab*) 300 mg PO DAILY [facility] [place] Last Admin: 07/10/19 08:44 Dose: 300 mg Ferrous Sulfate (Feosol Liq*) 300 mg PO BID [facility] Last Admin: 07/10/19 08:53 Dose: 300 mg Fluoxetine HCl (Prozac Cap*) 60 mg PO DAILY [facility] Last Admin: 07/10/19 08:41 Dose: 60 mg Furosemide (Lasix Iv*) 40 mg IV DAILY [facility] Last Admin: 07/10/19 08:55 Dose: 40 mg Iron Sucrose 200 mg/ Sodium (Chloride) 110 mls @ 110 mls/hr IVPB Q48H [facility] Stop: 07/20/19 16:59 Lidocaine (Lidoderm 5% Patch*) 1 patch TRANSDERM DAILY [facility] Last Admin: 07/10/19 08:54 Dose: 1 patch Magnesium Hydroxide (Milk Of Magnesia Liq*) 30 ml PO Q4H PRN PRN Reason: CONSTIPATION Magnesium Oxide (Magox 400 Tab*) 800 mg PO BID [facility] [place] Last Admin: 07/10/19 08:44 Dose: 800 mg Morphine Sulfate (Morphine 10 Mg/Ml Vial (1 Ml)) 6 mg IV Q3H PRN PRN Reason: .PAIN - MODERATE TO SEVERE Last Admin: 07/08/19 09:55 Dose: 6 mg Ondansetron HCl (Zofran Inj*) 4 mg IV Q6H PRN PRN Reason: NAUSEA Last Admin: 07/09/19 22:30 Dose: 4 mg Oxybutynin Chloride (Ditropan Xl Tab*) 15 mg PO DAILY [facility] [place] Last Admin: 07/10/19 08:43 Dose: 15 mg Oxycodone HCl (Roxycodone Tab*) 10 mg PO Q4H PRN PRN Reason: PAIN - SEVERE Last Admin: 07/10/19 08:42 Dose: 10 mg Pantoprazole Sodium (Protonix Tab*) 40 mg PO BID [facility] [place] Last Admin: 07/10/19 08:44 Dose: 40 mg Pharmacy Profile Note (Lidocaine Patch Remove*) 1 note PATCH OFF 2100 [facility] [place] Last Admin: 07/09/19 22:33 Dose: 1 note Potassium Phos/Sodium Phos (Neutra Phos 250 Mg Librado*) 250 mg PO TID [facility] Last Admin: 07/10/19 08:59 Dose: 250 mg Senna (Senokot 8.6 Mg Tab*) 1 tab PO BEDTIME PRN PRN Reason: CONSTIPATION Last Admin: 07/04/19 21:45 Dose: 1 tab Vital Signs - 8 hr 07/10/19 07/10/19 07/10/19 08:42 09:40 12:00 Temperature 99.2 F 98.6 F Pulse Rate 77 66 Respiratory 18 18 16 Rate Blood Pressure 115/50 124/52 (mmHg) O2 Sat by Pulse 99 100 Oximetry Oxygen Devices in Use Now: Nasal Cannula Eyes: No Scleral Icterus Ears/Nose/Mouth/Throat: NL Teeth, Lips, Gums Neck: NL Appearance and Movements; NL JVP Respiratory: Symmetrical Chest Expansion and Respiratory Effort, Clear to Auscultation Cardiovascular: NL Sounds; No Murmurs; No JVD Abdominal: NL Sounds; No Tenderness; No Distention Skin: No Rash or Ulcers Neurological: Alert and Oriented x 3 Result Diagrams: 07/10/19 05:47 07/10/19 05:47 Assess/Plan/Problems-Billing Assessment: Mrs King is a 79 yo F with PMH of CML on Gleevec, HTN, gout, HLD, BRANDY (on CPAP and O2 at night), COPD (on 5L O2 at home), GERD, sarcoidosis, Afib ( Eliquis stopped in February 2018 due to GI bleed), breast CA, who was admitted in May 2019 after a mechanical fall with multiple rib fractures. Returned to ED with c/o right side rib, upper and mid back pain associated with bruising, found to have profound anemia with Hgb of 4.9 and Hct of 14 and upper and mid back hematoma. - Patient Problems (1) Hematoma of muscle Current Visit: Yes Status: Acute Code(s): T14.8XXA - OTHER INJURY OF UNSPECIFIED BODY REGION, INITIAL ENCOUNTER SNOMED Code(s): 601084376 Comment: Gleevec - on hold. - Has hematoma extending from her trapezius down to her latissimus dorsi that was stable and rebled / down into her gluteus muscle and wrapped anteriorly toward her pectoral muscle. - Received 5 units PRBCs and 2 units FFP so far this admission and her H/H has been stable over the past 24h. - As per Dr Lutz, plan was to transfer patient to [facility], but patient declined transfer. She signed DNR/DNI and accepted supportive care only at this time and did not want intervention and or surgery,Her Daughter (HCP) was present during that discussion and supported her mother decision. - At this point, we have Interventional Radiology available and her H/H is stable, so transfer is no longer necessary. - Continue with supportive treatment and pain management. (2) Acute blood loss anemia Current Visit: Yes Status: Acute Code(s): D62 - ACUTE POSTHEMORRHAGIC ANEMIA SNOMED Code(s): 693559319 Comment: - Secondary to significant hematoma, no active signs of GI bleed. - S/p 5 units PRBC and 2 FFP. -Will also check iron studies, b12 today -Low tsat -Will start iron infusion (3) Atrial fibrillation Current Visit: Yes Status: Acute Code(s): I48.91 - UNSPECIFIED ATRIAL FIBRILLATION SNOMED Code(s): 44455052 Comment: - Rate is controlled. - Anticoagulation on hold due history of UGI bleed and now hematoma. (4) CML (chronic myeloid leukemia) Current Visit: Yes Status: Acute Code(s): C92.10 - CHRONIC MYELOID LEUK, BCR /ABL-POSITIVE, NOT ACHIEVE REMIS SNOMED Code(s): 64873926 Comment: - Gleevec on hold. -Can restart Gleevac and was going to however on notes it says case was discussed with Janusz and rec holding off as CML stable. Discussed with Dr Prado. Will clarify with Dr Antoine who is rounding tomorrow and the pt has been following with Dr Antoine as an outpt (5) Chronic diastolic (congestive) heart failure Current Visit: Yes Status: Acute Code(s): I50.32 - CHRONIC DIASTOLIC ( CONGESTIVE) HEART FAILURE SNOMED Code(s): 945352612 Comment: - Stable. However, she is at risk of develloping acute exacerbations in the setting of trauma, transfusion and pleural effusion. - Continue Furosemide 40 mg IV daily readdress daily as needed. (6) Elevated troponin Current Visit: Yes Status: Acute Code(s): R74.8 - ABNORMAL LEVELS OF OTHER SERUM ENZYMES SNOMED Code(s): 146453381 Comment: - Likely demand ischemia in the setting of severe anemia. (7) Hypertension Current Visit: Yes Status: Acute Code(s): I10 - ESSENTIAL (PRIMARY) HYPERTENSION SNOMED Code(s): 73756723 Comment: - BP soft now due to anemia - Will keep aldactone on hold but will resume lasix due to her transfusion and pleural effusion (8) Ribs, multiple fractures Current Visit: Yes Status: Acute Code(s): S22.49XA - MULTIPLE FRACTURES OF RIBS, UNSP SIDE, INIT FOR CLOS FX SNOMED Code(s): 2418026 Comment: - hx of Fractured 5th, 7th, 8th, and 9th right ribs. - Incentive spirometry and PT as tolerated. (9) DVT prophylaxis Current Visit: Yes Status: Acute Code(s): MGL4622 - SNOMED Code(s): 726134637 Comment: - Anticoagulation is contraindicated due to hx of GI bleed and her acute anemia - SCDs. (10) Iron deficiency anemia Current Visit: Yes Status: Acute Code(s): D50.9 - IRON DEFICIENCY ANEMIA, UNSPECIFIED SNOMED Code(s): 07091172 Comment: T sat low Will start Venofer total 5 doses (11) Hyponatremia Current Visit: Yes Status: Acute Code(s): E87.1 - HYPO-OSMOLALITY AND HYPONATREMIA SNOMED Code(s): 12519026 (12) Hyponatremia Current Visit: Yes Status: Acute Code(s): E87.1 - HYPO-OSMOLALITY AND HYPONATREMIA SNOMED Code(s): 89961583 Comment: over the last few days asymptomatic could be from volume overload and lasix can help will get osm, urine osm, urina na and uric acid to eval etiology cortisol,tsh
[2019-07-10] MEDS ORDERED: Furosemide IV* 10 MG/ML VIAL (40 MG) IV ONE (16:40)
[2019-07-10] MEDS: Iron Sucrose* 200 MG in NS 0.9% 100 ML* 100 ML IVPB SCH (17:47)
[2019-07-10 18:54] LABS: TSH (Thyroid Stimulating Horm) 2.8 mcIU/mL (0.34-5.60)
[2019-07-10 18:56] LABS: Free T4 0.89 ng/dL (0.61-1.12)
[2019-07-10 19:17] LABS: Uric Acid 2.2 mg/dL (2.3-6.6)
[2019-07-10] MEDS: Lidocaine Patch REMOVE* 1 NOTE MISC PATCH OFF SCH (19:51)
[2019-07-11 07:00] LABS: ABS Eosinophils 0.1 10^3/ul (0-0.6); ABS Lymphocytes 0.5 10^3/ul (1.0-4.8); ABS Monocytes 0.7 10^3/ul (0-0.8); Eosinophil % 2.4 %; Hematocrit 21 % (35-47); Hemoglobin 7.3 g/dL (12.0-16.0); Lymphocyte % 12.8 %; Mean Corpuscular HGB Conc 34 g/dL (31-36); Mean Corpuscular Hemoglobin 33 pg (27-31); Mean Corpuscular Volume 95 fL (80-97); Mean Platelet Volume 7.8 fL (7.4-10.4); Nucleated Red Blood Cells % 0.1; Platelet Count 139 10^3/uL (150-450); Red Blood Count 2.22 10^6 /uL (3.70-4.87); Red Cell Distribution Width 19 % (10-15); White Blood Count 4.3 10^3/uL (3.5-10.8)
[2019-07-11 07:18] LABS: BUN/Creatinine Ratio 14.7 (8-20); Calcium 8.3 mg/dL (8.6-10.3); EGFR Non-African American 83.5 (>60); Potassium 3.8 mmol/L (3.5-5.0)
[2019-07-11] MEDS: Lidocaine PATCH 5%* 1 PATCH TRANSDERM SCH (08:18)
[2019-07-11] MEDS: Oxybutynin XL TAB* 5 MG PO SCH (08:20)
[2019-07-11] MEDS: Potassium & Sodium Phos 250MG* = 1 PACKET PO SCH ×3 (08:21→22:01)
[2019-07-11] MEDS: Ferrous Sulfate LIQ* 300 MG/5 ML UDC PO SCH ×2 (08:21→22:01)
[2019-07-11] MEDS: FLUoxetine CAP* 20 MG PO SCH (08:23)
[2019-07-11] MEDS: Furosemide IV* 10 MG/ML VIAL (40 MG) IV SCH (08:23)
[2019-07-11] MEDS: Pantoprazole TAB * 40 MG TAB PO SCH ×2 (08:24→22:01)
[2019-07-11] MEDS: Magnesium Oxide TAB* 400 MG PO SCH ×2 (08:24→22:01)
[2019-07-11] MEDS: Allopurinol TAB* 300 MG PO SCH (08:27)
[2019-07-11] MEDS: IMATINIB 400 MG PO SCH (12:30)
[2019-07-11 12:41] LABS: Urine Appearance Cloudy; Urine Bacteria 2+ (Absent); Urine Bilirubin Negative (Negative); Urine Blood 2+ (Negative); Urine Color Yellow; Urine Glucose Negative (Negative); Urine Ketones Negative (Negative); Urine Nitrite Negative (Negative); Urine Protein Negative (Negative); Urine Red Blood Cell 2+(6-10/hpf) (Absent); Urine Specific Gravity 1.003 (1.010-1.030); Urine Squamous Epithelial Cell Present (Absent); Urine Urobilinogen Negative (Negative); Urine White Blood Cell 3+(>20/hpf) (Absent)
--- NOTE | 2019-07-11 16:21 | PN ---
Subjective Family History: Unchanged from Admission Social History: Unchanged from Admission Past Medical History: Unchanged from Admission Objective Active Medications: Acetaminophen (Tylenol Tab*) 975 mg PO Q8H PRN PRN Reason: PAIN - MILD Last Admin: 07/03/19 03:52 Dose: 975 mg Al Hydrox/Mg Hydrox/Simethicone (Maalox Plus*) 30 ml PO Q6H PRN PRN Reason: INDIGESTION Last Admin: 07/09/19 09:48 Dose: 30 ml Allopurinol (Zyloprim Tab*) 300 mg PO DAILY [facility] Last Admin: 07/11/19 08:27 Dose: 300 mg Ferrous Sulfate (Feosol Liq*) 300 mg PO BID [facility] Last Admin: 07/11/19 08:21 Dose: 300 mg Fluoxetine HCl (Prozac Cap*) 60 mg PO DAILY [facility] Last Admin: 07/11/19 08:23 Dose: 60 mg Furosemide (Lasix Iv*) 40 mg IV DAILY [facility] Last Admin: 07/11/19 08:23 Dose: 40 mg Iron Sucrose 200 mg/ Sodium (Chloride) 110 mls @ 110 mls/hr IVPB Q48H [facility] Stop: 07/20/19 16:59 Last Admin: 07/10/19 17:47 Dose: 110 mls/hr Ceftriaxone Sodium 1 gm/ (Sodium Chloride) 50 mls @ 100 mls/hr IVPB Q24H [facility] Imatinib Mesylate (Gleevec (Nf)) 400 mg PO DAILY [facility] Last Admin: 07/11/19 12:30 Dose: 400 mg Lidocaine (Lidoderm 5% Patch*) 1 patch TRANSDERM DAILY [facility] Last Admin: 07/11/19 08:18 Dose: 1 patch Magnesium Hydroxide (Milk Of Magnesia Liq*) 30 ml PO Q4H PRN PRN Reason: CONSTIPATION Magnesium Oxide (Magox 400 Tab*) 800 mg PO BID [facility] Last Admin: 07/11/19 08:24 Dose: 800 mg Morphine Sulfate (Morphine 10 Mg/Ml Vial (1 Ml)) 6 mg IV Q3H PRN PRN Reason: .PAIN - MODERATE TO SEVERE Last Admin: 07/08/19 09:55 Dose: 6 mg Ondansetron HCl (Zofran Inj*) 4 mg IV Q6H PRN PRN Reason: NAUSEA Last Admin: 07/09/19 22:30 Dose: 4 mg Oxybutynin Chloride (Ditropan Xl Tab*) 15 mg PO DAILY [facility] Last Admin: 07/11/19 08:20 Dose: 15 mg Oxycodone HCl (Roxycodone Tab*) 10 mg PO Q4H PRN PRN Reason: PAIN - SEVERE Last Admin: 07/10/19 19:49 Dose: 10 mg Pantoprazole Sodium (Protonix Tab*) 40 mg PO BID [facility] Last Admin: 07/11/19 08:24 Dose: 40 mg Pharmacy Profile Note (Lidocaine Patch Remove*) 1 note PATCH OFF 2100 [facility] Last Admin: 07/10/19 19:51 Dose: 1 note Potassium Phos/Sodium Phos (Neutra Phos 250 Mg Librado*) 250 mg PO TID [facility] Last Admin: 07/11/19 08:21 Dose: 250 mg Senna (Senokot 8.6 Mg Tab*) 1 tab PO BEDTIME PRN PRN Reason: CONSTIPATION Last Admin: 07/04/19 21:45 Dose: 1 tab Sodium Chloride (Sodium Chloride Tab*) 1 gm PO TID [facility] Vital Signs - 8 hr 07/11/19 07/11/19 08:00 12:09 Temperature 98.5 F Pulse Rate 61 Respiratory 20 20 Rate Blood Pressure 100/31 (mmHg) O2 Sat by Pulse 100 Oximetry Oxygen Devices in Use Now: CPAP Result Diagrams: 07/11/19 05:46 07/11/19 05:46 Assess/Plan/Problems-Billing Assessment: Mrs King is a 79 yo F with PMH of CML on Gleevec, HTN, gout, HLD, BRANDY (on CPAP and O2 at night), COPD (on 5L O2 at home), GERD, sarcoidosis, Afib ( Eliquis stopped in February 2018 due to GI bleed), breast CA, who was admitted in May 2019 after a mechanical fall with multiple rib fractures. Returned to ED with c/o right side rib, upper and mid back pain associated with bruising, found to have profound anemia with Hgb of 4.9 and Hct of 14 and upper and mid back hematoma. - Patient Problems (1) Hematoma of muscle Current Visit: Yes Status: Acute Code(s): T14.8XXA - OTHER INJURY OF UNSPECIFIED BODY REGION, INITIAL ENCOUNTER SNOMED Code(s): 766940762 Comment: Gleevec - on hold. - Has hematoma extending from her trapezius down to her latissimus dorsi that was stable and rebled / down into her gluteus muscle and wrapped anteriorly toward her pectoral muscle. - Received 5 units PRBCs and 2 units FFP so far this admission and her H/H has been stable over the past 24h. - As per Dr Lutz, plan was to transfer patient to [facility], but patient declined transfer. She signed DNR/DNI and accepted supportive care only at this time and did not want intervention and or surgery,Her Daughter (HCP) was present during that discussion and supported her mother decision. - At this point, we have Interventional Radiology available and her H/H is stable, so transfer is no longer necessary. - Continue with supportive treatment and pain management. (2) Acute blood loss anemia Current Visit: Yes Status: Acute Code(s): D62 - ACUTE POSTHEMORRHAGIC ANEMIA SNOMED Code(s): 808773243 Comment: - Secondary to significant hematoma, no active signs of GI bleed. - S/p 5 units PRBC and 2 FFP. -Will also check iron studies, b12 today -Low tsat -Will start iron infusion (3) Atrial fibrillation Current Visit: Yes Status: Acute Code(s): I48.91 - UNSPECIFIED ATRIAL FIBRILLATION SNOMED Code(s): 62802846 Comment: - Rate is controlled. - Anticoagulation on hold due history of UGI bleed and now hematoma. (4) CML (chronic myeloid leukemia) Current Visit: Yes Status: Acute Code(s): C92.10 - CHRONIC MYELOID LEUK, BCR /ABL-POSITIVE, NOT ACHIEVE REMIS SNOMED Code(s): 88441825 Comment: - Gleevec on hold. -Can restart Gleevac and was going to however on notes it says case was discussed with Janusz and rec holding off as CML stable. Discussed with Dr Prado. Will clarify with Dr Antoine who is rounding tomorrow and the pt has been following with Dr Antoine as an outpt (5) Chronic diastolic (congestive) heart failure Current Visit: Yes Status: Acute Code(s): I50.32 - CHRONIC DIASTOLIC ( CONGESTIVE) HEART FAILURE SNOMED Code(s): 178093263 Comment: - Stable. However, she is at risk of develloping acute exacerbations in the setting of trauma, transfusion and pleural effusion. - Continue Furosemide 40 mg IV daily readdress daily as needed. (6) Elevated troponin Current Visit: Yes Status: Acute Code(s): R74.8 - ABNORMAL LEVELS OF OTHER SERUM ENZYMES SNOMED Code(s): 650849472 Comment: - Likely demand ischemia in the setting of severe anemia. (7) Hypertension Current Visit: Yes Status: Acute Code(s): I10 - ESSENTIAL (PRIMARY) HYPERTENSION SNOMED Code(s): 54014081 Comment: - BP soft now due to anemia - Will keep aldactone on hold but will resume lasix due to her transfusion and pleural effusion (8) Ribs, multiple fractures Current Visit: Yes Status: Acute Code(s): S22.49XA - MULTIPLE FRACTURES OF RIBS, UNSP SIDE, INIT FOR CLOS FX SNOMED Code(s): 6298440 Comment: - hx of Fractured 5th, 7th, 8th, and 9th right ribs. - Incentive spirometry and PT as tolerated. (9) DVT prophylaxis Current Visit: Yes Status: Acute Code(s): GEW1097 - SNOMED Code(s): 098290380 Comment: - Anticoagulation is contraindicated due to hx of GI bleed and her acute anemia - SCDs. (10) Iron deficiency anemia Current Visit: Yes Status: Acute Code(s): D50.9 - IRON DEFICIENCY ANEMIA, UNSPECIFIED SNOMED Code(s): 59305755 Comment: T sat low Will start Venofer total 5 doses (11) Hyponatremia Current Visit: Yes Status: Acute Code(s): E87.1 - HYPO-OSMOLALITY AND HYPONATREMIA SNOMED Code(s): 56045795 (12) Hyponatremia Current Visit: Yes Status: Acute Code(s): E87.1 - HYPO-OSMOLALITY AND HYPONATREMIA SNOMED Code(s): 32490606 Comment: over the last few days asymptomatic could be from volume overload and lasix can help will get osm, urine osm, urina na and uric acid to eval etiology cortisol,tsh
[2019-07-11] MEDS: Morphine 10 MG/ML VIAL (1 ml) IV PRN ×2 (16:23→22:18)
[2019-07-11] MEDS: cefTRIAXone(*) 1 GM in NS 0.9% 50 ML* 50 ML IVPB SCH (16:24)
[2019-07-11] MEDS: Ondansetron INJ* 2 MG/ML VIAL IV PRN ×2 (16:24→22:01)
--- NOTE | 2019-07-11 16:25 | PN ---
Subjective Date of Service: 07/11/19 Interval History: Wants to go home.but nauseous and vomiting this afternoon after gleevac Family History: Unchanged from Admission Social History: Unchanged from Admission Past Medical History: Unchanged from Admission Objective Active Medications: Acetaminophen (Tylenol Tab*) 975 mg PO Q8H PRN PRN Reason: PAIN - MILD Last Admin: 07/03/19 03:52 Dose: 975 mg Al Hydrox/Mg Hydrox/Simethicone (Maalox Plus*) 30 ml PO Q6H PRN PRN Reason: INDIGESTION Last Admin: 07/09/19 09:48 Dose: 30 ml Allopurinol (Zyloprim Tab*) 300 mg PO DAILY [facility] Last Admin: 07/11/19 08:27 Dose: 300 mg Ferrous Sulfate (Feosol Liq*) 300 mg PO BID [facility] Last Admin: 07/11/19 08:21 Dose: 300 mg Fluoxetine HCl (Prozac Cap*) 60 mg PO DAILY [facility] Last Admin: 07/11/19 08:23 Dose: 60 mg Furosemide (Lasix Iv*) 40 mg IV DAILY [facility] Last Admin: 07/11/19 08:23 Dose: 40 mg Iron Sucrose 200 mg/ Sodium (Chloride) 110 mls @ 110 mls/hr IVPB Q48H [facility] Stop: 07/20/19 16:59 Last Admin: 07/10/19 17:47 Dose: 110 mls/hr Ceftriaxone Sodium 1 gm/ (Sodium Chloride) 50 mls @ 100 mls/hr IVPB Q24H [facility] Imatinib Mesylate (Gleevec (Nf)) 400 mg PO DAILY [facility] Last Admin: 07/11/19 12:30 Dose: 400 mg Lidocaine (Lidoderm 5% Patch*) 1 patch TRANSDERM DAILY [facility] Last Admin: 07/11/19 08:18 Dose: 1 patch Magnesium Hydroxide (Milk Of Magnesia Liq*) 30 ml PO Q4H PRN PRN Reason: CONSTIPATION Magnesium Oxide (Magox 400 Tab*) 800 mg PO BID [facility] Last Admin: 07/11/19 08:24 Dose: 800 mg Morphine Sulfate (Morphine 10 Mg/Ml Vial (1 Ml)) 6 mg IV Q3H PRN PRN Reason: .PAIN - MODERATE TO SEVERE Last Admin: 07/08/19 09:55 Dose: 6 mg Ondansetron HCl (Zofran Inj*) 4 mg IV Q6H PRN PRN Reason: NAUSEA Last Admin: 07/09/19 22:30 Dose: 4 mg Oxybutynin Chloride (Ditropan Xl Tab*) 15 mg PO DAILY [facility] Last Admin: 07/11/19 08:20 Dose: 15 mg Oxycodone HCl (Roxycodone Tab*) 10 mg PO Q4H PRN PRN Reason: PAIN - SEVERE Last Admin: 07/10/19 19:49 Dose: 10 mg Pantoprazole Sodium (Protonix Tab*) 40 mg PO BID [facility] Last Admin: 07/11/19 08:24 Dose: 40 mg Pharmacy Profile Note (Lidocaine Patch Remove*) 1 note PATCH OFF 2099 [facility] Last Admin: 07/10/19 19:51 Dose: 1 note Potassium Phos/Sodium Phos (Neutra Phos 250 Mg Librado*) 250 mg PO TID [facility] Last Admin: 07/11/19 08:21 Dose: 250 mg Senna (Senokot 8.6 Mg Tab*) 1 tab PO BEDTIME PRN PRN Reason: CONSTIPATION Last Admin: 07/04/19 21:45 Dose: 1 tab Sodium Chloride (Sodium Chloride Tab*) 1 gm PO TID [facility] Vital Signs - 8 hr 07/11/19 12:09 Temperature 98.5 F Pulse Rate 61 Respiratory 20 Rate Blood Pressure 100/31 (mmHg) O2 Sat by Pulse 100 Oximetry Oxygen Devices in Use Now: None, CPAP Eyes: No Scleral Icterus Ears/Nose/Mouth/Throat: NL Teeth, Lips, Gums Neck: NL Appearance and Movements; NL JVP Respiratory: Symmetrical Chest Expansion and Respiratory Effort Cardiovascular: NL Sounds; No Murmurs; No JVD Abdominal: NL Sounds; No Tenderness; No Distention Extremities: No Edema Neurological: Alert and Oriented x 3 Result Diagrams: 07/11/19 05:46 07/11/19 05:46 Assess/Plan/Problems-Billing Assessment: Mrs King is a 79 yo F with PMH of CML on Gleevec, HTN, gout, HLD, BRANDY (on CPAP and O2 at night), COPD (on 5L O2 at home), GERD, sarcoidosis, Afib ( Eliquis stopped in February 2018 due to GI bleed), breast CA, who was admitted in May 2019 after a mechanical fall with multiple rib fractures. Returned to ED with c/o right side rib, upper and mid back pain associated with bruising, found to have profound anemia with Hgb of 4.9 and Hct of 14 and upper and mid back hematoma. - Patient Problems (1) Hematoma of muscle Current Visit: Yes Status: Acute Code(s): T14.8XXA - OTHER INJURY OF UNSPECIFIED BODY REGION, INITIAL ENCOUNTER SNOMED Code(s): 446329355 Comment: - Has hematoma extending from her trapezius down to her latissimus dorsi that was stable and rebled / down into her gluteus muscle and wrapped anteriorly toward her pectoral muscle. - Received 5 units PRBCs and 2 units FFP so far this admission and her H/H has been stable over the past 24h. - As per Dr Lutz, plan was to transfer patient to [facility], but patient declined transfer. She signed DNR/DNI and accepted supportive care only at this time and did not want intervention and or surgery,Her Daughter (HCP) was present during that discussion and supported her mother decision. - At this point, we have Interventional Radiology available and her H/H is stable, so transfer is no longer necessary. - Continue with supportive treatment and pain management. (2) Acute blood loss anemia Current Visit: Yes Status: Acute Code(s): D62 - ACUTE POSTHEMORRHAGIC ANEMIA SNOMED Code(s): 323560915 Comment: - Secondary to significant hematoma, no active signs of GI bleed. - S/p 5 units PRBC and 2 FFP. -Will also check iron studies, b12 today -Low tsat -Will start iron infusion (3) Atrial fibrillation Current Visit: Yes Status: Acute Code(s): I48.91 - UNSPECIFIED ATRIAL FIBRILLATION SNOMED Code(s): 23599898 Comment: - Rate is controlled. - Anticoagulation on hold due history of UGI bleed and now hematoma. (4) CML (chronic myeloid leukemia) Current Visit: Yes Status: Acute Code(s): C92.10 - CHRONIC MYELOID LEUK, BCR /ABL-POSITIVE, NOT ACHIEVE REMIS SNOMED Code(s): 66408236 Comment: -Restarted Gleevac after discussing with Dr Antoine (5) Chronic diastolic (congestive) heart failure Current Visit: Yes Status: Acute Code(s): I50.32 - CHRONIC DIASTOLIC ( CONGESTIVE) HEART FAILURE SNOMED Code(s): 279285090 Comment: - Stable. However, she is at risk of develloping acute exacerbations in the setting of trauma, transfusion and pleural effusion. -Recd iv lasix (6) Elevated troponin Current Visit: Yes Status: Acute Code(s): R74.8 - ABNORMAL LEVELS OF OTHER SERUM ENZYMES SNOMED Code(s): 469418787 Comment: - Likely demand ischemia in the setting of severe anemia. (7) Hypertension Current Visit: Yes Status: Acute Code(s): I10 - ESSENTIAL (PRIMARY) HYPERTENSION SNOMED Code(s): 49997397 Comment: - BP soft now due to anemia - Will keep aldactone on hold but will resume lasix due to her transfusion and pleural effusion (8) Ribs, multiple fractures Current Visit: Yes Status: Acute Code(s): S22.49XA - MULTIPLE FRACTURES OF RIBS, UNSP SIDE, INIT FOR CLOS FX SNOMED Code(s): 7327656 Comment: - hx of Fractured 5th, 7th, 8th, and 9th right ribs. - Incentive spirometry and PT as tolerated. (9) DVT prophylaxis Current Visit: Yes Status: Acute Code(s): RTI5599 - SNOMED Code(s): 087653671 Comment: - Anticoagulation is contraindicated due to hx of GI bleed and her acute anemia - SCDs. (10) Iron deficiency anemia Current Visit: Yes Status: Acute Code(s): D50.9 - IRON DEFICIENCY ANEMIA, UNSPECIFIED SNOMED Code(s): 70576587 Comment: T sat low Will start Venofer total 5 doses (11) Hyponatremia Current Visit: Yes Status: Acute Code(s): E87.1 - HYPO-OSMOLALITY AND HYPONATREMIA SNOMED Code(s): 27635250 Comment: multifactorial siadh with low uric acid and low serum osm and innapropriately inc urine osm fluid restruction likely from pain currently sodium tabs and then d/c (12) UTI (urinary tract infection) Current Visit: Yes Status: Acute Comment: will start ceftriaxone urine cx pending
[2019-07-11] MEDS: Sodium Chloride TAB* 1 GM PO SCH ×2 (16:36→22:01)
[2019-07-11] MEDS: oxyCODONE TAB* 5 MG TAB PO PRN (19:37)
[2019-07-11] MEDS: Lidocaine Patch REMOVE* 1 NOTE MISC PATCH OFF SCH (22:00)
[2019-07-12 07:30] LABS: ABS Eosinophils 0.1 10^3/ul (0-0.6); ABS Lymphocytes 0.7 10^3/ul (1.0-4.8); ABS Monocytes 0.7 10^3/ul (0-0.8); Eosinophil % 2.4 %; Hematocrit 22 % (35-47); Hemoglobin 7.3 g/dL (12.0-16.0); Lymphocyte % 14.5 %; Mean Corpuscular HGB Conc 34 g/dL (31-36); Mean Corpuscular Hemoglobin 32 pg (27-31); Mean Corpuscular Volume 95 fL (80-97); Mean Platelet Volume 8.2 fL (7.4-10.4); Nucleated Red Blood Cells % 0.1; Platelet Count 159 10^3/uL (150-450); Red Blood Count 2.26 10^6 /uL (3.70-4.87); Red Cell Distribution Width 19 % (10-15); White Blood Count 4.5 10^3/uL (3.5-10.8)
[2019-07-12] MEDS: Ondansetron INJ* 2 MG/ML VIAL IV PRN ×2 (07:37→21:10)
[2019-07-12] MEDS: oxyCODONE TAB* 5 MG TAB PO PRN ×3 (07:37→20:08)
[2019-07-12 07:50] LABS: BUN/Creatinine Ratio 14.7 (8-20); Calcium 8.6 mg/dL (8.6-10.3); EGFR Non-African American 83.5 (>60); Potassium 4.1 mmol/L (3.5-5.0)
[2019-07-12] MEDS: FLUoxetine CAP* 20 MG PO SCH (09:17)
[2019-07-12] MEDS: Oxybutynin XL TAB* 5 MG PO SCH (09:18)
[2019-07-12] MEDS: IMATINIB 400 MG PO SCH (09:18)
[2019-07-12] MEDS: Furosemide IV* 10 MG/ML VIAL (40 MG) IV SCH (09:20)
[2019-07-12] MEDS: Pantoprazole TAB * 40 MG TAB PO SCH ×2 (09:20→21:28)
[2019-07-12] MEDS: Allopurinol TAB* 300 MG PO SCH (09:23)
[2019-07-12] MEDS: Ferrous Sulfate LIQ* 300 MG/5 ML UDC PO SCH ×2 (09:26→21:28)
[2019-07-12] MEDS: Lidocaine PATCH 5%* 1 PATCH TRANSDERM SCH (09:28)
[2019-07-12] MEDS: Sodium Chloride TAB* 1 GM PO SCH ×3 (09:29→21:28)
[2019-07-12] MEDS: Magnesium Oxide TAB* 400 MG PO SCH ×2 (09:29→21:28)
[2019-07-12] MEDS: Potassium & Sodium Phos 250MG* = 1 PACKET PO SCH ×4 (09:30→21:28)
[2019-07-12] MEDS: Al Hydrox/Mg Hydrox/Simet LIQ* 30 ML UDC PO PRN ×2 (09:30→21:28)
[2019-07-12] MEDS: Analgesic BALM* 114 GM TOPICAL SCH ×2 (14:53→21:34)
--- NOTE | 2019-07-12 14:53 | PN ---
Subjective Date of Service: 07/12/19 Interval History: Some improvement in nausea today.Reports feeling better Family History: Unchanged from Admission Social History: Unchanged from Admission Past Medical History: Unchanged from Admission Objective Active Medications: Acetaminophen (Tylenol Tab*) 975 mg PO Q8H PRN PRN Reason: PAIN - MILD Last Admin: 07/03/19 03:52 Dose: 975 mg Al Hydrox/Mg Hydrox/Simethicone (Maalox Plus*) 30 ml PO Q6H PRN PRN Reason: INDIGESTION Last Admin: 07/12/19 09:30 Dose: 30 ml Allopurinol (Zyloprim Tab*) 300 mg PO DAILY [facility] Last Admin: 07/12/19 09:23 Dose: 300 mg Ferrous Sulfate (Feosol Liq*) 300 mg PO BID [facility] Last Admin: 07/12/19 09:26 Dose: 300 mg Fluoxetine HCl (Prozac Cap*) 60 mg PO DAILY [facility] Last Admin: 07/12/19 09:17 Dose: 60 mg Furosemide (Lasix Iv*) 40 mg IV DAILY [facility] Last Admin: 07/12/19 09:20 Dose: 40 mg Iron Sucrose 200 mg/ Sodium (Chloride) 110 mls @ 110 mls/hr IVPB Q48H [facility] Stop: 07/20/19 16:59 Last Admin: 07/10/19 17:47 Dose: 110 mls/hr Ceftriaxone Sodium 1 gm/ (Sodium Chloride) 50 mls @ 100 mls/hr IVPB Q24H [facility] Last Admin: 07/11/19 16:24 Dose: 100 mls/hr Imatinib Mesylate (Gleevec (Nf)) 400 mg PO DAILY [facility] Last Admin: 07/12/19 09:18 Dose: 400 mg Lidocaine (Lidoderm 5% Patch*) 1 patch TRANSDERM DAILY [facility] Last Admin: 07/12/19 09:28 Dose: 1 patch Magnesium Hydroxide (Milk Of Magnesia Liq*) 30 ml PO Q4H PRN PRN Reason: CONSTIPATION Magnesium Oxide (Magox 400 Tab*) 800 mg PO BID [facility] Last Admin: 07/12/19 09:29 Dose: 800 mg Morphine Sulfate (Morphine 10 Mg/Ml Vial (1 Ml)) 6 mg IV Q3H PRN PRN Reason: .PAIN - MODERATE TO SEVERE Last Admin: 07/11/19 22:18 Dose: 6 mg Multi-Ingredient Liniment/Rub (Durga Camilo*) 1 applic TOPICAL TID [facility] Ondansetron HCl (Zofran Inj*) 4 mg IV Q6H PRN PRN Reason: NAUSEA Last Admin: 07/12/19 07:37 Dose: 4 mg Oxybutynin Chloride (Ditropan Xl Tab*) 15 mg PO DAILY [facility] Last Admin: 07/12/19 09:18 Dose: 15 mg Oxycodone HCl (Roxycodone Tab*) 10 mg PO Q4H PRN PRN Reason: PAIN - SEVERE Last Admin: 07/12/19 07:37 Dose: 10 mg Pantoprazole Sodium (Protonix Tab*) 40 mg PO BID [facility] Last Admin: 07/12/19 09:20 Dose: 40 mg Pharmacy Profile Note (Lidocaine Patch Remove*) 1 note PATCH OFF 2100 [facility] Last Admin: 07/11/19 22:00 Dose: 1 note Potassium Phos/Sodium Phos (Neutra Phos 250 Mg Librado*) 250 mg PO TID [facility] Last Admin: 07/12/19 09:33 Dose: Not Given Senna (Senokot 8.6 Mg Tab*) 1 tab PO BEDTIME PRN PRN Reason: CONSTIPATION Last Admin: 07/04/19 21:45 Dose: 1 tab Sodium Chloride (Sodium Chloride Tab*) 1 gm PO TID [facility] Last Admin: 07/12/19 09:29 Dose: 1 gm Vital Signs - 8 hr 07/12/19 07/12/19 07/12/19 07:37 07:46 07:48 Temperature 98.5 F Pulse Rate 67 Respiratory 20 20 20 Rate Blood Pressure 110/43 (mmHg) O2 Sat by Pulse 100 Oximetry 07/12/19 07/12/19 09:30 11:16 Temperature Pulse Rate 62 Respiratory 18 18 Rate Blood Pressure 127/41 (mmHg) O2 Sat by Pulse Oximetry Oxygen Devices in Use Now: Nasal Cannula Eyes: No Scleral Icterus Ears/Nose/Mouth/Throat: NL Teeth, Lips, Gums Neck: NL Appearance and Movements; NL JVP Respiratory: Symmetrical Chest Expansion and Respiratory Effort, Clear to Auscultation, - - Back bruising improved. non tender Cardiovascular: NL Sounds; No Murmurs; No JVD Abdominal: NL Sounds; No Tenderness; No Distention Extremities: - - bilateral edema Neurological: Alert and Oriented x 3 Result Diagrams: 07/12/19 06:57 09/21/19 06:57 Microbiology and Other Data: Microbiology 07/11/19 11:36 Urine Culture - Preliminary Urine Klebsiella Pneumoniae Assess/Plan/Problems-Billing Assessment: Mrs King is a 79 yo F with PMH of CML on Gleevec, HTN, gout, HLD, BRANDY (on CPAP and O2 at night), COPD (on 5L O2 at home), GERD, sarcoidosis, Afib ( Eliquis stopped in February 2018 due to GI bleed), breast CA, who was admitted in May 2019 after a mechanical fall with multiple rib fractures. Returned to ED with c/o right side rib, upper and mid back pain associated with bruising, found to have profound anemia with Hgb of 4.9 and Hct of 14 and upper and mid back hematoma. - Patient Problems (1) Hematoma of muscle Current Visit: Yes Status: Acute Code(s): T14.8XXA - OTHER INJURY OF UNSPECIFIED BODY REGION, INITIAL ENCOUNTER SNOMED Code(s): 383878037 Comment: -Has hematoma extending from her trapezius down to her latissimus dorsi that was stable and rebled 07/03 down into her gluteus muscle and wrapped anteriorly toward her pectoral muscle. - Received 5 units PRBCs and 2 units FFP so far this admission and her H/H has been stable over the past few days - As per Dr Lutz, plan was to transfer patient to [facility], but patient declined transfer. She signed DNR/DNI and accepted supportive care only at this time and did not want intervention and or surgery,Her Daughter (HCP) was present during that discussion and supported her mother decision. - At this point, we have Interventional Radiology available and her H/H is stable, so transfer is no longer necessary. - Continue with supportive treatment and pain management. (2) Acute blood loss anemia Current Visit: Yes Status: Acute Code(s): D62 - ACUTE POSTHEMORRHAGIC ANEMIA SNOMED Code(s): 505423537 Comment: - Secondary to significant hematoma, no active signs of GI bleed. - S/p 5 units PRBC and 2 FFP. -checked iron studies, b12 today -Low tsat -Will start iron infusion, 2nd dose today, total of 5 doses (3) Atrial fibrillation Current Visit: Yes Status: Acute Code(s): I48.91 - UNSPECIFIED ATRIAL FIBRILLATION SNOMED Code(s): 79124558 Comment: - Rate is controlled. - Anticoagulation on hold due history of UGI bleed and now hematoma. (4) CML (chronic myeloid leukemia) Current Visit: Yes Status: Acute Code(s): C92.10 - CHRONIC MYELOID LEUK, BCR /ABL-POSITIVE, NOT ACHIEVE REMIS SNOMED Code(s): 48817932 Comment: -Restarted Gleevac after discussing with Dr Antoine -Hold anticoagulation -F/u with him as outpt -Premedicate with anti nausea med prior to Gleevac (5) Chronic diastolic (congestive) heart failure Current Visit: Yes Status: Acute Code(s): I50.32 - CHRONIC DIASTOLIC ( CONGESTIVE) HEART FAILURE SNOMED Code(s): 128446184 Comment: - Stable. However, she is at risk of develloping acute exacerbations in the setting of trauma, transfusion and pleural effusion. -Receving iv lasix -Edematous (6) Elevated troponin Current Visit: Yes Status: Acute Code(s): R74.8 - ABNORMAL LEVELS OF OTHER SERUM ENZYMES SNOMED Code(s): 414036633 Comment: - Likely demand ischemia in the setting of severe anemia. (7) Hypertension Current Visit: Yes Status: Acute Code(s): I10 - ESSENTIAL (PRIMARY) HYPERTENSION SNOMED Code(s): 81241055 Comment: - BP soft initially due to anemia - Will keep aldactone on hold but will resume lasix due to her transfusion and pleural effusion -Can restart Aldactone 1-2 days if stable (8) Ribs, multiple fractures Current Visit: Yes Status: Acute Code(s): S22.49XA - MULTIPLE FRACTURES OF RIBS, UNSP SIDE, INIT FOR CLOS FX SNOMED Code(s): 0578531 Comment: - hx of Fractured 5th, 7th, 8th, and 9th right ribs. - Incentive spirometry and PT as tolerated. (9) DVT prophylaxis Current Visit: Yes Status: Acute Code(s): [id number] - SNOMED Code(s): 806429433 Comment: - Anticoagulation is contraindicated due to hx of GI bleed and her acute anemia - SCDs. (10) Iron deficiency anemia Current Visit: Yes Status: Acute Code(s): D50.9 - IRON DEFICIENCY ANEMIA, UNSPECIFIED SNOMED Code(s): 23184519 Comment: T sat low Will start Venofer total 5 doses (11) Hyponatremia Current Visit: Yes Status: Acute Code(s): E87.1 - HYPO-OSMOLALITY AND HYPONATREMIA SNOMED Code(s): 38194387 Comment: multifactorial some component siadh with low uric acid and low serum osm and innapropriately inc urine osm fluid restruction likely from pain currently likely reversible cml in remission with gleevac starting sodium tabs and can stop when Na improves to >132 and recheck as outpt (12) UTI (urinary tract infection) Current Visit: Yes Status: Acute Comment: will start ceftriaxone urine cx pending nausea improved with rx of uti Status and Disposition: discharge home in 1-2 days when medically stable
[2019-07-12] MEDS: cefTRIAXone(*) 1 GM in NS 0.9% 50 ML* 50 ML IVPB SCH (16:54)
[2019-07-12 17:05] LABS: BUN/Creatinine Ratio 14.7 (8-20); Calcium 8.5 mg/dL (8.6-10.3); EGFR African American 90.2 (>60); EGFR Non-African American 74.5 (>60); Potassium 4.3 mmol/L (3.5-5.0)
[2019-07-12] MEDS: Iron Sucrose* 200 MG in NS 0.9% 100 ML* 100 ML IVPB SCH (17:31)
[2019-07-12] MEDS: Lidocaine Patch REMOVE* 1 NOTE MISC PATCH OFF SCH (21:37)
[2019-07-13] MEDS: oxyCODONE TAB* 5 MG TAB PO PRN ×3 (04:01→13:18)
[2019-07-13 06:58] LABS: ABS Eosinophils 0.1 10^3/ul (0-0.6); ABS Lymphocytes 0.7 10^3/ul (1.0-4.8); ABS Monocytes 0.7 10^3/ul (0-0.8); ABS Neutrophils 2.9 10^3/ul (1.5-7.7); Eosinophil % 1.8 %; Hematocrit 22 % (35-47); Hemoglobin 7.4 g/dL (12.0-16.0); Lymphocyte % 15.1 %; Mean Corpuscular HGB Conc 35 g/dL (31-36); Mean Corpuscular Hemoglobin 33 pg (27-31); Mean Corpuscular Volume 95 fL (80-97); Mean Platelet Volume 7.9 fL (7.4-10.4); Nucleated Red Blood Cells % 0.1; Platelet Count 155 10^3/uL (150-450); Red Blood Count 2.26 10^6 /uL (3.70-4.87); Red Cell Distribution Width 18 % (10-15); White Blood Count 4.3 10^3/uL (3.5-10.8)
[2019-07-13 07:19] LABS: BUN/Creatinine Ratio 16.2 (8-20); Calcium 8.6 mg/dL (8.6-10.3); EGFR African American 91.6 (>60); EGFR Non-African American 75.7 (>60); Potassium 4.3 mmol/L (3.5-5.0)
[2019-07-13] MEDS: Oxybutynin XL TAB* 5 MG PO SCH (08:45)
[2019-07-13] MEDS: Ferrous Sulfate LIQ* 300 MG/5 ML UDC PO SCH ×2 (08:45→21:07)
[2019-07-13] MEDS: Lidocaine PATCH 5%* 1 PATCH TRANSDERM SCH (08:45)
[2019-07-13] MEDS: FLUoxetine CAP* 20 MG PO SCH (08:47)
[2019-07-13] MEDS: Magnesium Oxide TAB* 400 MG PO SCH ×2 (08:48→21:08)
[2019-07-13] MEDS: Potassium & Sodium Phos 250MG* = 1 PACKET PO SCH ×4 (08:49→21:25)
[2019-07-13] MEDS: Allopurinol TAB* 300 MG PO SCH (08:50)
[2019-07-13] MEDS: Pantoprazole TAB * 40 MG TAB PO SCH ×2 (08:50→21:09)
[2019-07-13] MEDS: Sodium Chloride TAB* 1 GM PO SCH ×3 (08:50→21:08)
[2019-07-13] MEDS: Ondansetron INJ* 2 MG/ML VIAL IV PRN ×2 (08:50→21:07)
[2019-07-13] MEDS: Furosemide IV* 10 MG/ML VIAL (40 MG) IV SCH (08:50)
[2019-07-13] MEDS: IMATINIB 400 MG PO SCH (08:58)
[2019-07-13] MEDS: Analgesic BALM* 114 GM TOPICAL SCH ×3 (08:58→21:18)
[2019-07-13] MEDS: cefTRIAXone(*) 1 GM in NS 0.9% 50 ML* 50 ML IVPB SCH (16:01)
[2019-07-13] MEDS: Lidocaine Patch REMOVE* 1 NOTE MISC PATCH OFF SCH (21:18)
[2019-07-14] MEDS: Analgesic BALM* 114 GM TOPICAL SCH ×3 (08:31→21:24)
[2019-07-14] MEDS: FLUoxetine CAP* 20 MG PO SCH (08:32)
[2019-07-14] MEDS: Allopurinol TAB* 300 MG PO SCH (08:32)
[2019-07-14] MEDS: Lidocaine PATCH 5%* 1 PATCH TRANSDERM SCH (08:32)
[2019-07-14] MEDS: Ferrous Sulfate LIQ* 300 MG/5 ML UDC PO SCH ×2 (08:33→21:08)
[2019-07-14] MEDS: Pantoprazole TAB * 40 MG TAB PO SCH ×2 (08:33→21:09)
[2019-07-14] MEDS: Magnesium Oxide TAB* 400 MG PO SCH ×2 (08:33→21:09)
[2019-07-14] MEDS: Potassium & Sodium Phos 250MG* = 1 PACKET PO SCH ×3 (08:34→21:11)
[2019-07-14] MEDS: oxyCODONE TAB* 5 MG TAB PO PRN ×3 (08:34→22:30)
[2019-07-14] MEDS: IMATINIB 400 MG PO SCH (08:39)
[2019-07-14] MEDS: Sodium Chloride TAB* 1 GM PO SCH ×3 (08:39→21:26)
[2019-07-14] MEDS: Oxybutynin XL TAB* 5 MG PO SCH (08:40)
[2019-07-14] MEDS: Furosemide IV* 10 MG/ML VIAL (40 MG) IV SCH (08:45)
[2019-07-14] MEDS: Ondansetron INJ* 2 MG/ML VIAL IV PRN ×2 (08:46→21:04)
[2019-07-14] MEDS: cefTRIAXone(*) 1 GM in NS 0.9% 50 ML* 50 ML IVPB SCH (16:03)
[2019-07-14] MEDS: Iron Sucrose* 200 MG in NS 0.9% 100 ML* 100 ML IVPB SCH (17:37)
[2019-07-14] MEDS: Acetaminophen TAB* 325 MG PO PRN (17:42)
[2019-07-14] MEDS: Lidocaine Patch REMOVE* 1 NOTE MISC PATCH OFF SCH (21:26)
[2019-07-15] MEDS ORDERED: PROCHLORPERAZINE INJ 5 MG/ML 2 ML VIAL IV PRN (00:04)
[2019-07-15] MEDS: Morphine 10 MG/ML VIAL (1 ml) IV PRN (00:24)
[2019-07-15] MEDS: Lidocaine PATCH 5%* 1 PATCH TRANSDERM SCH (10:31)
[2019-07-15] MEDS: Oxybutynin XL TAB* 5 MG PO SCH (10:31)
[2019-07-15] MEDS: Ferrous Sulfate LIQ* 300 MG/5 ML UDC PO SCH ×2 (10:31→21:13)
[2019-07-15] MEDS: Allopurinol TAB* 300 MG PO SCH (10:32)
[2019-07-15] MEDS: Magnesium Oxide TAB* 400 MG PO SCH ×2 (10:32→21:13)
[2019-07-15] MEDS: Pantoprazole TAB * 40 MG TAB PO SCH ×2 (10:32→21:13)
[2019-07-15] MEDS: Sodium Chloride TAB* 1 GM PO SCH ×3 (10:32→21:13)
[2019-07-15] MEDS: Potassium & Sodium Phos 250MG* = 1 PACKET PO SCH ×3 (10:32→21:13)
[2019-07-15] MEDS: FLUoxetine CAP* 20 MG PO SCH (10:32)
[2019-07-15] MEDS: Furosemide IV* 10 MG/ML VIAL (40 MG) IV SCH (10:32)
[2019-07-15] MEDS: IMATINIB 400 MG PO SCH (10:32)
[2019-07-15] MEDS: Analgesic BALM* 114 GM TOPICAL SCH ×3 (10:33→21:25)
[2019-07-15 14:26] LABS: Hematocrit 25 % (35-47); Hemoglobin 8.4 g/dL (12.0-16.0); Mean Corpuscular HGB Conc 34 g/dL (31-36); Mean Corpuscular Hemoglobin 32 pg (27-31); Mean Corpuscular Volume 95 fL (80-97); Mean Platelet Volume 7.9 fL (7.4-10.4); Platelet Count 163 10^3/uL (150-450); Red Blood Count 2.58 10^6 /uL (3.70-4.87); Red Cell Distribution Width 19 % (10-15); White Blood Count 4.5 10^3/uL (3.5-10.8)
--- NOTE | 2019-07-15 14:34 | PN ---
Subjective Date of Service: 07/15/19 Interval History: Pt still c/o R chest pain, but is slowly improving. Walked with PT today and wishes to go home Family History: Unchanged from Admission Social History: Unchanged from Admission Past Medical History: Unchanged from Admission Objective Active Medications: Acetaminophen (Tylenol Tab*) 975 mg PO Q8H PRN PRN Reason: PAIN - MILD Last Admin: 07/14/19 17:42 Dose: 975 mg Al Hydrox/Mg Hydrox/Simethicone (Maalox Plus*) 30 ml PO Q6H PRN PRN Reason: INDIGESTION Last Admin: 07/12/19 21:28 Dose: 30 ml Allopurinol (Zyloprim Tab*) 300 mg PO DAILY [facility] Last Admin: 07/15/19 10:32 Dose: 300 mg Ferrous Sulfate (Feosol Liq*) 300 mg PO BID [facility] Last Admin: 07/15/19 10:31 Dose: 300 mg Fluoxetine HCl (Prozac Cap*) 60 mg PO DAILY [facility] Last Admin: 07/15/19 10:32 Dose: 60 mg Furosemide (Lasix Iv*) 40 mg IV DAILY [facility] Last Admin: 07/15/19 10:32 Dose: 40 mg Iron Sucrose 200 mg/ Sodium (Chloride) 110 mls @ 110 mls/hr IVPB Q48H [facility] Stop: 07/20/19 16:59 Last Admin: 07/14/19 17:37 Dose: 110 mls/hr Ceftriaxone Sodium 1 gm/ (Sodium Chloride) 50 mls @ 100 mls/hr IVPB Q24H [facility] Last Admin: 07/14/19 16:03 Dose: 100 mls/hr Imatinib Mesylate (Gleevec (Nf)) 400 mg PO DAILY [facility] Last Admin: 07/15/19 10:32 Dose: 400 mg Lidocaine (Lidoderm 5% Patch*) 1 patch TRANSDERM DAILY [facility] Last Admin: 07/15/19 10:31 Dose: 1 patch Magnesium Hydroxide (Milk Of Magnesia Liq*) 30 ml PO Q4H PRN PRN Reason: CONSTIPATION Magnesium Oxide (Magox 400 Tab*) 800 mg PO BID [facility] Last Admin: 07/15/19 10:32 Dose: 800 mg Morphine Sulfate (Morphine 10 Mg/Ml Vial (1 Ml)) 6 mg IV Q3H PRN PRN Reason: .PAIN - MODERATE TO SEVERE Last Admin: 07/15/19 00:24 Dose: 6 mg Multi-Ingredient Liniment/Rub (Durga Camilo*) 1 applic TOPICAL TID [facility] Last Admin: 07/15/19 10:33 Dose: Not Given Ondansetron HCl (Zofran Inj*) 4 mg IV Q6H PRN PRN Reason: NAUSEA Last Admin: 07/14/19 21:04 Dose: 4 mg Oxybutynin Chloride (Ditropan Xl Tab*) 15 mg PO DAILY [facility] Last Admin: 07/15/19 10:31 Dose: 15 mg Oxycodone HCl (Roxycodone Tab*) 10 mg PO Q4H PRN PRN Reason: PAIN - SEVERE Last Admin: 07/14/19 22:30 Dose: 10 mg Pantoprazole Sodium (Protonix Tab*) 40 mg PO BID [facility] Last Admin: 07/15/19 10:32 Dose: 40 mg Pharmacy Profile Note (Lidocaine Patch Remove*) 1 note PATCH OFF 2100 [facility] Last Admin: 07/14/19 21:26 Dose: 1 note Potassium Phos/Sodium Phos (Neutra Phos 250 Mg Librado*) 250 mg PO TID [facility] Last Admin: 07/15/19 10:32 Dose: 250 mg Prochlorperazine Edisylate (Compazine Inj*) 10 mg IV Q6H PRN PRN Reason: NAUSEA/VOMITING Last Admin: 07/15/19 00:23 Dose: 10 mg Senna (Senokot 8.6 Mg Tab*) 1 tab PO BEDTIME PRN PRN Reason: CONSTIPATION Last Admin: 07/04/19 21:45 Dose: 1 tab Sodium Chloride (Sodium Chloride Tab*) 1 gm PO TID [facility] Last Admin: 07/15/19 10:32 Dose: 1 gm Oxygen Devices in Use Now: Nasal Cannula Appearance: 79 yo F ionn nAD, AAOx3 Eyes: No Scleral Icterus, PERRLA Ears/Nose/Mouth/Throat: NL Teeth, Lips, Gums, Mucous Membranes Moist Neck: NL Appearance and Movements; NL JVP, Trachea Midline Respiratory: Symmetrical Chest Expansion and Respiratory Effort, Clear to Auscultation Cardiovascular: NL Sounds; No Murmurs; No JVD, RRR Abdominal: NL Sounds; No Tenderness; No Distention Lymphatic: No Cervical Adenopathy Extremities: No Clubbing, Cyanosis, - - trace pedal edema b/l Skin: No Nodules or Sclerosis, - - diffuse resolving ecchymosis of upper back and b/l shoulders as well as L hip and R lower chest Neurological: Alert and Oriented x 3, NL Muscle Strength and Tone Result Diagrams: 07/15/19 14:10 07/15/19 14:10 Additional Lab and Data: Above labs were pulled into the note when edited prior to signing the note, please see below for labs from the day of consultation. Laboratory Tests 07/02/19 07/08/19 07/08/19 20:11 09:34 09:35 WBC 5.9 Hgb 8.0 L Hct 24 L Plt Count 154 Sodium 127 L Potassium 4.1 Chloride 95 L Carbon Dioxide 29 BUN 9 Creatinine 0.65 Glucose 130 H Total Protein 5.1 L Albumin 3.1 L Microbiology and Other Data: Microbiology 07/11/19 11:36 Urine Culture - Preliminary Urine Klebsiella Pneumoniae Assess/Plan/Problems-Billing Assessment: Mrs King is a 79 yo F with PMH of CML on Gleevec, HTN, gout, HLD, BRANDY (on CPAP and O2 at night), COPD (on 5L O2 at home), GERD, sarcoidosis, Afib ( Eliquis stopped in February 2018 due to GI bleed), breast CA, who was admitted in May 2019 after a mechanical fall with multiple rib fractures. Returned to ED with c/o right side rib, upper and mid back pain associated with bruising, found to have profound anemia with Hgb of 4.9 and Hct of 14 and upper and mid back hematoma. - Patient Problems (1) Acute blood loss anemia Comment: - Secondary to significant hematoma, no active signs of GI bleed. - S/p 5 units PRBC and 2 FFP -cont iron infusion, total of 5 doses (2) Atrial fibrillation Comment: - Rate is controlled. - Anticoagulation on hold due history of UGI bleed and now hematoma. (3) CML (chronic myeloid leukemia) Comment: -Restarted Gleevec after discussing with Dr Antoine (4) Chronic diastolic (congestive) heart failure Comment: - Stable. However, she is at risk of develloping acute exacerbations in the setting of trauma, transfusion and pleural effusion. -was receiving iv lasix, will restart home PO Lasix and Aldactone -awaiting today's labs (5) Elevated troponin Comment: - Likely demand ischemia in the setting of severe anemia. (6) Hematoma of muscle Comment: -Has hematoma extending from her trapezius down to her latissimus dorsi that was stable and rebled 07/03 down into her gluteus muscle and wrapped anteriorly toward her pectoral muscle. - Received 5 units PRBCs and 2 units FFP so far this admission and her H/H has been stable over the past few days (7) Hyponatremia Comment: multifactorial some component siadh with low uric acid and low serum osm and innapropriately inc urine osm Labs pending today Salt tabs started 07/11 (8) Iron deficiency anemia Comment: T sat low cont IV Iron (9) UTI (urinary tract infection) Comment: U Cx + Klebsiella, cont ceftriaxone, tomorrow day 02/23 (10) DVT prophylaxis Comment: - Anticoagulation is contraindicated due to hx of GI bleed and her acute anemia - SCDs. Status and Disposition: discharge home likely tomorrow
[2019-07-15 14:48] LABS: BUN/Creatinine Ratio 15.9 (8-20); Calcium 8.9 mg/dL (8.6-10.3); EGFR African American 99.3 (>60); EGFR Non-African American 82.1 (>60)
[2019-07-15] MEDS: Ondansetron INJ* 2 MG/ML VIAL IV PRN ×2 (14:50→20:51)
[2019-07-15] MEDS: oxyCODONE TAB* 5 MG TAB PO PRN ×2 (14:50→21:13)
--- NOTE | 2019-07-15 16:13 | PN ---
Subjective Date of Service: 07/15/19 Interval History: Ms. King is a 79 yo female with PMH significant for CML, chronic GI bleed, HTN, GOUT, A fib, GERD, and BRANDY; who presented to the hospital with complains of right sided rib pain. She was admitted for elevated troponin, GI bleed, and right rib pain. She presented to the hospital with multiple areas of ecchymosis and a wound to the right leg. During her stay she was found to have a left buttock pressure injury. Denies fever or chills. She has developed a red yeast like rash under her breasts and ABD fold. Patient seen and examined at bedside. Family History: Unchanged from Admission Social History: Unchanged from Admission Past Medical History: Unchanged from Admission Objective Active Medications: Acetaminophen (Tylenol Tab*) 975 mg PO Q8H PRN Reason: PAIN - MILD Al Hydrox/Mg Hydrox/Simethicone (Maalox Plus*) 30 ml PO Q6H PRN Reason: INDIGESTION Allopurinol (Zyloprim Tab*) 300 mg PO DAILY [facility] Ferrous Sulfate (Feosol Liq*) 300 mg PO BID [facility] Fluoxetine HCl (Prozac Cap*) 60 mg PO DAILY [facility] Furosemide (Lasix Tab*) 40 mg PO DAILY [facility] Iron Sucrose 200 mg/ Sodium (Chloride) 110 mls @ 110 mls/hr IVPB Q48H [facility] Stop: 07/20/19 16:59 Ceftriaxone Sodium 1 gm/ (Sodium Chloride) 50 mls @ 100 mls/hr IVPB Q24H [facility] Imatinib Mesylate (Gleevec (Nf)) 400 mg PO DAILY [facility] Lidocaine (Lidoderm 5% Patch*) 1 patch TRANSDERM DAILY [facility] Magnesium Hydroxide (Milk Of Magnesia Liq*) 30 ml PO Q4H PRN Reason: CONSTIPATION Magnesium Oxide (Magox 400 Tab*) 800 mg PO BID [facility] Morphine Sulfate (Morphine 10 Mg/Ml Vial (1 Ml)) 6 mg IV Q3H PRN Reason: .PAIN - MODERATE TO SEVERE Multi-Ingredient Liniment/Rub (Durga Camilo*) 1 applic TOPICAL TID [facility] Ondansetron HCl (Zofran Inj*) 4 mg IV Q6H PRN Reason: NAUSEA Oxybutynin Chloride (Ditropan Xl Tab*) 15 mg PO DAILY [facility] Oxycodone HCl (Roxycodone Tab*) 10 mg PO Q4H PRN Reason: PAIN - SEVERE Pantoprazole Sodium (Protonix Tab*) 40 mg PO BID [facility] Pharmacy Profile Note (Lidocaine Patch Remove*) 1 note PATCH OFF 2100 [facility] Potassium Phos/Sodium Phos (Neutra Phos 250 Mg Librado*) 250 mg PO TID [facility] Prochlorperazine Edisylate (Compazine Inj*) 10 mg IV Q6H PRN Reason: NAUSEA/ VOMITING Senna (Senokot 8.6 Mg Tab*) 1 tab PO BEDTIME PRN Reason: CONSTIPATION Sodium Chloride (Sodium Chloride Tab*) 1 gm PO TID [facility] Spironolactone (Aldactone Tab*) 12.5 mg PO DAILY [facility] Vital Signs - 8 hr 07/15/19 07/15/19 14:50 15:52 Temperature 98.4 F Pulse Rate 81 Respiratory 19 20 Rate Blood Pressure 126/32 (mmHg) O2 Sat by Pulse 100 Oximetry Oxygen Devices in Use Now: Nasal Cannula Appearance: NAD, laying in bed Ears/Nose/Mouth/Throat: Mucous Membranes Moist Respiratory: Symmetrical Chest Expansion and Respiratory Effort Skin: - - See skin note below Neurological: Alert and Oriented x 3 Result Diagrams: 07/15/19 14:10 07/15/19 14:10 Skin Deviation Note - Skin Deviation Findings Left buttock - There is a wound, measures 1 cm x 1.3 cm x 0.2 cm . The wound base is mostly yellow slough. The surrounding skin is dark erythema, slightly blanchable. The remainder of the area is intact. Wound Problem/Plan Assessment: Ms. King is a 79 yo female with PMH significant for CML, chronic GI bleed, HTN, GOUT, A fib, GERD, and BRANDY; who presented to the hospital with complains of right sided rib pain. She was admitted for elevated troponin, GI bleed, and right rib pain. She presented to the hospital with an open area to the right lower leg. During her hospitalization she developed a pressure injury to the left buttock. 1. Unstageable pressure injury to left buttock. Recommend applying barrier cream to the area as needed. Recommend applying a small amount of Santyl on the area of dark colored slough if this doesn't resolve in a few days. DO NOT use a dressing on this area. Frequent turning and repositioning. Consider checking a prealbumin level to assess nutritional status. She should be referred to the wound clinic at discharge for continued wound care. 2. Abrasion to the right lateral LE. This was not visualized today. Recommend applying a small amount of ABX ointment and bandaid, change daily. 3. Candidiasis. Recommend applying Nystatin powder to ABD folds and under breasts. 4. Diet. Regular diet 5. Code Status. DNR. 6. Disposition. Inpatient, disposition per primary medicine team. Is Patient a Wound Clinic Patient: No Counseling and/or Coordination of Care Minutes: 25 Points of Discussion: TIME SPENT: Time for this wound consultation was 25 minutes and 15 minutes was spent with the patient discussing past medical history; removing old dressing; assessing, measuring, and photographing the wounds; reapplying dressings. Attending: Julieta Gold
[2019-07-15] MEDS: cefTRIAXone(*) 1 GM in NS 0.9% 50 ML* 50 ML IVPB SCH (17:51)
[2019-07-15] MEDS: Nystatin TOP POWDER* 15 GM BTL TOPICAL SCH (21:14)
[2019-07-15] MEDS: Lidocaine Patch REMOVE* 1 NOTE MISC PATCH OFF SCH (21:14)
[2019-07-16 08:11] VITALS: BP 106/36
[2019-07-16] MEDS ORDERED: Collagenase 250 UNITS/GM OINT* 1 APPLIC OINT TOPICAL SCH (09:00)
[2019-07-16] MEDS ORDERED: Furosemide TAB* 40 MG PO SCH (09:00)
[2019-07-16] MEDS ORDERED: Spironolactone TAB* 25 MG PO SCH (09:00)
[2019-07-16] MEDS: Ondansetron INJ* 2 MG/ML VIAL IV PRN (09:11)
[2019-07-16] MEDS ORDERED: Ondansetron ODT TAB* 4 MG SL ONE (09:16)
[2019-07-16] MEDS ORDERED: Cefdinir cap* 300 MG CAP PO ONE (10:00)
[2019-07-16] MEDS: Allopurinol TAB* 300 MG PO SCH (11:04)
[2019-07-16] MEDS: FLUoxetine CAP* 20 MG PO SCH (11:06)
[2019-07-16] MEDS: Ferrous Sulfate LIQ* 300 MG/5 ML UDC PO SCH (11:06)
[2019-07-16] MEDS: Lidocaine PATCH 5%* 1 PATCH TRANSDERM SCH (11:09)
[2019-07-16] MEDS: Oxybutynin XL TAB* 5 MG PO SCH (11:10)
[2019-07-16] MEDS: Potassium & Sodium Phos 250MG* = 1 PACKET PO SCH (11:10)
[2019-07-16] MEDS: Magnesium Oxide TAB* 400 MG PO SCH (11:10)
[2019-07-16] MEDS: Pantoprazole TAB * 40 MG TAB PO SCH (11:10)
[2019-07-16] MEDS: Sodium Chloride TAB* 1 GM PO SCH (11:11)
[2019-07-16] MEDS: Nystatin TOP POWDER* 15 GM BTL TOPICAL SCH (11:11)
[2019-07-16] MEDS: IMATINIB 400 MG PO SCH (11:13)
[2019-07-16] MEDS: Analgesic BALM* 114 GM TOPICAL SCH (11:24)
--- NOTE | 2019-07-16 14:32 | DS ---
CC: Dr. Antoine; Dr. Jesus * DISCHARGE SUMMARY: DATE OF ADMISSION: 07/02/19 DATE OF DISCHARGE: 07/16/19 ONCOLOGIST: Dr. Antoine. DISPOSITION AT DISCHARGE: To home. CONDITION ON DISCHARGE: Stable. DISCHARGE DIAGNOSES: 1. Acute blood loss anemia due to muscular hematoma mostly overlying the musculature of the upper back and right chest. 2. History of multiple rib fractures on the right side in May of 2019. 3. History of chronic elevated troponin. 4. Anemia due to acute hemorrhage due to the intramuscular hematoma as above as well as secondary to chronic anemia due to chronic myeloid leukemia history. The patient was also diagnosed with iron deficiency anemia and treated with IV iron infusions for a total of 4 days. 5. Klebsiella pneumoniae urinary tract infection. 6. Hyponatremia that was thought to be due to a combination of factors including SIADH related. The patient was treated with salt tablets transiently throughout the hospital stay. 7. Hypomagnesemia, replaced. 8. Hypophosphatemia replaced. SECONDARY DIAGNOSES: 1. History of slowly recurring gastrointestinal bleed of unknown etiology, status post endoscopy 2-1/2 months ago that demonstrated small varices. The patient has a pending capsule endoscopy at this point. 2. History of chronic myeloid leukemia, on Gleevec. Followed by Dr. Antoine. 3. Hypertension. 4. Gout. 5. Nonalcoholic fatty liver disease. 6. History of atrial fibrillation, chronic, rate controlled, not on anticoagulation due to gastrointestinal bleed and now muscle hematoma. 7. Gastroesophageal reflux disease. 8. History of obstructive sleep apnea. 9. Prior to the patient's hospital stay, the patient was on oxygen at night only, but she is going to continue oxygen during the daytime for the time being at 3 L. 10. History of chronic diastolic congestive heart failure, on furosemide and Aldactone at home. The patient had bilateral pleural effusions and required IV furosemide during the hospital stay. MEDICATIONS AT DISCHARGE: Include: 1. Acetaminophen 975 mg t.i.d. p.r.n. 2. Allopurinol 300 mg daily. 3. Colace 100 mg b.i.d. 4. Lasix 40 mg daily. 5. Gleevec 400 mg daily. 6. Nystatin cream 1 application topically to affected areas t.i.d. p.r.n. 7. Omeprazole 20 mg b.i.d. 8. Zofran 4 mg every 4 hours p.r.n. 9. Ditropan XL 15 mg b.i.d. 10. Aldactone 12.5 mg daily. 11. Santyl ointment, apply to slough area of the left buttock on a daily basis. 12. Apply a barrier cream to the remaining area of the left buttock and leave open to air. 13. Prozac 60 mg daily. 14. Lidoderm patch 5% apply to painful area on the chest and back, remove daily. 15. Oxycodone 5 mg every 4 hours p.r.n. The patient was prescribed a total of 30 tablets. I-STOP was checked. Last prescription she received on oxycodone and OxyContin was on 06/12/19, and those prescriptions were for 10 and 14 days respectively. 16. MiraLAX 17 g daily p.r.n. 17. Senna 1 tablet at bedtime p.r.n. LABORATORY DATA AND STUDIES PERFORMED DURING THE HOSPITAL STAY: Included on , sodium of 132, potassium 4.0, chloride 95, carbon dioxide 33, BUN 11, creatinine 0.69. White blood cell count was 4.5, hemoglobin of 8.4, hematocrit of 25, and platelets of 163. Microbiology test is positive for Klebsiella pneumoniae UTI in the urine cultures obtained on 07/11/19. The patient received treatment with ceftriaxone for a total of 4 days and cefdinir for stroke 1 day prior to discharge. Venous Doppler study obtained on 07/06/19 showed limited exam without compelling evidence of a DVT. Portable chest x-ray obtained on 07/06/19, impression: "Small right pleural effusion and partial atelectasis of the right lung compared with 07/04/19 test. CTA of chest, abdomen, and pelvis obtained on 07/07/19, impression: "Stable hematoma of the right chest wall. Right-sided rib fractures. Large right pleural effusion with compressive atelectasis of the right lower lobe. Extensive subcutaneous edema. Atherosclerosis. Cholelithiasis. Again noted a multinodular goiter. Consider CT-guided imaging of the thyroid in the nonacute setting. Calcification of the pancreatic head suggestive of chronic pancreatitis." HOSPITAL COURSE: Charlene King is a 79-year-old female who fractured her ribs after a fall in May of 2019 and stayed in our hospital until 06/12/19 after a prolonged hospital stay and problems with pain control. The patient was discharged home and apparently did fairly well during her post hospital stay with decreasing pain in her right chest until several days prior to her current admission on 07/02/19, in which she experienced dry heaving and vomiting. Subsequently, she developed generalized weakness and came in to the ED for evaluation. At that point, the patient was noted to have a hemoglobin of 4.9. She was noted to have hematoma on her upper back and right chest and left hand that appears to be subcutaneous but further CT evaluation noted that the patient actually has intramuscular hematoma in the right chest wall area. That was likely where the acute blood loss was from. She received a total of 5 units of packed red blood cells with good results. She was also noted to have iron deficiency anemia, treated with IV iron for 4 days prior to her discharge. Prior to hospital stay, she was noted to have hyponatremia with sodium as low as 126. She was placed on salt tablets and fluid restriction with good results. By the time of discharge, her sodium was 132. At that point, we are going to discontinue the patient's salt tablets and see how she fares at home. She is going to have a repeat basic metabolic panel and CBC to be obtained approximately 5 days after discharge to follow up. The etiology of SIADH could have been due to severe pain as well as new narcotics pain management. The patient was also noted to have abnormal urinalysis and urine culture was positive for Klebsiella pneumoniae. She received 5-day treatment with third generation cephalosporin prior to discharge. Please note that the patient has chronically elevated troponin and her troponin peaked at 0.1 on 07/03/19, which is slightly worse from prior. It is likely due to demand ischemia and the patient with severe anemia. It was discussed with Dr. Antoine that Gleevec, the patient's medication for CML could have predisposed her to have the intramuscular hematoma. Gleevec was held for several days of the patient's hospital stay to be restarted approximately 5 days prior to the patient's discharge and it is to be continued at discharge. At discharge, the patient was prescribed OxyContin for pain and her daughter is going to be taking care of her at home. She was prescribed a wheelchair, and she is also going to ambulate with a rolling walker. Please note that she developed decubitus in the left buttock, which is unstageable area of approximately 3 cm circular area with bottom cover as well as surrounding area of approximately 10 to 15 cm that has just irritated skin. The patient's brother was instructed to use Santyl ointment on the slough area on a daily basis and barrier cream on the remaining part of the decubitus and to leave it to open air. They are aware of repositioning the patient as frequently as possible, but at least every 2 hours. The patient also has been now increasing with her ambulation and ambulation was encouraged after discharge. Due to the prolonged hospitalization and history of atelectasis and pleural effusions, the patient was not able to be liberated from oxygen and she still required oxygen at 3 L by the time of discharge. That is required to be continued at discharge including in addition to her oxygen that she uses at night. The patient can be weaned off oxygen as tolerated if her oxygen saturation allows. PHYSICAL EXAM ON DISCHARGE: Blood pressure of 106/36, heart rate 76 and irregular, respiratory rate 18, oxygen saturation 98% on 3 L oxygen, temperature 98.3. General: The patient is a very pleasant 79-year-old female who is in no acute distress. Alert and oriented x3. HEENT: Head: Atraumatic , normocephalic. Eyes: Pupils equal and reactive to light and accommodation. Oropharynx is clear. Mucosa moist. Neck: Supple. No JVD, no bruit bilaterally. Cardiovascular: Irregularly irregular rhythm. No murmur. Respiratory: Fine crackles at bilateral bases that is otherwise clear. Abdomen : Soft, nontender. Bowel sounds present in all 4 quadrants. Extremities: There is +1 pitting pedal edema bilaterally. Pulses are +2 bilaterally. There is no clubbing or cyanosis. Upon evaluation of the skin, the patient has diffuse ecchymotic area over the bilateral shoulders, the upper back, right chest, and left hip. On the left buttock, she has an area of 3 cm of decubitus that is unstageable, with bottom covered with slough. This is rather shallow approximately 0.5 cm in depth. Surrounding area of approximately 10 to 15 cm irritated skin and no breakdown. Neurologically, the patient is slightly hard of hearing, otherwise cranial nerves II through XII grossly intact. Motor strength is 5/5 bilaterally. Please note the patient has generalized deconditioning, but she had been ambulating with physical therapy with 1 person assist. DISPOSITION AT DISCHARGE: To home. CONDITION ON DISCHARGE: Stable. Please note that this is a short summary of the patient's prolonged and complicated hospitalization. Please refer to further medical records for details. TIME SPENT: Approximately 50 minutes was spent on the patient's discharge. [id number]/CPS #: [id number]
== END 2019-07-16 12:00 | disposition home or self-care (01) | DRG 812 ==
LOC: ED 18:59 → ICU 23:08 → MEDTELE 07-03 10:26
PROVIDERS: ADMIT Internal Medicine; ATTEND Internal Medicine
PROC: 30233N1 Transfusion of Nonautologous Red Blood Cells into Peripheral Vein, Percutaneous Approach (ICD-10-PCS; principal; 2019-07-02)
PROC: 30233K1 Transfusion of Nonautologous Frozen Plasma into Peripheral Vein, Percutaneous Approach (ICD-10-PCS; 2019-07-02)
DX: D62 Acute posthemorrhagic anemia (principal); S22.41XA Multiple fractures of ribs, right side, initial encounter for closed fracture; C92.10 Chronic myeloid leukemia, BCR/ABL-positive, not having achieved remission; I50.32 Chronic diastolic (congestive) heart failure; N39.0 Urinary tract infection, site not specified; E22.2 Syndrome of inappropriate secretion of antidiuretic hormone; I24.8 Other forms of acute ischemic heart disease; M10.9 Gout, unspecified; I48.91 Unspecified atrial fibrillation; G47.33 Obstructive sleep apnea (adult) (pediatric); J44.9 Chronic obstructive pulmonary disease, unspecified; M47.9 Spondylosis, unspecified; M19.90 Unspecified osteoarthritis, unspecified site; K21.9 Gastro-esophageal reflux disease without esophagitis; K76.0 Fatty (change of) liver, not elsewhere classified; D86.9 Sarcoidosis, unspecified; H26.9 Unspecified cataract; F32.9 Major depressive disorder, single episode, unspecified; L89.320 Pressure ulcer of left buttock, unstageable; N32.81 Overactive bladder; S80.811A Abrasion, right lower leg, initial encounter; Z66 Do not resuscitate; S20.229A Contusion of unspecified back wall of thorax, initial encounter; W19.XXXA Unspecified fall, initial encounter; I11.0 Hypertensive heart disease with heart failure; E66.9 Obesity, unspecified; D50.9 Iron deficiency anemia, unspecified; B37.2 Candidiasis of skin and nail; S20.211A Contusion of right front wall of thorax, initial encounter; B96.1 Klebsiella pneumoniae [K. pneumoniae] as the cause of diseases classified elsewhere; E83.42 Hypomagnesemia; E83.39 Other disorders of phosphorus metabolism; Z88.1 Allergy status to other antibiotic agents; Z88.0 Allergy status to penicillin; Z88.8 Allergy status to other drugs, medicaments and biological substances; Z82.3 Family history of stroke; Z80.3 Family history of malignant neoplasm of breast; Z91.041 Radiographic dye allergy status; Z87.442 Personal history of urinary calculi; Z90.11 Acquired absence of right breast and nipple; Z90.710 Acquired absence of both cervix and uterus; Z85.3 Personal history of malignant neoplasm of breast; Z92.21 Personal history of antineoplastic chemotherapy; Y92.9 Unspecified place or not applicable; Z68.36 Body mass index [BMI] 36.0-36.9, adult; Z99.81 Dependence on supplemental oxygen
CPT/HCPCS: 36415; 71045; 71046; 71250; 74176; 80048; 80053; 81003; 81015; 82533; 82607; 82728; 82746; 83540; 83550; 83735; 83930; 83935; 84100; 84300; 84439; 84443; 84484; 84550; 85014; 85018; 85025; 85027; 85610; 85730; 86850; 86900; 86901; 86922; 86927; 87077; 87086; 87186; 93005; 93970; 94660; 99285; A9270-GY; G8978-GP-CL; G8979-GP-CJ; J0696; J0780; J1756; J1940; J2270; J2405; J3475; J3480; P9017; P9040